=== PATIENT | female | born 1945 | race African-American/Black ===

== ENCOUNTER 2020-10-18 07:39 | Day surgery (SDC) | payer OTHER ==
--- NOTE | 2020-10-12 13:23 | RAD REPORT ---
EXAM DESCRIPTION: RAD - Chest Pa And Lat (2 Views) - 10/12/2020 1:10 pm CLINICAL HISTORY: pre op Chest pain. COMPARISON: CHEST PA AND LAT 2 VIEW dated 12/19/2008; Breast Bilat W Wo Cont dated 04/04/2020 FINDINGS: The lungs are clear. The heart is normal in size. No displaced fractures. Mildly tortuous thoracic aorta.
[2020-10-12 13:57] LABS: Absolute Lymphocytes (CBC) 1.7 K/uL (0.7-4.9); Basophils % 0.4 % (0-1.3); Hematocrit 37.1 % (36.0-45.0); Lymphocytes % 33.8 % (15.3-44.8); MPV 8.4 fL (7.6-11.3); RBC Red Blood Cell Count 4.22 M/uL (3.86-4.86)
[2020-10-12 14:04] LABS: Protime INR 0.97
--- NOTE | 2020-10-14 10:05 | EKG ---
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
[~2020-10-18 07:39] MED LIST: CLINDAMYCIN INJ 600 MG in NA CHLORIDE 0.9% 50 ML IV SCH
[2020-10-18] MEDS ORDERED: BUPIVACAINE 0.25% PF 10 ML VIAL ONE (07:43)
--- OUTSIDE RECORDS SUMMARY | 2020-10-18 08:08 | XMS REPORT | Continuity of Care Document ---
:1945 Author Organization [employer] Care Team Providers Name Role Phone [employer] Unavailable Un available Problems Problem Status Onset Classification Date Comments Sourc e Date Reported Encounter for 01/24/2019 gynecological 018 Medica l examination (general) Group (routine) without abnormal findings Other specified 01/24/2019 noninflammatory 018 Medi seamus disorders of vulva and Group perineum Nuclear cataract Resolved Problem 09/08/2020 MH (disorder) 016 Medical Group,[place] [facility] Neuro Pseudophakia Active Problem 09/08/2020 Data MH (disorder) 016 migrated Medical from [facility] nicanor on 04/22/15. Neuro, OPID [place] R10.9 - UNSPECIFIED Active OPID ABDOMINAL PAIN 016 [place] Long-term drug therapy Resolved Problem 09/08/2020 Data (procedure) 016 migrated Medical from [facility] nicanor on 04/22/15. Neuro EXAMINATION, Active Condition 06/12/2015 MH PREOPERATIVE NEC 015 Med ical Group URINARY TRACT Inactive Condition 06/12/2015 INFECTION, SITE NOT 015 Medical SPECIFIED Group Adhesive capsulitis of Active Problem 09/08/2020 Data shoulder (disorder) 015 migrated Medical from [facility] nicanor on 05/31/15. Neuro, OP[place] FROZEN LEFT SHOULDER Active Condition 06/12/2015 015 Medical Group Nausea (finding) Resolved Problem 09/08/2020 Data owen rated from [employer] on 05/31/15. 015 Data migrated from [facility] on 05/31/15. Medical Group,[place] [facility] Neuro, OP[place] Screening mammography Active Problem 09/08/2020 Enoc a migrated from [employer] on 05/31/15. (procedure) 015 Data migrated from [facility] [employer] on 05/31/15. Medical Group,[place] [facility] Neuro,MH OP[facility] [place] NAUSEA Inactive Condition 06/12/2015 015 Medical Group OTHER SCREENING Active Condition 06/12/2015 MAMMOGRAM 015 Medical Group SCREENING, DIABETIC Active Condition 06/12/2015 RETINOPATHY 015 Medical Group Rotator cuff syndrome Active Problem 02/09/2016 Data OPID (disorder) 014 migrated Sugar from [facility] [employer] on 04/22/15. ROTATOR CUFF TEAR Active Condition 06/12/2015 M H 014 Medical Group ABDOMINAL PAIN, Inactive Condition 06/12/2015 GENERALIZED 014 Medical Group NAUSEA AND VOMITING Inactive Condition 06/12/2015 014 Medical Group NEED PROPHYLACTIC Inactive Condition 06/12/2015 M H VACCINATION&INOCULATIO 014 Medical N FLU Group BLOOD VESSEL REPLACED Active Condition 06/12/2015 BY OTHER MEANS 014 Medic al Group BODY MASS INDEX Active Condition 06/12/2015 34.0-34.9 ADULT 014 Medi seamus Group DRY SOCKET Inactive Condition 06/12/2015 014 Medical Group BUNION Inactive Condition 06/12/2015 014 Medical Group ABDOMINAL PAIN RIGHT Inactive Condition 06/12/2015 UPPER QUADRANT 014 Medic al Group ABDOMINAL PAIN RIGHT Inactive Condition 06/12/2015 LOWER QUADRANT 014 Medic al Group LONG-TERM (CURRENT) Active Condition 06/12/2015 USE OF OTHER 014 Medical MEDICATIONS Group Disorder of refraction Active Problem 09/08/2020 Data AND/OR accommodation 013 migrated Medical (disorder) from [facility] nicanor on 04/22/15. Neuro, [place] CATARACT, NUCLEAR Active Condition 06/12/2015 M H SCLEROSIS OS 013 Medical Group PSEUDOPHAKIA OD Active Condition 06/12/2015 013 Medical Group UNSPECIFIED DISORDER Active Condition 06/12/2015 OF 013 Medical REFRACTION&ACCOMMODATI Group ON CHRONIC KIDNEY DISEASE Inactive Condition 06/12/2015 STAGE III (MODERATE) 013 Medical Group Decreased estrogen Active Problem 09/08/2020 Data level (finding) 013 migrated Medi seamus from [facility] nic[facility] on 04/22/15. Neuro, [place] ESTROGEN DEFICIENCY Active Condition 06/12/2015 013 Medical Group Diabetes mellitus type Active Problem 09/08/2020 Data 2 (disorder) 013 migrated Medical from [facility] nicanor on 04/22/15. Neuro, OP[place] DIABETES MELLITUS, Active Condition 06/12/2015 TYPE II 013 Medical Group HYPERGLYCEMIA Inactive Condition 06/12/2015 013 Medical Group POSTNASAL DRIP Inactive Condition 06/12/2015 013 Medical Group SCREENING, VAGINAL Active Condition 06/12/2015 CANCER 013 Medical Group Gastritis (disorder) Resolved Problem 09/08/2020 Data migrated from GE [facility] on 06/10/15. 013 Data migrated from G E [facility] on 06/09/15. Medical Group,[place] [facility] Neuro, OPID [place] GASTRITIS Inactive Condition 06/12/2015 013 Medical Group Hypertriglyceridemia Resolved Problem 09/08/2020 Data MH (disorder) 013 migrated Medical from [facility] nicanor on 04/22/15. Neuro, [place] Insect bite - wound Resolved Problem 09/08/2020 Data migrated from [facility] on 06/10/15. MH (disorder) 013 Data migrated from GE [facility] on 06/09/15. Medical Group,[place] [facility] Neuro, [place] INSECT BITE Inactive Condition 06/12/2015 013 Medical Group HYPERTRIGLYCERIDEMIA Active Condition 06/12/2015 013 Medical Group Bronchospasm (finding) Resolved Problem 09/08/2020 Da ta migrated from GE [facility] on 06/10/15. 013 Data migrated from G E [facility] on 06/09/15. Medical Group,M[facility] Neuro, OP[place] COUGH Inactive Condition 06/12/2015 013 Medical Group ACUTE BRONCHOSPASM Inactive Condition 06/12/2015 013 Medical Group MALAISE AND FATIGUE Inactive Condition 06/12/2015 013 Medical Group Hyperlipidemia Active Problem 02/09/2016 Data O PID (disorder) 012 migrated Sugar from [employer] [facility] on 04/22/15. Lumbar radiculopathy Active Problem 02/09/2016 Data OPID (disorder) 012 migrated Sugar from [employer] on 04/22/15. Hypertensive episode Active Problem 09/08/2020 Data MH (disorder) 012 migrated Medical from [facility] nicanor on 04/22/15. Neuro, OPID [place] Low back pain Active Problem 09/08/2020 Data MH (disorder) 012 migrated Medical from [facility] [facility] nic[facility] on 04/22/15. Neuro, OP[place] Osteoarthritis Active Problem 09/08/2020 Data MH (disorder) 012 migrated Medical from [employer] nic[facility] on 04/22/15. Neuro, OP[place] Sciatica (disorder) Active Problem 09/08/2020 Data 012 migrated Medical from [facility] nicanor on 04/22/15. Neuro, OP[place] OSTEOARTHRITIS Active Condition 06/12/2015 012 Medical Group LUMBAR RADICULOPATHY Active Condition 06/12/2015 012 Medical Group LOW BACK PAIN Active Condition 06/12/2015 012 Medical Group LUMBAR SPRAIN AND Inactive Condition 06/12/2015 M H STRAIN 012 Medical Group SCIATICA, LEFT Active Condition 06/12/2015 012 Medical Group HYPERTENSION Active Condition 06/12/2015 012 Medical Group HYPERLIPIDEMIA Active Condition 06/12/2015 012 Medical Group Peripheral circulatory Active Problem 12/23/2015 Data OPID disorder associated migrated Sugar with type II diabetes from [facility] mellitus (disorder) Centricity on 04/22/15. Abdominal pain Active Problem 09/08/2020 MH (finding) Medical Group,Md [facility] Neuro Adenomatous polyp of Active Problem 09/08/2020 colon (disorder) Med ical Group,Mi [facility] Neuro Allergic rhinitis Active Problem 09/08/2020 Data M H (disorder) migrated Medical from Group,Md [facility]ric[facility] nicanor on 04/22/15. Neuro,MH OPID [place] Asthma (disorder) Active Problem 09/08/2020 Data M H migrated Medical from GE Group,Md [facility] nicanor on 04/22/15. Neuro,MH [place] Body mass index 30+ - Active Problem 09/08/2020 MH obesity (finding) Me dical Group,Md [facility] Neuro, [place] Breast neoplasm Active Problem 09/08/2020 MH screening status Med ical (finding) Group,Md nicanor Neuro Carpal tunnel syndrome Active Problem 09/08/2020 Mischer (disorder) Neuro Chronic kidney disease Active Problem 09/08/2020 MH stage 3 (disorder) edical Group,Md nicanor Neuro Congestive heart Active Problem 09/08/2020 Data failure (disorder) migrated M edical from Group,Md Centric[facility] nicanor on 04/22/15. Neuro, [place] Constipation Active Problem 09/08/2020 (disorder) Medical Group,Md nic[facility] Neuro, OP[facility] [place] Diverticular disease Resolved Problem 09/08/2020 (disorder) Medical Group,Md nic[facility] Neuro, OPID [place] Diabetes mellitus Resolved Problem 09/08/2020 M H (disorder) Medical Group,Md nic[facility] Neuro, OP[place] Drug therapy finding Active Problem 09/08/2020 (finding) Medical Group,Mi [facility] Neuro Foot pain (finding) Active Problem 09/08/2020 Medical Group,Md nic[facility] Neuro Hypertensive disorder, Resolved Problem 09/08/2020 systemic arterial Me dical (disorder) Group,Md nicanor Neuro, OPID [place] Hypercholesterolemia Resolved Problem 09/08/2020 (disorder) Medical Group,[place] [facility] Neuro, OP[place] Hyperparathyroidism Active Problem 09/08/2020 (disorder) Medical Group,[facility] Neuro Mixed hyperlipidemia Active Problem 09/08/2020 (disorder) Medical Group,[facility] Neuro Peripheral vascular Active Problem 09/08/2020 Data disease (disorder) migrated M edical from GE Group,Md [facility]ric[facility] nicanor on 04/22/15. Neuro, OP[place] Screening status Active Problem 09/08/2020 (finding) Medical Group,[facility] Neuro Insomnia (disorder) Active Problem 09/08/2020 Medical Group,[facility] Neuro Streptococcal sore Active Problem 09/08/2020 throat (disorder) Ca dical Group,[place] [facility] Neuro Surgical follow-up Resolved Problem 09/08/2020 (finding) Medical Group,Abril nicanor Neuro ALLERGIC RHINITIS Active Condition 06/12/2015 M H Medical Group ASTHMA Active Condition 06/12/2015 Medical Group HYPERCHOLESTEROLEMIA Inactive Condition 06/12/2015 Medical Group HYPERTENSION - BENIGN Inactive Condition 06/12/2015 ESSENTIAL Medical Group FH DIABETES - DM Active Condition 06/12/2015 Medical Group FH LUNG CANCER Active Condition 06/12/2015 Medical Group CONGESTIVE HEART Active Condition 06/12/2015 FAILURE UNSPECIFIED Medical Group PERIPHERAL VASCULAR Active Condition 06/12/2015 DISEASE Medical Group RUQ PAIN Inactive Condition 06/12/2015 Medical Group RLQ PAIN Inactive Condition 06/12/2015 Medical Group LONG-TERM USE Active Condition 06/12/2015 NON-STEROIDAL Medica l ANTI-INFLAMMATORIES Group DIABETES MELLITUS, Active Condition 06/12/2015 TYPE II, CONTROLLED Medical W/VASCULAR Group COMPLICATIONS Medications Medication Details Route Status Patient Ordering Order Source Instructions Provider Date isosorbide = 1 tab, PO, Active mononitrate 30 mg Daily, # 90 2019 Ca dical oral tablet, extended tab, Pharmacy: [facility] release [facility] [id number] losartan 50 mg oral = 1 tab, PO, Active tablet Daily, # 90 2019 Medical tab, [facility] [id number] CLOPIDOGREL 75MG = 1 tab, PO, Active TABLETS Daily, # 90 2019 Medical tab, Pharmacy: [facility] [id number] Levofloxacin 500 MG 500 mg = 1 tab, No 11/24 Oral Tablet PO, Q24H, X 10 Longer 2019 Medic al [Levaquin] day, # 10 tab, Active Group 0 Refill(s), Pharmacy: [facility] [id number] ACCU-CHEK FASTCLIX See Active LANCETS 102'S Instructions, # 2018 Me dical 102 unknown Group unit, Refill(s) 12, TEST DIRECTED EVERY DAY, Pharmacy: [facility] [id number] 3 ML insulin detemir See Active 100 UNT/ML Prefilled Instructions, # 201 8 Medical Syringe [Levemir] 15 mL, Group Refill(s) 11, INJECT 15 UNITS SUBCUTANEOUSLY EVERY MORNING., Pharmacy: [facility] [id number] atorvastatin 20 mg See Active oral tablet Instructions, # 2018 Medi seamus 90 tab, Group Refill(s) 3, TAKE 1 TABLET BY MOUTH EVERY DAY, Pharmacy: [facility] [id number] B-D PEN NDL MINI See Active [id number](02/06)PRPL Instructions, # 2018 Medical 100 unknown Group unit, Refill(s) 11, CHECK BLOOD SUGARS EVERY DAY, Pharmacy: [facility] [id number] Betamethasone 0.5 1 appl, TOP, No 07/07/ M H MG/ML / Clotrimazole BID, PRN Apply Longer 2018 Medical 10 MG/ML Topical to affected Active Shu up Cream [Lotrisone] areas., X 14 day, # 45 gm, 1 Refill(s), Pharmacy: [facility] [id number] 120 ACTUAT 1 puff, Active Fluticasone INHALATION, 2018 Medical propionate 0.22 BID, # 12 gm, 6 Group MG/ACTUAT Metered Refill(s), Dose Inhaler [facility] ACTUAT Budesonide 2 puff, Active 0.08 MG/ACTUAT Dry INHALATION, 2018 M edical Powder Inhaler BID, use with Shu up [Pulmicort] spacer Rinse mouth after use, # 3 ea, 11 Refill(s), Pharmacy: [facility] [id number] lansoprazole 30 mg 30 mg = 1 cap, Active oral delayed release PO, Daily, # 30 201 8 Medical capsule cap, 0 Group Refill(s) Accu-Chek SmartView 1 ea, MISC, Active Blood Glucose Test TID, Use for 2018 Medical Strips blood glucose Group monitoring. E11.9, # 270 ea, Insulin dependent, Does not use insulin pump, Last DM eval date 10/17/17, 11 Refill(s) DICLOFENAC SODIUM 75 take one twice Active 04/24 MH MG TBEC a day 2014 Medical Group MACROBID 100 MG CAPS 1 capsule twice No a day for UTI Longer 2014 Medical Active Group DICLOFENAC SODIUM 75 take one twice Active 04/24/ MH MG TBEC a day 2014 Medical Group TRAMADOL HCL 50 MG 1 tablet twice Active TABS daily 2014 Medical Group TRAMADOL HCL 50 MG 1 tablet twice Active TABS daily 2014 Medical Group TRAMADOL HCL 50 MG 1 tablet twice Active TABS daily 2014 Medical Group ACCU-CHEK MULTICLIX qd Active LANCETS MISC 2014 Medical Group ACCU-CHEK ACTIVE STRP qd Active 2014 Medical Group MACROBID 100 MG CAPS 1 capsule twice No a day for UTI Longer 2014 Medical Active Group ACCU-CHEK MOIRA check qd Active SMARTVIEW W/DEVICE 2014 Medic al KIT Group ERYTHROMYCIN BASE 250 1/4 tablet p.o. No MG CPEP q.a.m. and h.s. Longer 2014 Medical Active Group TRAMADOL HCL 50 MG one tablet p.o. Active 11/03 TABS q.i.d. p.r.n. 2013 Medical pain Group TRAMADOL HCL 50 MG one tablet p.o. No 11/03 TABS q.i.d. p.r.n. Longer 2013 Medical pain Active Group TRAMADOL HCL 50 MG one tablet p.o. Active 11/03 TABS q.i.d. p.r.n. 2013 Medical pain Group TRAMADOL HCL 50 MG one tablet p.o. No 11/03 TABS q.i.d. p.r.n. Longer 2013 Medical pain Active Group TRAMADOL HCL 50 MG one tablet p.o. No 11/03 TABS q.i.d. p.r.n. Longer 2013 Medical pain Active Group ADULT ASPIRIN LOW 1 TAB QD Active STRENGTH 81 MG TBDP 2013 Medi seamus Group KLOR-CON M10 10 MEQ 1 tablet daily Active 07/01 CR-TABS 2013 Medical Group KLOR-CON M10 10 MEQ 1 tablet daily Active 07/01 CR-TABS 2013 Medical Group KLOR-CON M10 10 MEQ 1 tablet daily Active 07/01 CR-TABS 2013 Medical Group DICYCLOMINE HCL 10 MG one tab p.o. Active 05/12 CAPS q.i.d. p.r.n. 2013 Medical abdominal pain Group DICYCLOMINE HCL 10 MG one tab p.o. Active 05/12 CAPS q.i.d. p.r.n. 2013 Medical abdominal pain Group DICYCLOMINE HCL 10 MG one tab p.o. Active 05/12 CAPS q.i.d. p.r.n. 2013 Medical abdominal pain Group RELION INSULIN 15 units qd Active SYRINGE 30G X 16" 2013 Medi seamus 0.3 ML MISC Group LEVEMIR 100 UNIT/ML 15 units once a Active 03/24 SOLN day in the 2013 Medical morning Group LEVEMIR 100 UNIT/ML 15 units once a Active 03/24 SOLN day in the 2013 Medical morning Group RELION CONFIRM check qd No GLUCOSE MONITOR Longer 2013 Medical W/DEVICE KIT Active Group RELION CONFIRM/MICRO qd No TEST STRP Longer 2013 Medical Active Group RELION ULTRA THIN qd No PLUS LANCETS MISC Longer 2013 Medica l Active Group AZITHROMYCIN 250 MG 2 tablets daily No TABS for 1 day, then Longer 2013 Medical 1 tablet daily Active Group for 4 days RELION INSULIN 10 units qd Active SYRINGE 30G X 16" 2013 Medi seamus 0.3 ML MISC Group LEVEMIR SOLN No Longer 2013 Medical Active Group HYOSCYAMINE SULFATE one tablet No H 0.125 MG SUBL sublingual Longer 2013 Medical q.i.d. p.r.n. Active Group abdominal pain HYOSCYAMINE SULFATE one tablet Active H 0.125 MG SUBL sublingual 2013 Medical q.i.d. p.r.n. Group abdominal pain HYOSCYAMINE SULFATE one tablet No H 0.125 MG SUBL sublingual Longer 2013 Medical q.i.d. p.r.n. Active Group abdominal pain PROAIR HFA 108 (90 2 puffs Q4-6H Active BASE) MCG/ACT AERS prn 2013 Medic al Group AZITHROMYCIN 250 MG 2 tablets daily No 12/25 TABS for 1 day, then Longer 2013 Medical 1 tablet daily Active Group for 4 days PROAIR HFA 108 (90 2 puffs Q4-6H Active BASE) MCG/ACT AERS prn 2013 Medic al Group LOSARTAN POTASSIUM 50 1 TAB QD Active H MG TABS 2013 Medical Group AMLODIPINE BESYLATE 5 1 TAB QD Active H MG TABS 2013 Medical Group HYDROCHLOROTHIAZIDE 1 TAB QD Active 25 MG TABS 2013 Medical Group LOSARTAN POTASSIUM 50 1 TAB QD Active H MG TABS 2013 Medical Group AMLODIPINE BESYLATE 5 1 TAB QD Active H MG TABS 2013 Medical Group LOSARTAN POTASSIUM 50 1 TAB QD Active H MG TABS 2013 Medical Group AMLODIPINE BESYLATE 5 1 TAB QD Active H MG TABS 2013 Medical Group AMLODIPINE BESYLATE 1 tablet daily Active 11/30 10 MG TABS 2013 Medical Group AMLODIPINE BESYLATE 5 1 TAB QD Active H MG TABS 2014 Medical Group HYDROCHLOROTHIAZIDE 1 TAB QD Active 25 MG TABS 2014 Medical Group AMLODIPINE BESYLATE 1 tablet daily Active 11/30 10 MG TABS 2013 Medical Group EXFORGE HCT 10-160-25 1 tablet po No MG TABS every other day Longer 2012 Medical Active Group EXFORGE HCT 10-160-25 1 tablet po No MG TABS every other day Longer 2012 Medical Active Group LEVEMIR 100 UNIT/ML 15 units once a Active 08/25 SOLN day in the 2012 Medical morning Group AMARYL 2 MG TABS i tab po BID No Longer 2012 Medical Active Group JANUVIA 100 MG TABS 1 tab by mouth No 10 0/ MH once daily Longer 2012 Medical Active Group JANUVIA 100 MG TABS 1 tab by mouth No 10 0/ MH once daily Longer 2012 Medical Active Group JANUVIA 100 MG TABS 1 tab by mouth No 10 0/ MH once daily Longer 2012 Medical Active Group JANUVIA 100 MG TABS 1 tab by mouth No 10/1 0/ MH once daily Longer 2012 Medical Active Group LANSOPRAZOLE 30 MG one tablet p.o. Active 04/29 CPDR q. day 2012 Medical Group LANSOPRAZOLE 30 MG one tablet p.o. Active 04/29 CPDR q. day 2012 Medical Group [id number] GM follow handout No SOLR instructions Longer 2012 Medical Active Group ISOSORBIDE 1 tablet po Active MONONITRATE CR 30 MG daily 2011 Med ical [id number] Group METOPROLOL TARTRATE 1 tablet po BID Active 09/25 50 MG TABS 2011 Medical Group CRESTOR 10 MG TABS 1 tablet po Active H nightly 2012 Medical Group PLAVIX 75 MG TABS 1 tablet po Active daily 2012 Medical Group SINGULAIR 10 MG TABS 1 tablet po Active nightly 2012 Medical Group ACTONEL 35 MG TABS 1 tablet po No H weekly Longer 2011 Medical Active Group FUROSEMIDE 40 MG TABS 1 tablet po No daily Longer 2011 Medical Active Group KLOR-CON 10 TAB 10MEQ 1 tablet po No ER daily Longer 2011 Medical Active Group ISOSORBIDE 1 tablet po Active MONONITRATE CR 30 MG daily 2012 Med ical [id number] Group METOPROLOL TARTRATE 1 tablet po BID Active 09/25 50 MG TABS 2012 Medical Group FUROSEMIDE 40 MG TABS 1 tablet po No daily Longer 2011 Medical Active Group ISOSORBIDE 1 tablet po Active MONONITRATE CR 30 MG daily 2011 Med ical [id number] Group METOPROLOL TARTRATE 1 tablet po BID Active 09/25 50 MG TABS 2012 Medical Group ISOSORBIDE 1 tablet po Active MONONITRATE CR 30 MG daily 2011 Med ical [id number] Group FUROSEMIDE 40 MG TABS 1 tablet po No daily Longer 2011 Medical Active Group KLOR-CON 10 TAB 10MEQ 1 tablet po No ER daily Longer 2011 Medical Active Group ISOSORBIDE 1 tablet po Active MONONITRATE CR 30 MG daily 2011 Med ical [id number] Group METOPROLOL TARTRATE 1 tablet po BID Active 09/25 50 MG TABS 2011 Medical Group PLAVIX 75 MG TABS 1 tablet po Active daily 2011 Medical Group SINGULAIR 10 MG TABS 1 tablet po Active nightly 2011 Medical Group FUROSEMIDE 40 MG TABS 1 tablet po No daily Longer 2011 Medical Active Group KLOR-CON 10 TAB 10MEQ 1 tablet po No ER daily Longer 2011 Medical Active Group ATORVASTATIN CALCIUM 1 tablet daily Active 09/25 20 MG TABS 2011 Medical Group METOPROLOL TARTRATE 1 tablet po BID Active 09/25 50 MG TABS 2011 Medical Group ACTONEL 35 MG TABS 1 tablet po No 10/19/ M H weekly Longer 2011 Medical Active Group ATORVASTATIN CALCIUM 1 tablet daily Active 09/25 20 MG TABS 2011 Medical Group NAPROSYN TAB 500MG 1 tablet po BID No 09/10 prn pain and Longer 2011 Medical inflammation Active Group FLEXERIL TAB 10MG 1 tablet po TID No prn muscle Longer 2011 Medical spasms Active Group ULTRAM TABS 50 MG 1 tablet po No Q4-6H prn pain Longer 2011 Medical Active Group ULTRAM TABS 50 MG 1 tablet po No Q4-6H prn pain Longer 2011 Medical Active Group NAPROSYN TAB 500MG 1 tablet po BID No 09/10 prn pain and Longer 2011 Medical inflammation Active Group Allergies, Adverse Reactions, Alerts Substance Category Reaction Severity Reaction Status Date Comments S ource type Reported PCN Drug PCN allergy 2 Medical Group VICODIN Drug VICODIN allergy 2 Medical Group IODINE SHELL Drug IODINE M H FISH allergy SHELL 2 Medical FISH Group penicillins<s Assertion Drug Active Data Mischer up>1</sup> allergy 2 migrated Neur o from [facility] on 06/22/15. Originally documented as PCN. iodinated Assertion Drug Active Data Mi nicanor radiocontrast allergy 2 migrated N euro dyes<sup>2</s from GE up> Centricity on 06/22/15. Originally documented as IODINE SHELL FISH. acetaminophen Assertion Drug Active Data Mischer -HYDROcodone< allergy 2 migrated N euro sup>3</sup> from [facility] on 03/23/15. Originally documented as VICODIN. acetaminophen Assertion Drug Active Data OPID -HYDROcodone< allergy 2 migrated S ugar sup>1</sup> from [facility] on 03/23/15. Originally documented as VICODIN. penicillins<s Assertion Drug Active Data OPID up>3</sup> allergy 2 migrated Suga r from [facility] on 06/22/15. Originally documented as PCN. iodine Assertion Drug Active Mische r topical allergy Neuro penicillin Assertion Drug Active Mis marita allergy Neuro Vicodin ES Assertion Drug Active Mis marita allergy Neuro Immunizations Immunization Date Site Status Last Comments Source Given Updated influenza virus Left completed [facility] M edical vaccine, 6 Deltoid Group,Misc h inactivated er Neuro influenza virus Left completed [place] M edical vaccine, 5 Deltoid Group,Misc h inactivated er Neuro , OPID [place] pneumococcal Right completed [facility] Medi seamus 13-valent 5 Deltoid Group,Misc h vaccine er Neuro,M H OPID [place] influenza completed Medical immunization 4 Group (Flu Vax) has been administered influenza virus Right completed [facility] edical vaccine, 4 Deltoid Comment: Group,Misc h inactivated<sup> fluzone high er Neuro, 1</sup> dose [[id number]]. OPID [place] Migrated from Land OBS ; Data migrated from [email or web address] on 12/26/2015. influenza completed Medical immunization 3 Group (Flu Vax) has been administered influenza completed Medical immunization 2 Group (Flu Vax) has been administered pneumococcal completed Result Medi seamus 23-valent 1 Comment: Group,Misc h vaccine<sup>2</s given. er Neuro, up> Migrated from OPID S ugar OBS ; Data Land migrated from [employer] on 12/26/2015. pneumococcal completed Medi seamus immunization 1 Group administered Results Order Name Results Value Reference Date Interpretation Comments Krystyna rce Range Chemistry BUN 18 7 - 22 2014 Medical Group Chemistry CREATININE 1.0 0.5 - 1.4 2014 Medical Group Chemistry SODIUM 142 135 - 145 MEQ/L 2014 Medical Group Chemistry POTASSIUM 4.2 3.5 - 5.1 MEQ/L 2014 Medical Group Chemistry CALCIUM 9.0 8.5 - 10.5 2014 Medical Group Chemistry BUN 18 7 - 22 2014 Medical Group Chemistry CREATININE 1.0 0.5 - 1.4 2014 Medical Group Chemistry SODIUM 142 135 - 145 MEQ/L 2014 Medical Group Chemistry POTASSIUM 4.2 3.5 - 5.1 MEQ/L 2014 Medical Group Chemistry CALCIUM 9.0 8.5 - 10.5 2014 Medical Group Hematology HGB 12.4 12.0 - 16.0 2014 Medical Group Hematology HCT 36.8 36.0 - 48.0 2014 Medical Group Hematology PLATELETS 212 133 - 450 K/[facility] 2014 Medical Group Hematology HGB 12.4 12.0 - 16.0 2014 Medical Group Hematology HCT 36.8 36.0 - 48.0 2014 Medical Group Hematology PLATELETS 212 133 - 450 K/[facility] 2014 Medical Group Chemistry HGBA1C 6.3 2014 Medical Group Chemistry CREATININE 1.12 2014 Medical Group Chemistry HGBA1C 6.3 2014 Medical Group Chemistry CREATININE 1.12 2014 Medical Group Chemistry HGBA1C 6.3 2014 Medical Group Chemistry CREATININE 0.89 2014 Medical Group Chemistry TSH 0.59 2014 Medical Group Chemistry CHOLESTEROL 156 2014 Medical Group Chemistry LDL 70 2014 Medical Group Chemistry HDL 61 2014 Medical Group Chemistry TRIGLYCERIDE 126 2014 Medical Group Chemistry HGBA1C 6.3 2014 Medical Group Chemistry CREATININE 0.89 2014 Medical Group Chemistry TSH 0.59 2014 Medical Group Chemistry CHOLESTEROL 156 2014 Medical Group Chemistry LDL 70 2014 Medical Group Chemistry HDL 61 2014 Medical Group Chemistry TRIGLYCERIDE 126 2014 [facility] Group Chemistry HGBA1C 6.0 3.0 - 6.0 2013 [facility] Chemistry HGBA1C 6.0 3.0 - 6.0 2013 [facility] Chemistry SODIUM 138 136 - 142 2013 [facility] Chemistry POTASSIUM 4.5 3.3 - 5.0 2013 [facility] Chemistry BUN 24 8 - 20 2013 [facility] Chemistry CREATININE 1.00 0.46 - 1.20 2013 [facility] Chemistry CALCIUM 9.4 8.8 - 10.0 2013 [facility] Chemistry HGBA1C 5.8 3.0 - 6.0 2013 [facility] Chemistry SODIUM 138 136 - 142 2013 [facility] Chemistry POTASSIUM 4.5 3.3 - 5.0 2013 [facility] Chemistry BUN 24 8 - 20 2013 [facility] Chemistry CREATININE 1.00 0.46 - 1.20 2013 [facility] Chemistry CALCIUM 9.4 8.8 - 10.0 2013 [facility] Chemistry HGBA1C 5.8 3.0 - 6.0 2013 [facility] Chemistry HGBA1C 5.7 2013 [facility] Chemistry CREATININE 0.91 2013 [facility] Chemistry HGBA1C 5.7 2013 [facility] Chemistry CREATININE 0.91 2013 [facility] Chemistry CHOLESTEROL 157 2012 [facility] Chemistry TRIGLYCERIDE 94 2012 [facility] Chemistry HDL 58 2012 [facility] Chemistry LDL 80 2012 [facility] Chemistry CREATININE 1.56 2012 [facility] Chemistry CHOLESTEROL 157 2012 [facility] Chemistry TRIGLYCERIDE 94 2012 [facility] Chemistry HDL 58 2012 [facility] Chemistry LDL 80 2012 [facility] Chemistry CREATININE 1.56 2012 [facility] Chemistry HGBA1C 12.5 2012 [facility] Chemistry CREATININE 1.56 2012 [facility] Chemistry TSH 0.69 2012 [facility] Chemistry CHOLESTEROL 157 2012 [facility] Chemistry LDL 80 2012 [facility] Chemistry HDL 58 2012 [facility] Chemistry TRIGLYCERIDE 94 2012 [facility] Chemistry HGBA1C 12.5 2012 [facility] Chemistry CREATININE 1.56 2012 [facility] Chemistry TSH 0.69 2012 [facility] Chemistry CHOLESTEROL 157 2012 [facility] Chemistry LDL 80 2012 [facility] Chemistry HDL 58 2012 Medical [facility] Chemistry TRIGLYCERIDE 94 2012 [facility] Urinalysis MICROALB URN 10 2012 [facility] Urinalysis MICROALB URN 10 2012 [facility] Urinalysis MICROALB URN 10 2012 [facility] Urinalysis MICROALB URN 10 2012 [facility] Urinalysis MICROALB URN 10 2012 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 2012 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 Current study was evaluated with a Tech Ed/Woodshop Teacher d Detection (CAD) system. COMPARISON:Comparison is mad e to exams dated: 05/30/2017 mammogram, 07/23/2016 mammogram, 04/13/2015 mammogram, and 08/05/2013 mammogram - [facility]. TECHNIQUE: Mammographic view s were obtained using digital acquisition. Current study was also evaluated with a Computer Aided Detection (CAD) system. FINDINGS: The tissue of both breasts is almost entirely fa t. There are benign calcifications in both breasts. No significant masses, calci fications, or other findings are seen in either breast. There has been no significant interval change. IMPRESSION: BENIGN RECOMMENDATION:There is no m ammographic evidence of malignancy. A 1 year screening mammogram is recommended.(06/16/2019) This exam was interpreted at [id number] for [facility]. Zan rondon/penrad:06/15/2018 12:41:34 Gas Pumper(s): Soha Calvillo, [facility] letter sent: BI-RADS 1/2 Mammogram BI-RADS: 2 Benign Foot series DX EXAM: Foot series DX 07/03/2017 [facility] HISTORY: - TRAUMA COMPARISON: None Left foot 3 views FINDINGS: Postoperative morales ge at the great toe metatarsal noted with a single screw. There is no acute fracture or dislocation. There are small enthesophytes at the superior and inferior aspect of the calcaneus. Mild tibiotalar o steophyte formation. There is soft tissue swelling at the anterior aspect of the ankle. IMPRESSION: No acute fractur e is identified. There is soft tissue swelling at the anterior aspect of the ankle. Breast Mammo Scrn NEO - BREAST MAMMO SCRN NEO INCL CAD MA 2016 [facility] incl CAD MA BILATERAL DIGITAL SCREENING MAMMOGRAM WITH CAD: 05/30/2017 CLINICAL: Screening/Screening. Current study was evaluated with a Tech Ed/Woodshop Teacher d Detection (CAD) system. Comparison is made to exams dated: 04/13/2015 mammogram and 07/23/2016 mammogram - [facility]. There are scattered fibroglandular densities in both breasts. There are benign calcifications in both breasts. No significant masses, calci fications, or other findings are seen in either breast. There has been no significant interval change. IMPRESSION: BENIGN There is no mammographic leilani dence of malignancy. A 1 year screening mammogram is recommended. Zaki rodriguez/penrad:06/02/2017 10:06:45 Gas Pumper: Laina Calvillo, [facility] This exam was dictated and i nterpreted by [id number] for [facility]. letter sent: Normal exam Mammogram BI-RADS: 2 Benign Digital Mammo - DIGITAL MAMMO SCREENING NEO MA 07/23/2016 [facility] Screening Neo MA BILATERAL DIGITAL SCREENING MAMMOGRAM WITH CAD: 07/23/2016 Current study was evaluated with a Tech Ed/Woodshop Teacher d Detection (CAD) system. Comparison is made to exams dated: 04/13/2015 mammogram and 08/05/2013 mammogram - [facility]. The tissue of both breasts is almost entirely fa t. There are benign scattered, round and coarse, calcifications in both breasts that are increased in number. No suspicious masses, calcif ications, or other findings are seen in either breast. IMPRESSION: BENIGN There is no mammographic leilani dence of malignancy. A 1 year screening mammogram is recommended. Not all cancers are detectab le on mammography or ultrasound. A negative imaging study should not delay biopsy of a clinically apparent mass/ abnormality. Viktor Ovalle MD jh/:07/25/2016 09:07:13 Gas Pumper: Rosalinda Maxwell, [facility] This exam was dictated and i nterpreted by [id number] for [facility]. letter sent: Bilateral Benign Mammogram BI-RADS: 2 Benign Abdomen/Pelvis wo IV CT ABDOMEN WITHOUT IV CONTRAST 02/06/[address] [facility] [place] [address] PELVIS WITHOUT IV CONTRAST CLINICAL HISTORY: Abdominal pain. COMPARISON STUDY: Ultrasound abdomen 12/20/2015. TECHNIQUE: Sequential axial images were obtained with a multi-detector helical CT without administration of intravenous iodinated contrast material. Oral contrast was given.The reported DLP in mGy*cm is 1001 . The lack of contrast limits detailed evaluation of the abdominal organs. FINDINGS: The visualized lung bases are clear. The non-contrast enhanced im ages of the liver, spleen, pancreas and adrenals are unremarkable. The kidneys are normal in appearance. There are no renal calculi. There are no perinephric abnormaliti es seen. No evidence of ureteral calculi are see n. The stomach is unremarkable. The loops of small bowel and loops of colon are unremarkable. The appendix is normal . The bladder is unremarkable. Uterus is surgically absent. Adnexal structures are not identified and are presumed to be surgically absent as well There is no pelvic or abdominal lymphadenopathy. No ascit es. No free air. The inguinal regions are unrem arkable. The visualized bones are unr emarkable. Degenerative changes are seen at multiple levels in the lumbar spine. IMPRESSION: Unremarkable non-contrast abdominal and pelvis CT. Abdomen complete w Exam: Abdominal Ultrasound and pelvic ultraso und 12/20/2015 [facility] Pelvis US Reason for Exam: Abdominal pain. Pelvic pain. Comparison Exam: CT scan 02/22/2014 Discussion: Multiple axial and sagittal images were obtained of the abdomen. The liver is of normal size and echogenicity. No focal hepatic masses identified. No intrahepatic or extrahepatic biliary duct dilation, with the common bile duct me asuring 0.4 cm. The patient is status post cholecystectomy. The visualized portions of the pancreatic head and proximal body are within normal limits. The spleen is of jeff l echogenicity measuring 7.9 cm in length. The visualized portions of the upper abdominal aorta and IVC are unremarkable. No evidence seen for ascites. The right and left kidneys m easure 9.7 cm and 9.5 cm respectively. They are of normal echogenicity without hydronephrosis or shadowing renal calculi. Note that the hypodensity within the right kidney on comparison CT scan cannot be distinctly seen on current ultrasound. Multiple axial and sagittal images of the pelvis were obtained transabdominally. The patient is status post hysterectomy. No abnormal midline masses identified. Right and left ovaries canno t be definitively seen. However, there are no abnormal adnexal masses identified. No free fluid seen within th e pelvic cul-de-sac. The bladder is unremarkable in appearance. Impression: 1. Unremarkable ultrasound of the abdomen and pelvis. Note that the hypodensity within the right kidney on comparison CT scan cannot be distinctly seen on current ultrasound. Consultation Notes No Data Provided for This Section Discharge Summaries No Data Provided for This Section History and Physicals No Data Provided for This Section Vital Signs Vital Sign Value Date Comments Source Systolic (mm Hg) 94 06/13/2020 [facility] Diastolic (mm Hg) 61 06/13/2020 [facility] Heart Rate 75 06/13/2020 [facility] Weight 91.545 06/13/2020 [facility] Systolic (mm Hg) 101 12/14/2019 [facility] Diastolic (mm Hg) 68 12/14/2019 [facility] Heart Rate 66 12/14/2019 [facility] Temperature Oral (F) 98.7 F 12/14/2019 [facility] Weight 94 12/14/2019 [facility] BMI Calculated 35.93 06/08/2019 [facility] Weight 92 06/08/2019 [facility] Height 160.02 cm 06/08/2019 [facility] Systolic (mm Hg) 130 06/08/2019 [facility] Diastolic (mm Hg) 64 06/08/2019 [facility] Temperature Oral (F) 98.5 F 06/08/2019 [facility] Heart Rate 62 06/08/2019 [facility] Weight 93.182 12/08/2018 [facility] Height 160.02 cm 12/08/2018 [facility] BMI Calculated 36.39 12/08/2018 [facility] Gr oup Heart Rate 62 12/08/2018 [facility] Temperature Oral (F) 98.0 F 12/08/2018 [facility] Systolic (mm Hg) 127 12/08/2018 [facility] Diastolic (mm Hg) 72 12/08/2018 [facility] Respitory Rate 14 12/08/2018 [facility] Gr oup Temperature Oral (F) 97.8 F 12/08/2018 [facility] Heart Rate 60 12/08/2018 [facility] Systolic (mm Hg) 106 12/08/2018 [facility] Diastolic (mm Hg) 70 12/08/2018 [facility] Weight 92.727 12/08/2018 [facility] Systolic (mm Hg) 116 09/08/2018 [facility] Diastolic (mm Hg) 71 09/08/2018 [facility] BMI Calculated 35.89 09/08/2018 [facility] Gr oup Heart Rate 59 09/08/2018 [facility] Height 160.02 cm 09/08/2018 [facility] Weight 91.909 09/08/2018 [facility] Height 160.02 cm 07/07/2018 [facility] Weight 91.364 07/07/2018 [facility] BMI Calculated 35.68 07/07/2018 [facility] Gr oup Heart Rate 59 07/07/2018 [facility] Systolic (mm Hg) 112 07/07/2018 [facility] Diastolic (mm Hg) 69 07/07/2018 [facility] Weight 90.909 06/15/2018 [facility] Heart Rate 60 06/15/2018 [facility] Respitory Rate 14 06/15/2018 [facility] Gr oup Temperature Oral (F) 98.3 F 06/15/2018 [facility] Systolic (mm Hg) 104 06/15/2018 [facility] Diastolic (mm Hg) 60 06/15/2018 [facility] Weight 92.273 02/10/2018 [facility] Height 160.02 cm 02/10/2018 [facility] Systolic (mm Hg) 110 02/10/2018 [facility] Diastolic (mm Hg) 70 02/10/2018 [facility] BMI Calculated 36.04 02/10/2018 [facility] Heart Rate 60 02/10/2018 [facility] Temperature Oral (F) 97.9 F 02/10/2018 [facility] Respitory Rate 15 02/10/2018 [facility] Gr oup BMI Calculated 34.49 02/10/2018 [facility] Gr oup Height 165.1 cm 02/10/2018 [facility] Systolic (mm Hg) 119 02/10/2018 [facility] Diastolic (mm Hg) 72 02/10/2018 [facility] Heart Rate 56 02/10/2018 [facility] Temperature Oral (F) 98.1 F 02/10/2018 [facility] Weight 94 02/10/2018 [facility] p Height 64 06/12/2015 [facility] Weight 209 06/12/2015 [facility] p Temperature Oral (F) 98 F 06/12/2015 [facility] Respitory Rate 15 06/12/2015 Medical Gr oup Heart Rate 80 06/12/2015 [facility] Systolic (mm Hg) 106 06/12/2015 [facility] Group Diastolic (mm Hg) 70 06/12/2015 [facility] Weight 209 05/09/2015 [facility] p Systolic (mm Hg) 120 05/09/2015 [facility] Diastolic (mm Hg) 70 05/09/2015 [facility] Temperature Oral (F) 98.1 F 05/09/2015 [facility] Heart Rate 64 05/09/2015 [facility] p Height 64 04/13/2015 [facility] Weight 209 04/13/2015 [facility] Temperature Oral (F) 98.5 F 04/13/2015 [facility] Respitory Rate 15 04/13/2015 Medical Gr oup Heart Rate 68 04/13/2015 [facility] p Systolic (mm Hg) 108 04/13/2015 [facility] Diastolic (mm Hg) 70 04/13/2015 [facility] Group Weight 204.01 12/22/2014 Medical Grou p Temperature Oral (F) 98.1 F 12/22/2014 [facility] Heart Rate 58 12/22/2014 [facility] p Systolic (mm Hg) 130 12/22/2014 [facility] Diastolic (mm Hg) 82 12/22/2014 [facility] Weight 205 12/14/2014 [facility] p Temperature Oral (F) 98.2 F 12/14/2014 [facility] Respitory Rate 17 12/14/2014 Medical Gr oup Heart Rate 72 12/14/2014 [facility] Systolic (mm Hg) 118 12/14/2014 [facility] Diastolic (mm Hg) 70 12/14/2014 [facility] Weight 205 11/23/2014 [facility] Systolic (mm Hg) 132 11/23/2014 [facility] Diastolic (mm Hg) 78 11/23/2014 [facility] Weight 205.03 11/03/2014 [facility] p Temperature Oral (F) 98.8 F 11/03/2014 [facility] Heart Rate 67 11/03/2014 [facility] Systolic (mm Hg) 155 11/03/2014 [facility] Group Diastolic (mm Hg) 73 11/03/2014 [facility] Group Height 64 08/09/2014 [facility] Weight 200 08/09/2014 [facility] Respitory Rate 17 08/09/2014 [facility] Gr oup Heart Rate 52 08/09/2014 [facility] Systolic (mm Hg) 107 08/09/2014 [facility] Diastolic (mm Hg) 69 08/09/2014 [facility] Temperature Oral (F) 98.4 F 08/09/2014 [facility] Weight 205.6 05/18/2014 [facility] Temperature Oral (F) 98.0 F 05/18/2014 [facility] Heart Rate 80 05/18/2014 [facility] Systolic (mm Hg) 102 05/18/2014 [facility] Diastolic (mm Hg) 62 05/18/2014 [facility] Weight 199 04/11/2014 [facility] p Temperature Oral (F) 98.7 F 04/11/2014 [facility] Respitory Rate 17 04/11/2014 [facility] Gr oup Systolic (mm Hg) 104 04/11/2014 [facility] Group Diastolic (mm Hg) 68 04/11/2014 [facility] Heart Rate 72 04/11/2014 [facility] Weight 201 04/01/2014 [facility] Temperature Oral (F) 98.5 F 04/01/2014 [facility] Respitory Rate 17 04/01/2014 [facility] Gr oup Heart Rate 60 04/01/2014 [facility] Systolic (mm Hg) 108 04/01/2014 [facility] Diastolic (mm Hg) 70 04/01/2014 [facility] Weight 198.8 01/13/2014 [facility] Heart Rate 68 01/13/2014 [facility] Systolic (mm Hg) 138 01/13/2014 [facility] Diastolic (mm Hg) 88 01/13/2014 [facility] Weight 199 01/04/2014 [facility] Temperature Oral (F) 98.4 F 01/04/2014 [facility] Respitory Rate 16 01/04/2014 [facility]up Heart Rate 60 01/04/2014 [facility] Systolic (mm Hg) 112 01/04/2014 [facility] Diastolic (mm Hg) 60 01/04/2014 [facility] Weight 196 11/30/2013 [facility] Systolic (mm Hg) 142 11/30/2013 [facility] Diastolic (mm Hg) 92 11/30/2013 [facility] Weight 194.4 09/27/2013 Medical Gr[facility] p Temperature Oral (F) 98.2 F 09/27/2013 [facility] Respitory Rate 17 09/27/2013 [facility]up Heart Rate 68 09/27/2013 [facility] Systolic (mm Hg) 92 09/27/2013 [facility] Group Diastolic (mm Hg) 60 09/27/2013 [facility] Weight 192 09/15/2013 [facility] Temperature Oral (F) 99.4 F 09/15/2013 [facility] Respitory Rate 18 09/15/2013 [facility] Gr oup Heart Rate 68 09/15/2013 [facility] Systolic (mm Hg) 80 09/15/2013 [facility] Diastolic (mm Hg) 50 09/15/2013 [facility] Weight 196.8 09/02/2013 [facility] Heart Rate 64 09/02/2013 [facility] Respitory Rate 12 09/02/2013 Medical Gr oup Temperature Oral (F) 98.4 F 09/02/2013 [facility] Systolic (mm Hg) 110 09/02/2013 [facility] Diastolic (mm Hg) 82 09/02/2013 [facility] Weight 209.8 08/05/2013 [facility] Heart Rate 64 08/05/2013 [facility] Respitory Rate 12 08/05/2013 Medical Gr oup Temperature Oral (F) 98.6 F 08/05/2013 [facility] Systolic (mm Hg) 114 08/05/2013 [facility] Diastolic (mm Hg) 78 08/05/2013 [facility] Weight 216.8 05/20/2013 [facility] Heart Rate 68 05/20/2013 [facility] Systolic (mm Hg) 122 05/20/2013 [facility] Diastolic (mm Hg) 80 05/20/2013 [facility] Weight 215.2 04/29/2013 [facility] Heart Rate 68 04/29/2013 [facility] Systolic (mm Hg) 120 04/29/2013 [facility] Diastolic (mm Hg) 76 04/29/2013 [facility] Weight 215.6 04/16/2013 [facility] p Temperature Oral (F) 98.6 F 04/16/2013 [facility] Respitory Rate 14 04/16/2013 [facility] Gr oup Heart Rate 64 04/16/2013 [facility] Systolic (mm Hg) 128 04/16/2013 [facility] Diastolic (mm Hg) 74 04/16/2013 [facility] Weight 215.4 04/08/2013 [facility] p Heart Rate 60 04/08/2013 [facility] Systolic (mm Hg) 116 04/08/2013 [facility] Diastolic (mm Hg) 80 04/08/2013 [facility] Weight 208.1 12/18/2012 [facility] Height 64 12/18/2012 [facility] p Temperature Oral (F) 98.1 F 12/18/2012 [facility] Systolic (mm Hg) 118 12/18/2012 [facility] Diastolic (mm Hg) 84 12/18/2012 [facility] Heart Rate 64 12/18/2012 [facility] p Respitory Rate 12 12/18/2012 [facility] Gr oup Weight 203 10/19/2012 [facility] Temperature Oral (F) 98.3 F 10/19/2012 [facility] Heart Rate 64 10/19/2012 [facility] Gr[facility] p Systolic (mm Hg) 120 10/19/2012 [facility] Diastolic (mm Hg) 68 10/19/2012 [facility] Height 65 09/10/2012 [facility] p Weight 214.5 09/10/2012 [facility] Gr[facility] p Temperature Oral (F) 98.4 F 09/10/2012 [facility] Systolic (mm Hg) 110 09/10/2012 [facility] Heart Rate 88 09/10/2012 [facility] Diastolic (mm Hg) 70 09/10/2012 [facility] Encounters Location Location Encounter Encounter Reason Attending ADM PA Stat us Source Details Type Number For Provider Date Date Visit [facility] Lab Report [id number] [place] 04/01 04/01 [place] [id number] Brendan TIJERINA /2013 Ca dical [place] [facility] Office [id number] Wild 04/11 04/11 [place] [id number] Brendan TIJERINA /2013 Ca dical [place] [facility] Office [id number] Wild 05/18 05/18 [place] [id number] Brendan TIJERINA /2013 Ca dical [place] [facility] Lab Report [id number] [place] 08/01 08/01 [place] [id number] Brendan TIJERINA /2013 Ca dical [place] [facility] Office [id number] H Kika, 08/09 08/09 [place] Medical Visit [id number] /2013 Medica l Emrey [facility] Office [id number] Devan 11/03 11/03 [place] [id number] Deny, /2013 [facility] Office [id number] [place] 11/23 11/23 [place] [id number] MD Stephane /2013 [facility] Office [id number] [place] 12/14 12/14 [place] [id number] MD Stephane /2014 [facility] Office [id number] Devan 12/22 12/22 [place] [id number] Deny, /2014 Sunny [facility] Office [id number] Beau 04/13 04/13 [place] [id number] MD Kofi /2014 M bonny [place] [facility] Office [id number] Beau 05/03 05/03 [place] [id number] MD Kofi /2014 M bonny [facility] Office [id number] Beau 05/09 05/09 [place] [id number] MD Kofi /2014 M bonny [facility] Lab Report [id number] Beau 06/12 06/12 [place] [id number] MD Kofi /2014 M bonny [place] [facility] Office [id number] Beau 06/12 06/12 [place] [id number] MD Kofi /2014 M bonny [facility] Outpatient [id number] CASTRO 08/02 [facility] [facility] [id number] CASTRO 11/29 [facility] [place] Out[facility] [id number] ONUR ANAND 12/12 Act [facility] Outpt Diag [id number] H Kika 12/20 12/21 [facility] Outpatient [id number] CASTRO 12/21 [facility] [place] Outpatient [id number] BELLE [facility] [place] Outpatient [id number] ONUR ANAND 01/22 [facility] [place] [facility] [id number] NADIM RENE 01/23 Act [facility] Outpt Diag [id number] Nadim Rene 02/05 02/06 [facility] [place] Outpatient [id number] CASTRO 03/27 [facility] [place] Outpatient [id number] BELLE 03/28 [facility] [place] Outpatient [id number] BELLE 04/04 [facility] [place] Outpatient [id number] BELLE 04/18 [facility] [place] Outpatient [id number] CASTRO 04/18 Active [facility] [place] Outpatient [id number] BELLE 05/03 [facility] [place] Outpatient [id number] BELLE 05/13 [facility] 6 [place] Outpatient [id number] BELLE 05/17 [facility] [place] Outpatient [id number] BELLE 06/21 [facility] 9 [place] Outpatient [id number] CASTRO 07/11 Active [facility] 4 [place] Outpatient [id number] MAMMO VISIT 07/23 [facility] [place] [facility] [id number] ONUR KIKA 07/23 [facility] [place] Outpatient [id number] BELLE 08/27 [facility] 3 [place] Outpatient [id number] BELLE 10/04 [facility] 8 [place] Outpatient [id number] ONUR KIKA 10/22 [facility] [place] Outpatient [id number] CASTRO 11/07 Active [facility] 0 [place] Outpatient [id number] STACEY-DENZEL 12/04 [facility] ve [facility] 5 [facility] Outpatient [id number] BELLE 02/10 [facility] 7 [place] Out[facility] [id number] CASTRO 02/18 Active [facility] 6 [place] Outpatient [id number] ONUR KIKA 02/18 [facility] [place] Outpatient [id number] BELLE 02/27 [facility] 8 [place] Outpatient [id number] CASTRO 05/30 Active [facility] 9 [place] Outpatient [id number] MAMMO VISIT 05/30 Act [facility] [place] Outpatient [id number] MAMMO VISIT 05/30 Act [facility] [place] [facility] [id number] ONUR KIKA 06/03 [facility] [place] Out[facility] [id number] CASTRO 07/03 Active [facility] 5 [place] Outpatient [id number] XRAY VISIT 07/03 [facility] [place] Outpatient [id number] XRAY VISIT 07/03 [facility] [place] Outpatient [id number] GABE ROCHA 07/04 [facility] [place] Outpatient [id number] ONUR KIKA 08/19 [facility] [place] [facility] [id number] CASTRO 08/29 [id number] 10/26 [facility] Internal Message [facility] [place] [facility] Phone [id number] 11/25 11/27 [facility] Nephrology Message Medic [facility] [place] [facility] Phone [id number] 11/25 11/27 [facility] Medicine Message Medical [place] Phone [id number] 12/17 12/19 [facility] Nephrology Message Medic al [facility] Phone [id number] 12/17 12/19 [facility] Medicine Message Medical [facility] Phone [id number] 01/05 01/07 [facility] Medicine Message Medical [facility] Outpatient [id number] ONUR KIKA 02/10 Act [facility] [id number] CASTRO 02/10 [facility] [id number] Terrence 02/10 02/11 M H Nephrology 9 [facility] Med [facility] Family Outpatient [id number] Castro 02/10 02/11 MH Medicine 0 [facility] Family Phone [id number] 02/16 02/18 MH Medicine Message [facility] Outpatient [id number] CASTRO 06/15 Active [facility] [place] [facility] [id number] MAMMO VISIT 06/15 Act [facility] [id number] MAMMO VISIT 06/15 Act [facility] Family Outpatient [id number] Castro 06/15 06/16 Medicine 2 [facility] Ambulatory [id number] NURSE VISIT 06/15 06/15 Radiology Pre-Reg Medica l [facility] MG Outpatient [id number] NURSE VISIT 06/15 06/16 Radiology [facility] MG Family Phone [id number] 06/16 06/18 Medicine Message [facility] Outpatient [id number] STACEY-DENZEL 07/07 Acti ve [facility] 3 Candy nn [facility] Outpatient [id number] Stacey-Denzel 07/07 07/08 [facility] 3 [facility] Outpatient [id number] LAB VISIT 08/04 Activ e [facility] Ambulatory [id number] 08/04 08/04 M H Internal Pre-Reg [facility] Family Phone [id number] 08/10 08/12 Medicine Message [facility] Outpatient [id number] LAB VISIT 08/19 Activ e [facility] Ambulatory [id number] 08/19 08/19 M H Internal Pre-Reg [facility] Family Outside [id number] 08/19 08/21 Medicine Medical [facility] Outpatient [id number] ONUR [place] 09/08 Act [facility] Outpatient [id number] Dillon Kika 09/08 09/09 Nephrology [facility] MG Family Phone [id number] 09/29 10/01 Medicine Message [facility] MG Family Phone [id number] 10/06 10/08 Medicine Message [facility] MG Family Outside [id number] 11/05 11/07 MH Medicine Medical [facility] Family Phone [id number] 11/10 11/12 MH Medicine Message Medical [facility] Outpatient [id number] LAB VISIT 12/03 [facility] Ambulatory [id number] H Kika 12/03 12/04 MH Nephrology Pre-Reg Medic al [facility] Outpatient [id number] [facility] 12/08 Act [facility] [id number] [place] 12/08 [facility] Outpatient [id number] Kika 12/08 12/09 MH Nephrology Medica l [facility] Family Outpatient [id number] [place] 12/08 12/09 MH Medicine 6 [facility] Family Phone [id number] 02/09 02/11 MH Medicine Message [facility] Family Phone [id number] 02/09 02/11 MH Medicine Message [facility] Family Phone [id number] 02/09 02/11 MH Medicine Message [facility] Family Between [id number] 02/09 02/10 MH Medicine Visit [facility] Family Phone [id number] 02/10 02/12 MH Medicine Message [facility] Outpatient [id number] LAB VISIT 06/01 [facility] [id number] Kika 06/08 Active [facility] Outpatient [id number] Kika 06/08 06/09 MH Nephrology Medica l [facility] Family Phone [id number] 11/25 11/27 MH Medicine Message [facility] Family Phone [id number] 12/01 12/03 MH Medicine Message [facility] Outpatient [id number] H Kika 12/14 Active [facility] Outpatient [id number] H Kika 12/14 12/15 Nephrology Medica [facility] Outpatient [id number] H Kika 06/13 Active [facility] Outpatient [id number] H Kika 06/13 06/14 Nephrology Medica [facility] Outpatient [id number] Kuldeepbaljeet Flowers 09/05 Act [facility] Outpatient [id number] Kuldeep Flowers 09/05 09/06 [facility] [place] Procedures Procedure Code Date Perfomer Comments Source Colonoscopy<sup>1</s [id number] adenomatous trevor yp Medical up> 8 splenic flexure Group,Mis er Neuro diabetic foot check [id number] yes [facility] dical 3 Group vaginal Pap smear 33241 normal [facility] seamus results 3 Group mammogram 75382 Done Medical 2 Group diabetic eye exam 37169.1 Seen by [facility] 2 Ophthalmology Group colonoscopy 72810 done (per patient) [facility] dical 1 Group Cataract extraction [id number] OD Me dical and insertion of Group, intraocular lens OPID [place]<sup>1</sup> Land Removal of benign [id number] 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,MH bone<sup>2</sup> [facility] [place] Total knee [id number] Right Medical arthroplasty<sup>3</ Grou p,MH sup> [facility] [place] Removal of benign [id number] Right thigh MH OPI D tumor from [place] bone<sup>1</sup> Total knee [id number] Right OPID arthroplasty<sup>2</ [place] sup> Angioplasty [id number] Medical Group,Misch er Neuro, [facility] [place] Cataract extraction [id number] OD Me dical and insertion of Group,[facility] intraocular lens er Neuro R<sup>2</sup> Cholecystectomy [id number] Medica l Group,Misch er Neuro, [facility] [place] Hernia repair [id number] Medical Group,Misch er Neuro, [facility] [place] Hysterectomy [id number] Medical Group,Misch er Neuro, [facility] [place] Removal of benign [id number] 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 Smoking Status Never smoker; Exposure to Tobacco Smoke None; Cigarette Smoking Last 365 Days No; Reg Smoking Cessation Counseling No entered on: 06/13/20 Social History TypeResponse 07/07/2018 [facility] Never Substance Abuse Use: None. Smoking Status Never smoker; Exposure to Tobacco Smoke None; Cigarette Smoking Last 365 Days No; Reg Smoking Cessation Counseling No entered on: 06/13/20 Social History TypeResponse 08/02/2015 [place] [place] Substance Abuse Use: None. Alcohol Never Smoking Status Never smoker; Exposure to Tobacco Smoke None; Cigarette Smoking Last 365 Days No; Reg Smoking Cessation Counseling No Family History No Data Provided for This Section Advance Directives No Data Provided for This Section Functional Status No Data Provided for This Section
--- OUTSIDE RECORDS SUMMARY | 2020-10-18 08:09 | XMS REPORT | Summary of Care ---
:1945 Author Organization [facility] [place] Address [address] [place] [address]- Encounter HQ Jeancarlos_afsaneh(FIN) [id number] Date(s): 09/05/20 - 09/05/20 [facility] [address] [place] [address]- [phone] Discharge Disposition: Home or Self Care Attending Physician: Kuldeep Flowers MD Vital Signs No data available for this section Problem List Condition Effective Dates Status Health Status Informant Abdominal pain(Confirmed) Active Adenomatous colon polyp(Confirmed) Active Adhesive capsulitis of shoulder1 05/03/15 Active Allergic rhinitis2 Active Asthma(Confirmed)3 Active BMI 33.0-33.9,adult(Confirmed) Active Screening for breast Active cancer(Confirmed) Bronchospasm4, 5 12/18/12 Resolved CTS (carpal tunnel Active syndrome)(Confirmed) Chronic kidney disease, stage Active 3(Confirmed) Congestive heart failure(Confirmed)6 Active Constipation(Confirmed) Active Decreased estrogen level7 09/20/13 Active Disorder of refraction AND/OR 10/18/13 Active accommodation8 Diverticulosis(Confirmed) Resolved DM - Diabetes mellitus(Confirmed) Resolved Drug therapy(Confirmed) Active Left foot pain(Confirmed) Active Gastritis9, 10 04/22/13 Resolved HTN - Hypertension(Confirmed) Resolved Hypercholesterolemia(Confirmed) Resolved Hyperparathyroidism(Confirmed) Active Hypertensive episode(Confirmed)11 09/10/12 Active Sepjbsdliipzbancmqsf61 04/16/13 Resolved Insect bite - wound13, 14 04/16/13 Resolved Long-term drug therapy(Confirmed)15 < 11/29/15 Resolved Low back pain16 09/10/12 Active Mixed hyperlipidemia(Confirmed) Active Fylgpl93, 18 04/13/15 Resolved Cataract, nuclear(Confirmed) < 04/03/16 Resolved Gbqbsfpxkdaibz90 09/10/12 Active Peripheral vascular Active disease(Confirmed)20 QlfkmabvhrcqDK14 04/03/16 Active Wnchpyzm36 09/10/12 Active Screening mbcwdeiqpfb10, 24 04/13/15 Active Screen for colon cancer(Confirmed) Active Insomnia(Confirmed) Active Strep pharyngitis(Confirmed) Active Postoperative care for Resolved ozkfexxq4H(Confirmed) Type 2 diabetes 09/02/13 Active mellitus(Confirmed)25 1Data migrated from [employer] on 05/31/15.2Data migrated from [employer] on 04/22/15.3Data migrated from [employer] on 04/22/15.4Data migrated from [employer] on 06/10/15.5Data migrated from [employer] on 06/09/15.6Data migrated from [employer] on 04/22/15.7Data migrated from [employer] on 04/22/15.8Data migrated from [employer] on 04/22/15.9Data migrated from [employer] on 06/10/15.10Data migrated from [employer] on 06/09/15.11Data migrated from [employer] on 04/22/15.12Data migrated from [employer] on 04/22/15.13Data migrated from [employer] on 06/10/15.14Data migrated from [employer] on 06/09/15.15Data migrated from [employer] on 04/22/15.16Data migrated from [employer] on 04/22/15.17Data migrated from [employer] on 05/31/15.18Data migrated from [employer] on 05/31/15.19Data migrated from [employer] on 04/22/15.20Data migrated from [employer] on 04/22/15.21Data migrated from [employer] on 04/22/15.22Data migrated from [employer] on 04/22/15.23Data migrated from [employer] on 05/31/15.24Data migrated from [employer] on 05/31/15.25Data migrated from [employer] on 04/22/15. Allergies, Adverse Reactions, Alerts Substance Reaction Severity Status penicillins1 Active iodinated radiocontrast dyes2 Ac tive iodine topical Active penicillin Active Vicodin ES Active acetaminophen-HYDROcodone3 Activ e 1Data migrated from [employer] on 06/22/15. Originally documented as PCN.2Data migrated from [employer] on 06/22/15. Originally documented as IODINE SHELL FISH.3Data migrated from [employer] on 03/23/15. Originally documented as VICODIN. Medications No data available for this section Results No data available for this section Immunizations Given and Recorded Vaccine Date Status Refusal Reason influenza virus vaccine, inactivated 11/07/16 Given influenza virus vaccine, inactivated 08/02/15 Given influenza virus vaccine, inactivated1 08/09/14 Given pneumococcal 13-valent vaccine 08/02/15 Given pneumococcal 23-valent vaccine2 10/01/11 Given 1Result Comment: fluzone high dose [[id number]]. Migrated from OBS ; Data migrated from [employer] on 12/26/2015.2Result Comment: given. Migrated from OBS ; Data migrated from [employer] on 12/26/2015. Procedures Procedure Date Related Diagnosis Body Site Status Colonoscopy1 06/12/18 Completed Angioplasty Completed Cataract extraction and insertion of Completed intraocular lens R2 Cholecystectomy Completed Hernia repair Completed Hysterectomy Completed Removal of benign tumor from bone3 Completed Stent placement Completed Total knee arthroplasty4 Com pleted 1adenomatous polyp splenic [id number] [id number] Social History Social History Type Response Alcohol Never Substance Abuse Use: None. Smoking Status Never smoker; Exposure to To bacco Smoke None; Cigarette Smoking Last 365 Days No; Reg Smoking Cessation Counseling No entered on: 06/13/20 Assessment and Plan No data available for this section
[2020-10-18] MEDS ORDERED: NA CHLORIDE 0.9% 1,000 ML ONE (08:12)
--- OUTSIDE RECORDS SUMMARY | 2020-10-18 08:12 | XMS REPORT ---
:1945 Author Organization [employer] Care Team Providers Name Role Phone Prasanna Ceron Provider Role Unavailable Allergies, Adverse Reactions, Alerts Substance Reaction Event Type tramadol Info Not Available Drug Allergy penicillin Info Not Available Drug Allergy Vicodin Info Not Available Drug Allergy Iodine Info Not Available Drug Allergy Problems Problem Type Condition Code Onset Dates Condition Statu s Problem Diverticular disease K57.90 Active Problem Type 2 diabetes mellitus with E11.22 Active diabetic chronic kidney disease Problem GERD without esophagitis K21.9 Act [facility] Problem Carpal tunnel syndrome of right G56.01 Active wrist Assessment Pain in joint of left wrist M25.532 Active Problem Abnormal mammogram R92.8 Active Assessment Carpal tunnel syndrome of right G56.01 Active wrist Assessment Carpal tunnel syndrome of left G56.02 Active wrist Problem Carpal tunnel syndrome of left G56.02 Active wrist Problem Dysphagia, unspecified type R13.10 Active Problem Bilateral carpal tunnel syndrome G56.03 Active Problem Pain of left breast N64.4 Active Problem Degenerative disc disease, cervical M50.30 Active Problem Seasonal allergies J30.2 Active Problem Benign essential HTN I10 Active Assessment Pain in joint of right wrist M25.531 Active Problem Chronic kidney disease, stage III N18.3 Active (moderate) Problem Mixed hyperlipidemia E78.2 Active Problem Tinnitus of both ears H93.13 Active Problem emt intermediate current use of insulin Z79.4 Active Problem Heart disease I51.9 Active Problem Asthma J45.909 Active Medications Medication Code Code Instructions Start End Status Dosage System Date Date Gabapentin [facility] 44452398118 300 MG Orally Jul 19, Active 1 c apsule BID 2018 PredniSONE [facility] [address]-95 Active not defined Vitamin D3 [facility] 11147047244 1000 UNIT Active 1 capsu le Orally Once a day Atorvastatin [facility] 54400726309 20 MG Orally Active 1 tablet Calcium Once a day Azithromycin [facility] [address]-43 Active not defined Proctozone-HC [facility] [address]-51 Active not defined Metoprolol [facility] 62555799197 50 MG Orally Active 1 ta blet Succinate ER Once a day Amlodipine [facility] 89564854637 10 MG Orally Active 1 ta blet Besylate Once a day Centrum Silver [facility] 13280508365 - Orally Active as directed Zolpidem Tartrate [facility] [address]-43 Active not defined Ondansetron HCl [facility] [address]-83 Active no t defined Virtussin A/C [facility] [address]-40 Active not defined Aspir-81 [facility] 71744218285 81 MG Orally Active 1 tabl et Once a day Vigamox [facility] 66718826325 0.5 % Sep 19, Active 1 drop Ophthalmic 2018 into Three times a affected day eye Levemir FlexTouch [facility] 40505098294 100 UNIT/ML Active 15 UNits Subcutaneous Daily BD Pen Needle [facility] 90932460903 31G X 5 MM Active ALLY CK Mini U/F BLOOD SUGARS EVERY DAY Losartan [facility] 33915784362 50 MG Orally Active 1 tabl et Potassium Once a day Plavix [facility] 28804996773 75 MG Orally Active 1 table t Once a day Lansoprazole [facility] 14116887047 30 MG Orally Active 1 capsule Once a day Isosorbide [facility] 75548278058 30 MG Orally Active 1 ta blet Mononitrate ER Once a day in the morning Potassium [facility] [address]-61 Active not Chloride ER defined Nitroglycerin [facility] [address]-87 Active not defined Potassium [facility] [address]-61 10 MEQ Orally Active 1 tablet Bicarb-Citric Twice a day Acid Oseltamivir [facility] [address]-20 Active not Phosphate defined Diethylpropion [facility] [address]-18 Active not HCl ER defined Clopidogrel [facility] [address]-02 Active not Bisulfate defined Acetaminophen-Cod [facility] [address]-16 Active not eine #3 defined Results No Known Results Summary Purpose [employer]Clinical[employer] Submission
--- OUTSIDE RECORDS SUMMARY | 2020-10-18 08:12 | XMS REPORT | Continuity of Care Document ---
:1945 Author Organization [facility] t Address [address] [place] [address] Care Team Providers Name Role Phone Kuldeep Flowers Attending Clinician Armond White Attending Clinician Doctor Unassigned, Name Attending Clinician Unavailable Pramod Barahona Attending Clinician Jeffery VILLAFANA Attending Clinician Millicent VILLAFANA S Attending Clinician Haley Kirby Attending Clinician Phill Chatterjee Attending Clinician VISIT, [facility] MAMMO Attending Clinician Unavailable Nando Grant Attending Clinician Problems Condition Condition Condition Status Onset Resolution Last Treating Co mments Source Name Details Category Date Date Treatment Clinician Date Pseudophak Problem Active 2020-09-08 M emoria ia 04-03 01:26:13 l (disorder) 00:00: Loki mason Pseudophak 00 ia (disorder) Active 04/03/2016 Problem 09/08/2020 Data migrated from [employer] on 04/22/15. [facility] [place] R10.9 - Diagnosis Active 2015-12-20 Me moria UNSPECIFIE 1- 10:27:00 l D R10.9 - 00:01: Ruben ABDOMINAL UNSPECIFIE 00 PAIN D ABDOMINAL PAIN Active 12/14/2015 [facility] [place] EXAMINATIO Condition Active 2015-06-12 Memoria N, 06-12 12:00:00 l PREOPERATI 00:00: Loki n VE NEC EXAMINATIO 00 N, PREOPERATI VE NEC Active 06/12/2015 Condition 5 [facility] Adhesive Problem Active 2020-09-08 Mem oria capsulitis 6-10 01:26:13 l of Adhesive 00:00: Loki n shoulder capsulitis 00 (disorder) of shoulder (disorder) Active 05/03/2015 Problem 09/08/2020 Data migrated from [employer] on 05/31/15. [facility] [place] FROZEN Condition Active 2015-06-12 Mem oria LEFT 6- 12:00:00 l SHOULDER FROZEN 00:00: Loki n LEFT 00 SHOULDER Active 05/03/2015 [facility] Screening Problem Active 2020-09-08 Me moria mammograph 04-13 01:26:13 l y 00:00: Ruben (procedure Screening 00 ) mammograph y (procedure ) Active 04/13/2015 Problem 09/08/2020 Data migrated from [employer] on 05/31/15.Enoc a migrated from [employer] on 05/31/15. [facility] [place] OTHER Condition Active 2015-06-12 Mem oria SCREENING 04-13 12:00:00 l MAMMOGRAM OTHER 00:00: Loki n SCREENING 00 MAMMOGRAM Active 04/13/2015 [facility] SCREENING, Condition Active 2015-06-12 Memoria DIABETIC 2- 12:00:00 l RETINOPATH 00:00: Loki n Y SCREENING, 00 DIABETIC RETINOPATH Y Active 01/05/2015 Condition [facility] Rotator Problem Active 2013-112016-02-09 Rehan judson cuff 01:04:33 l syndrome Rotator 00:00: Candy nn (disorder) cuff 00 syndrome (disorder) Active 11/23/2014 Problem 02/09/2016 Data migrated from [employer] on 04/22/15. [facility] [place] ROTATOR Condition Active 2013-112015-06-12 Me moria CUFF TEAR 12:00:00 l ROTATOR 00:00: Ruben CUFF TEAR 00 Active 11/23/2014 Condition [facility] BLOOD Condition Active 2015-06-12 Mem oria VESSEL 05-18 12:00:00 l REPLACED BLOOD 00:00: Ruben BY OTHER VESSEL 00 MEANS REPLACED BY OTHER MEANS Active 05/18/2014 Condition [facility] BODY MASS Condition Active 2015-06-12 Memoria INDEX - 12:00:00 l 34.0-34.9 BODY 00:00: [place] ADULT MASS INDEX 00 34.0-34.9 ADULT Active 04/01/2014 Condition [facility] LONG-TERM Condition Active 2015-06-12 Memoria (CURRENT) 01-04 12:00:00 l USE OF 00:00: [place] OTHER LONG-TERM 00 MEDICATION (CURRENT) S USE OF OTHER MEDICATION S Active 01/04/2014 [facility] Disorder Problem Active 2012-112020-09-08 Mem oria of 12-18 01:26:13 l refraction Disorder 00:00: He rmann AND/OR of 00 accommodat refraction ion AND/OR (disorder) accommodat ion (disorder) Active 10/18/2013 Problem 09/08/2020 Data migrated from [employer] on 04/22/15. [facility] [place] CATARACT, Condition Active 2012-112015-06-12 Memoria NUCLEAR 12-18 12:00:00 l SCLEROSIS 00:00: [place] OS CATARACT, 00 NUCLEAR SCLEROSIS OS Active 3 Condition 06/12/2015 Medical Group PSEUDOPHAK Condition Active 2012-112015-06-12 Memoria IA OD 12-18 12:00:00 l 00:00: Ruben PSEUDOPHAK 00 IA OD Active 10/18/2013 Condition [facility] UNSPECIFIE Condition Active 2012-112015-06-12 Memoria D DISORDER 12-18 12:00:00 l OF 00:00: Ruben REFRACTION UNSPECIFIE 00 &ACCOMMODA D DISORDER TION OF REFRACTION &ACCOMMODA TION Active 10/18/2013 [facility] Decreased Problem Active 2012-112020-09-08 Me moria estrogen 0-28 01:26:13 l level 00:00: Ruben (finding) Decreased 00 estrogen level (finding) Active 09/20/2013 Problem 09/08/2020 Data migrated from [employer] on 04/22/15. [facility], [facility] [place] ESTROGEN Condition Active 2012-112015-06-12 M emoria DEFICIENCY 0-28 12:00:00 l ESTROGEN 00:00: Loki n DEFICIENCY 00 Active 09/20/2013 Condition [facility] Diabetes Problem Active 2012-112020-09-08 Mem oria mellitus 0-10 01:26:13 l type 2 Diabetes 00:00: Loki n (disorder) mellitus 00 type 2 (disorder) Active 09/02/2013 Problem 09/08/2020 Data migrated from [employer] on 04/22/15. [facility] Group,[facility] [place] DIABETES Condition Active 2012-112015-06-12 M emoria MELLITUS, 0-10 12:00:00 l TYPE II DIABETES 00:00: Candy nn MELLITUS, 00 TYPE II Active 09/02/2013 [facility] SCREENING, Condition Active 2015-06-12 Memoria VAGINAL 9-12 12:00:00 l CANCER 00:00: Ruben SCREENING, 00 VAGINAL CANCER Active 08/05/2013 [facility] HYPERTRIGL Condition Active 2015-06-12 Memoria YCERIDEMIA 04-16 12:00:00 l 00:00: [place] HYPERTRIGL 00 YCERIDEMIA Active 04/16/2013 [facility] Hyperlipid Problem Active 2011-112016-02-09 M emoria emia 0-18 01:04:33 l (disorder) 00:00: Loki n Hyperlipid 00 emia (disorder) Active 09/10/2012 Problem 02/09/2016 Data migrated from [employer] on 04/22/15. [facility] [place] Lumbar Problem Active 2011-112016-02-09 Memor ia radiculopa 0-18 01:04:33 l thy Lumbar 00:00: [place] (disorder) radiculopa 00 thy (disorder) Active 09/10/2012 Problem 02/09/2016 Data migrated from [employer] on 04/22/15. [facility] [place] Hypertensi Problem Active 2011-112020-09-08 M emoria ve episode 0-18 01:26:13 l (disorder) 00:00: Loki n Hypertensi 00 ve episode (disorder) Active 09/10/2012 Problem 09/08/2020 Data migrated from [employer] on 04/22/15. [facility], [facility] [place] Low back Problem Active 2011-112020-09-08 Mem oria pain 0-18 01:26:13 l (disorder) Low back 00:00: He rmann pain 00 (disorder) Active 09/10/2012 Problem 09/08/2020 Data migrated from [employer] on 04/22/15. [facility], [facility] [place] Osteoarthr Problem Active 2011-112020-09-08 M emoria itis 0-18 01:26:13 l (disorder) 00:00: Loki n Osteoarthr 00 itis (disorder) Active 09/10/2012 Problem 09/08/2020 Data migrated from [employer] on 04/22/15. [facility], [facility] [place] Sciatica Problem Active 2011-112020-09-08 Mem oria (disorder) 0-18 01:26:13 l Sciatica 00:00: Loki n (disorder) 00 Active 09/10/2012 Problem 09/08/2020 Data migrated from [employer] on 04/22/15. [facility], [facility] [place] OSTEOARTHR Condition Active 2011-112015-06-12 Memoria ITIS 0-18 12:00:00 l 00:00: [place] OSTEOARTHR 00 ITIS Active 09/10/2012 [facility] LUMBAR Condition Active 2011-112015-06-12 Mem oria RADICULOPA 0-18 12:00:00 l THY LUMBAR 00:00: Ruben RADICULOPA 00 THY Active 09/10/2012 [facility] LOW BACK Condition Active 2011-112015-06-12 M emoria PAIN 0-18 12:00:00 l LOW BACK 00:00: Loki n PAIN 00 Active 09/10/2012 Condition 5 [facility] SCIATICA, Condition Active 2011-112015-06-12 Memoria LEFT 0-18 12:00:00 l 00:00: [place] SCIATICA, 00 LEFT Active 09/10/2012 Condition [facility] HYPERTENSI Condition Active 2011-112015-06-12 Memoria ON 0-18 12:00:00 l 00:00: Ruben HYPERTENSI 00 ON Active 2 Condition 06/12/2015 Medical Group HYPERLIPID Condition Active 2011-112015-06-12 Memoria EMIA 0-18 12:00:00 l 00:00: [place] HYPERLIPID 00 EMIA Active 09/10/2012 Condition [facility] HYPERCHOLE Condition Inactiv 2015-06-12 Memoria STEROLEMIA e 12:00:00 l Ruben HYPERCHOLE STEROLEMIA Inactive Condition 06/12/2015 Medical Group RUQ PAIN Condition Inactiv 2015-06-12 Memoria e 12:00:00 l RUQ PAIN Loki n Inactive Condition 06/12/2015 Medical Group RLQ PAIN Condition Inactiv 2015-06-12 Memoria e 12:00:00 l RLQ PAIN Loki n Inactive Condition 06/12/2015 Medical Group Diverticul Problem Resolve 2020-09-08 Memoria ar disease d 01:26:13 l (disorder) Loki n Diverticul ar disease (disorder) Resolved Problem 09/08/2020 [facility], [facility] [place] Diabetes Problem Resolve 2020-09-08 Me moria mellitus d 01:26:13 l (disorder) Diabetes He rmann mellitus (disorder) Resolved Problem 09/08/2020 [facility] Group,[facility], [facility] [place] Hypertensi Problem Resolve 2020-09-08 Memoria ve d 01:26:13 l disorder, Ruben systemic Hypertensi arterial ve (disorder) disorder, systemic arterial (disorder) Resolved Problem 09/08/2020 [facility] Group,[facility] [place] Hyperchole Problem Resolve 2020-09-08 Memoria sterolemia d 01:26:13 l (disorder) Loki n Hyperchole sterolemia (disorder) Resolved Problem 09/08/2020 [facility] Group,[facility] [place] Surgical Problem Resolve 2020-09-08 Me moria follow-up d 01:26:13 l (finding) Surgical Her bolaños follow-up (finding) Resolved Problem 09/08/2020 [facility] Group,[facility] 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 [facility] [place] Abdominal Problem Active 2020-09-08 Me moria pain 01:26:13 l (finding) Ruben Abdominal pain (finding) Active Problem 09/08/2020 [facility] Adenomatou Problem Active 2020-09-08 M emoria s polyp of 01:26:13 l colon Ruben (disorder) Adenomatou s polyp of colon (disorder) Active Problem 09/08/2020 [facility] Group,[facility] Allergic Problem Active 2020-09-08 Mem oria rhinitis 01:26:13 l (disorder) Allergic He rmann rhinitis (disorder) Active Problem 09/08/2020 Data migrated from [employer] on 04/22/15. [facility] [place] Asthma Problem Active 2020-09-08 Memor ia (disorder) 01:26:13 l Asthma [place] (disorder) Active Problem 09/08/2020 Data migrated from [employer] on 04/22/15. [facility] Group,[facility] [place] Body mass Problem Active 2020-09-08 Me moria index 30+ 01:26:13 l - obesity Body [place] (finding) mass index 30+ - obesity (finding) Active Problem 09/08/2020 [facility] Group,[facility] [place] Breast Problem Active 2020-09-08 Memor ia neoplasm 01:26:13 l screening Breast Candy nn status neoplasm (finding) screening status (finding) Active Problem 09/08/2020 [facility] Group,[facility] Carpal Problem Active 2020-09-08 Memor ia tunnel 01:26:13 l syndrome Carpal Loki n (disorder) tunnel syndrome (disorder) Active Problem 09/08/2020 [facility] Neuro Chronic Problem Active 2020-09-08 Rehan judson kidney 01:26:13 l disease Chronic Loki n stage 3 kidney (disorder) disease stage 3 (disorder) Active Problem 09/08/2020 Medical [facility] Congestive Problem Active 2020-09-08 M emoria heart 01:26:13 l failure [place] (disorder) Congestive heart failure (disorder) Active Problem 09/08/2020 Data migrated from [employer] on 04/22/15. [facility] Group,[facility] [place] Constipati Problem Active 2020-09-08 M emoria on 01:26:13 l (disorder) Loki n Constipati on (disorder) Active Problem 09/08/2020 Medical [facility] [place] Drug Problem Active 2020-09-08 Memor ia therapy 01:26:13 l finding Drug Ruben (finding) therapy finding (finding) Active Problem 09/08/2020 [facility] Foot pain Problem Active 2020-09-08 Me moria (finding) 01:26:13 l Foot [place] pain (finding) Active Problem 09/08/2020 [facility] Hyperparat Problem Active 2020-09-08 M emoria hyroidism 01:26:13 l (disorder) Loki n Hyperparat hyroidism (disorder) Active Problem 09/08/2020 Medical [facility] Mixed Problem Active 2020-09-08 Memor ia hyperlipid 01:26:13 l emia Mixed [place] (disorder) hyperlipid emia (disorder) Active Problem 09/08/2020 [facility] Peripheral Problem Active 2020-09-08 M emoria vascular 01:26:13 l disease Ruben (disorder) Peripheral vascular disease (disorder) Active Problem 09/08/2020 Data migrated from [employer] on 04/22/15. [facility] Group,[facility] [place] Screening Problem Active 2020-09-08 Me moria status 01:26:13 l (finding) [place] Screening status (finding) Active Problem 09/08/2020 [facility] her Neuro Insomnia Problem Active 2020-09-08 Mem oria (disorder) 01:26:13 l Insomnia Loki n (disorder) Active Problem 09/08/2020 [facility] her Neuro Streptococ Problem Active 2020-09-08 M emoria seamus sore 01:26:13 l throat [place] (disorder) Streptococ seamus sore throat (disorder) Active Problem 09/08/2020 [facility] her Neuro ALLERGIC Condition Active 2015-06-12 M emoria RHINITIS 12:00:00 l ALLERGIC Loki n RHINITIS Active Condition 06/12/2015 [facility] ASTHMA Condition Active 2015-06-12 Mem oria 12:00:00 l ASTHMA [place] Active Condition 06/12/2015 [facility] FH Condition Active 2015-06-12 Mem oria DIABETES - 12:00:00 l DM [place] DIABETES - DM Active Condition 06/12/2015 [facility] LUNG Condition Active 2015-06-12 Me moria CANCER 12:00:00 l FH LUNG Ruben CANCER Active Condition 06/12/2015 [facility] CONGESTIVE Condition Active 2015-06-12 Memoria HEART 12:00:00 l FAILURE Ruben UNSPECIFIE CONGESTIVE D HEART FAILURE UNSPECIFIE D Active Condition 06/12/2015 [facility] PERIPHERAL Condition Active 2015-06-12 Memoria VASCULAR 12:00:00 l DISEASE [place] PERIPHERAL VASCULAR DISEASE Active Condition 06/12/2015 [facility] LONG-TERM Condition Active 2015-06-12 Memoria USE 12:00:00 l NON-STEROI Loki n JOSE LONG-TERM ANTI-INFLA USE MMATORIES NON-STEROI JOSE ANTI-INFLA MMATORIES Active Condition 06/12/2015 [facility] DIABETES Condition Active 2015-06-12 M emoria MELLITUS, 12:00:00 l TYPE II, DIABETES Herm escobar CONTROLLED MELLITUS, W/VASCULAR TYPE II, COMPLICATI CONTROLLED ONS W/VASCULAR COMPLICATI ONS Active Condition 06/12/2015 [facility] Group Encounter Problem 2018-0 2019-01-24 2019-01-24 Memoria for 8-14 12:21:52 12:21:52 l gynecologi 14:33: Loki n seamus Encounter 00 examinatio for n gynecologi (general) seamus (routine) examinatio without n abnormal (general) findings (routine) without abnormal findings 8 01/24/2019 Medical Group Other Problem 2019-01-24 2019-01-24 Bennie wilkinsria specified 07-07 12:21:52 12:21:52 l noninflamm Other 14:33: Candy nn atory specified 00 disorders noninflamm of vulva atory and disorders perineum of vulva and perineum 8 01/24/2019 Medical Group History of Past Illness Condition Condition Condition Status Onset Resolution Last Treating Co mments Source Name Details Category Date Date Treatment Clinician Date Nuclear Problem Resolve 2020-09-08 2020-09-08 Memoria cataract d 04-03 01:26:13 01:26:13 l (disorder) Nuclear 00:00: Her bolaños cataract 00 (disorder) Resolved 04/03/2016 [facility] 09/08/2020 [facility] Long-term Problem Resolve 2020-09-08 2020-09-08 Memoria drug d 11-29 01:26:13 01:26:13 l therapy 00:00: Ruben (procedure Long-term 00 ) drug therapy (procedure ) Resolved 11/29/2015 Problem 09/08/2020 Data migrated from [employer] on 04/22/15. [facility] Nausea Problem Resolve 2020-09-08 2020-09-08 Memoria (finding) d 04-13 01:26:13 01:26:13 l Nausea 00:00: Ruben (finding) 00 Resolved 04/13/2015 Problem 09/08/2020 Data migrated from [employer] on 05/31/15.[employer] a migrated from [employer] on 05/31/15. [facility] [place] Gastritis Problem Resolve 2020-09-08 2020-09-08 Memoria (disorder) d 04-22 01:26:13 01:26:13 l 00:00: Ruben Gastritis 00 (disorder) Resolved 04/22/2013 Problem 09/08/2020 Data migrated from [employer] on 06/10/15.Da ta migrated from [employer] on 06/09/15. [facility] [place] Hypertrigl Problem Resolve 2020-09-08 2020-09-08 Memoria yceridemia d - 01:26:13 01:26:13 l (disorder) 00:00: Loki n Hypertrigl 00 yceridemia (disorder) Resolved 04/16/2013 Problem 09/08/2020 Data migrated from [employer] on 04/22/15. [facility] Group,[facility] [place] Insect Problem Resolve 2020-09-08 2020-09-08 Memoria bite - d 04-16 01:26:13 01:26:13 l wound Insect 00:00: Ruben (disorder) bite - 00 wound (disorder) Resolved 04/16/2013 Problem 09/08/2020 Data migrated from [employer] on 06/10/15.Da ta migrated from [employer] on 06/09/15. [facility] Group,[facility], [facility] [place] Bronchospa Problem Resolve 2020-09-08 2020-09-08 Memoria sm d 12-18 01:26:13 01:26:13 l (finding) 00:00: [place] Bronchospa 00 sm (finding) Resolved 12/18/2012 Problem 09/08/2020 Data migrated from [employer] on 06/10/15.Da ta migrated from [employer] on 06/09/15. [facility] Group,[facility], [facility] [place] URINARY Condition Inactiv 2015-06-12 2015-06-12 Memoria TRACT e -16 12:00:00 12:00:00 l INFECTION, URINARY 00:00: Her bolaños SITE NOT TRACT 00 SPECIFIED INFECTION, SITE NOT SPECIFIED Inactive 05/09/2015 [facility] NAUSEA Condition Inactiv 2015-06-12 2015-06-12 Memoria e - 12:00:00 12:00:00 l NAUSEA 00:00: Ruben 00 Inactive 04/13/2015 [facility] ABDOMINAL Condition Inactiv 2013-2015-06-12 2015-06-12 Memoria PAIN, e 2-11 12:00:00 12:00:00 l GENERALIZE 00:00: Loki n D ABDOMINAL 00 PAIN, GENERALIZE D Inactive 11/03/2014 [facility] NAUSEA AND Condition Inactiv 2013-112015-06-12 2015-06-12 Memoria VOMITING e 2-11 12:00:00 12:00:00 l NAUSEA 00:00: Ruben AND 00 VOMITING Inactive 11/03/2014 [facility] NEED Condition Inactiv 2015-06-12 2015-06-12 Memoria PROPHYLACT e -16 12:00:00 12:00:00 l IC NEED 00:00: Ruben VACCINATIO PROPHYLACT 00 N&INOCULAT IC ION FLU VACCINATIO N&INOCULAT ION FLU Inactive 08/09/2014 [facility] DRY SOCKET Condition Inactiv 2015-06-12 2015-06-12 Memoria e 04-01 12:00:00 12:00:00 l DRY 00:00: Ruben SOCKET 00 Inactive 04/01/2014 [facility] BUNION Condition Inactiv 2015-06-12 2015-06-12 Memoria e 04-01 12:00:00 12:00:00 l BUNION 00:00: Ruben 00 Inactive 04/01/2014 [facility] CHRONIC Condition Inactiv 2012-112015-06-12 2015-06-12 Memoria KIDNEY e 11-27 12:00:00 12:00:00 l DISEASE CHRONIC 00:00: Loki n STAGE III KIDNEY 00 (MODERATE) DISEASE STAGE III (MODERATE) Inactive 09/27/2013 [facility] HYPERGLYCE Condition Inactiv 2012-112015-06-12 2015-06-12 Memoria LETICIA e 0-10 12:00:00 12:00:00 l 00:00: Ruben HYPERGLYCE 00 LETICIA Inactive 09/02/2013 [facility] POSTNASAL Condition Inactiv 2015-06-12 2015-06-12 Memoria DRIP e - 12:00:00 12:00:00 l 00:00: Ruben POSTNASAL 00 DRIP Inactive 08/05/2013 [facility] GASTRITIS Condition Inactiv 2015-06-12 2015-06-12 Memoria e 04-22 12:00:00 12:00:00 l 00:00: Ruben GASTRITIS 00 Inactive 04/22/2013 [facility] INSECT Condition Inactiv 2015-06-12 2015-06-12 Memoria BITE e 04-16 12:00:00 12:00:00 l INSECT 00:00: Ruben BITE 00 Inactive 04/16/2013 [facility] COUGH Condition Inactiv 2015-06-12 2015-06-12 Memoria e 12-18 12:00:00 12:00:00 l COUGH 00:00: [place] 00 Inactive 12/18/2012 [facility] ACUTE Condition Inactiv 2015-06-12 2015-06-12 Memoria BRONCHOSPA e 12-18 12:00:00 12:00:00 l SM ACUTE 00:00: [place] BRONCHOSPA 00 SM Inactive 12/18/2012 [facility] MALAISE Condition Inactiv 2015-06-12 2015-06-12 Memoria AND e 12-18 12:00:00 12:00:00 l FATIGUE MALAISE 00:00: Loki n AND 00 FATIGUE Inactive 12/18/2012 [facility] LUMBAR Condition Inactiv 2011-112015-06-12 2015-06-12 Memoria SPRAIN AND e 0-18 12:00:00 12:00:00 l STRAIN LUMBAR 00:00: [place] SPRAIN AND 00 STRAIN Inactive 09/10/2012 [facility] Allergies, Adverse Reactions, Alerts Allergy Allergy Status Severity Reaction(s) Onset Inactive Treating Comm ents Source Name Type Date Date Clinician penicill penicill Active 2011-11 Memori a ins<sup> ins<sup> 0-18 l 1</sup> 1</sup> 05:00: Ruben 00 iodinate iodinate Active 2011-11 Memori a d d 0-18 l radioTunessence radiocon 05:00: Loki n trast trast 00 dyes<sup dyes<sup >2</sup> >2</sup> penicill penicill Active 2011-11 Memori a ins<sup> ins<sup> 0-18 l 3</sup> 3</sup> 05:00: Ruben 00 PCN PCN Active 2011-11 Memoria 0-18 l 00:00: Ruben 00 VICODIN VICODIN Active 2011-11 Memoria 0-18 l 00:00: Ruben 00 IODINE IODINE Active 2011-11 Memoria SHELL SHELL 0-18 l FISH FISH 00:00: Ruben 00 tramadol Adverse Active Info Not [facility] Reaction Available [facility] penicill Adverse Active Info Not [facility] Reaction Available [facility] Vicodin Adverse Active Info Not [facility] Reaction Available [facility] Iodine Adverse Active Info Not [facility] Reaction Available [facility] iodine iodine Active Memoria topical topical l [place] penicill penicill Active Memori a in in l Ruben Vicodin Vicodin Active Memoria ES ES l Ruben Social History Social Habit Start Date Stop Date Quantity Comments Source Social History 2015-08-02 2015-08-02 [facility] liborio 21:39:44 21:39:44 Medications Ordered Filled Start Stop Current Ordering Indication Dosage Frequency Signature Comments Components Source Medication Medication Date Date Medication? Clinician (SIG) Name Name Gabapentin Gabapentin Yes Prasanna [address] [facility] 00:[facility]: Memoria 00 l [facility] isosorbide Yes = 1 tab, Mem oria mononitrate 3-20 PO, Daily, l 30 mg oral 12:34: # 90 tab, He rmann tablet, 58 Pharmacy: extended [facility] losartan 50 Yes = 1 tab, Me moria mg oral 3-20 PO, Daily, l tablet 12:34: # 90 tab, Loki n 58 Pharmacy: [facility] CLOPIDOGREL 2018- Yes = 1 tab, Me moria 75MG 3-19 PO, Daily, l TABLETS 12:45: # 90 tab, Candy nn 18 Pharmacy: [facility] Levofloxaci No 500 mg = 1 Memoria n 500 MG 1-15 tab, PO, l Oral Tablet 16:51: Q24H, X 10 Ruben [Levaquin] 00 day, # 10 tab, 0 Refill(s), Pharmacy: [facility] ACCU-CHEK 2017-11 Yes See Memoria FASTCLIX 2-18 Instructio l LANCETS 14:46: ns, # 102 Candy nn 102'S 31 unknown unit, Refill(s) 12, TEST DIRECTED EVERY DAY, Pharmacy: [facility] [employer] [facility] Vigamox Vigamox 2017-11 Yes Prasanna [address] [facility] 3 ML Yes See Memoria insulin 17 Instructio l detemir 100 14:02: ns, # 15 He rmann UNT/ML 55 mL, Prefilled Refill(s) Syringe 11, INJECT [Levemir] 15 UNITS SUBCUTANEO USLY EVERY MORNING., Pharmacy: [facility] [employer] [facility] atorvastati Yes See Memori a n 20 mg -17 Instructio l oral tablet 14:02: ns, # 90 He rmann 55 tab, Refill(s) 3, TAKE 1 TABLET BY MOUTH EVERY DAY, Pharmacy: [facility] B-D PEN NDL Yes See Memori a MINI 17 Instructio l [id number](01/22 14:02: ns, # 100 H ermann 6)PRPL 55 unknown unit, Refill(s) 11, CHECK BLOOD SUGARS EVERY DAY, [facility] Betamethaso No 1 appl, Mem oria ne 0.5 8-14 TOP, BID, l MG/ML / 14:41: PRN Apply Candy palomino Clotrimazol 00 to e 10 MG/ML affected Topical areas., X Cream 14 day, # [Lotrisone] 45 gm, 1 Refill(s), Pharmacy: [facility] 120 ACTUAT Yes 1 puff, Rehan judson Fluticasone 7-24 INHALATION l propionate 18:22: , BID, # Her bolaños 0.22 00 12 gm, 6 MG/ACTUAT Refill(s), [facility]Flovent[facility] [id number] 60 ACTUAT Yes 2 puff, Memor ia Budesonide 7-23 INHALATION l 0.08 15:30: , BID, use Ruben MG/ACTUAT 00 with Dry Powder spacer Inhaler Rinse [Pulmicort] mouth after use, # 3 ea, 11 Refill(s), Pharmacy: [facility] [id number] lansoprazol Yes 30 mg = 1 M emoria e 30 mg 7-23 cap, PO, l oral 14:45: Daily, # [place] delayed 00 30 cap, 0 release Refill(s) capsule Accu-Chek Yes 1 ea, Memoria SmartView 2-12 MISC, TID, l Blood 23:15: Use for [place] Glucose 31 blood Test Strips glucose monitoring . E11.9, # 270 ea, Insulin dependent, Does not use insulin pump, Last DM eval date 09/09/17, 11 Refill(s) DICLOFENAC Yes take one Mem oria SODIUM 75 6-16 twice a l MG TBEC 00:00: day MACROBID No 1 capsule Rehan judson 100 MG CAPS 6-16 twice a l 00:00: day for UTI DICLOFENAC Yes take one Mem oria SODIUM 75 6-16 twice a l MG TBEC 00:00: day TRAMADOL Yes 1 tablet Memor ia HCL 50 MG 6-10 twice l TABS 00:00: daily TRAMADOL Yes 1 tablet Memor ia HCL 50 MG 6-10 twice l TABS 00:00: daily TRAMADOL Yes 1 tablet Memor ia HCL 50 MG 6-10 twice l TABS 00:00: daily ACCU-CHEK Yes qd Memoria MULTICLIX 5-18 l LANCETS 00:00: Ruben [facility] [place] ACCU-CHEK Yes qd Memoria ACTIVE STRP 5-18 l 00:00: MACROBID No 1 capsule Rehan judson 100 MG CAPS 5-18 twice a l 00:00: day for UTI ACCU-CHEK Yes check qd Rehan judson MOIRA 5-18 l SMARTVIEW 00:00: Ruben W/DEVICE KIT ERYTHROMYCI No 1/4 tablet Memoria N BASE 250 1-29 p.o. l MG CPEP 00:00: q.a.m. and Herm escobar 00 h.s. TRAMADOL 2013-11 Yes one tablet Mem oria HCL 50 MG 2-11 p.o. l TABS 00:00: q.i.d. p.r.n. pain TRAMADOL 2013-11 No one tablet Mem oria HCL 50 MG 2-11 p.o. l TABS 00:00: q.i.d. p.r.n. pain TRAMADOL 2013-11 Yes one tablet Mem [facility]ria HCL 50 MG 2-11 p.o. l TABS 00:00: q.i.d. p.r.n. pain TRAMADOL 2013-11 No one tablet Mem oria HCL 50 MG 2-11 p.o. l TABS 00:00: q.i.d. p.r.n. pain TRAMADOL 2013-11 No one tablet Mem oria HCL 50 MG 2-11 p.o. l TABS 00:00: q.i.d. p.r.n. pain ADULT Yes 1 TAB QD Memoria ASPIRIN LOW 9-16 l STRENGTH 81 00:00: Loki n MG TBDP KLOR-CON Yes 1 tablet Memor ia M10 10 MEQ 8-08 daily l CR-TABS 00:00: KLOR-CON Yes 1 tablet Memor ia M10 10 MEQ 8-08 daily l CR-TABS 00:00: KLOR-CON Yes 1 tablet Memor ia M10 10 MEQ 8-08 daily l CR-TABS 00:00: DICYCLOMINE Yes one tab Mem oria HCL 10 MG 6-19 p.o. l CAPS 00:00: q.i.d. p.r.n. abdominal pain DICYCLOMINE Yes one tab Mem oria HCL 10 MG 6-19 p.o. l CAPS 00:00: q.i.d. p.r.n. abdominal pain DICYCLOMINE Yes one tab Mem oria HCL 10 MG 6-19 p.o. l CAPS 00:00: q.i.d. p.r.n. abdominal pain RELION Yes 15 units Memoria INSULIN 5-19 qd l SYRINGE 30G 00:00: Loki n X 5/16" 0.3 00 ML MISC LEVEMIR 100 Yes 15 units Me moria UNIT/ML 5-19 once a day l SOLN 00:00: in the morning LEVEMIR 100 Yes 15 units Me moria UNIT/ML 5-19 once a day l SOLN 00:00: in the RELION No check qd Memoria CONFIRM 5-09 l GLUCOSE 00:00: Ruben MONITOR 00 W/DEVICE KIT RELION No qd Memoria CONFIRM/JIMMY 5-09 l RO TEST 00:00: Ruben STRP 00 RELION No qd Memoria ULTRA THIN 5-09 l PLUS 00:00: Ruben LANCETS 00 MISC AZITHROMYCI No 2 tablets M emoria N 250 MG 5-09 daily for l TABS 00:00: 1 day, [place] 00 then 1 tablet daily for 4 days RELION Yes 10 units Memoria INSULIN 5-09 qd l SYRINGE 30G 00:00: Loki n X 5/16" 0.3 00 ML MISC LEVEMIR No Memoria SOLN 2-20 l 00:00: [place] 00 HYOSCYAMINE No one tablet Memoria SULFATE 2-20 sublingual l 0.125 MG 00:00: q.i.d. [place] SUBL 00 p.r.n. abdominal pain HYOSCYAMINE Yes one tablet Memoria SULFATE 2-20 sublingual l 0.125 MG 00:00: q.i.d. Ruben SUBL 00 p.r.n. abdominal pain HYOSCYAMINE No one tablet Memoria SULFATE 2-20 sublingual l 0.125 MG 00:00: q.i.d. Ruben SUBL 00 p.r.n. abdominal pain PROAIR HFA Yes 2 puffs Rehan judson 108 (90 2-11 Q4-6H prn l BASE) 00:00: [place] MCG/ACT 00 AERS AZITHROMYCI No 2 tablets M emoria N 250 MG 2-11 daily for l TABS 00:00: 1 day, Ruben 00 then 1 tablet daily for 4 days PROAIR HFA Yes 2 puffs Rehan judson 108 (90 2-11 Q4-6H prn l BASE) 00:00: Ruben MCG/ACT 00 AERS LOSARTAN 2014-0 Yes 1 TAB QD Memor ia POTASSIUM 1-07 l 50 MG TABS 00:00: AMLODIPINE 2014-0 Yes 1 TAB QD Mem oria BESYLATE 5 1-07 l MG TABS 00:00: HYDROCHLORO 2014-0 Yes 1 TAB QD Me moria THIAZIDE 25 1-07 l MG TABS 00:00: LOSARTAN 2014-0 Yes 1 TAB QD Memor ia POTASSIUM 1-07 l 50 MG TABS 00:00: AMLODIPINE 2014-0 Yes 1 TAB QD Mem oria BESYLATE 5 1-07 l MG TABS 00:00: LOSARTAN 2013-0 Yes 1 TAB QD Memor ia POTASSIUM 1-07 l 50 MG TABS 00:00: AMLODIPINE 2014-0 Yes 1 TAB QD Mem oria BESYLATE 5 1-07 l MG TABS 00:00: AMLODIPINE 2014-0 Yes 1 tablet Mem oria BESYLATE 10 1-07 daily l MG TABS 00:00: AMLODIPINE 2014-0 Yes 1 TAB QD Mem oria BESYLATE 5 1-07 l MG TABS 00:00: HYDROCHLORO 2014-0 Yes 1 TAB QD Me moria THIAZIDE 25 1-07 l MG TABS 00:00: AMLODIPINE 2014-0 Yes 1 tablet Mem oria BESYLATE 10 1-07 daily l MG TABS 00:00: EXFORGE HCT 2012-11 No 1 tablet Me moria 10-160-25 1-04 po every l MG TABS 00:00: other day Candy nn EXFORGE HCT 2012-11 No 1 tablet Me moria 10-160-25 1-04 po every l MG TABS 00:00: other day Candy nn LEVEMIR 100 2012-11 Yes 15 units Me moria UNIT/ML 0-23 once a day l SOLN 00:00: in the morning AMARYL 2 MG 2012-11 No i tab po Me moria TABS 0-10 BID l 00:00: JANUVIA 100 2012-11 No 1 tab by M emoria MG TABS 0-10 mouth once l 00:00: daily NovUVIA 2012-11 No 1 tab by M emoria MG TABS 0-10 mouth once l 00:00: daily IA 2012-11 No 1 tab by M emoria MG TABS 0-10 mouth once l 00:00: daily NovUVIA 2012-11 No 1 tab by M emoria MG TABS 0-10 mouth once l 00:00: daily LANSOPRAZOL Yes one tablet Memoria E 30 MG 6-06 p.o. q. l CPDR 00:00: day LANSOPRAZOL Yes one tablet Memoria E 30 MG 6-06 p.o. q. l CPDR 00:00: day GAVILYTE-G No follow Memor ia 236 GM SOLR 5-16 handout l 00:00: av ns ISOSORBIDE 2011-11 Yes 1 tablet Mem oria MONONITRATE 1-26 po daily l CR 30 MG 00:00: 24H-TAB METOPROLOL 2011-11 Yes 1 tablet Mem oria TARTRATE 50 1-26 po BID l MG TABS 00:00: CRESTOR 10 2011-11 Yes 1 tablet Mem oria MG TABS 1-26 po nightly l 00:00: PLAVIX 75 2011-11 Yes 1 tablet Rehan judson MG TABS 1-26 po daily l 00:00: SINGULAIR 2011-11 Yes 1 tablet Rehan judson 10 MG TABS 1-26 po nightly l 00:00: ACTONEL 35 2011-11 No 1 tablet Mem oria MG TABS 1-26 po weekly l 00:00: FUROSEMIDE 2011-11 No 1 tablet Mem oria 40 MG TABS 1-26 po daily l 00:00: KLOR-CON 10 2011-11 No 1 tablet Me moria TAB 10MEQ 1-26 po daily l ER 00:00: ISOSORBIDE 2011-11 Yes 1 tablet Mem oria MONONITRATE 1-26 po daily l CR 30 MG 00:00: [id number] METOPROLOL 2011-11 Yes 1 tablet Mem oria TARTRATE 50 1-26 po BID l MG TABS 00:00: FUROSEMIDE 2011-11 No 1 tablet Mem oria 40 MG TABS 1-26 po daily l 00:00: ISOSORBIDE 2011-11 Yes 1 tablet Mem oria MONONITRATE 1-26 po daily l CR 30 MG 00:00: [id number] METOPROLOL 2011-11 Yes 1 tablet Mem oria TARTRATE 50 1-26 po BID l MG TABS 00:00: ISOSORBIDE 2011-11 Yes 1 tablet Mem oria MONONITRATE 1-26 po daily l CR 30 MG 00:00: [id number] FUROSEMIDE 2011-11 No 1 tablet Mem oria 40 MG TABS 1-26 po daily l 00:00: KLOR-CON 2011-11 No 1 tablet Me moria TAB 10MEQ 1-26 po daily l ER 00:00: ISOSORBIDE 2011-11 Yes 1 tablet Mem oria MONONITRATE 1-26 po daily l CR 30 MG 00:00: [id number] METOPROLOL 2011-11 Yes 1 tablet Mem oria TARTRATE 50 1-26 po BID l MG TABS 00:00: PLAVIX 75 2011-11 Yes 1 tablet Rehan judson MG TABS 1-26 po daily l 00:00: SINGULAIR 2011-11 Yes 1 tablet Rehan judson 10 MG TABS 1-26 po nightly l 00:00: FUROSEMIDE 2011-11 No 1 tablet Mem oria 40 MG TABS 1-26 po daily l 00:00: KLOR-CON 10 2011-11 No 1 tablet Me moria TAB 10MEQ 1-26 po daily l ER 00:00: ATORVASTATI 2011-11 Yes 1 tablet Me moria N CALCIUM 1-26 daily l 20 MG TABS 00:00: METOPROLOL 2011-11 Yes 1 tablet Mem oria TARTRATE 50 1-26 po BID l MG TABS 00:00: ACTONEL 35 2011-11 No 1 tablet Mem oria MG TABS 1-26 po weekly l 00:00: ATORVASTATI 2011-11 Yes 1 tablet Me moria N CALCIUM 1-26 daily l 20 MG TABS 00:00: [place] 00 NAPROSYN 2011-11 No 1 tablet Memor ia TAB 500MG 0-18 po BID prn l 00:00: pain and Ruben 00 inflammati on FLEXERIL 2011-11 No 1 tablet Memor ia TAB 10MG 0-18 po TID prn l 00:00: muscle [place] 00 spasms ULTRAM TABS 2011-11 No 1 tablet Me moria 50 MG 0-18 po Q4-6H l 00:00: prn pain [place] 00 ULTRAM TABS 2011-11 No 1 tablet Me moria 50 MG 0-18 po Q4-6H l 00:00: prn pain [place] 00 NAPROSYN 2011-11 No 1 tablet Memor ia TAB 500MG 0-18 po BID prn l 00:00: pain and Ruben 00 inflammati on PredniSONE PredniSONE Yes Prasanna not [facility] Vitamin D3 Vitamin D3 Yes Prasanna [address] [facility] Atorvastati Atorvastati Yes Prasanna [address] [facility] n Calcium n Calcium Ceron [facility] Azithromyci Azithromyci Yes Prasanna not [facility] n n Ceron defined [facility] Proctozone- Proctozone- Yes Prasanna not [facility] HC HC Ceron defined [facility] Metoprolol Metoprolol Yes Prasanna [address] [facility] Succinate Succinate [facility] Amlodipine Amlodipine Yes Prasanna [address] [facility] Besylate Besylate [facility]eron [facility] Centrum Centrum Yes Prasanna as [facility] Silver Silver [facility] directed [facility] Zolpidem Zolpidem Yes Prasanna not [facility] Tartrate Tartrate [facility] defined [facility] Ondansetron Ondansetron Yes Prasanna not [facility] HCl HCl [facility] Virtussin Virtussin Yes Pr[facility] not [facility] A/C A/C [facility] defined [facility] Aspir-81 Aspir-81 Yes Prasanna [address] [facility] Levemir Levemir Yes Prasanna [address] [facility] [address] [facility] FlexTouch FlexTouch [facility] BD Pen BD Pen Yes Prasanna CHECK [facility] Needle Mini Needle Mini Ceron BLOOD [facility] U/F U/F SUGARS [facility]oria EVERY DAY l [facility] Losartan Losartan Yes Prasanna [address] [facility] Potassium Potassium [facility] Plavix Plavix Yes Prasanna [address] [facility] Lansoprazol Lansoprazol Yes Prasanna [address] [facility] e e [facility]eron [facility] Isosorbide Isosorbide Yes Prasanna [address] [facility] Mononitrate Mononitrate Ceron in the [facility] ER ER morning [facility] Potassium Potassium Yes Prasanna not [facility] Chloride ER Chloride ER Ceron defined [facility] Nitroglycer Nitroglycer Yes Prasanna not [facility] in in Ceron defined [facility] Potassium Potassium Yes Prasanna [address] [facility] Bicarb-Citr Bicarb-Citr Ceron L ukes - ic Acid ic Acid [facility] Oseltamivir Oseltamivir Yes Prasanna not [facility] Phosphate Phosphate Ceron defined Is[facility] kes - [facility] Diethylprop Diethylprop Yes Prasanna not [facility] ion HCl ER ion HCl ER [facility] defined [facility] Clopidogrel Clopidogrel Yes Prasanna not [facility] Bisulfate Bisulfate Ceron defined [facility] k[facility] - [facility] Acetaminoph Acetaminoph Yes Prasanna not [facility] en-Codeine en-Codeine Ceron defined [facility]3 #3 [facility] Vital Signs Vital Name Observation Time Observation Value Comments Source Systolic (mm Hg) 2020-06-13 15:35:00 Rehan rial Ruben Diastolic (mm Hg) 2020-06-13 15:35:00 [facility] orial [place] Heart Rate 2020-06-13 15:35:00 [facility] [place] Weight 2020-06-13 15:35:00 [facility] 2019-12-14 16:11:00 Rehan rial [place] Diastolic (mm Hg) 2019-12-14 16:11:00 Mem orial [place] Heart Rate 2019-12-14 16:11:00 [facility] [place] Temperature Oral (F) 2019-12-14 16:11:00 98.7 F [facility] [place] Weight 2019-12-14 16:11:00 [facility] [place] BMI Calculated 2019-06-08 15:07:00 Memori al Ruben Weight 2019-06-08 15:07:00 [facility] [place] Height 2019-06-08 15:07:00 160.02 cm [facility] [place] Systolic (mm Hg) 2019-06-08 15:07:00 Rehan rial Ruben Diastolic (mm Hg) 2019-06-08 15:07:00 Mem orial Ruben Temperature Oral (F) 2019-06-08 15:07:00 98.5 F [facility] Ruben Heart Rate 2019-06-08 15:07:00 [facility] [place] Weight 2018-12-08 15:58:00 [facility] [place] Height 2018-12-08 15:58:00 160.02 cm [facility] [place] BMI Calculated 2018-12-08 15:58:00 Memori al Ruben Heart Rate 2018-12-08 15:58:00 [facility] Ruben Temperature Oral (F) 2018-12-08 15:58:00 98.0 F [facility]en Systolic (mm Hg) 2018-12-08 15:58:00 Rehan rial Ruben Diastolic (mm Hg) 2018-12-08 15:58:00 Mem orial Ruben Respitory Rate 2018-12-08 15:49:00 Memori al [place] Temperature Oral (F) 2018-12-08 15:49:00 97.8 F [facility] Ruben Heart Rate 2018-12-08 15:49:00 [facility]en Systolic (mm Hg) 2018-12-08 15:49:00 Rehan rial Ruben Diastolic (mm Hg) 2018-12-08 15:49:00 Mem orial Ruben Weight 2018-12-08 15:49:00 [facility] [place] Systolic (mm Hg) 2018-09-08 14:34:00 Rehan rial Ruben Diastolic (mm Hg) 2018-09-08 14:34:00 Mem orial [place] BMI Calculated 2018-09-08 14:34:00 Memori al Ruben Heart Rate 2018-09-08 14:34:00 [facility] [place] Height 2018-09-08 14:34:00 160.02 cm [facility] [place] Weight 2018-09-08 14:34:00 [facility] Ruben Height 2018-07-07 13:40:00 160.02 cm [facility] [place] Weight 2018-07-07 13:40:00 [facility] Ruben BMI Calculated 2018-07-07 13:40:00 Memori al Ruben Heart Rate 2018-07-07 13:40:00 [facility] [place]en Systolic (mm Hg) 2018-07-07 13:40:00 Rehan rial Ruben Diastolic (mm Hg) 2018-07-07 13:40:00 Mem orial Ruben Weight 2018-06-15 14:39:00 [facility] [place] Heart Rate 2018-06-15 14:39:00 [facility] [place] Respitory Rate 2018-06-15 14:39:00 Memori al [place] Temperature Oral (F) 2018-06-15 14:39:00 98.3 F [facility] [place] Systolic (mm Hg) 2018-06-15 14:39:00 Rehan rial [place] Diastolic (mm Hg) 2018-06-15 14:39:00 Mem orial Ruben Weight 2018-02-10 15:37:00 [facility] [place] Height 2018-02-10 15:37:00 160.02 cm [facility] [place] Systolic (mm Hg) 2018-02-10 15:37:00 Rehan rial Ruben Diastolic (mm Hg) 2018-02-10 15:37:00 Mem orial [place] BMI Calculated 2018-02-10 15:37:00 Memori al [place] Heart Rate 2018-02-10 15:37:00 [facility] [place] Temperature Oral (F) 2018-02-10 15:37:00 97.9 F [facility] Ruben Respitory Rate 2018-02-10 15:37:00 [facility] al [place] BMI Calculated 2018-02-10 14:36:00 Mem[facility] al [place] Height 2018-02-10 14:36:00 165.1 cm [facility] Ruben Systolic (mm Hg) 2018-02-10 14:36:00 Rehan rial Ruben Diastolic (mm Hg) 2018-02-10 14:36:00 Mem orial Rub[place] Heart Rate 2018-02-10 14:36:00 [facility] [place] Temperature Oral (F) 2018-02-10 14:36:00 98.1 F [facility] [place] Weight 2018-02-10 14:36:00 [facility] Ruben Height 2015-06-12 12:31:51 [facility] [place] Weight 2015-06-12 12:31:51 [facility] [place] Temperature Oral (F) 2015-06-12 12:31:51 98 F [facility] [place] Respitory Rate 2015-06-12 12:31:51 Memori al [place] Heart Rate 2015-06-12 12:31:51 [facility] [place] Systolic (mm Hg) 2015-06-12 12:31:51 Rehan rial Ruben Diastolic (mm Hg) 2015-06-12 12:31:51 Mem orial [place] Weight 2015-05-09 13:48:51 [facility] [place] Systolic (mm Hg) 2015-05-09 13:48:51 Rehan rial Ruben Diastolic (mm Hg) 2015-05-09 13:48:51 Mem orial [place] Temperature Oral (F) 2015-05-09 13:48:51 98.1 F [facility] [place] Heart Rate 2015-05-09 13:48:51 [facility] [place] Height 2015-04-13 14:17:02 [facility] Ruben Weight 2015-04-13 14:17:02 [facility] [place] Temperature Oral (F) 2015-04-13 14:17:02 98.5 F [facility] Ruben Respitory Rate 2015-04-13 14:17:02 Memori al [place] Heart Rate 2015-04-13 14:17:02 [facility] [place] Systolic (mm Hg) 2015-04-13 14:17:02 Rhean rial [place] Diastolic (mm Hg) 2015-04-13 14:17:02 Mem orial Ruben Weight 2014-12-22 14:30:20 [facility] Ruben Temperature Oral (F) 2014-12-22 14:30:20 98.1 F [facility] [place] Heart Rate 2014-12-22 14:30:20 [facility] Ruben Systolic (mm Hg) 2014-12-22 14:30:20 Rehan rial [place] Diastolic (mm Hg) 2014-12-22 14:30:20 Mem orial Ruben Weight 2014-12-14 14:44:00 [facility] [place] Temperature Oral (F) 2014-12-14 14:44:00 98.2 F [facility] [place] Respitory Rate 2014-12-14 14:44:00 Memori al [place] Heart Rate 2014-12-14 14:44:00 [facility] [place] Systolic (mm Hg) 2014-12-14 14:44:00 Rehan rial [place] Diastolic (mm Hg) 2014-12-14 14:44:00 Mem orial [place] Weight 2014-11-23 17:01:22 [facility] [place] Systolic (mm Hg) 2014-11-23 17:01:22 Rehan rial Ruben Diastolic (mm Hg) 2014-11-23 17:01:22 Mem orial [place] Weight 2014-11-03 16:41:42 [facility] Ruben Temperature Oral (F) 2014-11-03 16:41:42 98.8 F [facility] [place] Heart Rate 2014-11-03 16:41:42 [facility] [place] Systolic (mm Hg) 2014-11-03 16:41:42 Rehan rial [place] Diastolic (mm Hg) 2014-11-03 16:41:42 Mem orial Ruben Height 2014-08-09 17:35:51 [facility] [place] Weight 2014-08-09 17:35:51 [facility] [place] Respitory Rate 2014-08-09 17:35:51 Memori al [place] Heart Rate 2014-08-09 17:35:51 [facility]en Systolic (mm Hg) 2014-08-09 17:35:51 Rehan rial Ruben Diastolic (mm Hg) 2014-08-09 17:35:51 Mem orial [place] Temperature Oral (F) 2014-08-09 17:35:51 98.4 F [facility] Weight 2014-05-18 14:27:00 [facility] Temperature Oral (F) 2014-05-18 14:27:00 98.0 F [facility] [place] Heart Rate 2014-05-18 14:27:00 [facility] [place] Systolic (mm Hg) 2014-05-18 14:27:00 Rehan rial Ruben Diastolic (mm Hg) 2014-05-18 14:27:00 Mem orial [place] Weight 2014-04-11 19:31:11 [facility] Temperature Oral (F) 2014-04-11 19:31:11 98.7 F [facility] Respitory Rate 2014-04-11 19:31:11 Memori al [place] Systolic (mm Hg) 2014-04-11 19:31:11 Rehan rial Ruben Diastolic (mm Hg) 2014-04-11 19:31:11 Mem orial [place] Heart Rate 2014-04-11 19:31:11 [facility] Weight 2014-04-01 13:23:51 [facility] [place] Temperature Oral (F) 2014-04-01 13:23:51 98.5 F [facility] [place] Respitory Rate 2014-04-01 13:23:51 [facility] al [place] Heart Rate 2014-04-01 13:23:51 [facility]en Systolic (mm Hg) 2014-04-01 13:23:51 Rehan rial Ruben Diastolic (mm Hg) 2014-04-01 13:23:51 Mem orial Rbuen Weight 2014-01-13 15:22:40 [facility] [place] Heart Rate 2014-01-13 15:22:40 [facility] Systolic (mm Hg) 2014-01-13 15:22:40 Rehan rial Ruben Diastolic (mm Hg) 2014-01-13 15:22:40 Mem orial [place] Weight 2014-01-04 14:12:51 [facility] [place] Temperature Oral (F) 2014-01-04 14:12:51 98.4 F [facility] [place] Respitory Rate 2014-01-04 14:12:51 Memori al [place] Heart Rate 2014-01-04 14:12:51 [facility] [place] Systolic (mm Hg) 2014-01-04 14:12:51 Rehan rial Ruben Diastolic (mm Hg) 2014-01-04 14:12:51 Mem orial [place] Weight 2013-11-30 15:31:24 [facility] [place] Systolic (mm Hg) 2013-11-30 15:31:24 Rehan rial [place] Diastolic (mm Hg) 2013-11-30 15:31:24 Mem orial Ruben Weight 2013-09-27 15:36:00 [facility] [place] Temperature Oral (F) 2013-09-27 15:36:00 98.2 F [facility] Respitory Rate 2013-09-27 15:36:00 Memori al [place] Heart Rate 2013-09-27 15:36:00 [facility] [place] Systolic (mm Hg) 2013-09-27 15:36:00 Rehan rial Ruben Diastolic (mm Hg) 2013-09-27 15:36:00 Mem orial [place] Weight 2013-09-15 14:59:30 [facility] [place] Temperature Oral (F) 2013-09-15 14:59:30 99.4 F [facility] [place] Respitory Rate 2013-09-15 14:59:30 Memori al [place] Heart Rate 2013-09-15 14:59:30 [facility] [place] Systolic (mm Hg) 2013-09-15 14:59:30 Rehan rial [place] Diastolic (mm Hg) 2013-09-15 14:59:30 Mem orial [place] Weight 2013-09-02 14:38:22 [facility] [place] Heart Rate 2013-09-02 14:38:22 [facility] [place] Respitory Rate 2013-09-02 14:38:22 [facility] al [place] Temperature Oral (F) 2013-09-02 14:38:22 98.4 F [facility] Systolic (mm Hg) 2013-09-02 14:38:22 Rehan rial Ruben Diastolic (mm Hg) 2013-09-02 14:38:22 Mem orial [place] Weight 2013-08-05 14:10:11 [facility] [place] Heart Rate 2013-08-05 14:10:11 [facility] [place] Respitory Rate 2013-08-05 14:10:11 Memori al [place] Temperature Oral (F) 2013-08-05 14:10:11 98.6 F [facility] Systolic (mm Hg) 2013-08-05 14:10:11 Rehan rial [place] Diastolic (mm Hg) 2013-08-05 14:10:11 Mem orial [place] Weight 2013-05-20 19:05:35 [facility] [place] Heart Rate 2013-05-20 19:05:35 [facility] [place] Systolic (mm Hg) 2013-05-20 19:05:35 Rehan rial [place] Diastolic (mm Hg) 2013-05-20 19:05:35 Mem orial Ruben Weight 2013-04-29 20:20:07 [facility] [place] Heart Rate 2013-04-29 20:20:07 [facility] [place] Systolic (mm Hg) 2013-04-29 20:20:07 Rehan rial Ruben Diastolic (mm Hg) 2013-04-29 20:20:07 Mem orial [place] Weight 2013-04-16 15:14:10 [facility] Temperature Oral (F) 2013-04-16 15:14:10 98.6 F [facility] [place] Respitory Rate 2013-04-16 15:14:10 Memori al [place] Heart Rate 2013-04-16 15:14:10 [facility] [place] Systolic (mm Hg) 2013-04-16 15:14:10 Rehan rial Ruben Diastolic (mm Hg) 2013-04-16 15:14:10 Mem orial [place] Weight 2013-04-08 19:04:46 [facility] Heart Rate 2013-04-08 19:04:46 [facility] [place] Systolic (mm Hg) 2013-04-08 19:04:46 Rehan rial [place]en Diastolic (mm Hg) 2013-04-08 19:04:46 [facility] [place] Weight 2012-12-18 20:44:30 [facility] Height 2012-12-18 20:44:30 [facility] Temperature Oral (F) 2012-12-18 20:44:30 98.1 F [facility] Systolic (mm Hg) 2012-12-18 20:44:30 [facility] [place] Diastolic (mm Hg) 2012-12-18 20:44:30 [facility] [place] Heart Rate 2012-12-18 20:44:30 [facility] Respitory Rate 2012-12-18 20:44:30 [facility] Weight 2012-10-19 16:40:20 [facility] Temperature Oral (F) 2012-10-19 16:40:20 98.3 F [facility] Heart Rate 2012-10-19 16:40:20 [facility] Systolic (mm Hg) 2012-10-19 16:40:20 [facility] [place] Diastolic (mm Hg) 2012-10-19 16:40:20 [facility] [place] Height 2012-09-10 18:40:50 [facility] Weight 2012-09-10 18:40:50 [facility] Temperature Oral (F) 2012-09-10 18:40:50 98.4 F [facility] Systolic (mm Hg) 2012-09-10 18:40:50 [facility] [place] Heart Rate 2012-09-10 18:40:50 [facility] [place] Diastolic (mm Hg) 2012-09-10 18:40:50 [facility] [place] Procedures Procedure Date / Time Performing Clinician Source Performed Colonoscopy<sup>1</sup> 2018-06-12 05:00:00 Rehan rial [place] diabetic foot check 2013-09-15 14:59:30 [facility] Ruben vaginal Pap smear results 2013-08-05 14:10:11 [place] serene Miranda mammogram 2012 18:12:59 Steve bolaños diabetic eye exam 2011-12-13 20:10:35 Steve capone colonoscopy 2010-11-26 20:04:46 Steve bolaños [facility] and [facility] Ruben insertion of intraocular lens R<sup>2</sup> Cholecystectomy [facility] Hernia repair [facility] Hysterectomy [facility] 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<sup>3</sup> Stent placement [facility] Total knee [facility] arthroplasty<sup>4</sup> Encounters Start End Encounter Admission Attending Care Care Encounter Source Date/Time Date/Time Type Type Clinicians Facility Department ID 2020-09-12 2020-09-12 Outpatient [facility] [id number] 2020-09-06 2020-09-06 Outpatient [facility] [id number] [facility] 2020-09-05 2020-09-05 [id number] 08:15:00 23:59:59 Kuldeep 55 [place] 2020-08-23 2020-08-23 Outpatient [facility] [id number] [facility] 2020-08-07 2020-08-07 [facility] [id number] 09:00:00 09:00:00 [facility] 2020-06-13 2020-06-13 Outpatient Dillon White [facility] [id number] 10:15:00 23:59:59 Armond Deal 2020-05-29 2020-05-29 Orders Doctor LANDON 1.2.840.114 [id number] 00:00:00 00:00:00 Only Unassigned, PREETI 350.1.13.10 [place] [facility] 4.2.7.2.686 [id number] [id number] 2020-03-29 2020-03-29 Orders Doctor LANDON 1.2.840.114 [id number] 00:00:00 00:00:00 Only Unassigned, PREETI 350.1.13.10 [place] [facility] 4.2.7.2.686 [id number] [id number] 2020-03-21 2020-03-21 [facility] [id number] 00:00:00 00:00:00 Donna Godinez 350.1.13.10 [place] 4.2.7.2.686 Professio [phone] [facility] 204 [facility] 2020-03-17 2020-03-17 Orders Doctor LANDON 1.2.840.114 [id number] 00:00:00 00:00:00 Only Unassigned, PREETI 350.1.13.10 [place] [facility] 4.2.7.2.686 [id number] [id number] 2020-03-06 2020-03-06 Telemedici Harvey Gil [facility] 1.2.840.114 [id number] 08:01:45 08:16:45 ne Visit Health 350.1.13.10 Clear 4.2.7.2.686 Laurent [id number] Medical 196 Office [facility] 2020-03-01 2020-03-01 Case [facility] 1.2.840.114 [id number] 00:00:00 00:00:00 Management Donna Godinez 350.1.13.10 [place] 4.2.7.2.686 Professio [phone] [address] 2020-02-08 2020-02-29 Office [facility] [id number] 13:23:00 15:01:35 Visit Jemma Godinez 350.1.13.10 [place] 4.2.7.2.686 Professio [id number] [address] 2020-02-29 2020-02-29 [facility] 1.2.840.114 [id number] 00:00:00 00:00:00 Jemma Godinez 350.1.13.10 [place] 4.2.7.2.686 Professio [phone] [address] 2020-02-29 2020-02-29 Case Karlie, UTFRANCO 1.2.840.114 [id number] 00:00:00 00:00:00 Management Donna Godinez 350.1.13.10 [place] 4.2.7.2.686 Roger [phone] [address] 2019-12-14 2019-12-14 Outpatient Cindy, Dillon [facility] [id number] 10:15:00 23:59:59 Armond 53 2019-12-13 2019-12-13 Orders Doctor NAVARRETE 1.2.840.114 [id number] 00:00:00 00:00:00 Only Unassigned, PREETI 350.1.13.10 [place] [facility] 4.2.7.2.686 [id number] 2019-12-01 2019-12-02 Outpatient [facility] [id number] 10:15:33 23:59:59 30 2019-11-25 2019-11-26 Outpatient [facility] [id number] 16:02:58 23:59:59 29 2019-06-08 2019-06-08 Outpatient Dillon White [facility] [id number] 09:45:00 23:59:59 Armond 51 2019-02-10 2019-02-11 Outpatient [facility] [id number] 07:12:00 23:59:59 28 2019-02-09 2019-02-10 Outpatient [facility] [id number] 16:23:00 23:59:59 27 2019-02-09 2019-02-10 Outpatient [facility] [id number] 13:42:00 23:59:59 14 2019-02-09 2019-02-10 Outpatient [facility] [id number] 07:05:00 23:59:59 26 2019-02-09 2019-02-10 Outpatient [facility] [id number] 16:24:35 16:24:35 44 2018-12-08 2018-12-08 Outpatient Kofi, [facility] [id number] 10:45:00 23:59:59 Curtis De Leon Saul 2018-12-08 2018-12-08 Outpatient Cindy, Dillon [facility] [id number] 09:15:00 23:59:59 Armond Santana 2018-12-03 2018-12-03 Outpatient Dillon White [facility] [id number] 08:30:00 23:59:59 Armond 50 2018-11-10 2018-11-11 Outpatient [facility] [id number] 08:18:00 23:59:59 25 2018-11-05 2018-11-06 Outpatient [facility] [id number] 09:38:00 23:59:59 24 2018-10-06 2018-10-07 Outpatient [facility] [id number] 11:45:00 23:59:59 23 2018-09-29 2018-09-30 Outpatient [facility] [id number] 08:49:00 23:59:59 22 2018-09-08 2018-09-08 Outpatient Cindy, H [facility] [id number] 10:45:00 23:59:59 Armond 41 2018-08-19 2018-08-20 Outpatient [facility] [id number] 14:50:00 23:59:59 21 2018-08-19 2018-08-19 Outpatient [facility] [id number] 07:40:00 07:40:00 48 2018-08-10 2018-08-11 Outpatient [facility] [id number] 07:53:00 23:59:59 20 2018-08-04 2018-08-04 Outpatient [facility] [id number] 07:20:00 07:20:00 47 2018-08-04 2018-08-04 Outpatient [facility] [id number] 07:20:00 07:20:00 47 2018-07-07 2018-07-07 Outpatient Shena [facility] [id number] 08:30:00 23:59:59 , 43 Sindhu Pollock 2018-06-16 2018-06-17 Outpatient [facility] [id number] 12:55:00 23:59:59 19 2018-06-15 2018-06-15 Outpatient VISIT, MH[facility] [id number] 11:00:00 23:59:59 NURSE HELLEN ARTHUR 2018-06-15 2018-06-15 Outpatient Kofi, [facility] [id number] 10:00:00 23:59:59 Curtis De Leon 42 2018-06-15 2018-06-15 Outpatient Kofi, [facility] [id number] 10:00:00 23:59:59 Curtis P 42 2018-06-15 2018-06-15 Outpatient VISIT, MH[facility] [id number] 11:00:00 11:00:00 NURSE STWC 44 MAMMO 2018-06-15 2018-06-15 Outpatient VISIT, MH[facility] [id number] 11:00:00 11:00:00 NURSE STWC 44 MAMMO 2018-02-16 2018-02-17 Outpatient [facility] [id number] 11:44:00 23:59:59 18 2018-02-10 2018-02-10 Outpatient Kofi, [facility] [id number] 10:15:00 23:59:59 Curtis P 40 2018-02-10 2018-02-10 Outpatient Kofi, [facility] [id number] 10:15:00 23:59:59 Curtis P 40 2018-02-10 2018-02-10 Outpatient Cindy, H [facility] [id number] 09:30:00 23:59:59 Armond 39 2018-02-10 2018-02-10 Outpatient Cindy, H [facility] [id number] 09:30:00 23:59:59 Armond 39 2018-01-05 2018-01-06 Outpatient [facility] [id number] 16:18:00 23:59:59 17 2017-12-17 2017-12-18 Outpatient [facility] [id number] 09:31:00 23:59:59 16 2017-12-17 2017-12-18 Outpatient [facility] [id number] 09:26:00 23:59:59 15 2017-11-25 2017-11-26 Outpatient [facility] [id number] 10:05:00 23:59:59 14 2017-11-25 2017-11-26 Outpatient [facility] [id number] 09:58:00 23:59:59 13 2017-10-24 2017-10-25 Outpatient [facility] [id number] 10:53:00 23:59:59 12 2016-02-06 2016-02-06 Outpatient Rudy, MH29 MH29 [id number] 10:27:00 23:59:00 Nadchelita Nando 2015-12-20 2015-12-20 Outpatient Diloln White MH29 MH29 [id number] 10:17:00 23:59:00 Armond 00 Results Test Description Test Time Test Comments Results Result Comments Source Chemistry 2015-06-12 18 [facility] 17:00:00 Chemistry 2015-06-12 1.0 [facility] 17:00:00 Chemistry 2015-06-12 142 MEQ/L [facility] 17:00:00 Chemistry 2015-06-12 4.2 MEQ/L [facility] 17:00:00 Chemistry 2015-06-12 9.0 [facility] 17:00:00 Chemistry 2015-06-12 18 [facility] 17:00:00 Chemistry 2015-06-12 1.0 [facility] 17:00:00 Chemistry 2015-06-12 142 MEQ/L [facility] 17:00:00 Chemistry 2015-06-12 4.2 MEQ/L [facility] 17:00:00 Chemistry 2015-06-12 9.0 [facility] 17:00:00 Hematology 2015-06-12 12.4 [facility] 17:00:00 Hematology 2015-06-12 36.8 [facility] 17:00:00 Hematology 2015-06-12 212 K/CMM [facility] 17:00:00 Hematology 2015-06-12 12.4 [facility] 17:00:00 Hematology 2015-06-12 36.8 [facility] 17:00:00 Hematology 2015-06-12 212 K/CMM [facility] 17:00:00 Chemistry 2015-04-07 6.3 [facility] 14:17:02 Chemistry 2015-04-07 1.12 [facility] 14:17:02 Chemistry 2015-04-07 6.3 [facility] 14:17:02 Chemistry 2015-04-07 1.12 [facility] 14:17:02 Chemistry 2014-12-06 6.3 [facility] 22:09:29 Chemistry 2014-12-06 0.89 [facility] 22:09:29 Chemistry 2014-12-06 0.59 [facility] 22:09:29 Chemistry 2014-12-06 156 [facility] 22:09:29 Chemistry 2014-12-06 70 [facility] 22:09:29 Chemistry 2014-12-06 61 [facility] 22:09:29 Chemistry 2014-12-06 126 [facility] 22:09:29 Chemistry 2014-12-06 6.3 [facility] 22:09:29 Chemistry 2014-12-06 0.89 [facility] 22:09:29 Chemistry 2014-12-06 0.59 [facility] 22:09:29 Chemistry 2014-12-06 156 [facility] 22:09:29 Chemistry 2014-12-06 70 [facility] 22:09:29 Chemistry 2014-12-06 61 [facility] 22:09:29 Chemistry 2014-12-06 126 [facility] 22:09:29 Chemistry 2014-08-01 6.0 [facility] 15:50:00 Chemistry 2014-08-01 6.0 [facility] 15:50:00 Chemistry 2014-04-01 138 [facility] 14:45:00 Chemistry 2014-04-01 4.5 [facility] 14:45:00 Chemistry 2014-04-01 24 [facility] 14:45:00 Chemistry 2014-04-01 1.00 [facility] 14:45:00 Chemistry 2014-04-01 9.4 [facility] 14:45:00 Chemistry 2014-04-01 5.8 [facility] 14:45:00 Chemistry 2014-04-01 138 [facility] 14:45:00 Chemistry 2014-04-01 4.5 [facility] 14:45:00 Chemistry 2014-04-01 24 [facility] 14:45:00 Chemistry 2014-04-01 1.00 [facility] 14:45:00 Chemistry 2014-04-01 9.4 [facility] 14:45:00 Chemistry 2014-04-01 5.8 [facility] 14:45:00 Chemistry 2013-12-28 5.7 [facility] 23:10:03 Chemistry 2013-12-28 0.91 [facility] 23:10:03 Chemistry 2013-12-28 5.7 [facility] 23:10:03 Chemistry 2013-12-28 0.91 [facility] 23:10:03 Chemistry 2013-09-27 157 [facility] 15:36:00 Chemistry 2013-09-27 94 [facility] 15:36:00 Chemistry 2013-09-27 58 [facility] 15:36:00 Chemistry 2013-09-27 80 [facility] 15:36:00 Chemistry 2013-09-27 1.56 [facility] 15:36:00 Chemistry 2013-09-27 157 [facility] 15:36:00 Chemistry 2013-09-27 94 [facility] 15:36:00 Chemistry 2013-09-27 58 [facility] 15:36:00 Chemistry 2013-09-27 80 [facility] 15:36:00 Chemistry 2013-09-27 1.56 [facility] 15:36:00 Chemistry 2013-09-24 12.5 [facility] 22:41:50 Chemistry 2013-09-24 1.56 [facility] 22:41:50 Chemistry 2013-09-24 0.69 [facility] 22:41:50 Chemistry 2013-09-24 157 [facility] 22:41:50 Chemistry 2013-09-24 80 [facility] 22:41:50 Chemistry 2013-09-24 58 [facility] 22:41:50 Chemistry 2013-09-24 94 [facility] 22:41:50 Chemistry 2013-09-24 12.5 [facility] 22:41:50 Chemistry 2013-09-24 1.56 [facility] 22:41:50 Chemistry 2013-09-24 0.69 [facility] 22:41:50 Chemistry 2013-09-24 157 [facility] 22:41:50 Chemistry 2013-09-24 80 [facility] 22:41:50 Chemistry 2013-09-24 58 [facility] 22:41:50 Chemistry 2013-09-24 94 [facility] 22:41:50 Urinalysis 2013-09-24 10 [facility] 21:59:15 Urinalysis 2013-09-24 10 [facility] nn 21:59:15 Urinalysis 2013-09-24 10 [facility] 21:59:15 Urinalysis 2013-09-24 10 [facility] 21:59:15 Urinalysis 2013-09-24 10 [facility] 21:59:15 Supervisor Building Maintenance 2013-08-05 normal [facility] 14:10:11 Supervisor Building Maintenance 2013-08-05 normal [facility] 14:10:11 Supervisor Building Maintenance 2013-08-05 normal [facility] 14:10:11 Supervisor Building Maintenance 2013-08-05 normal [facility] 14:10:11 Supervisor Building Maintenance 2013-08-05 normal [facility] 14:10:11 Pathology 2013-08-05 normal [facility] 14:10:11 Pathology 2013-08-05 normal [facility] 14:10:11
--- OUTSIDE RECORDS SUMMARY | 2020-10-18 08:12 | XMS REPORT ---
:1945 Author Organization [facility] Address [address] [facility] [place] 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 Active 502135912 current use of insulin Problem Mixed E78.2 Active 685684942 hyperlipidemia Problem GERD without K21.9 Active 136791892 esophagitis Problem 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 Problem Bilateral carpal G56.03 Active 63388660 tunnel syndrome Problem Carpal tunnel G56.01 Active 01186963 syndrome of right wrist Problem 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 Active 903722776 disease Problem Carpal tunnel G56.02 Active 68287294 syndrome of left wrist Problem Asthma J45.909 Active 740727422 Problem Dysphagia, R13.10 Active 09025229 unspecified type Problem Degenerative M50.30 Active 24093767 disc disease, cervical Problem Pain of left N64.4 Active 71667861594580693 breast Problem Abnormal R92.8 Active 069764443 mammogram ALLERGIES Allergen (clinical drug Drug/Non Drug Allergy Reaction Allergy Type Onset Date Status ingredient) documented on EMR penicillin Unknown Drug Allergy Active tramadol tramadol Unknown Drug Allergy Active Iodine(NDC Unknown Drug Allergy Active Code:53620-43913) Vicodin Unknown Drug Allergy Active ENCOUNTERS from 1945 to 2020-08-23 Encounter Location Date Provider Diagnosis [facility] [address] Jul, [place] [address] IMMUNIZATIONS No Information SOCIAL HISTORY Tobacco Use: Social History Observation Description Date Details (start date - stop date) Never Smoker Sex Assigned At : Social History Observation Description Sex Assigned At Unknown Alcohol Screen Question Answer Notes Did you have a drink containing alcohol in the past year? No Points 0 Interpretation Negative Tobacco Use/Smoking Question Answer Notes Are you a never smoker Additional Findings: Tobacco Non-User Current non-smoker REASON FOR REFERRAL No Information VITAL SIGNS No information MEDICATIONS Medication SIG (Take, Route, Start Date End Date Status Frequency, Duration) Metoprolol Succinate ER 50 1 tablet Orally Once a Active MG day for 30 day(s) Ondansetron HCl Not-Taking Centrum Silver - as directed Orally Activ e Diethylpropion HCl ER Active Lansoprazole 30 MG 1 capsule Orally Once a Active day for 30 day(s) PredniSONE Not-Taking Nitroglycerin Active Potassium Chloride ER Active Clopidogrel Bisulfate Active Virtussin A/C Not-Taking Gabapentin 300 MG 1 capsule Orally BID for Jun, Active 90 days Aspir-81 81 MG 1 tablet Orally Once a Act mayra day for 30 day(s) Azithromycin Not-Taking Potassium Bicarb-Citric 1 tablet Orally Twice a Active Acid 10 MEQ day for 30 day(s) Atorvastatin Calcium 20 MG 1 tablet Orally Once a Active day for 30 day(s) Vigamox 0.5 % 1 drop into affected eye Aug, Ac tive Ophthalmic Three times a day for 7 day(s) Vitamin D3 1000 UNIT 1 capsule Orally Once a Active day for 30 day(s) Losartan Potassium 50 MG 1 tablet Orally Once a Active day for 30 day(s) Isosorbide Mononitrate ER 1 tablet in the morning Active 30 MG Orally Once a day for 30 day(s) Amlodipine Besylate 10 MG 1 tablet Orally Once a Active day for 90 days Proctozone-HC Not-Taking Zolpidem Tartrate Active Levemir FlexTouch 100 15 UNits Subcutaneous Active UNIT/ML Daily for 90 days BD Pen Needle Mini U/F 31G CHECK BLOOD SUGARS EVERY Active X 5 MM DAY for 90 Oseltamivir Phosphate Not-Ta durham Plavix 75 MG 1 tablet Orally Once a Activ e day for 30 day(s) Acetaminophen-Codeine #3 Act mayra PROCEDURES No Information RESULTS No Results REASON FOR VISIT EMG/NCS MEDICAL (GENERAL) HISTORY Type Description Date Medical History Benign essential HTN Medical History Diabetes Medical History Asthma Medical History Heart disease Medical History Osteopenia Medical History Chronic kidney disease satge 4 Surgical History TA Hernia Surgical History cholecystectomy Surgical History Hysterectomy Surgical History Heart Stent Surgical History cataract removal Surgical History right knee replacement Goals Section No Information Health Concerns No Information MEDICAL EQUIPMENT No Information MENTAL STATUS No Information FUNCTIONAL STATUS No Information ASSESSMENTS No Information PLAN OF TREATMENT No Information Insurance Providers Payer Name Payer Payer Insured Patient Coverage Coverage Address Phone Name Relationship to Start Date End Date Insured MEDICAID [phone] Parisa Blair [id number] [place] [phone] [place] [phone] Parisa Blair [address] [address]
--- OUTSIDE RECORDS SUMMARY | 2020-10-18 08:13 | XMS REPORT ---
:1945 Author Organization [facility] Address [address] [facility] [address] [place] [address] Care Team Providers Name Role Phone Prasanna Ceron Unavailable [phone] PROBLEMS Type Condition ICD9-CM [id number] Onset Condition SNOMED Code Notes Code Code Dates Status Problem Seasonal J30.2 Active 083867386 allergies Problem Tinnitus of both H93.13 Active 7016771606024 ears Problem Benign essential I10 Active 12299021 HTN Problem Chronic kidney N18.3 Active 595116747 disease, stage III (moderate) Problem Heart disease I51.9 Active 44512546 Problem prison Z79.4 Active 703172131 current use of insulin Problem Mixed E78.2 Active 826458416 hyperlipidemia Problem GERD without K21.9 Active 574967951 esophagitis Problem 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 Active 92333125 mellitus with diabetic chronic kidney disease Problem Bilateral carpal G56.03 Active 16513281 tunnel syndrome Problem Carpal tunnel G56.01 Active 38460558 syndrome of right wrist Problem 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 Active 589748813 disease Problem Carpal tunnel G56.02 Active 21646858 syndrome of left wrist Problem Asthma J45.909 Active 074349541 Problem Dysphagia, R13.10 Active 58478966 unspecified type Problem Degenerative M50.30 Active 23583427 disc disease, cervical Problem Pain of left N64.4 Active 19661774152877406 breast Problem Abnormal R92.8 Active 728113703 mammogram ALLERGIES Allergen (clinical drug Drug/Non Drug Allergy Reaction Allergy Type Onset Date Status ingredient) documented on EMR Iodine(NDC Unknown Drug Allergy Active Code:66736-82619) tramadol tramadol Unknown Drug Allergy Active Vicodin Unknown Drug Allergy Active penicillin Unknown Drug Allergy Active ENCOUNTERS from 1945 to 2020-09-17 Encounter Location Date Provider Diagnosis [facility] [address] Aug, Prasanna Ceron [facility] [address], right wrist M25.5[address] [place] [address] ; Pain in join t of left wrist M25. 532 ; Carpal tunnel syndrome of rig ht wrist G56.01 an d Carpal tunnel syndrome of lef t wrist G56.02 IMMUNIZATIONS No Information SOCIAL HISTORY Tobacco Use: [...] REASON FOR REFERRAL No Information VITAL SIGNS Height 64.5 in Aug, Weight 196 lbs Aug, Temperature 97.7 degrees Fahrenheit Aug, BMI 33.12 kg/m2 Aug, Blood pressure systolic 100 mm Hg Aug, Blood pressure diastolic 68 mm Hg Aug, MEDICATIONS Medication SIG (Take, Route, Start Date End Date Status Frequency, Duration) Zolpidem Tartrate Active Azithromycin Not-Taking Virtussin A/C Not-Taking Plavix 75 MG 1 tablet Orally Once a Activ e day for 30 day(s) Clopidogrel Bisulfate Active Diethylpropion HCl ER Active Acetaminophen-Codeine #3 Not -Taking Potassium Chloride ER Active Levemir FlexTouch 100 15 UNits Subcutaneous Active UNIT/ML Daily for 90 days Nitroglycerin Active BD Pen Needle Mini U/F 31G CHECK BLOOD SUGARS EVERY Active X 5 MM DAY for 90 Losartan Potassium 50 MG 1 tablet Orally Once a Active day for 30 day(s) Proctozone-HC Not-Taking Centrum Silver - as directed Orally Activ e Ondansetron HCl Not-Taking Vigamox 0.5 % 1 drop into affected eye Aug, No t-Taking Ophthalmic Three times a day for 7 day(s) Oseltamivir Phosphate Not-Ta minerva Acyclovir Not-Taking Aspir-81 81 MG 1 tablet Orally Once a Act mayra day for 30 day(s) PredniSONE Not-Taking Amlodipine Besylate 10 MG 1 tablet Orally Once a Active day for 90 days Metoprolol Succinate ER 50 1 tablet Orally Once a Active MG day for 30 day(s) Potassium Bicarb-Citric 1 tablet Orally Twice a Active Acid 10 MEQ day for 30 day(s) Gabapentin 300 MG 1 capsule Orally BID for Jun, Active 90 days Lansoprazole 30 MG 1 capsule Orally Once a Active day for 30 day(s) Isosorbide Mononitrate ER 1 tablet in the morning Active 30 MG Orally Once a day for 30 day(s) Vitamin D3 1000 UNIT 1 capsule Orally Once a Active day for 30 day(s) Atorvastatin Calcium 20 MG 1 tablet Orally Once a Active day for 30 day(s) PROCEDURES No Information RESULTS No Results REASON FOR VISIT F/U EMG RESULTS MEDICAL (GENERAL) HISTORY Type Description Date Medical History Benign essential HTN Medical History Diabetes Medical History Asthma Medical History Heart disease Medical History Osteopenia Medical History Chronic kidney disease stage 4 Surgical History TA Hernia Surgical History cholecystectomy Surgical History Hysterectomy Surgical History Heart Stent Surgical History cataract removal Surgical History right knee replacement Goals Section No Information Health Concerns No Information MEDICAL EQUIPMENT No Information MENTAL STATUS No Information FUNCTIONAL STATUS No Information ASSESSMENTS Encounter Date Diagnosis Notes Aug, Carpal tunnel syndrome of right wrist (I CD-10 - G56.01) Aug, Carpal tunnel syndrome of left wrist (IC D-10 - G56.02) Aug, Pain in joint of left wrist (ICD-10 - M2 5.532) Aug, Pain in joint of right wrist (ICD-10 - M 25.531) PLAN OF TREATMENT Treatment Notes Assessment Notes Clinical Notes Carpal tunnel syndrome of right -EMG/NCS demonstrates modera te to wrist severe carpal tunnel syndrome at the level of the wrist;-patient has failed conservative treatment measures including night splints-given her continued pain, numbness, weakness and difficulty with ADLs, I recommend revision right carpal tunnel release followed by left carpal tunnel release-risks and benefits associated with the surgery were discussed with the patient at length and she expressed understanding-will schedule surgery after we obtain medical clearance Carpal tunnel syndrome of left -EMG/NCS demonstrates moderat e to wrist severe carpal tunnel syndrome at the level of the wrist;-patient has failed conservative treatment measures including night splints-given her continued pain, numbness, weakness and difficulty with ADLs, I recommend revision right carpal tunnel release followed by left carpal tunnel release-risks and benefits associated with the surgery were discussed with the patient at length and she expressed understanding-will schedule surgery after we obtain medical clearance Next Appt Details postop Reason: Insurance Providers Payer Name Payer Payer Insured Patient Coverage Coverage Address Phone Name Relationship to Start Date End Date Insured MEDICAID [phone] Parisa Blair [id number] [place] [phone] [place] [phone] Parisa Blair [address] [address]
--- OUTSIDE RECORDS SUMMARY | 2020-10-18 08:13 | XMS REPORT ---
:1945 Author Organization [facility] Address [address] [facility] [address] [place] [address] Care Team Providers Name Role Phone Prasanna Ceron Unavailable [phone] PROBLEMS Type Condition ICD9-CM [id number] Onset Condition SNOMED Code Notes Code Code Dates Status Problem Seasonal J30.2 Active 283296429 allergies Problem Tinnitus of both H93.13 Active 4403508554018 ears Problem Benign essential I10 Active 53602317 HTN Problem Chronic kidney N18.3 Active 878903145 disease, stage III (moderate) Problem Heart disease I51.9 Active 23588719 Problem detention Z79.4 Active 907456146 current use of insulin Problem Mixed E78.2 Active 678812570 hyperlipidemia Problem GERD without K21.9 Active 845813739 esophagitis Problem 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 Active 81858838 mellitus with diabetic chronic kidney disease Problem Bilateral carpal G56.03 Active 71111799 tunnel syndrome Problem Carpal tunnel G56.01 Active 02649926 syndrome of right wrist Problem 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 Active 752573294 disease Problem Carpal tunnel G56.02 Active 57342992 syndrome of left wrist Problem Asthma J45.909 Active 033506153 Problem Dysphagia, R13.10 Active 68743157 unspecified type Problem Degenerative M50.30 Active 93661656 disc disease, cervical Problem Pain of left N64.4 Active [id number] breast Problem Abnormal R92.8 Active 019174912 mammogram ALLERGIES Allergen (clinical drug Drug/Non Drug Allergy Reaction Allergy Type Onset Date Status ingredient) documented on EMR Iodine(NDC Unknown Drug Allergy Active Code:[id number]) tramadol tramadol Unknown Drug Allergy Active Vicodin Unknown Drug Allergy Active penicillin Unknown Drug Allergy Active ENCOUNTERS from 1945 to 2020-09-08 Encounter Location Date Provider Diagnosis [facility] [address], [place] [address] IMMUNIZATIONS No Information SOCIAL HISTORY Tobacco Use: [...] Start Date End Date Status Frequency, Duration) Vigamox 0.5 % 1 drop into affected eye Aug, Ac tive Ophthalmic Three times a day for 7 day(s) Isosorbide Mononitrate ER 1 tablet in the morning Active 30 MG Orally Once a day for 30 day(s) Aspir-81 81 MG 1 tablet Orally Once a Act mayra day for 30 day(s) Acetaminophen-Codeine #3 Act mayra Azithromycin Not-Taking Clopidogrel Bisulfate Active Plavix 75 MG 1 tablet Orally Once a Activ e day for 30 day(s) Atorvastatin Calcium 20 MG 1 tablet Orally Once a Active day for 30 day(s) Proctozone-HC Not-Taking Ondansetron HCl Not-Taking Losartan Potassium 50 MG 1 tablet Orally Once a Active day for 30 day(s) PredniSONE Not-Taking Centrum Silver - as directed Orally Activ e Metoprolol Succinate ER 50 1 tablet Orally Once a Active MG day for 30 day(s) Zolpidem Tartrate Active Diethylpropion HCl ER Active Lansoprazole 30 MG 1 capsule Orally Once a Active day for 30 day(s) Oseltamivir Phosphate Not-Ta minerva Nitroglycerin Active Potassium Chloride ER Active Potassium Bicarb-Citric 1 tablet Orally Twice a Active Acid 10 MEQ day for 30 day(s) Virtussin A/C Not-Taking Vitamin D3 1000 UNIT 1 capsule Orally Once a Active day for 30 day(s) Amlodipine Besylate 10 MG 1 tablet Orally Once a Active day for 90 days Gabapentin 300 MG 1 capsule Orally BID for 26 Aug, 2019 Active 90 days Levemir FlexTouch 100 15 UNits Subcutaneous Active UNIT/ML Daily for 90 days BD Pen Needle Mini U/F 31G CHECK BLOOD SUGARS EVERY Active X 5 MM DAY for 90 PROCEDURES No Information RESULTS No Results REASON FOR VISIT EMG/NCS results MEDICAL (GENERAL) HISTORY Type Description Date Medical [...] Information ASSESSMENTS No Information PLAN OF TREATMENT Next Appt Details Provider Name:Prasanna Ceron, 2020-09-12 0 1:15:00 PM, [address], [place], [address], Insurance Providers Payer Name Payer Payer Insured Patient Coverage Coverage Address Phone Name Relationship to Start Date End Date Insured [place] [phone] Parisa Blair [address] [address] MEDICAID [address] [phone] Parisa Blair [id number] [place] [id number]
[2020-10-18] MEDS ORDERED: FENTANYL CITR 100 MCG/2 ML ONE (08:19)
[2020-10-18] MEDS ORDERED: propofoL 200 MG/20 ML VIAL IV ONE ×2 (08:19)
[2020-10-18] MEDS ORDERED: KETOROLAC 30 MG/ML INJ ONE (08:20)
[2020-10-18] MEDS ORDERED: NS 0.9% VIAL 30 ML ONE (08:20)
[2020-10-18] MEDS ORDERED: MIDAZOLAM HCL 2 MG/2 ML INJ ONE (08:20)
[2020-10-18] MEDS ORDERED: LIDOCAINE 2% MPF 5 ML VIAL ONE (08:20)
[2020-10-18] MEDS ORDERED: LIDOCAINE 1% MPF 30 ML VIAL ONE (08:20)
[2020-10-18] MEDS ORDERED: dexAMETHasone 4 MG/ML VIAL ONE (08:21)
[2020-10-18] MEDS ORDERED: ONDANSETRON 4 MG/2 ML VIAL ONE (08:21)
--- NOTE | 2020-10-18 09:52 | P.BOP ---
Preoperative diagnosis: right carpal tunnel syndrome Postoperative diagnosis: same Primary procedure: right open carpal tunnel release Tool Maker Apprentice: NONE,NONE Estimated blood loss: 5 cc Specimen: none Findings: see dictation Anesthesia: General Complications: None Implants: none Fluids & blood products: per anesthesia record Transferred to: Recovery Room Condition: Good
[2020-10-18] MEDS: MORPHINE 4 MG/ML SYR ONE ×2 (09:58→10:03)
[2020-10-18] MEDS ORDERED: MEPERIDINE HCL 25 MG/ML SYR ONE (10:33)
[2020-10-18] MEDS ORDERED: CODEINE 30MG/APAP 300MG TAB ONE (11:02)
[2020-10-18 11:19] VITALS: TEMP 97.3
[2020-10-18 11:42] VITALS: BP 97/59; O2SAT 100
--- NOTE | 2020-10-19 00:25 | OP ---
Date of Procedure: 10/18/2020 Surgeon: Prasanna Ceron MD Preoperative Diagnosis: Right carpal tunnel syndrome. Postoperative Diagnosis: Right carpal tunnel syndrome. Procedure Performed: Right revision open carpal tunnel release. Anesthesia: [place] block. Fluids: Per Anesthesia record. Estimated Blood Loss: Less than 3 cc. Implants: None. Complications: None. Indication For Procedure: Parisa is a 75-year-old female, presented to my clinic with signs, symptom s, and EEG findings consistent with severe right carpal tunnel syndrome. Patient failed conservative treatment measures including night splints. Patient had significant pain and difficulty with activi ties of daily living secondary to her carpal tunnel syndrome. I discussed with the patient at length risks and benefits associated with operative and nonoperative treatment. She expressed understandin g and elected to proceed with operative treatment. Description Of Procedure: After informed consent was obtained, the patient was identified in the pre operative holding area. The right upper extremity was marked. Patient was then taken back to the op erating room, transferred to the operating table in supine fashion and underwent dieudonne block anesthesi a to her right upper extremity. The right upper extremity was then prepped and draped in usual steri le fashion. A time-out was initiated. The correct patient and procedure were confirmed and identifi ed. The patient did receive her preoperative prophylactic antibiotics. Approximately a 3 cm incisio n was made just ulnar to the thenar crease. Dissection was taken down to the palmar fascia. A [place] elevator was placed deep to the palmar fascia to protect the median nerve at all times. A 15 blade was then used to release the palmar fascia as well as the transverse carpal ligament with a [place] charlene vator protecting the median nerve at all times. Any remaining fascial bands were released using a bl unt-tipped Metzenbaum scissors with the tips superficially to again avoid any injury to the median ne rve. After this was completed, the wound was then irrigated thoroughly with normal saline and skin w as approximated using a 5-0 Prolene. Sterile dressings were applied. Tourniquet was let down. Lashawn ent was awakened and transferred to PACU in stable condition. Postoperative Plan: The patient will be nonweightbearing to the right upper extremity. She may begi n working on range of motion exercises. She will follow up in my clinic in 1 week for suture removal . CV/MODL Voice ID: [id number] Report ID: [id number]
== END 2020-10-18 11:50 | disposition home or self-care (01) ==
LOC: OR 07:39
PROVIDERS: ATTEND Orthopaedic Surgery Sports Medicine
PROC: 01N50ZZ Release Median Nerve, Open Approach (ICD-10-PCS; principal; 2020-10-18 09:30)
DX: G56.01 Carpal tunnel syndrome, right upper limb (principal); J45.909 Unspecified asthma, uncomplicated; E11.22 Type 2 diabetes mellitus with diabetic chronic kidney disease; I12.9 Hypertensive chronic kidney disease with stage 1 through stage 4 chronic kidney disease, or unspecified chronic kidney disease; N18.4 Chronic kidney disease, stage 4 (severe); Z20.828 Contact with and (suspected) exposure to other viral communicable diseases
CPT/HCPCS: 93005; 85025; 80048; 36415; 85610; 82947 ×2; 85730; 71046; 64721; U0002; J2704; J1100; J2250; J3010; J2175; J7030; J2405

== ENCOUNTER 2021-08-01 08:39 | Day surgery (SDC) | payer OTHER ==
[2021-07-27 09:53] LABS: Absolute Lymphocytes (CBC) 1.3 K/uL (0.7-4.9); Basophils % 0.8 % (0-1.3); Hematocrit 37.9 % (36.0-45.0); Lymphocytes % 30.8 % (15.3-44.8); RBC Red Blood Cell Count 4.31 M/uL (3.86-4.86)
--- NOTE | 2021-07-27 09:58 | RAD REPORT ---
EXAM DESCRIPTION: RAD - Chest Pa And Lat (2 Views) - 07/27/2021 9:43 am CLINICAL HISTORY: PreOp Chest pain. COMPARISON: Chest Pa And Lat (2 Views) dated 10/12/2020; CHEST PA AND LAT 2 VIEW dated 12/19/2008 FINDINGS: The lungs are clear. The heart is normal in size. No displaced fractures. Small hiatal her greg. IMPRESSION: No acute or concerning finding suspected.
[2021-07-27 10:00] LABS: Protime INR 0.96
[2021-07-27 10:04] LABS: Potassium 4.3 mmol/L (3.5-5.1)
--- NOTE | 2021-07-27 11:06 | EKG ---
Test Date: 2021-07-27 Test Time: 08:21:09 Assurance Manager: VASILE MEASUREMENT RESULTS: Intervals: Rate: 66 [place]: 242 QRSD: 108 QT: 434 QTc: 454 [place]: P: 10 [place]: 242 QRS: 25 T: 0 INTERPRETIVE STATEMENTS: Sinus rhythm with 1st degree AV block Low voltage QRS Right bundle branch block Abnormal ECG Compared to ECG 10/12/2020 13:13:57 Low QRS voltage now present Electronically Signed On 07-27-21 11:05:30 CDT by Steven Ulloa
[~2021-08-01 08:39] MED LIST changes: -CLINDAMYCIN INJ 600 MG in NA CHLORIDE 0.9% 50 ML IV SCH; +CLINDAMYCIN PHOSPHATE 600 MG in NA CHLORIDE 0.9% 50 ML IV ONE
[2021-08-01] MEDS ORDERED: NA CHLORIDE 0.9% 1,000 ML ONE (09:10)
[2021-08-01] MEDS ORDERED: CELECOXIB 100 MG CAPSULE ONE (09:39)
[2021-08-01] MEDS ORDERED: ACETAMINOPHEN 500 MG TAB ONE (09:39)
[2021-08-01] MEDS ORDERED: propofoL 200 MG/20 ML VIAL IV ONE (10:06)
[2021-08-01] MEDS ORDERED: LIDOCAINE 2% MPF 5 ML VIAL ONE (10:07)
[2021-08-01] MEDS ORDERED: NS 0.9% VIAL 30 ML ONE (10:07)
[2021-08-01] MEDS ORDERED: LIDOCAINE 1% MPF 30 ML VIAL ONE (10:07)
[2021-08-01] MEDS ORDERED: FENTANYL CITR 100 MCG/2 ML ONE (10:07)
[2021-08-01] MEDS ORDERED: MIDAZOLAM HCL 2 MG/2 ML INJ ONE (10:07)
[2021-08-01] MEDS ORDERED: BUPIVACAINE 0.25% PF 10 ML VIAL ONE (11:19)
--- NOTE | 2021-08-01 12:16 | P.BOP ---
Preoperative diagnosis: left carpal tunnel syndrome Postoperative diagnosis: same Primary procedure: left open carpal tunnel release Director Of Residence Life: NONE,NONE Estimated blood loss: 2 cc Specimen: none Findings: see dictation Anesthesia: General Complications: None Implants: none Fluids & blood products: per anesthesia record Transferred to: Recovery Room Condition: Good
[2021-08-01] MEDS: MORPHINE 4 MG/ML SYR ONE ×2 (12:28→12:35)
[2021-08-01 12:59] VITALS: BP 125/65; TEMP 98.1; O2SAT 99
[2021-08-01] MEDS ORDERED: CODEINE 30MG/APAP 300MG TAB ONE (13:16)
--- NOTE | 2021-08-01 23:46 | OP ---
Date of Procedure: 08/01/2021 Surgeon: Prasanna Ceron MD Preoperative Diagnosis: Left carpal tunnel syndrome. Postoperative Diagnosis: Left carpal tunnel syndrome. Procedure Performed: Left open carpal tunnel release. Anesthesia: [place] block. Implants: None. Complications: None. Estimated Blood Loss: 2 cc. Fluids: Per Anesthesia record. Indication For Procedure: Parisa is a 76-year-old female presented to my clinic with signs and sympt oms consistent with recurrent left carpal tunnel syndrome. The patient failed conservative measures, has significant pain and numbness affecting her activities of daily living. I discussed with the glenn calhoun at length risks and benefits associated with operative and nonoperative treatment. She express ed understanding and elected to proceed with operative treatment. Description Of Procedure: After informed consent was obtained, the patient was identified in the pre operative holding area. The left upper extremity was marked. The patient then brought back to the o perating room, transferred to operating table in supine fashion, placed under [place] block anesthesia. Left upper extremity was then prepped and draped in usual sterile fashion. A time-out was initiated . Correct patient and procedure were confirmed and identified. The patient did receive preoperative prophylactic antibiotics. Approximately 2 cm longitudinal incision was made just ulnar to the thena r crease. Dissection was then taken down to the palmar fascia which was identified. It was then spl it. A [place] elevator was placed deep to the palmar fascia to protect the median nerve at all times a nd the palmar fascia and transverse carpal ligament were released using a 15 blade. A blunt-tip Rajesh enbaum were then used to release any fascial bands at the tips pointed superficially to protect the m edian nerve at all times. The wound was then irrigated thoroughly with normal saline. Skin was appr oximated using 5-0 Prolene. Sterile dressings were applied. Tourniquet was let down. The patient w as awakened and transferred to PACU in stable condition. Postoperative Plan: The patient will begin working on range of motion exercises. She will follow up in 1 week for suture removal. CV/MODL Voice ID: [id number] Report ID: [id number]
== END 2021-08-01 13:17 | disposition home or self-care (01) ==
LOC: OR 08:39
PROVIDERS: ATTEND Orthopaedic Surgery Sports Medicine
PROC: 01N50ZZ Release Median Nerve, Open Approach (ICD-10-PCS; principal; 2021-08-01 10:45)
DX: G56.02 Carpal tunnel syndrome, left upper limb (principal); Z20.822 Contact with and (suspected) exposure to COVID-19
CPT/HCPCS: 93005; 85025; 80048; 36415; 85610; 82947; 85730; 71046; 64721; U0003; J2704; J2250; J3010; S0077; J7030

== ENCOUNTER 2022-07-11 08:05 | Day surgery (SDC) | payer OTHER ==
[2022-07-08 11:28] LABS: Absolute Lymphocytes (CBC) 1.3 K/uL (0.7-4.9); Hematocrit 39.3 % (36.0-45.0); Lymphocytes % 26.4 % (15.3-44.8); MCV 89.8 fL (80-100); MPV 7.8 fL (7.6-11.3); RBC Red Blood Cell Count 4.38 M/uL (3.86-4.86)
[2022-07-08 12:08] LABS: SARS-CoV-2 Antigen Rapid Res Negative (Negative)
[2022-07-08 12:11] LABS: Potassium 4.4 mmol/L (3.5-5.1)
--- NOTE | 2022-07-09 08:15 | EKG ---
Test Date: 2022-07-08 Test Time: 11:10:42 Traffic Workforce Representative: JOHN MEASUREMENT RESULTS: Intervals: Rate: 75 [place]: 232 QRSD: 102 QT: 408 QTc: 455 [place]: P: 57 [place]: 232 QRS: 65 T: 38 INTERPRETIVE STATEMENTS: Sinus rhythm with sinus arrhythmia with 1st degree AV block Incomplete right bundle branch block Borderline ECG Compared to ECG 07/27/2021 08:21:09 Incomplete right bundle-branch block now present Right bundle-branch block no longer present Electronically Signed On 07-09-22 08:11:22 CDT by Steven Ulloa
[2022-07-11] MEDS ORDERED: CEFAZOLIN 2 GM IN 0.9% NACL 2 GM/100 ML BAG ONE (08:23)
[2022-07-11] MEDS: NA CHLORIDE 0.9% 1,000 ML ONE ×2 (08:40→08:44)
[2022-07-11] MEDS ORDERED: BUPIVACAINE 0.25% PF 30 ML VIAL ONE (08:50)
[2022-07-11] MEDS ORDERED: ACETAMINOPHEN 500 MG TAB ONE (08:52)
[2022-07-11] MEDS ORDERED: CELECOXIB 100 MG CAPSULE ONE (08:52)
[2022-07-11] MEDS ORDERED: propofoL 200 MG/20 ML VIAL IV ONE (09:16)
[2022-07-11] MEDS ORDERED: LIDOCAINE 1% MPF 5 ML VIAL ONE (09:17)
[2022-07-11] MEDS ORDERED: MIDAZOLAM HCL 2 MG/2 ML INJ ONE (09:17)
[2022-07-11] MEDS ORDERED: FENTANYL CITR 100 MCG/2 ML ONE (09:17)
[2022-07-11] MEDS ORDERED: dexAMETHasone 10 MG/ML VIAL ONE (09:17)
[2022-07-11] MEDS ORDERED: VANCOMYCIN 1 GM/VIAL ONE (09:33)
[2022-07-11] MEDS ORDERED: NA CHLORIDE 0.9% 250 ML ONE (09:35)
--- NOTE | 2022-07-11 10:04 | P.OP ---
Preoperative diagnosis: Abdominal Wall Mass Postoperative diagnosis: Abdominal Wall Mass Primary procedure: Wide Local Excision of Abdominal Wall Mass Anesthesia: GETA + Local Estimated blood loss: <5cc Specimen: Abdominal Wall Mass ~ Scar Findings: Abdominal Wall mass consistent with scar Complications: None Transferred to: Recovery Room Condition: Good
[2022-07-11] MEDS ORDERED: ONDANSETRON 4 MG/2 ML VIAL ONE (10:23)
[2022-07-11] MEDS ORDERED: HYDROMORPHONE HCL 1 MG/ML INJ ONE ×2 (10:24→10:36)
[2022-07-11 11:14] VITALS: BP 107/65; TEMP 97.4; O2SAT 96
[2022-07-11] MEDS ORDERED: CODEINE 30MG/APAP 300MG TAB ONE (11:14)
--- NOTE | 2022-07-11 12:50 | OP ---
Date of Procedure: 07/11/2022 Surgeon: Martin Foy MD, Preoperative Diagnosis: Abdominal wall mass. Postoperative Diagnosis: Abdominal wall mass. Procedure Performed: Wide local excision of abdominal wall mass. Anesthesia: General endotracheal with local with 0.25% Marcaine. Estimated Blood Loss: Less than 5 cc. Specimen: Abdominal wall mass consistent with scar tissue. Findings: Abdominal mass consistent with scar tissue. Complications: None. Disposition: The patient was transferred to the recovery room in good condition. Procedure In Detail: After informed consent was obtained, the patient was brought to the operating r oom, prepped and draped in the usual sterile fashion. After adequate anesthesia was achieved, a geovanny umbilical incision was made down to subcutaneous tissue with a 15 blade. Electrocautery was used to dissect down through the subcutaneous fat to expose significant scar tissue abutting the abdominal wa ll adjacent and posterior deep to the umbilicus. This circumferential area of scar tissue was remove d without entering the abdominal wall and this was then sent off for pathologic examination. The ant erior rectus sheath was then reinforced using a 0 Vicryl suture in a running fashion. The area was c opiously irrigated and suctioned out until completely dry. Deep tissues were closed with an interrup martin 3-0 Vicryl suture in an interrupted fashion. The skin was closed with a 4-0 Monocryl in running fashion. Dermabond placed over top. The patient tolerated the procedure well without evidence of complication and transferred to PACU in good condition. All counts were correct at the end of the ca se. MJ/MODL Voice ID: [id number] Report ID: [id number]
== END 2022-07-11 12:15 | disposition home or self-care (01) ==
LOC: OR 08:05
PROVIDERS: ATTEND Surgery
PROC: 0JB80ZZ Excision of Abdomen Subcutaneous Tissue and Fascia, Open Approach (ICD-10-PCS; principal; 2022-07-11 09:45)
DX: D21.6 Benign neoplasm of connective and other soft tissue of trunk, unspecified (principal); Z20.822 Contact with and (suspected) exposure to COVID-19
CPT/HCPCS: 93005; 85025; 80048; 36415; 82947 ×2; 88304; 87811; 22903; J2704; J3010; J3370; J1100; J1170 ×2; J7050; J7030; J2405; J0690; J2250

== ENCOUNTER 2023-04-10 10:20 | Emergency (ER) | payer OTHER ==
--- OUTSIDE RECORDS SUMMARY | 2023-04-10 10:30 | XMS REPORT | Continuity of Care Document ---
:1945 Author Organization [facility] t Address [address] [place] [address] [address] [place] [address] Care Team Providers Name Role Phone CASTRO ADAMS Primary Care Physician Unavailable La Arreola Attending Clinician Unavailable TRICE Attending Clinician Unavailable Karen Church Attending Clinician [phone] KRISTA Attending Clinician Unavailable ALCON ANTON Attending Clinician Unavailable Kuldeep Flowers Attending Clinician Dillon White Attending Clinician Doctor Unassigned, [place] Attending Clinician Unavailable Donna Barahona Attending Clinician KORINA DOSHI Attending Clinician Unavailable Korina Doshi MD Attending Clinician Jemma Ricci MD Attending Clinician JEMMA RICCI Attending Clinician Unavailable Castro Adams Attending Clinician Sindhu Chatterjee Attending Clinician VISIT, NURSE [facility] MAMMO Attending Clinician Unavailable Harris Attending Clinician Unavailable Sal Grant Attending Clinician KAREN CHURCH Admitting Clinician Unavailable TRICE Admitting Clinician Unavailable KRISTA Admitting Clinician Unavailable JEMMA RICCI Admitting Clinician Unavailable Harris Admitting Clinician Unavailable Payers Payer Name Policy Type Policy Number Effective Date Expiration Date [employer] - [id number] 2021-04-24 [facility] 00:00:00 (MEDICARE REPLACEMENT/ADVAN TAGE - HMO) [facility] [id number] [place] [id number] [place]ID) MEDICARE NOVITAS MB [id number] [facility] Dual Complete C1 [id number] Common [facility] Spirit - [facility] MEDICAID MC [id number] 2021-04-24 Common 00:00:00 [facility] MEDICARE NOVITAS MB [id number] [facility] MEDICAID MC [id number] 2021-04-24 Common 00:00:00 [facility] MEDICAID MC [id number] 2021-04-24 Common 00:00:00 [facility] MEDICARE NOVITAS MB [id number] [facility] MEDICARE NOVITAS [id number] [facility] - [facility] MEDICAID [id number] 2021-04-24 Common 00:00:00 [facility] - [facility] MEDICAID [id number] 2021-04-24 Common 00:00:00 [facility] MEDICARE NOVITAS MB [id number] [facility] MEDICAID [id number] 2021-04-24 Common 00:00:00 [facility] - [facility] MEDICARE NOVITAS MB [id number] [facility] MEDICAID [id number] [facility] - [facility] MEDICAID [id number] 2021-04-24 Common 00:00:00 [facility] MEDICARE NOVITAS [id number] [facility] MEDICAID [id number] [facility] - [facility] MEDICAID [id number] [facility] UNITED HEALTHCARE [id number] (PPO) MEDICAID [id number] [facility] MEDICAID MC [id number] [facility] [id number] 2018-01-22 DUAL COMPLETE HMO 00:00:00 MEDICAID MC [id number] [facility] MEDICAID MC [id number] [facility] MEDICAID MC [id number] [facility] - [id number] MEDICARE SOLUTIONS - MEDICARE COMPLETE (MEDICARE REPLACEMENT PPO) Problems Condition Condition Condition Status Onset Resolution Last Treating Co mments Source Name Details Category Date Date Treatment Clinician Date Body mass Body Mass Problem Active Swe leroy index 30+ Index 30+ 9-22 Comm uni - obesity - Obesity 00:00: ty 00 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 Syndrome 00:00: ty 00 [facility] Difficulty Difficulty Problem Active 2020-0 S weeny sleeping Sleeping - Commun i 00:00: ty 00 [facility] Normal Normal Problem Active 2020-0 [place] grief Grief - Communi reaction Reaction 00:00: ty 00 [facility] Polyp of Polyp of Problem Active [place] colon Colon 01-20 [facility]i 00[facility]: [facility] Fibrocysti Fibrocysti Problem Active 2018-11 S erna c disease c Disease 12-15 Comm uni of breast of Breast 00:00: ty [facility] Diabetes Diabetes Problem Active 2018-11 Sween y mellitus Mellitus 12-14 Commun i 00:00: ty [facility] Hyperchole Hyperchole Problem Active 2018-11 S eran sterolemia sterolemia 12-14 Co mmuni 00:00: ty [facility] Hypertensi Hypertensi Problem Active 2018-11 S eran ve ve 12-14 Communi disorder Disorder 00:00: ty 00 [facility] Pain of Pain of Problem Active 2018-11 [place] breast Breast 12-14 [facility] Pseudophak Pseudopha Problem Active 2020-09-08 Memoria ia tammy 04-03 01:26:13 l (disorder) (disorder) 00:00: Tom rmann Active 00 04/03/2016 Problem 09/08/2020 Data migrated from [employer] on 04/22/15. Medical Group,[facility] OPID [place] R10.9 - R10.9 - Diagnosis Active 2015-12-20 Memoria UNSPECIFIE UNSPECIFIE 12-14 10:27:00 l D D 00:01: Ruben ABDOMINAL ABDOMINAL 00 PAIN PAIN Active 12/14/2015 OPID [place] Adhesive Adhesive Problem Active 2020-09-08 Memoria capsulitis capsulitis 05-03 01:26:13 l of of 00:00: Ruben shoulder shoulder 00 (disorder) (disorder) Active 05/03/2015 Problem 09/08/2020 Data migrated from [employer] on 05/31/15. Medical Group,[facility], OPID [place] Screening Screening Problem Active 2020-09-08 Memoria mammograph mammograph 04-13 01:26:13 l y y 00:00: Ruben (procedure (procedure 00 ) ) Active 04/13/2015 Problem 09/08/2020 Data migrated from [employer] on 05/31/15.
Data migrated from [employer] on 05/31/15. Medical Group,[facility] [place] [facility], OPID [place] Rotator Rotator Problem Active 2013-112016-02-09 Me moria cuff cuff 01:04:33 l syndrome syndrome 00:00: Loki mason (disorder) (disorder) 00 Active 11/23/2014 Problem 02/09/2016 Data migrated from [employer] on 04/22/15. OPID [place] Disorder Disorder Problem Active 2012-112020-09-08 Memoria of of 1- 01:26:13 l refraction refraction 00:00: He rmann AND/OR AND/OR 00 accommodat accommodat ion ion (disorder) (disorder) Active 10/18/2013 Problem 09/08/2020 Data migrated from [employer] on 04/22/15. Medical Group,[facility] [place] [facility], OPID [place] Decreased Decreased Problem Active 2012-112020-09-08 Memoria estrogen estrogen 0-28 01:26:13 l level level 00:00: Ruben (finding) (finding) 00 Active 09/20/2013 Problem 09/08/2020 Data migrated from [employer] on 04/22/15. Medical Group,[facility] [place] [facility], OPID [place] Hypertensi Problem Active 2011-112020-09-08 M emoria ve episode Hypertensi 0-18 01:26:13 l (disorder) ve episode 00:00: He rmann (disorder) 00 Active 09/10/2012 Problem 09/08/2020 Data migrated from [employer] on 04/22/15. Medical Group,[facility], OPID [place] Low back Low back Problem Active 2011-112020-09-08 Memoria pain pain 0-18 01:26:13 l (disorder) (disorder) 00:00: He rmann Active 00 09/10/2012 Problem 09/08/2020 Data migrated from [employer] on 04/22/15. Medical Group,[facility], OPID [place] Osteoarthr Osteoarth Problem Active 2011-112020-09-08 Memoria itis ritis 0-18 01:26:13 l (disorder) (disorder) 00:00: He rmann Active 00 09/10/2012 Problem 09/08/2020 Data migrated from [employer] on 04/22/15. Medical Group,[facility] [place] [facility] OPID [place] Sciatica Sciatica Problem Active 2011-112020-09-08 Memoria (disorder) (disorder) 0-18 01:26:13 l Active 00:00: Ruben 09/10/2012 00 Problem 09/08/2020 Data migrated from [employer] on 04/22/15. Medical Group,[facility] [place] [facility] OPID [place] Hyperlipid Hyperlipi Problem Active 2011-112016-02-09 Memoria emia demia 0- 01:04:33 l (disorder) (disorder) 00:00: He rmann Active 00 09/10/2012 Problem 02/09/2016 Data migrated from [employer] on 04/22/15. OPID [place] Lumbar Lumbar Problem Active 2011-112016-02-09 Rehan judson radiculopa radiculopa 0- 01:04:33 l thy thy 00:00: [place] (disorder) (disorder) 00 Active 09/10/2012 Problem 02/09/2016 Data migrated from [employer] on 04/22/15. OPID [place] [id number] Problem Active [facility] [id number] Problem Active Commo n 102 [facility] Essential Problem Active Common hypertensi Spirit on - [facility] Heart Problem Active Common disease [facility] [id number] Problem Active [facility] [id number] Problem Active [facility] [id number] Problem Active [facility] [id number] Problem Active [facility] [id number] Problem Active [facility] Asthma Problem Active [facility] [id number] Problem Active [facility] [id number] Problem Active [facility] [id number] Problem Active Commo n [id number] [facility] [id number] Problem Active [facility] Surgical Surgical Problem Resolve 2020-09-08 Memoria follow-up follow-up d 01:26:13 l (finding) (finding) Herm escobar Resolved Problem 09/08/2020 Medical Group,[facility] Abdominal Abdominal Problem Active 2020-09-08 Memoria pain pain 01:26:13 l (finding) (finding) Herm escobar Active Problem 09/08/2020 Medical [facility] [place] [facility] Neuro Adenomatou Adenomato Problem Active 2020-09-08 Memoria s polyp of us polyp 01:26:13 l colon of colon Ruben (disorder) (disorder) Active Problem 09/08/2020 [facility] Allergic Allergic Problem Active 2020-09-08 Memoria rhinitis rhinitis 01:26:13 l (disorder) (disorder) He rmann Active Problem 09/08/2020 Data migrated from [employer] on 04/22/15. Medical Group,[facility] [place] [facility] OPID [place] Breast Breast Problem Active 2020-09-08 Rehan judson neoplasm neoplasm 01:26:13 l screening screening Herm escobar status status (finding) (finding) Active Problem 09/08/2020 Medical [facility] Congestive Congestiv Problem Active 2020-09-08 Memoria heart e heart 01:26:13 l failure failure [place] (disorder) (disorder) Active Problem 09/08/2020 Data migrated from [employer] on 04/22/15. Medical [facility] OPID [place] Constipati Constipat Problem Active 2020-09-08 Memoria on ion 01:26:13 l (disorder) (disorder) He rmann Active Problem 09/08/2020 [facility] OPID [place] Drug Drug Problem Active 2020-09-08 Memor ia therapy therapy 01:26:13 l finding finding Ruben (finding) (finding) Active Problem 09/08/2020 [facility] Foot pain Foot pain Problem Active 2020-09-08 Memoria (finding) (finding) 01:26:13 l Active [place] Problem 09/08/2020 [facility] Hyperparat Problem Active 2020-09-08 M emoria hyroidism Hyperparat 01:26:13 l (disorder) hyroidism Her bolaños (disorder) Active Problem 09/08/2020 [facility] Peripheral Periphera Problem Active 2020-09-08 Memoria vascular l vascular 01:26:13 l disease disease [place] (disorder) (disorder) Active Problem 09/08/2020 Data migrated from [employer] on 04/22/15. Medical Group,[facility] [place] [facility] OPID [place] Screening Problem Active 2020-09-08 Me moria status Screening 01:26:13 l (finding) status [place] (finding) Active Problem 09/08/2020 Medical Group,[facility] Insomnia Insomnia Problem Active 2020-09-08 Memoria (disorder) (disorder) 01:26:13 l Active [place] Problem 09/08/2020 Medical Group,[facility] Streptococ Streptoco Problem Active 2020-09-08 Memoria seamus sore ccal sore 01:26:13 l throat throat [place] (disorder) (disorder) Active Problem 09/08/2020 Medical Group,[facility] Peripheral Periphera Problem Active 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 OPID [place] Nuclear Nuclear Problem Resolve 2020-09-08 2020-09-08 Memoria cataract cataract d 04-03 01:26:13 01:26:13 l (disorder) (disorder) 00:00: He rmann Resolved 00 04/03/2016 Problem 09/08/2020 Medical Group,[facility] Long-term Long-term Problem Resolve 2020-09-08 2020-09-08 Memoria drug drug d 11-29 01:26:13 01:26:13 l therapy therapy 00:00: Ruben (procedure (procedure 00 ) ) Resolved 11/29/2015 Problem 09/08/2020 Data migrated from [employer] on 04/22/15. Medical Group,[facility] Nausea Nausea Problem Resolve 2020-09-08 2020-09-08 Memoria (finding) (finding) d 04-13 01:26:13 01:26:13 l Resolved 00:00: Ruben 04/13/2015 00 Problem 09/08/2020 Data migrated from [employer] on 05/31/15.&lt ;br/>Data migrated from [employer] on 05/31/15. Medical Group,[facility] OPID [place]in[place] Gastritis Problem Resolve 2020-09-08 2020-09-08 Memoria (disorder) Gastritis d 04-22 01:26:13 01:26:13 l (disorder) 00:00: Loki mason Resolved 00 04/22/2013 Problem 09/08/2020 Data migrated from [employer] on 06/10/15.<b r/>Data migrated from [employer] on 06/09/15. Medical Group,[facility] OPID [place] Hypertrigl Hypertrig Problem Resolve 2020-09-08 2020-09-08 Memoria yceridemia lyceridemi d 04-16 01:26:13 01:26:13 l (disorder) a 00:00: Loki mason (disorder) 00 Resolved 04/16/2013 Problem 09/08/2020 Data migrated from [employer] on 04/22/15. Medical Group,[facility] [place] [facility], OPID Mcintyre Insect Insect Problem Resolve 2020-09-08 2020-09-08 Memoria bite - bite - d 04-16 01:26:13 01:26:13 l wound wound 00:00: Ruben (disorder) (disorder) 00 Resolved 04/16/2013 Problem 09/08/2020 Data migrated from [employer] on 06/10/15.<b r/>Data migrated from [employer] on 06/09/15. Medical Group,[facility], OPID Mcintyre Bronchospa Bronchosp Problem Resolve 2020-09-08 2020-09-08 Memoria sm asm d 12-18 01:26:13 01:26:13 l (finding) (finding) 00:00: Hernando escobar Resolved 00 12/18/2012 Problem 09/08/2020 Data migrated from [employer] on 06/10/15.<b r/>Data migrated from [employer] on 06/09/15. Medical Group,[facility], OPID Mcintyre History of Past Illness Condition Condition Condition Status Onset Resolution Last Treating Co mments Source Name Details Category Date Date Treatment Clinician Date Encounter Problem 2019-01-24 2019-01-24 Memoria for Encounter 8-14 12:21:52 12:21:52 l gynecologi for 14:33: Loki n seamus gynecologi 00 examinatio seamus n examinatio (general) n (routine) (general) without (routine) abnormal without findings abnormal findings 07/07/2018 9 Medical Group Other Other Problem 2019-01-24 2019-01-24 Bennie khan specified specified 07-07 12:21:52 12:21:52 l noninflamm noninflamm 14:33: He rmann atory atory 00 disorders disorders of vulva of vulva and and perineum perineum 07/07/2018 01/24/2019 Medical Group Allergies, Adverse Reactions, Alerts Allergy Allergy Status Severity Reaction(s) Onset Inactive Treating Comm ents Source Name Type Date Date Clinician HYDROCOD DRUG Active Other-Cmnt 2016-11 [facility] ers ONE INGREDI 0-13 ity of 00:00: [place] [facility] IODINE DRUG Active Other-Cmnt 2016-11 Univer s INGREDI 0-13 ity of 00:00: [place] [facility] PENICILL Drug Active Other-Cmnt 2016-11 [facility] ers INS Class 0-13 ity of 00:00: [place] 00 [facility] HYDROCOD DRUG Active Other-Cmnt 2016-11 [facility] ers ONE-ACET 0-13 ity of AMINOPHE 00:00: [place] N 00 [facility] penicill penicill Active 2011-11 Memori a ins<sup> ins<sup> 0-18 l 3</sup> 3</sup> 05:00: Ruben penicill penicill Active 2011-11 Memori a ins<sup> ins<sup> 0-18 l 1</sup> 1</sup> 05:00: [place] iodinate iodinate Active 2011-11 Memori a d d 0-18 l radiocon radiocon 05:00: Loki mason trast trast 00 dyes<sup dyes<sup >2</sup> >2</sup> acetamin acetamin Active 2011-11 Memori a ophen-HY ophen-HY 0-18 l DROcodon DROcodon 05:00: Loki mason e<sup>3< e<sup>3< 00 /sup> /sup> iodine iodine Active Memoria topical topical l Ruben penicill penicill Active Memori a in in l Ruben 463 Drug Active Common allergy [facility] 4614 Drug Active Common allergy [facility] tramadol Drug Active Common allergy [facility] - [facility] Penicill Propensi Active Common in ty to Spirit adverse - [facility] reaction [facility] VICODIN Allergy Active [place] [facility] Hydrocod Allergy Active [place] one to [facility] Iodine Allergy Active [place] [facility] PENICILL Allergy Active [place] INS to [facility] Tramadol Allergy Active [place] to [facility] Social History Social Habit Start Date Stop Date Quantity Comments Source History of Tobacco [facility] - Use [facility] Sex Assigned At [facility] - [facility] Social History 2018-07-07 2018-07-07 Steve Dillon liborio 13:42:49 13:42:49 Smoking Status Start Date Stop Date Source Never Smoker [facility] Medications Ordered Filled Start Stop Current Ordering Indication Dosage Frequency Signature Comments Components Source Medication Medication Date Date Medication? Clinician (SIG) Name Name dexamethaso dexamethaso No dexamethas [place] ne sodium ne sodium 5-03 one sodium Communi phosphate phosphate 14:50: phosphate ty 10 mg/mL 10 mg/mL 00 10 mg/mL Hos shaun injection injection injection l solutionTak solutionTak solutionTa Clinics e 10 mg by e 10 mg by ke 10 mg injection injection by route. route. injection route. Kenalog 40 Kenalog 40 No Kenalog 40 [place] mg/mL mg/mL 5-03 mg/mL Communi suspension suspension 14:49: suspension ty for for 00 for Hospita injectionTa injectionTa injectionT l ke 40 mg by ke 40 mg by loc 40 mg Clinics injection injection by route. route. injection route. Acetaminoph Acetaminoph 2020-11- No 1{table Acetaminop en-Codeine en-Codeine 12-02 t_as_ne hen-Codein #3 300-30 #3 300-30 00:00: 00:00 eded} e #3 MG MG 00 :00 300-30 MG Acetaminoph Acetaminoph 2020-11- No 1{table en-Codeine en-Codeine 12-02 t_as_ne #3 300-30 #3 300-30 00:00: 00:00 eded} MG MG 00 :00 Acetaminoph Acetaminoph 2020-0 2021- No 1{table Acetaminop en-Codeine en-Codeine 07-31 t_as_ne hen-Codein #3 300-30 #3 300-30 00:00: 00:00 eded} e #3 MG MG 00 :00 300-30 MG Acetaminoph Acetaminoph 2020-0 2021- No 1{table Acetaminop en-Codeine en-Codeine 07-31 t_as_ne hen-Codein #3 300-30 #3 300-30 00:00: 00:00 eded} e #3 MG MG 00 :00 300-30 MG Acetaminoph Acetaminoph 2020-0 1- No 1{table Acetaminop en-Codeine en-Codeine 07-31 t_as_ne hen-Codein #3 300-30 #3 300-30 00:00: 00:00 eded} e #3 MG MG 00 :00 300-30 MG Acetaminoph Acetaminoph 2020-0 1- No 1{table Acetaminop en-Codeine en-Codeine 07-31 t_as_ne hen-Codein #3 300-30 #3 300-30 00:00: 00:00 eded} e #3 MG MG 00 :00 300-30 MG Acetaminoph Acetaminoph 2020-0 1- No 1{table Acetaminop en-Codeine en-Codeine 07-31 t_as_ne hen-Codein #3 300-30 #3 300-30 00:00: 00:00 eded} e #3 MG MG 00 :00 300-30 MG Tylenol # 3 Tylenol # 3 2020-1 No Tylenol # 300/30mg 300/30mg 1-23 3 300/30mg 00:00: 00 Tylenol # 3 Tylenol # 3 2020- No Tylenol # 300/30mg 300/30mg 1-23 3 300/30mg 00:00: 00 Tylenol # 3 Tylenol # 3 2020- No Tylenol # 300/30mg 300/30mg 1-23 3 300/30mg 00:00: 00 Tylenol # 3 Tylenol # 3 2020-1 No Tylenol # 300/30mg 300/30mg 1-23 3 300/30mg 00:00: 00 Tylenol # 3 Tylenol # 3 2020-1 No Tylenol # 300/30mg 300/30mg 1-23 3 300/30mg 00:00: 00 Tylenol # 3 Tylenol # 3 2020-1 No Tylenol # 300/30mg 300/30mg 1-23 3 300/30mg 00:00: 00 Tylenol # 3 Tylenol # 3 2020-1 No Tylenol # 300/30mg 300/30mg 1-23 3 300/30mg 00:00: 00 Tylenol # 3 Tylenol # 3 2020-1 No Tylenol # 300/30mg 300/30mg 1-23 3 300/30mg 00:00: 00 Tylenol # 3 Tylenol # 3 2020-1 No Tylenol # 300/30mg 300/30mg 1-23 3 300/30mg 00:00: 00 Tylenol # 3 Tylenol # 3 2020-1 No Tylenol # 300/30mg 300/30mg 1-23 3 300/30mg 00:00: 00 Tylenol # 3 Tylenol # 3 2020-1 No Tylenol # 300/30mg 300/30mg 1-23 3 300/30mg 00:00: 00 Tylenol # 3 Tylenol # 3 2020-1 No Tylenol # 300/30mg 300/30mg 1-23 3 300/30mg 00:00: 00 Tylenol # 3 Tylenol # 3 2020-1 No 300/30mg 300/30mg 1-23 00:00: 00 Tylenol # 3 Tylenol # 3 2020-1 No Tylenol # 300/30mg 300/30mg 1-23 3 300/30mg 00:00: 00 Tylenol # 3 Tylenol # 3 2020-1 No Tylenol # 300/30mg 300/30mg 1-23 3 300/30mg 00:00: 00 Gabapentin Gabapentin 2019-0 Yes Prasanna 1 capsule Common 07-19 [facility] 00:00: - [facility] Gabapentin Gabapentin 2019-0 No 1{capsu BID Gabapentin 300 MG 300 MG 07-19 le} 300 MG 00:00: 00 Gabapentin Gabapentin 2019-0 No 1{capsu BID Gabapentin 300 MG 300 MG 8-26 le} 300 MG 00:00: 00 Gabapentin Gabapentin 2019-0 No 1{capsu BID Gabapentin 300 MG 300 MG 8-26 le} 300 MG 00:00: 00 Gabapentin Gabapentin 2019-0 No 1{capsu BID Gabapentin 300 MG 300 MG 8-26 le} 300 MG 00:00: 00 Gabapentin Gabapentin 2019-0 No 1{capsu BID Gabapentin 300 MG 300 MG 8-26 le} 300 MG 00:00: 00 Gabapentin Gabapentin 2019-0 No 1{capsu BID Gabapentin 300 MG 300 MG 8-26 le} 300 MG 00:00: 00 Gabapentin Gabapentin 2019-0 No 1{capsu BID Gabapentin 300 MG 300 MG 8-26 le} 300 MG 00:00: 00 Gabapentin Gabapentin 2019-0 No 1{capsu BID Gabapentin 300 MG 300 MG 8-26 le} 300 MG 00:00: 00 Gabapentin Gabapentin 2019-0 No 1{capsu BID Gabapentin 300 MG 300 MG 8-26 le} 300 MG 00:00: 00 Gabapentin Gabapentin 2019-0 No 1{capsu BID Gabapentin 300 MG 300 MG 8-26 le} 300 MG 00:00: 00 Gabapentin Gabapentin 2019-0 No 1{capsu BID Gabapentin 300 MG 300 MG 8-26 le} 300 MG 00:00: 00 Gabapentin Gabapentin 2019-0 No 1{capsu BID Gabapentin 300 MG 300 MG 8-26 le} 300 MG 00:00: 00 Gabapentin Gabapentin 2019-0 No 1{capsu BID Gabapentin 300 MG 300 MG 8-26 le} 300 MG 00:00: 00 Gabapentin Gabapentin 2019-0 No 1{capsu BID 300 MG 300 MG 8-26 le} 00:00: 00 Gabapentin Gabapentin 2019-0 No 1{capsu BID Gabapentin 300 MG 300 MG 8-26 le} 300 MG 00:00: 00 isosorbide 2019-0 Yes = 1 tab, Mem oria mononitrate 3-20 PO, Daily, l 30 mg oral 12:34: # 90 tab, Tom puentes tablet, 58 Pharmacy: extended [facility] [id number] losartan 50 Yes = 1 tab, Me moria mg oral 3-20 PO, Daily, l tablet 12:34: # 90 tab, Loki n 58 Pharmacy: [facility] [id number] CLOPIDOGREL 2018- Yes = 1 tab, Me moria 75MG 3-19 PO, Daily, l TABLETS 12:45: # 90 tab, Candy nn 18 Pharmacy: [facility] [id number] Levofloxaci No 500 mg = 1 Memoria n 500 MG 1-15 tab, PO, l Oral Tablet 16:51: Q24H, X 10 Ruben [Levaquin] 00 day, # 10 tab, 0 Refill(s), Pharmacy: [facility] [id number] ACCU-CHEK 2017-11 Yes See Memoria FASTCLIX 2-18 Instructio l LANCETS 14:46: ns, # 102 Candy nn 102'S 31 unknown unit, Refill(s) 12, TEST DIRECTED EVERY DAY, Pharmacy: [facility] [id number] Vigamox Vigamox 2017-11 Yes Prasanna 1 drop Co mmon 0-27 Ceron into [facility] 00:00: affected - [facility] 00 eye [facility] Vigamox 0.5 Vigamox 0.5 2017-11 No 1{drop_ TID Vigamox % % 0-27 into_af 0.5 % 00:00: fected_ 00 eye} Vigamox 0.5 Vigamox 0.5 2017-11 No 1{drop_ TID Vigamox % % 0-27 into_af 0.5 % 00:00: fected_ 00 eye} Vigamox 0.5 Vigamox 0.5 2017-11 No 1{drop_ TID Vigamox % % 0-27 into_af 0.5 % 00:00: fected_ 00 eye} Vigamox 0.5 Vigamox 0.5 2017-11 No 1{drop_ TID Vigamox % % 0-27 into_af 0.5 % 00:00: fected_ 00 eye} Vigamox 0.5 Vigamox 0.5 2017-11 No 1{drop_ TID Vigamox % % 0-27 into_af 0.5 % 00:00: fected_ 00 eye} Vigamox 0.5 Vigamox 0.5 2017-11 No 1{drop_ TID Vigamox % % 0-27 into_af 0.5 % 00:00: fected_ 00 eye} Vigamox 0.5 Vigamox 0.5 2017-11 No 1{drop_ TID Vigamox % % 0-27 into_af 0.5 % 00:00: fected_ 00 eye} Vigamox 0.5 Vigamox 0.5 2017-11 No 1{drop_ TID Vigamox % % 0-27 into_af 0.5 % 00:00: fected_ 00 eye} Vigamox 0.5 Vigamox 0.5 2017-11 No 1{drop_ TID Vigamox % % 0-27 into_af 0.5 % 00:00: fected_ 00 eye} Vigamox 0.5 Vigamox 0.5 2017-11 No 1{drop_ TID Vigamox % % 0-27 into_af 0.5 % 00:00: fected_ 00 eye} Vigamox 0.5 Vigamox 0.5 2017-11 No 1{drop_ TID Vigamox % % 0-27 into_af 0.5 % 00:00: fected_ 00 eye} Vigamox 0.5 Vigamox 0.5 2017-11 No 1{drop_ TID Vigamox % % 0-27 into_af 0.5 % 00:00: fected_ 00 eye} Vigamox 0.5 Vigamox 0.5 2017-11 No 1{drop_ TID Vigamox % % 0-27 into_af 0.5 % 00:00: fected_ 00 eye} Vigamox 0.5 Vigamox 0.5 2017-11 No 1{drop_ TID % % 0-27 into_af 00:00: fected_ 00 eye} Vigamox 0.5 Vigamox 0.5 2017-11 No 1{drop_ TID Vigamox % % 0-27 into_af 0.5 % 00:00: fected_ 00 eye} 3 ML Yes See Memoria insulin 9-17 Instructio l detemir 100 14:02: ns, # 15 He rmann UNT/ML 55 mL, Prefilled Refill(s) Syringe 11, INJECT [Levemir] 15 UNITS SUBCUTANEO USLY EVERY MORNING., Pharmacy: [facility] [id number] atorvastati Yes See Memori a n 20 mg 9-17 Instructio l oral tablet 14:02: ns, # 90 He rmann 55 tab, Refill(s) 3, TAKE 1 TABLET BY MOUTH EVERY DAY, Pharmacy: [facility] B-D PEN NDL Yes See [place] Nena bell MINI 9-17 Instructio l [id number](01/22 14:02: ns, # 100 H ermann 6)PRPL 55 unknown unit, Refill(s) 11, CHECK BLOOD SUGARS EVERY DAY, Pharmacy: [facility] Betamethaso No 1 appl, Mem oria ne 0.5 8-14 TOP, BID, l MG/ML / 14:41: PRN Apply Candy nn Clotrimazol 00 to e 10 MG/ML affected Topical areas., X Cream 14 day, # [Lotrisone] 45 gm, 1 Refill(s), Pharmacy: [facility] 120 ACTUAT Yes 1 puff, Rehan judson Fluticasone 7-24 INHALATION l propionate 18:22: , BID, # bolaños 0.22 00 12 gm, 6 MG/ACTUAT Refill(s), [facility] 60 ACTUAT 0 Yes 2 puff, Memor ia Budesonide 7-23 INHALATION l 0.08 15:30: , BID, use [place] MG/ACTUAT 00 with Dry Powder spacer Inhaler Rinse [Pulmicort] mouth after use, # 3 ea, 11 Refill(s), Pharmacy: [facility] [employer] [facility] lansoprazol Yes 30 mg = 1 M emoria e 30 mg 7-23 cap, PO, l oral 14:45: Daily, # Ruben delayed 00 30 cap, 0 release Refill(s) capsule Accu-Chek Yes 1 Constantin mcgowan SmartView 2-12 MISC, TID, l Blood 23:15: Use for Ruben Glucose 31 blood Test Strips glucose monitoring . E11.9, # 270 ea, Insulin dependent, Does not use insulin pump, Last DM eval date 09/09/17, 11 Refill(s) Losartan Losartan No 1{table QD Losartan Potassium Potassium t} Potassium 50 MG 50 MG 50 MG Plavix 75 Plavix 75 No 1{table QD Plavix 75 MG MG t} MG Proctozone- Proctozone- No Proctozone HC HC -HC Zolpidem Zolpidem No Zolpidem Tartrate Tartrate Tartrate Aspir-81 81 Aspir-81 81 No 1{table QD Aspir-81 MG MG t} 81 MG Metoprolol Metoprolol No 1{table QD Metoprolol Succinate Succinate t} Succinate ER 50 MG ER 50 MG ER 50 MG predniSONE predniSONE No predniSONE Azithromyci Azithromyci No Azithromyc n n in Potassium Potassium No 1{table BID Potassium Bicarb-Citr Bicarb-Citr t} Bicarb-Cit ic Acid 10 ic Acid 10 jagruti Acid MEQ MEQ 10 MEQ Atorvastati Atorvastati No 1{table QD Atorvastat n Calcium n Calcium t} in Calcium 20 MG 20 MG 20 MG Adipex-P Adipex-P No Adipex-P Vitamin D3 Vitamin D3 No 1{capsu QD Vitamin D3 1000 UNIT 1000 UNIT le} 1000 UNIT Potassium Potassium No Potassium Chloride ER Chloride ER Chloride ER Virtussin Virtussin No Virtussin A/C A/C A/C Nitroglycer Nitroglycer No Nitroglyce in in rin Isosorbide Isosorbide No 1{table QD Isosorbide Mononitrate Mononitrate t_in_th Mononitrat ER 30 MG ER 30 MG e_morni e ER 30 MG ng} Ondansetron Ondansetron No Ondansetro HCl HCl n HCl Levemir Levemir No QD Levemir FlexTouch FlexTouch FlexTouch 100 UNIT/ML 100 UNIT/ML 100 UNIT/ML Lansoprazol Lansoprazol No 1{capsu QD Lansoprazo e 30 MG e 30 MG le} le 30 MG Losartan Losartan No 1{table QD Losartan Potassium Potassium t} Potassium 50 MG 50 MG 50 MG Diethylprop Diethylprop No Diethylpro ion HCl ER ion HCl ER pion HCl ER Clopidogrel Clopidogrel No Clopidogre Bisulfate Bisulfate l Bisulfate Acetaminoph Acetaminoph No Acetaminop en-Codeine en-Codeine hen-Codein #3 #3 e #3 amLODIPine amLODIPine No 1{table QD amLODIPine Besylate 10 Besylate 10 t} Besylate MG MG 10 MG Acyclovir Acyclovir No Acyclovir BD Pen BD Pen No BD Pen Needle Mini Needle Mini Needle U/F 31G X 5 U/F 31G X 5 Mini U/F MM MM 31G X 5 MM Centrum Centrum No Centrum Silver - Silver - Silver - Oseltamivir Oseltamivir No Oseltamivi Phosphate Phosphate r Phosphate Plavix 75 Plavix 75 No 1{table QD Plavix 75 MG MG t} MG Proctozone- Proctozone- No Proctozone HC HC -HC Zolpidem Zolpidem No Zolpidem Tartrate Tartrate Tartrate Aspir-81 81 Aspir-81 81 No 1{table QD Aspir-81 MG MG t} 81 MG Metoprolol Metoprolol No 1{table QD Metoprolol Succinate Succinate t} Succinate ER 50 MG ER 50 MG ER 50 MG predniSONE predniSONE No predniSONE Azithromyci Azithromyci No Azithromyc n n in Potassium Potassium No 1{table BID Potassium Bicarb-Citr Bicarb-Citr t} Bicarb-Cit ic Acid 10 ic Acid 10 jagruti Acid MEQ MEQ 10 MEQ Adipex-P Adipex-P No Adipex-P Aspir-81 81 Aspir-81 81 No 1{table QD Aspir-81 MG MG t} 81 MG Ondansetron Ondansetron No Ondansetro HCl HCl n HCl Acetaminoph Acetaminoph No Acetaminop en-Codeine en-Codeine hen-Codein #3 #3 e #3 Lansoprazol Lansoprazol No 1{capsu QD Lansoprazo e 30 MG e 30 MG le} le 30 MG Diethylprop Diethylprop No Diethylpro ion HCl ER ion HCl ER pion HCl ER Metoprolol Metoprolol No 1{table QD Metoprolol Succinate Succinate t} Succinate ER 50 MG ER 50 MG ER 50 MG predniSONE predniSONE No predniSONE Potassium Potassium No 1{table BID Potassium Bicarb-Citr Bicarb-Citr t} Bicarb-Cit ic Acid 10 ic Acid 10 jagruti Acid MEQ MEQ 10 MEQ Clopidogrel Clopidogrel No Clopidogre Bisulfate Bisulfate l Bisulfate Azithromyci Azithromyci No Azithromyc n n in Oseltamivir Oseltamivir No Oseltamivi Phosphate Phosphate r Phosphate Levemir Levemir No QD Levemir FlexTouch FlexTouch FlexTouch 100 UNIT/ML 100 UNIT/ML 100 UNIT/ML BD Pen BD Pen No BD Pen Needle Mini Needle Mini Needle U/F 31G X 5 U/F 31G X 5 Mini U/F MM MM 31G X 5 MM Vitamin D3 Vitamin D3 No 1{capsu QD Vitamin D3 1000 UNIT 1000 UNIT le} 1000 UNIT Nitroglycer Nitroglycer No Nitroglyce in in rin amLODIPine amLODIPine No 1{table QD amLODIPine Besylate 10 Besylate 10 t} Besylate MG MG 10 MG Potassium Potassium No Potassium Chloride ER Chloride ER Chloride ER Zolpidem Zolpidem No Zolpidem Tartrate Tartrate Tartrate Zolpidem Zolpidem No Zolpidem Tartrate Tartrate Tartrate Plavix 75 Plavix 75 No 1{table QD Plavix 75 MG MG t} MG Losartan Losartan No 1{table QD Losartan Potassium Potassium t} Potassium 50 MG 50 MG 50 MG Centrum Centrum No Centrum Silver - Silver - Silver - Acyclovir Acyclovir No Acyclovir Proctozone- Proctozone- No Proctozone HC HC -HC Atorvastati Atorvastati No 1{table QD Atorvastat n Calcium n Calcium t} in Calcium 20 MG 20 MG 20 MG Isosorbide Isosorbide No 1{table QD Isosorbide Mononitrate Mononitrate t_in_th Mononitrat ER 30 MG ER 30 MG e_morni e ER 30 MG ng} Potassium Potassium No 1{table BID Potassium Bicarb-Citr Bicarb-Citr t} Bicarb-Cit ic Acid 10 ic Acid 10 jagruti Acid MEQ MEQ 10 MEQ Virtussin Virtussin No Virtussin A/C A/C A/C Adipex-P Adipex-P No Aspir-81 81 Aspir-81 81 No 1{table QD MG MG t} Ondansetron Ondansetron No HCl HCl Acetaminoph Acetaminoph No en-Codeine en-Codeine #3 #3 Lansoprazol Lansoprazol No 1{capsu QD e 30 MG e 30 MG le} Diethylprop Diethylprop No ion HCl ER ion HCl ER Metoprolol Metoprolol No 1{table QD Succinate Succinate t} ER 50 MG ER 50 MG PredniSONE PredniSONE No PredniSONE predniSONE predniSONE No Potassium Potassium No 1{table BID Bicarb-Citr Bicarb-Citr t} ic Acid 10 ic Acid 10 MEQ MEQ Clopidogrel Clopidogrel No Bisulfate Bisulfate Azithromyci Azithromyci No n n Oseltamivir Oseltamivir No Phosphate Phosphate Levemir Levemir No QD FlexTouch FlexTouch 100 UNIT/ML 100 UNIT/ML BD Pen BD Pen No Needle Mini Needle Mini U/F 31G X 5 U/F 31G X 5 MM MM Vitamin D3 Vitamin D3 No 1{capsu QD 1000 UNIT 1000 UNIT le} Nitroglycer Nitroglycer No in in Metoprolol Metoprolol No 1{table QD Metoprolol Succinate Succinate t} Succinate ER 50 MG ER 50 MG ER 50 MG amLODIPine amLODIPine No 1{table QD Besylate 10 Besylate 10 t} MG MG Potassium Potassium No Chloride ER Chloride ER Zolpidem Zolpidem No Tartrate Tartrate Plavix 75 Plavix 75 No 1{table QD MG MG t} Losartan Losartan No 1{table QD Potassium Potassium t} 50 MG 50 MG Centrum Centrum No Silver - Silver - Acyclovir Acyclovir No Diethylprop Diethylprop No Diethylpro ion HCl ER ion HCl ER pion HCl ER Proctozone- Proctozone- No HC HC Atorvastati Atorvastati No 1{table QD n Calcium n Calcium t} 20 MG 20 MG Isosorbide Isosorbide No 1{table QD Mononitrate Mononitrate t_in_th ER 30 MG ER 30 MG e_morni ng} Virtussin Virtussin No A/C A/C Aspir-81 81 Aspir-81 81 No 1{table QD Aspir-81 MG MG t} 81 MG Plavix 75 Plavix 75 No 1{table QD Plavix 75 MG MG t} MG Vitamin D3 Vitamin D3 No 1{capsu QD Vitamin D3 1000 UNIT 1000 UNIT le} 1000 UNIT Clopidogrel Clopidogrel No Clopidogre Bisulfate Bisulfate l Bisulfate Atorvastati Atorvastati No 1{table QD Atorvastat n Calcium n Calcium t} in Calcium 20 MG 20 MG 20 MG Isosorbide Isosorbide No 1{table QD Isosorbide Mononitrate Mononitrate t_in_th Mononitrat ER 30 MG ER 30 MG e_morni e ER 30 MG ng} Amlodipine Amlodipine No 1{table QD Amlodipine Besylate 10 Besylate 10 t} Besylate MG MG 10 MG Centrum Centrum No Centrum Silver - Silver - Silver - Potassium Potassium No Potassium Chloride ER Chloride ER Chloride ER Oseltamivir Oseltamivir No Oseltamivi Phosphate Phosphate r Phosphate Lansoprazol Lansoprazol No 1{capsu QD Lansoprazo e 30 MG e 30 MG le} le 30 MG BD Pen BD Pen No BD Pen Needle Mini Needle Mini Needle U/F 31G X 5 U/F 31G X 5 Mini U/F MM MM 31G X 5 MM Azithromyci Azithromyci No Azithromyc n n in Losartan Losartan No 1{table QD Losartan Potassium Potassium t} Potassium 50 MG 50 MG 50 MG Ondansetron Ondansetron No Ondansetro HCl HCl n HCl Nitroglycer Nitroglycer No Nitroglyce in in rin Acetaminoph Acetaminoph No Acetaminop en-Codeine en-Codeine hen-Codein #3 #3 e #3 Levemir Levemir No QD Levemir FlexTouch FlexTouch FlexTouch 100 UNIT/ML 100 UNIT/ML 100 UNIT/ML Proctozone- Proctozone- No Proctozone HC HC -HC Adipex-P Adipex-P No Adipex-P Virtussin Virtussin No Virtussin A/C A/C A/C Acyclovir Acyclovir No Acyclovir Levemir Levemir No QD Levemir FlexTouch FlexTouch FlexTouch 100 UNIT/ML 100 UNIT/ML 100 UNIT/ML Ondansetron Ondansetron No Ondansetro HCl HCl n HCl Acetaminoph Acetaminoph No Acetaminop en-Codeine en-Codeine hen-Codein #3 #3 e #3 Potassium Potassium No Potassium Chloride ER Chloride ER Chloride ER Centrum Centrum No Centrum Silver - Silver - Silver - Virtussin Virtussin No Virtussin A/C A/C A/C PredniSONE PredniSONE No PredniSONE Amlodipine Amlodipine No 1{table QD Amlodipine Besylate 10 Besylate 10 t} Besylate MG MG 10 MG nitroglycer nitroglycer No nitroglyce Nebo in 0.4 mg in 0.4 mg rin 0.4 mg Communi sublingual sublingual sublingual ty tablet PRN tablet PRN tablet PRN Hospita l Clinics ondansetron ondansetron No ondansetro [facility] HCl 4 mg HCl 4 mg n HCl 4 mg C ommuni tablet TAKE tablet TAKE tablet ty 1 TABLET BY 1 TABLET BY TAKE 1 Hospita MOUTH EVERY MOUTH EVERY TABLET BY l 8 HOURS FOR 8 HOURS FOR MOUTH Clinics 10 DAYS 10 DAYS EVERY 8 NEEDED NEEDED HOURS FOR 10 DAYS NEEDED pantoprazol pantoprazol No pantoprazo [facility] e 40 mg e 40 mg le 40 mg Commu ni tablet,ilya tablet,ilya tablet,del ty yed release yed release ayed H ospita Take 1 Take 1 release l tablet tablet Take 1 Clinics daily by daily by tablet mouth mouth daily by mouth potassium potassium No potassium [facility] chloride ER chloride ER chloride Communi 10 mEq 10 mEq ER 10 mEq ty tablet,exte tablet,exte tablet,ext Hospita nded nded ended l release release release Clinic s TAKE 1 TAKE 1 TAKE 1 TABLET BY TABLET BY TABLET BY MOUTH EVERY MOUTH EVERY MOUTH DAY DAY EVERY DAY Accu-Chek Accu-Chek No Accu-Chek [facility] Fastclix Fastclix Fastclix Com clarence Lancet Drum Lancet Drum Lancet ty CHECK BLOOD CHECK BLOOD Drum CHECK [facility] SUGARS ONCE SUGARS ONCE BLOOD l DAILY DAILY SUGARS Clinics ONCE DAILY Accu-Chek Accu-Chek No Accu-Chek [facility] FastClix FastClix FastClix Com clarence Lancing Lancing Lancing ty Device kit Device kit Device kit [facility] Accu-Chek Accu-Chek No Accu-Chek [facility] Guide Guide Guide Communi Glucose Glucose Glucose ty Meter Meter Meter [facility] Accu-Chek Accu-Chek No Accu-Chek Nebo Guide test Guide test Guide test [facility] strips USE strips USE strips USE [facility] DIRECTED, DIRECTED, DIRECTED, l ONCE DAILY. ONCE DAILY. ONCE C linics DAILY. acetaminoph acetaminoph No acetaminop [facility] en 300 en 300 hen 300 Communi mg-codeine mg-codeine mg-codeine ty 30 mg 30 mg 30 mg Hospita tablet TK 1 tablet TK 1 tablet TK l T PO Q 6 H T PO Q 6 H 1 T PO Q 6 Clinics PRN P PRN P H PRN P amlodipine amlodipine No amlodipine Neb[facility] 10 mg 10 mg 10 mg Communi tablet TAKE tablet TAKE tablet ty 1 TABLET BY 1 TABLET BY TAKE 1 Hospita MOUTH EVERY MOUTH EVERY TABLET BY l DAY DAY MOUTH Clinics EVERY DAY aspirin 81 aspirin 81 No 1 Q1D aspirin 81 Nebo mg chewable mg chewable mg C ommuni tablet Chew tablet Chew chewable ty 1 tablet 1 tablet tablet Hospi ta every day every day Chew 1 l by oral by oral tablet Clinics route. route. every day by oral route. atorvastati atorvastati No atorvastat Nebo n 20 mg n 20 mg in 20 mg Commu ni tablet TAKE tablet TAKE tablet ty 1 TABLET BY 1 TABLET BY TAKE 1 Hospita MOUTH DAILY MOUTH DAILY TABLET BY l MOUTH Clinics DAILY BD BD No BD [facility] Ultra-Fine Ultra-Fine Ultra-Fine Communi Mini Pen Mini Pen Mini Pen ty Needle 31 Needle 31 Needle 31 Hospita gauge x gauge x gauge x l 02/06" CHECK 02/06" CHECK 02/06" Clinics BLOOD BLOOD CHECK SUGARS SUGARS BLOOD EVERY DAY EVERY DAY SUGARS DIRECTED DIRECTED EVERY DAY DIRECTED clopidogrel clopidogrel No clopidogre Neb[facility] 75 mg 75 mg l 75 mg Communi tablet TAKE tablet TAKE tablet ty 1 TABLET BY 1 TABLET BY TAKE 1 Hospita MOUTH ONCE MOUTH ONCE TABLET BY l DAILY DAILY MOUTH ONCE Clinics DAILY isosorbide isosorbide No isosorbide [facility] mononitrate mononitrate mononitrat Communi ER 30 mg ER 30 mg e ER 30 mg t y tablet,exte tablet,exte tablet,ext Hospita nded nded ended l release 24 release 24 release 24 Clinics hr TAKE 1 hr TAKE 1 hr TAKE 1 TABLET BY TABLET BY TABLET BY MOUTH DAILY MOUTH DAILY MOUTH DAILY lansoprazol lansoprazol No lansoprazo [facility] e 30 mg e 30 mg le 30 mg Commu ni capsule,del capsule,del capsule,de ty ayed ayed layed Hospita release release release l TAKE 1 TAKE 1 TAKE 1 Clinics CAPSULE BY CAPSULE BY CAPSULE BY MOUTH DAILY MOUTH DAILY MOUTH DAILY Levemir Levemir No Levemir [facility] FlexTouch FlexTouch FlexTouch Communi U-100 U-100 U-100 ty Insulin 100 Insulin 100 Insulin Hospita unit/mL (3 unit/mL (3 100 l mL) mL) unit/mL (3 Clinics subcutaneou subcutaneou mL) s pen s pen subcutaneo ADMINISTER ADMINISTER us pen 15 UNITS 15 UNITS ADMINISTER UNDER THE UNDER THE 15 UNITS SKIN EVERY SKIN EVERY UNDER THE DAY DAY SKIN EVERY DAY losartan 50 losartan 50 No losartan [facility] mg tablet mg tablet 50 mg Comm uni TAKE 1 TAKE 1 tablet ty TABLET BY TABLET BY TAKE 1 Hos shaun MOUTH EVERY MOUTH EVERY TABLET BY l DAY DAY MOUTH Clinics EVERY DAY metoprolol metoprolol No metoprolol [facility] succinate succinate succinate Communi ER 50 mg ER 50 mg ER 50 mg ty tablet,exte tablet,exte tablet,ext [facility] nded nded ended l release 24 release 24 release 24 Clinics hr TAKE 1 hr TAKE 1 hr TAKE 1 TABLET BY TABLET BY TABLET BY MOUTH EVERY MOUTH EVERY MOUTH DAY DAY EVERY DAY nitroglycer nitroglycer No nitroglyce [facility] in 0.4 mg in 0.4 mg rin 0.4 mg Communi sublingual sublingual sublingual ty tablet tablet tablet [facility] potassium potassium No potassium [facility] chloride ER chloride ER chloride Communi 10 mEq 10 mEq ER 10 mEq ty tablet,exte tablet,exte tablet,ext [facility] nded nded ended l release release release Clinic s TAKE 1 TAKE 1 TAKE 1 TABLET BY TABLET BY TABLET BY MOUTH EVERY MOUTH EVERY MOUTH DAY DAY EVERY DAY Accu-Chek Accu-Chek No Accu-Chek [facility] Fastclix Fastclix Fastclix Com clarence Lancet Drum Lancet Drum Lancet ty CHECK BLOOD CHECK BLOOD Drum CHECK [facility] SUGARS ONCE SUGARS ONCE BLOOD l DAILY DAILY SUGARS Clinics ONCE DAILY Accu-Chek Accu-Chek No Accu-Chek [facility] FastClix FastClix FastClix Com clarence Lancing Lancing Lancing ty Device kit Device kit Device kit [facility] Accu-Chek Accu-Chek No Accu-Chek [facility] Guide Guide Guide Communi Glucose Glucose Glucose ty Meter Meter Meter [facility] Accu-Chek Accu-Chek No Accu-Chek [facility] Guide test Guide test Guide test [facility] strips USE strips USE strips USE [facility] DIRECTED, DIRECTED, DIRECTED, l ONCE DAILY. ONCE DAILY. ONCE C linics DAILY. acetaminoph acetaminoph No 1 BID acetaminop [facility] en 300 en 300 hen 300 Communi mg-codeine mg-codeine mg-codeine ty 30 mg 30 mg 30 mg Hospita tablet Take tablet Take tablet l 1 tablet 1 tablet Take 1 Clini cs twice a day twice a day tablet by oral by oral twice a route. route. day by oral route. amlodipine amlodipine No amlodipine Neb[facility] 10 mg 10 mg 10 mg Communi tablet TAKE tablet TAKE tablet ty 1 TABLET BY 1 TABLET BY TAKE 1 Hospita MOUTH EVERY MOUTH EVERY TABLET BY l DAY DAY MOUTH Clinics EVERY DAY aspirin 81 aspirin 81 No 1 Q1D aspirin 81 [facility] mg chewable mg chewable mg C ommuni tablet Chew tablet Chew chewable ty 1 tablet 1 tablet tablet Hospi ta every day every day Chew 1 l by oral by oral tablet Clinics route. route. every day by oral route. atenolol 50 atenolol 50 No atenolol [facility] mg tablet mg tablet 50 mg Comm uni TAKE 1 TAKE 1 tablet ty TABLET BY TABLET BY TAKE 1 Hos shaun MOUTH EVERY MOUTH EVERY TABLET BY l DAY. DAY. MOUTH Clinics EVERY DAY. atorvastati atorvastati No atorvastat [facility] n 40 mg n 40 mg in 40 mg Commu ni tablet TAKE tablet TAKE tablet ty 1 TABLET BY 1 TABLET BY TAKE 1 Hospita MOUTH EVERY MOUTH EVERY TABLET BY l DAY DAY MOUTH Clinics EVERY DAY BD BD No BD [facility] Ultra-Fine Ultra-Fine Ultra-Fine Communi Mini Pen Mini Pen Mini Pen ty Needle 31 Needle 31 Needle 31 Hospita gauge x gauge x gauge x l 3/16" CHECK 316" CHECK 16" Clinics BLOOD BLOOD CHECK SUGARS SUGARS BLOOD EVERY DAY EVERY DAY SUGARS DIRECTED DIRECTED EVERY DAY DIRECTED cholecalcif cholecalcif No cholecalci [facility] jared [facility]ared [facility] ([facility]amin (vitamin (vitamin ty D3) 125 mcg D3) 125 mcg D3) 125 Hospita (5,000 (5,000 mcg (5,000 l unit) unit) unit) Clinics tablet TAKE tablet TAKE tablet 1 TABLET BY 1 TABLET BY TAKE 1 MOUTH EVERY MOUTH EVERY TABLET BY DAY DAY MOUTH EVERY DAY clopidogrel clopidogrel No clopidogre [facility] 75 mg 75 mg l 75 mg Communi tablet TAKE tablet TAKE tablet ty 1 TABLET BY 1 TABLET BY TAKE 1 Hospita MOUTH ONCE MOUTH ONCE TABLET BY l DAILY DAILY MOUTH ONCE Clinics DAILY dicyclomine dicyclomine No dicyclomin [facility] 20 mg 20 mg e 20 mg Communi tablet TAKE tablet TAKE tablet ty 1 TABLET BY 1 TABLET BY TAKE 1 Hospita MOUTH EVERY MOUTH EVERY TABLET BY l 8 HOURS 8 HOURS MOUTH Cl inics NEEDED NEEDED EVERY 8 HOURS NEEDED isosorbide isosorbide No isosorbide [facility] mononitrate mononitrate mononitrat Communi ER 30 mg ER 30 mg e ER 30 mg t y tablet,exte tablet,exte tablet,ext Hospita nded nded ended l release 24 release 24 release 24 Clinics hr TAKE 1 hr TAKE 1 hr TAKE 1 TABLET BY TABLET BY TABLET BY MOUTH DAILY MOUTH DAILY MOUTH DAILY lansoprazol lansoprazol No lansoprazo [facility] e 30 mg e 30 mg le 30 mg Commu ni capsule,del capsule,del capsule,de ty ayed ayed layed Hospita release release release l TAKE 1 TAKE 1 TAKE 1 Clinics CAPSULE BY CAPSULE BY CAPSULE BY MOUTH DAILY MOUTH DAILY MOUTH DAILY Levemir Levemir No Levemir [facility] FlexTouch FlexTouch FlexTouch Communi U-100 U-100 U-100 ty Insulin 100 Insulin 100 Insulin Hospita unit/mL (3 unit/mL (3 100 l mL) mL) unit/mL (3 Clinics subcutaneou subcutaneou mL) s pen s pen subcutaneo ADMINISTER ADMINISTER us pen 15 UNITS 15 UNITS ADMINISTER UNDER THE UNDER THE 15 UNITS SKIN EVERY SKIN EVERY UNDER THE DAY DAY SKIN EVERY DAY losartan 50 losartan 50 No losartan [facility] mg tablet mg tablet 50 mg Comm uni TAKE 1 TAKE 1 tablet ty TABLET BY TABLET BY TAKE 1 Hos shaun MOUTH EVERY MOUTH EVERY TABLET BY l DAY DAY MOUTH Clinics EVERY DAY metoprolol metoprolol No metoprolol [facility] succinate succinate succinate Communi ER 50 mg ER 50 mg ER 50 mg ty tablet,exte tablet,exte tablet,ext Hospita nded nded ended l release 24 release 24 release 24 Clinics hr TAKE 1 hr TAKE 1 hr TAKE 1 TABLET BY TABLET BY TABLET BY MOUTH EVERY MOUTH EVERY MOUTH DAY DAY EVERY DAY nitroglycer nitroglycer No nitroglyce [facility] in 0.4 mg in 0.4 mg rin 0.4 mg Communi sublingual sublingual sublingual ty tablet tablet tablet Hospita l Clinics potassium potassium No potassium [facility] chloride ER chloride ER chloride Communi 10 mEq 10 mEq ER 10 mEq ty tablet,exte tablet,exte tablet,ext Hospita nded nded ended l release release release Clinic s TAKE 1 TAKE 1 TAKE 1 TABLET BY TABLET BY TABLET BY MOUTH EVERY MOUTH EVERY MOUTH DAY DAY EVERY DAY Accu-Chek Accu-Chek No Accu-Chek [facility] Fastclix Fastclix Fastclix Com clarence Lancet Drum Lancet Drum Lancet ty CHECK BLOOD CHECK BLOOD Drum CHECK [facility] SUGARS ONCE SUGARS ONCE BLOOD l DAILY DAILY SUGARS Clinics ONCE DAILY Accu-Chek Accu-Chek No Accu-Chek [facility] FastClix FastClix FastClix Com clarence Lancing Lancing Lancing ty Device kit Device kit Device kit [facility] Accu-Chek Accu-Chek No Accu-Chek [place] Guide Guide Guide [facility]i Glucose Glucose Glucose ty Meter Meter Meter [facility] Accu-Chek Accu-Chek No Accu-Chek [place] Guide test Guide test Guide test Communi strips USE strips USE strips USE ty DIRECTED DIRECTED H [facility]spita ONCE A DAY ONCE A DAY DIRECTED l ONCE A DAY Clinics acetaminoph acetaminoph No acetaminop [facility] en 300 en 300 hen 300 [facility]i mg-codeine mg-codeine mg-codeine ty 30 mg 30 mg 30 mg Hospita tablet Take tablet Take tablet l 1 tablet 1 tablet Take 1 Clini cs twice a day twice a day tablet by oral by oral twice a route. route. day by oral route. amlodipine amlodipine No amlodipine [facility] 10 mg 10 mg 10 mg Communi tablet TAKE tablet TAKE tablet ty 1 TABLET BY 1 TABLET BY TAKE 1 Hospita MOUTH EVERY MOUTH EVERY TABLET BY l DAY DAY MOUTH Clinics EVERY DAY aspirin 81 aspirin 81 No 1 Q1D aspirin 81 [facility] mg chewable mg chewable mg C [facility] tablet Chew tablet Chew chewable ty 1 tablet 1 tablet tablet Hospi ta every day every day Chew 1 l by oral by oral tablet Clinics route. route. every day by oral route. atenolol 50 atenolol 50 No atenolol [facility] mg tablet mg tablet 50 mg Comm uni TAKE 1 TAKE 1 tablet ty TABLET BY TABLET BY TAKE 1 Hos shaun MOUTH EVERY MOUTH EVERY TABLET BY l DAY. DAY. MOUTH Clinics EVERY DAY. atorvastati atorvastati No atorvastat [facility] n 40 mg n 40 mg in 40 mg Commu ni tablet TAKE tablet TAKE tablet ty 1 TABLET BY 1 TABLET BY TAKE 1 Hospita MOUTH EVERY MOUTH EVERY TABLET BY l DAY DAY MOUTH Clinics EVERY DAY BD BD No BD [place] Ultra-Fine Ultra-Fine Ultra-Fine [facility]i Mini Pen Mini Pen Mini Pen ty Needle 31 Needle 31 Needle 31 Hospita gauge x gauge x gauge x l 02/06" CHECK 02/06" CHECK 02/06" Clinics BLOOD BLOOD CHECK SUGARS SUGARS BLOOD EVERY DAY EVERY DAY SUGARS DIRECTED DIRECTED EVERY DAY DIRECTED cholecalcif cholecalcif No cholecalci [facility] jared jared ferol [facility] (vitamin (vitamin (vitamin ty D3) 125 mcg D3) 125 mcg D3) 125 Hospita (5,000 (5,000 mcg (5,000 l unit) unit) unit) Clinics tablet TAKE tablet TAKE tablet 1 TABLET BY 1 TABLET BY TAKE 1 MOUTH EVERY MOUTH EVERY TABLET BY DAY DAY MOUTH EVERY DAY clopidogrel clopidogrel No clopidogre [facility] 75 mg 75 mg l 75 mg [facility] tablet TAKE tablet TAKE tablet ty 1 TABLET BY 1 TABLET BY TAKE 1 Hospita MOUTH ONCE MOUTH ONCE TABLET BY l DAILY DAILY MOUTH ONCE Clinics DAILY dicyclomine dicyclomine No dicyclomin [facility] 20 mg 20 mg e 20 mg [facility] tablet TAKE tablet TAKE tablet ty 1 TABLET BY 1 TABLET BY TAKE 1 Hospita MOUTH EVERY MOUTH EVERY TABLET BY l 8 HOURS 8 HOURS MOUTH Cl inics NEEDED NEEDED EVERY 8 HOURS NEEDED isosorbide isosorbide No isosorbide [facility] mononitrate mononitrate mononitrat [facility]i ER 30 mg ER 30 mg e ER 30 mg t y tablet,exte tablet,exte tablet,ext Hospita nded nded ended l release 24 release 24 release 24 Clinics hr TAKE 1 hr TAKE 1 hr TAKE 1 TABLET BY TABLET BY TABLET BY MOUTH DAILY MOUTH DAILY MOUTH DAILY lansoprazol lansoprazol No lansoprazo [facility] e 30 mg e 30 mg le 30 mg Commu ni capsule,del capsule,del capsule,de ty ayed ayed layed Hospita release release release l TAKE 1 TAKE 1 TAKE 1 Clinics CAPSULE BY CAPSULE BY CAPSULE BY MOUTH DAILY MOUTH DAILY MOUTH DAILY Levemir Levemir No Levemir [facility] FlexTouch FlexTouch FlexTouch [facility]i U-100 U-100 U-100 ty Insulin 100 Insulin 100 Insulin Hospita unit/mL (3 unit/mL (3 100 l mL) mL) unit/mL (3 Clinics subcutaneou subcutaneou mL) s pen s pen subcutaneo ADMINISTER ADMINISTER us pen 15 UNITS 15 UNITS ADMINISTER UNDER THE UNDER THE 15 UNITS SKIN EVERY SKIN EVERY UNDER THE DAY DAY SKIN EVERY DAY losartan 50 losartan 50 No losartan [facility] mg tablet mg tablet 50 mg Comm uni TAKE 1 TAKE 1 tablet ty TABLET BY TABLET BY TAKE 1 Hos shaun MOUTH EVERY MOUTH EVERY TABLET BY l DAY DAY MOUTH Clinics EVERY DAY metoprolol metoprolol No metoprolol [facility] succinate succinate succinate Communi ER 50 mg ER 50 mg ER 50 mg ty tablet,exte tablet,exte tablet,ext Hospita nded nded ended l release 24 release 24 release 24 Clinics hr TAKE 1 hr TAKE 1 hr TAKE 1 TABLET BY TABLET BY TABLET BY MOUTH EVERY MOUTH EVERY MOUTH DAY DAY EVERY DAY nitroglycer nitroglycer No nitroglyce [facility] in 0.4 mg in 0.4 mg rin 0.4 mg Communi sublingual sublingual sublingual ty tablet PRN tablet PRN tablet PRN Hospita l Clinics potassium potassium No potassium [place] chloride ER chloride ER chloride [facility]i 10 mEq 10 mEq ER 10 mEq ty tablet,exte tablet,exte tablet,ext Hospita nded nded ended l release release release Clinic s TAKE 1 TAKE 1 TAKE 1 TABLET BY TABLET BY TABLET BY MOUTH EVERY MOUTH EVERY MOUTH DAY DAY EVERY DAY ProAir HFA ProAir HFA No 2puff(s Q4H ProAir HFA [facility] 90 90 ) 90 Communi mcg/actuati mcg/actuati mcg/actuat ty on aerosol on aerosol ion [facility] shaun inhaler inhaler aerosol l Inhale 2 Inhale 2 inhaler Clin ics puffs every puffs every Inhale 2 4 hours by 4 hours by puffs inhalation inhalation every 4 route as route as hours by needed. needed. inhalation route as needed. Accu-Chek Accu-Chek No Accu-Chek [facility] Fastclix Fastclix Fastclix Com clarence Lancet Drum Lancet Drum Lancet ty CHECK BLOOD CHECK BLOOD Drum CHECK Hospita SUGARS ONCE SUGARS ONCE BLOOD l DAILY DAILY SUGARS Clinics ONCE DAILY Accu-Chek Accu-Chek No Accu-Chek [place] FastClix FastClix FastClix Com clarence Lancing Lancing Lancing ty Device kit Device kit Device kit [facility] Accu-Chek Accu-Chek No Accu-Chek Jennifer Guide Guide Guide [facility] Glucose Glucose Glucose ty Meter Meter Meter [facility] Accu-Chek Accu-Chek No Accu-Chek [place] Guide test Guide test Guide test [facility] strips USE strips USE strips USE ty DIRECTED DIRECTED [facility] ospita ONCE A DAY ONCE A DAY DIRECTED l ONCE A DAY Clinics acetaminoph acetaminoph No acetaminop [facility] en 300 en 300 hen 300 [facility] mg-codeine mg-codeine mg-codeine ty 30 mg 30 mg 30 mg Hospita tablet Take tablet Take tablet l 1 tablet 1 tablet Take 1 Clini cs twice a day twice a day tablet by oral by oral twice a route. route. day by oral route. albuterol albuterol No albuterol [facility] sulfate HFA sulfate HFA sulfate Communi 90 90 HFA 90 ty mcg/actuati mcg/actuati mcg/actuat [facility] on aerosol on aerosol ion l inhaler inhaler aerosol Clinic s Inhale 2 Inhale 2 inhaler puffs every puffs every Inhale 2 4 hours by 4 hours by puffs inhalation inhalation every 4 route as route as hours by needed. needed. inhalation route as needed. amlodipine amlodipine No amlodipine [facility] 10 mg 10 mg 10 mg [facility] tablet TAKE tablet TAKE tablet ty 1 TABLET BY 1 TABLET BY TAKE 1 Hospita MOUTH EVERY MOUTH EVERY TABLET BY l DAY DAY MOUTH Clinics EVERY DAY aspirin 81 aspirin 81 No 1 Q1D aspirin 81 [facility] mg chewable mg chewable mg C [facility] tablet Chew tablet Chew chewable ty 1 tablet 1 tablet tablet Hospi ta every day every day Chew 1 l by oral by oral tablet Clinics route. route. every day by oral route. atenolol 50 atenolol 50 No atenolol [facility] mg tablet mg tablet 50 mg Comm uni TAKE 1 TAKE 1 tablet ty TABLET BY TABLET BY TAKE 1 Hos shaun MOUTH EVERY MOUTH EVERY TABLET BY l DAY. DAY. MOUTH Clinics EVERY DAY. atorvastati atorvastati No atorvastat [facility] n 40 mg n 40 mg in 40 mg Commu ni tablet TAKE tablet TAKE tablet ty 1 TABLET BY 1 TABLET BY TAKE 1 Hospita MOUTH EVERY MOUTH EVERY TABLET BY l DAY DAY MOUTH Clinics EVERY DAY BD BD No BD [place] Ultra-Fine Ultra-Fine Ultra-Fine [facility] Mini Pen Mini Pen Mini Pen ty Needle 31 Needle 31 Needle 31 Hospita gauge x gauge x gauge x l 02/06" CHECK 02/06" CHECK 02/06" Clinics BLOOD BLOOD CHECK SUGARS SUGARS BLOOD EVERY DAY EVERY DAY SUGARS DIRECTED DIRECTED EVERY DAY DIRECTED cholecalcif cholecalcif No cholecalci [place] jared jared ferol [facility]i (vitamin (vitamin (vitamin ty D3) 125 mcg D3) 125 mcg D3) 125 [facility]ospita (5,000 (5,000 mcg (5,000 l unit) unit) unit) Clinics tablet TAKE tablet TAKE tablet 1 TABLET BY 1 TABLET BY TAKE 1 MOUTH EVERY MOUTH EVERY TABLET BY DAY DAY MOUTH EVERY DAY clopidogrel clopidogrel No clopidogre [facility] 75 mg 75 mg l 75 mg [facility] tablet TAKE tablet TAKE tablet ty 1 TABLET BY 1 TABLET BY TAKE 1 Hospita MOUTH ONCE MOUTH ONCE TABLET BY l DAILY DAILY MOUTH ONCE Clinics DAILY cyclobenzap cyclobenzap No cyclobenza [facility] rine 5 mg rine 5 mg yady 5 mg Communi tablet Take tablet Take tablet ty 1 tablet 1 tablet Take 1 Hospi ta TID PO TID PO tablet TID l PO Clinics dicyclomine dicyclomine No dicyclomin [facility] 20 mg 20 mg e 20 mg Communi tablet TAKE tablet TAKE tablet ty 1 TABLET BY 1 TABLET BY TAKE 1 Hospita MOUTH EVERY MOUTH EVERY TABLET BY l 8 HOURS 8 HOURS MOUTH Cl inics NEEDED NEEDED EVERY 8 HOURS NEEDED isosorbide isosorbide No isosorbide [facility] mononitrate mononitrate mononitrat Communi ER 30 mg ER 30 mg e ER 30 mg t y tablet,exte tablet,exte tablet,ext Hospita nded nded ended l release 24 release 24 release 24 Clinics hr TAKE 1 hr TAKE 1 hr TAKE 1 TABLET BY TABLET BY TABLET BY MOUTH DAILY MOUTH DAILY MOUTH DAILY lansoprazol lansoprazol No lansoprazo [facility] e 30 mg e 30 mg le 30 mg Commu ni capsule,del capsule,del capsule,de ty ayed ayed layed Hospita release release release l TAKE 1 TAKE 1 TAKE 1 Clinics CAPSULE BY CAPSULE BY CAPSULE BY MOUTH DAILY MOUTH DAILY MOUTH DAILY Levemir Levemir No Levemir [facility] FlexTouch FlexTouch FlexTouch [facility]i U-100 U-100 U-100 ty Insulin 100 Insulin 100 Insulin Hospita unit/mL (3 unit/mL (3 100 l mL) mL) unit/mL (3 Clinics subcutaneou subcutaneou mL) s pen s pen subcutaneo ADMINISTER ADMINISTER us pen 15 UNITS 15 UNITS ADMINISTER UNDER THE UNDER THE 15 UNITS SKIN EVERY SKIN EVERY UNDER THE DAY DAY SKIN EVERY DAY losartan 50 losartan 50 No losartan [facility] mg tablet mg tablet 50 mg Comm uni TAKE 1 TAKE 1 tablet ty TABLET BY TABLET BY TAKE 1 Hos shaun MOUTH EVERY MOUTH EVERY TABLET BY l DAY DAY MOUTH Clinics EVERY DAY metoprolol metoprolol No metoprolol [facility] succinate succinate succinate Communi ER 50 mg ER 50 mg ER 50 mg ty tablet,exte [facility] 24 release 24 Clinics hr TAKE 1 hr TAKE 1 hr TAKE 1 TABLET BY TABLET BY TABLET BY MOUTH EVERY MOUTH EVERY MOUTH DAY DAY EVERY DAY nitroglycer nitroglycer No nitroglyce [facility] in 0.4 mg in 0.4 mg rin 0.4 mg Communi sublingual sublingual sublingual ty tablet PRN tablet PRN tablet PRN [facility] potassium potassium No potassium [place] chloride ER chloride ER chloride Communi 10 mEq 10 mEq ER 10 mEq ty tablet,exte tablet,exte tablet,ext Hospita nded nded ended l release release release Clinic s TAKE 1 TAKE 1 TAKE 1 TABLET BY TABLET BY TABLET BY MOUTH EVERY MOUTH EVERY MOUTH DAY DAY EVERY DAY Accu-Chek Accu-Chek No Accu-Chek Jennifer Fastclix Fastclix Fastclix Com clarence Lancet Drum Lancet Drum Lancet ty CHECK BLOOD CHECK BLOOD Drum CHECK [facility] SUGARS ONCE SUGARS ONCE BLOOD l A DAY A DAY SUGARS Clinics ONCE A DAY Accu-Chek Accu-Chek No Accu-Chek Jennifer FastClix FastClix FastClix Com clarence Lancing Lancing Lancing ty Device kit Device kit Device kit [facility] Accu-Chek Accu-Chek No Accu-Chek Jennifer Guide Guide Guide [facility] Glucose Glucose Glucose ty Meter Meter Meter [facility] Clinics Accu-Chek Accu-Chek No Accu-Chek [place] Guide test Guide test Guide test Communi strips USE strips USE strips USE ty DIRECTED DIRECTED H ospita ONCE A DAY ONCE A DAY DIRECTED l ONCE A DAY Clinics acetaminoph acetaminoph No acetaminop [facility] en 300 en 300 hen 300 Communi mg-codeine mg-codeine mg-codeine ty 30 mg 30 mg 30 mg Hospita tablet TAKE tablet TAKE tablet l 1 TABLET BY 1 TABLET BY TAKE 1 Clinics MOUTH EVERY MOUTH EVERY TABLET BY 6 HOURS FOR 6 HOURS FOR MOUTH 7 DAYS 7 DAYS EVERY 6 NEEDED FOR NEEDED FOR HOURS FOR PAIN PAIN 7 DAYS NEEDED FOR PAIN amlodipine amlodipine No amlodipine [facility] 10 mg 10 mg 10 mg [facility]i tablet TAKE tablet TAKE tablet ty 1 TABLET BY 1 TABLET BY TAKE 1 Hospita MOUTH EVERY MOUTH EVERY TABLET BY l DAY DAY MOUTH Clinics EVERY DAY aspirin 81 aspirin 81 No 1 Q1D aspirin 81 [facility] mg chewable mg chewable mg C [facility] tablet Chew tablet Chew chewable ty 1 tablet 1 tablet tablet Hospi ta every day every day Chew 1 l by oral by oral tablet Clinics route. route. every day by oral route. atenolol 50 atenolol 50 No atenolol [facility] mg tablet mg tablet 50 mg Comm uni TAKE 1 TAKE 1 tablet ty TABLET BY TABLET BY TAKE 1 Hos shaun MOUTH EVERY MOUTH EVERY TABLET BY l DAY. DAY. MOUTH Clinics EVERY DAY. atorvastati atorvastati No atorvastat [facility] n 40 mg n 40 mg in 40 mg Commu ni tablet TAKE tablet TAKE tablet ty 1 TABLET BY 1 TABLET BY TAKE 1 Hospita MOUTH EVERY MOUTH EVERY TABLET BY l DAY DAY MOUTH Clinics EVERY DAY BD BD No BD [place] Ultra-Fine Ultra-Fine Ultra-Fine [facility]i Mini Pen Mini Pen Mini Pen ty Needle 31 Needle 31 Needle 31 Hospita gauge x gauge x gauge x l 02/06" CHECK 02/06" CHECK 02/06" Clinics BLOOD BLOOD CHECK SUGARS SUGARS BLOOD EVERY DAY EVERY DAY SUGARS DIRECTED DIRECTED EVERY DAY DIRECTED cholecalcif cholecalcif No cholecalci [facility] jared jared ferol [place] (vitamin (vitamin (vitamin ty D3) 125 mcg D3) 125 mcg D3) 125 [facility]ospita (5,000 (5,000 mcg (5,000 l unit) unit) unit) Clinics tablet TAKE tablet TAKE tablet 1 TABLET BY 1 TABLET BY TAKE 1 MOUTH EVERY MOUTH EVERY TABLET BY DAY DAY MOUTH EVERY DAY clopidogrel clopidogrel No clopidogre [facility] 75 mg 75 mg l 75 mg [facility]i tablet TAKE tablet TAKE tablet ty 1 TABLET BY 1 TABLET BY TAKE 1 Hospita MOUTH EVERY MOUTH EVERY TABLET BY l DAY DAY MOUTH Clinics EVERY DAY dicyclomine dicyclomine No dicyclomin [facility] 20 mg 20 mg e 20 mg Communi tablet TAKE tablet TAKE tablet ty 1 TABLET BY 1 TABLET BY TAKE 1 Hospita MOUTH EVERY MOUTH EVERY TABLET BY l 8 HOURS 8 HOURS MOUTH Cl inics NEEDED NEEDED EVERY 8 HOURS NEEDED isosorbide isosorbide No isosorbide [facility] mononitrate mononitrate mononitrat Communi ER 30 mg ER 30 mg e ER 30 mg t y tablet,exte tablet,exte tablet,ext Hospita nded nded ended l release 24 release 24 release 24 Clinics hr TAKE 1 hr TAKE 1 hr TAKE 1 TABLET BY TABLET BY TABLET BY MOUTH DAILY MOUTH DAILY MOUTH DAILY lansoprazol lansoprazol No lansoprazo [facility] e 30 mg e 30 mg le 30 mg Commu ni capsule,del capsule,del capsule,de ty ayed ayed layed Hospita release release release l TAKE 1 TAKE 1 TAKE 1 Clinics CAPSULE BY CAPSULE BY CAPSULE BY MOUTH DAILY MOUTH DAILY MOUTH DAILY Levemir Levemir No Levemir [facility] FlexTouch FlexTouch FlexTouch [facility] U-100 U-100 U-100 ty Insulin 100 Insulin 100 Insulin [facility]osp[facility] unit/mL (3 unit/mL (3 100 l mL) mL) unit/mL (3 Clinics subcutaneou subcutaneou mL) s pen s pen subcutaneo ADMINISTER ADMINISTER us pen 15 UNITS 15 UNITS ADMINISTER UNDER THE UNDER THE 15 UNITS SKIN EVERY SKIN EVERY UNDER THE DAY DAY SKIN EVERY DAY losartan 50 losartan 50 No losartan [facility] mg tablet mg tablet 50 mg Comm uni TAKE 1 TAKE 1 tablet ty TABLET BY TABLET BY TAKE 1 Hos shaun MOUTH EVERY MOUTH EVERY TABLET BY l DAY DAY MOUTH Clinics EVERY DAY metoprolol metoprolol No metoprolol [facility] succinate succinate succinate Communi ER 50 mg ER 50 mg ER 50 mg ty tablet,exte tablet,exte tablet,ext Hospita nded nded ended l release 24 release 24 release 24 Clinics hr TAKE 1 hr TAKE 1 hr TAKE 1 TABLET BY TABLET BY TABLET BY MOUTH EVERY MOUTH EVERY MOUTH DAY DAY EVERY DAY nitroglycer nitroglycer No nitroglyce [facility] in 0.4 mg in 0.4 mg rin 0.4 mg Communi sublingual sublingual sublingual ty tablet PRN tablet PRN tablet PRN [facility] potassium potassium No potassium [place] chloride ER chloride ER chloride Communi 10 mEq 10 mEq ER 10 mEq ty tablet,exte tablet,exte tablet,ext Hospita nded nded ended l release release release Clinic s TAKE 1 TAKE 1 TAKE 1 TABLET BY TABLET BY TABLET BY MOUTH EVERY MOUTH EVERY MOUTH DAY DAY EVERY DAY ProAir HFA ProAir HFA No 2puff(s Q4H ProAir HFA [facility] 90 90 ) 90 Communi mcg/actuati mcg/actuati mcg/actuat ty on aerosol on aerosol ion [facility] inhaler inhaler aerosol l Inhale 2 Inhale 2 inhaler Clin ics puffs every puffs every Inhale 2 4 hours by 4 hours by puffs inhalation inhalation every 4 route as route as hours by needed. needed. inhalation route as needed. Accu-Chek Accu-Chek No Accu-Chek [facility] Fastclix Fastclix Fastclix Com clarence Lancet Drum Lancet Drum Lancet ty CHECK BLOOD CHECK BLOOD Drum CHECK [facility] SUGARS ONCE SUGARS ONCE BLOOD l A DAY A DAY SUGARS Clinics ONCE A DAY Accu-Chek Accu-Chek No Accu-Chek [facility] FastClix FastClix FastClix Com clarence Lancing Lancing Lancing ty Device kit Device kit Device kit [facility] Accu-Chek Accu-Chek No Accu-Chek [place] Guide Guide Guide [facility]i Glucose Glucose Glucose ty Meter Meter Meter [facility] Accu-Chek Accu-Chek No Accu-Chek [place] Guide test Guide test Guide test Communi strips USE strips USE strips USE ty DIRECTED DIRECTED H [facility]spita ONCE A DAY ONCE A DAY DIRECTED l ONCE A DAY Clinics acetaminoph acetaminoph No acetaminop [facility] en 300 en 300 hen 300 Communi mg-codeine mg-codeine mg-codeine ty 30 mg 30 mg 30 mg [facility]ospita tablet TAKE tablet TAKE tablet l 1 TABLET BY 1 TABLET BY TAKE 1 Clinics MOUTH EVERY MOUTH EVERY TABLET BY 6 HOURS FOR 6 HOURS FOR MOUTH 7 DAYS 7 DAYS EVERY 6 NEEDED FOR NEEDED FOR HOURS FOR PAIN PAIN 7 DAYS NEEDED FOR PAIN albuterol albuterol No albuterol [facility] sulfate HFA sulfate HFA sulfate Communi 90 90 HFA 90 ty mcg/actuati mcg/actuati mcg/actuat Hospita on aerosol on aerosol ion l inhaler inhaler aerosol Clinic s INHALE 2 INHALE 2 inhaler PUFFS BY PUFFS BY INHALE 2 MOUTH EVERY MOUTH EVERY PUFFS BY 4 HOURS 4 HOURS MOUTH NEEDED NEEDED EVERY 4 HOURS NEEDED amlodipine amlodipine No amlodipine [facility] 10 mg 10 mg 10 mg [facility]i tablet TAKE tablet TAKE tablet ty 1 TABLET BY 1 TABLET BY TAKE 1 Hospita MOUTH EVERY MOUTH EVERY TABLET BY l DAY DAY MOUTH Clinics EVERY DAY aspirin 81 aspirin 81 No 1 Q1D aspirin 81 [facility] mg chewable mg chewable mg [facility] tablet Chew tablet Chew chewable ty 1 tablet 1 tablet tablet Hospi ta every day every day Chew 1 l by oral by oral tablet Clinics route. route. every day by oral route. atenolol 50 atenolol 50 No atenolol [facility] mg tablet mg tablet 50 mg Comm uni TAKE 1 TAKE 1 tablet ty TABLET BY TABLET BY TAKE 1 [facility] shaun MOUTH EVERY MOUTH EVERY TABLET BY l DAY. DAY. MOUTH Clinics EVERY DAY. atorvastati atorvastati No atorvastat [facility] n 40 mg n 40 mg in 40 mg Commu ni tablet TAKE tablet TAKE tablet ty 1 TABLET BY 1 TABLET BY TAKE 1 [facility]ospita MOUTH EVERY MOUTH EVERY TABLET BY l DAY DAY MOUTH Clinics EVERY DAY BD BD No BD [place] Ultra-Fine Ultra-Fine Ultra-Fine [facility] Mini Pen Mini Pen Mini Pen ty Needle 31 Needle 31 Needle 31 Hospita gauge x gauge x gauge x l 02/06" CHECK 02/06" CHECK 02/06" Clinics BLOOD SUGAR BLOOD SUGAR CHECK EVERY DAY EVERY DAY BLOOD DIRECTED DIRECTED SUGAR EVERY DAY DIRECTED cholecalcif cholecalcif No cholecalci [facility] jared jared ferol [facility] (vitamin (vitamin (vitamin ty D3) 125 mcg D3) 125 mcg D3) 125 [facility]ospita (5,000 (5,000 mcg (5,000 l unit) unit) unit) Clinics tablet TAKE tablet TAKE tablet 1 TABLET BY 1 TABLET BY TAKE 1 MOUTH EVERY MOUTH EVERY TABLET BY DAY DAY MOUTH EVERY DAY clopidogrel clopidogrel No clopidogre [facility] 75 mg 75 mg l 75 mg [facility]i tablet TAKE tablet TAKE tablet ty 1 TABLET BY 1 TABLET BY TAKE 1 Hospita MOUTH EVERY MOUTH EVERY TABLET BY l DAY DAY MOUTH Clinics EVERY DAY codeine 10 codeine 10 No 10mL Q6H codeine 10 [facility] mg-guaifene mg-guaifene mg-guaifen Communi sin 100 sin 100 esin 100 ty mg/5 mL mg/5 mL mg/5 mL Hospit a oral liquid oral liquid oral l Take 10 mL Take 10 mL liquid C linics every 6 every 6 Take 10 mL hours by hours by every 6 oral route. oral route. hours by oral route. dicyclomine dicyclomine No dicyclomin [facility] 20 mg 20 mg e 20 mg Communi tablet TAKE tablet TAKE tablet ty 1 TABLET BY 1 TABLET BY TAKE 1 Hospita MOUTH EVERY MOUTH EVERY TABLET BY l 8 HOURS 8 HOURS MOUTH Cl inics NEEDED NEEDED EVERY 8 HOURS NEEDED isosorbide isosorbide No isosorbide [facility] mononitrate mononitrate mononitrat Communi ER 30 mg ER 30 mg e ER 30 mg t y tablet,exte tablet,exte tablet,ext Hospita nded nded ended l release 24 release 24 release 24 Clinics hr TAKE 1 hr TAKE 1 hr TAKE 1 TABLET BY TABLET BY TABLET BY MOUTH DAILY MOUTH DAILY MOUTH DAILY lansoprazol lansoprazol No lansoprazo [facility] e 30 mg e 30 mg le 30 mg Commu ni capsule,del capsule,del capsule,de ty ayed ayed layed [facility]ospita release release release l TAKE 1 TAKE 1 TAKE 1 Clinics CAPSULE BY CAPSULE BY CAPSULE BY MOUTH DAILY MOUTH DAILY MOUTH DAILY Levemir Levemir No Levemir [facility] FlexTouch FlexTouch FlexTouch [facility]i U-100 U-100 U-100 ty Insulin 100 Insulin 100 Insulin [facility]osp[facility] unit/mL (3 unit/mL (3 100 l mL) mL) unit/mL (3 Clinics subcutaneou subcutaneou mL) s pen s pen subcutaneo ADMINISTER ADMINISTER us pen 15 UNITS 15 UNITS ADMINISTER UNDER THE UNDER THE 15 UNITS SKIN EVERY SKIN EVERY UNDER THE DAY DAY SKIN EVERY DAY losartan 50 losartan 50 No losartan [facility] mg tablet mg tablet 50 mg Comm uni TAKE 1 TAKE 1 tablet ty TABLET BY TABLET BY TAKE 1 Hos [facility]un MOUTH EVERY MOUTH EVERY TABLET BY l DAY DAY MOUTH Clinics EVERY DAY metoprolol metoprolol No metoprolol [facility] succinate succinate succinate Communi ER 50 mg ER 50 mg ER 50 mg ty tablet,exte tablet,exte tablet,ext Hospita nded nded ended l release 24 release 24 release 24 Clinics hr TAKE 1 hr TAKE 1 hr TAKE 1 TABLET BY TABLET BY TABLET BY MOUTH EVERY MOUTH EVERY MOUTH DAY DAY EVERY DAY nitroglycer nitroglycer No nitroglyce [facility] in 0.4 mg in 0.4 mg rin 0.4 mg Communi sublingual sublingual sublingual ty tablet PRN tablet PRN tablet PRN [facility] potassium potassium No potassium [facility] chloride ER chloride ER chloride Communi 10 mEq 10 mEq ER 10 mEq ty tablet,exte tablet,exte tablet,ext [facility]ospita nded nded ended l release release release Clinic s TAKE 1 TAKE 1 TAKE 1 TABLET BY TABLET BY TABLET BY MOUTH EVERY MOUTH EVERY MOUTH DAY DAY EVERY DAY Accu-Chek Accu-Chek No Accu-Chek [facility] Fastclix Fastclix Fastclix Com clarence Lancet Drum Lancet Drum Lancet ty CHECK BLOOD CHECK BLOOD Drum CHECK [facility] SUGARS ONCE SUGARS ONCE BLOOD l A DAY A DAY SUGARS Clinics ONCE A DAY Accu-Chek Accu-Chek No Accu-Chek [facility] FastClix FastClix FastClix Com clarence Lancing Lancing Lancing ty Device kit Device kit Device kit [facility] Accu-Chek Accu-Chek No Accu-Chek Jennifer Guide Guide Guide Communi Glucose Glucose Glucose ty Meter Meter Meter [facility] Clinics Accu-Chek Accu-Chek No Accu-Chek [place] Guide test Guide test Guide test Communi strips USE strips USE strips USE ty DIRECTED DIRECTED H [facility]spita ONCE A DAY ONCE A DAY DIRECTED l ONCE A DAY Clinics acetaminoph acetaminoph No acetaminop [facility] en 300 en 300 hen 300 Communi mg-codeine mg-codeine mg-codeine ty 30 mg 30 mg 30 mg [facility]ospita tablet TAKE tablet TAKE tablet l 1 TABLET BY 1 TABLET BY TAKE 1 Clinics MOUTH EVERY MOUTH EVERY TABLET BY 6 HOURS FOR 6 HOURS FOR MOUTH 7 DAYS 7 DAYS EVERY 6 NEEDED FOR NEEDED FOR HOURS FOR PAIN PAIN 7 DAYS NEEDED FOR PAIN albuterol albuterol No albuterol [facility] sulfate HFA sulfate HFA sulfate Communi 90 90 HFA 90 ty mcg/actuati mcg/actuati mcg/actuat [facility]ospita on aerosol on aerosol ion l inhaler inhaler aerosol Clinic s INHALE 2 INHALE 2 inhaler PUFFS BY PUFFS BY INHALE 2 MOUTH EVERY MOUTH EVERY PUFFS BY 4 HOURS 4 HOURS MOUTH NEEDED NEEDED EVERY 4 HOURS NEEDED amlodipine amlodipine No amlodipine [facility] 10 mg 10 mg 10 mg [facility]i tablet TAKE tablet TAKE tablet ty 1 TABLET BY 1 TABLET BY TAKE 1 Hospita MOUTH EVERY MOUTH EVERY TABLET BY l DAY DAY MOUTH Clinics EVERY DAY aspirin 81 aspirin 81 No 1 Q1D aspirin 81 [facility] mg chewable mg chewable mg [facility] tablet Chew tablet Chew chewable ty 1 tablet 1 tablet tablet Hospi ta every day every day Chew 1 l by oral by oral tablet Clinics route. route. every day by oral route. atenolol 50 atenolol 50 No atenolol [facility] mg tablet mg tablet 50 mg Comm uni TAKE 1 TAKE 1 tablet ty TABLET BY TABLET BY TAKE 1 Hos shaun MOUTH EVERY MOUTH EVERY TABLET BY l DAY. DAY. MOUTH Clinics EVERY DAY. atorvastati atorvastati No atorvastat [facility] n 40 mg n 40 mg in 40 mg Commu ni tablet TAKE tablet TAKE tablet ty 1 TABLET BY 1 TABLET BY TAKE 1 Hospita MOUTH EVERY MOUTH EVERY TABLET BY l DAY DAY MOUTH Clinics EVERY DAY BD BD No BD [place] Ultra-Fine Ultra-Fine Ultra-Fine [facility]i Mini Pen Mini Pen Mini Pen ty Needle 31 Needle 31 Needle 31 Hospita gauge x gauge x gauge x l 02/06" CHECK 02/06" CHECK 02/06" Clinics BLOOD SUGAR BLOOD SUGAR CHECK EVERY DAY EVERY DAY BLOOD DIRECTED DIRECTED SUGAR EVERY DAY DIRECTED cholecalcif cholecalcif No cholecalci [facility] jared jared ferol Tate (vitamin (vitamin (vitamin ty D3) 125 mcg D3) 125 mcg D3) 125 Hospita (5,000 (5,000 mcg (5,000 l unit) unit) unit) Clinics tablet TAKE tablet TAKE tablet 1 TABLET BY 1 TABLET BY TAKE 1 MOUTH EVERY MOUTH EVERY TABLET BY DAY DAY MOUTH EVERY DAY clopidogrel clopidogrel No clopidogre [facility] 75 mg 75 mg l 75 mg Communi tablet TAKE tablet TAKE tablet ty 1 TABLET BY 1 TABLET BY TAKE 1 Hospita MOUTH EVERY MOUTH EVERY TABLET BY l DAY DAY MOUTH Clinics EVERY DAY codeine 10 codeine 10 No 10mL Q6H codeine 10 [facility] mg-guaifene mg-guaifene mg-guaifen Communi sin 100 sin 100 esin 100 ty mg/5 mL mg/5 mL mg/5 mL Hospit a oral liquid oral liquid oral l Take 10 mL Take 10 mL liquid C linics every 6 every 6 Take 10 mL hours by hours by every 6 oral route. oral route. hours by oral route. dexamethaso dexamethaso No 10mg dexamethas [facility] ne sodium ne sodium one sodium Communi phosphate phosphate phosphate ty 10 mg/mL 10 mg/mL 10 mg/mL Hos shaun injection injection injection l solution solution solution Cli nics Take 10 mg Take 10 mg Take 10 mg by by by injection injection injection route. route. route. dicyclomine dicyclomine No dicyclomin [facility] 20 mg 20 mg e 20 mg Communi tablet TAKE tablet TAKE tablet ty 1 TABLET BY 1 TABLET BY TAKE 1 Hospita MOUTH EVERY MOUTH EVERY TABLET BY l 8 HOURS 8 HOURS MOUTH Cl inics NEEDED NEEDED EVERY 8 HOURS NEEDED isosorbide isosorbide No isosorbide [facility] mononitrate mononitrate mononitrat Communi ER 30 mg ER 30 mg e ER 30 mg t y tablet,exte tablet,exte tablet,ext Hospita nded nded ended l release 24 release 24 release 24 Clinics hr TAKE 1 hr TAKE 1 hr TAKE 1 TABLET BY TABLET BY TABLET BY MOUTH DAILY MOUTH DAILY MOUTH DAILY Kenalog 40 Kenalog 40 No 40mg Kenalog 40 [facility] mg/mL mg/mL mg/mL Communi suspension suspension suspension ty for for for Hospita injection injection injection l Take 40 mg Take 40 mg Take 40 mg Clinics by by by injection injection injection route. route. route. lansoprazol lansoprazol No lansoprazo [facility] e 30 mg e 30 mg le 30 mg Commu ni capsule,del capsule,del capsule,de ty ayed ayed layed Hospita release release release l TAKE 1 TAKE 1 TAKE 1 Clinics CAPSULE BY CAPSULE BY CAPSULE BY MOUTH DAILY MOUTH DAILY MOUTH DAILY Levemir Levemir No Levemir [facility] FlexTouch FlexTouch FlexTouch Communi U-100 U-100 U-100 ty Insulin 100 Insulin 100 Insulin Hospita unit/mL (3 unit/mL (3 100 l mL) mL) unit/mL (3 Clinics subcutaneou subcutaneou mL) s pen s pen subcutaneo ADMINISTER ADMINISTER us pen 15 UNITS 15 UNITS ADMINISTER UNDER THE UNDER THE 15 UNITS SKIN EVERY SKIN EVERY UNDER THE DAY DAY SKIN EVERY DAY losartan 50 losartan 50 No losartan [facility] mg tablet mg tablet 50 mg Comm uni TAKE 1 TAKE 1 tablet ty TABLET BY TABLET BY TAKE 1 Hos shaun MOUTH EVERY MOUTH EVERY TABLET BY l DAY DAY MOUTH Clinics EVERY DAY metoprolol metoprolol No metoprolol [facility] succinate succinate succinate Communi ER 50 mg ER 50 mg ER 50 mg ty tablet,exte tablet,exte tablet,ext Hospita nded nded ended l release 24 release 24 release 24 Clinics hr TAKE 1 hr TAKE 1 hr TAKE 1 TABLET BY TABLET BY TABLET BY MOUTH EVERY MOUTH EVERY MOUTH DAY DAY EVERY DAY nitroglycer nitroglycer No nitroglyce [facility] in 0.4 mg in 0.4 mg rin 0.4 mg Communi sublingual sublingual sublingual ty tablet PRN tablet [facility]N [facility] potassium potassium No potassium [facility] chloride ER chloride ER chloride Communi 10 mEq 10 mEq ER 10 mEq ty tablet,exte tablet,exte tablet,ext Hospita nded nded ended l release release release Clinic s TAKE 1 TAKE 1 TAKE 1 TABLET BY TABLET BY TABLET BY MOUTH EVERY MOUTH EVERY MOUTH DAY DAY EVERY DAY Accu-Chek Accu-Chek No Accu-Chek [facility] Fastclix Fastclix Fastclix Com clarence Lancet Drum Lancet Drum Lancet ty CHECK BLO[facility] SUGARS ONCE BLOOD l A DAY A DAY SUGARS Clinics ONCE A DAY PredniSONE PredniSONE Yes Prasanna not Common Ceron defined [facility] Accu-Chek Accu-Chek No Accu-Chek [facility] FastClix FastClix FastClix Com clarence Lancing Lancing Lancing ty Device kit Device kit Device kit [facility] Clinics Accu-Chek Accu-Chek No Accu-Chek [facility] Guide Guide Guide Communi Glucose Glucose Glucose ty Meter Meter Meter Hospita l Clinics Vitamin D3 Vitamin D3 Yes [facility]anna 1 [facility] Accu-Chek No Accu-Chek [facility] Guide test Guide test Guide test Communi strips USE strips USE strips USE ty DIRECTED DIRECTED H ospita ONCE A DAY ONCE A DAY DIRECTED l ONCE A DAY Clinics Atorvastati Atorvastati Yes Prasanna 1 tablet Common n Calcium n [facility] acet[facility] acetaminoph No acetaminop [facility] en 300 en 300 hen 300 Communi mg-codeine mg-codeine mg-codeine ty 15 mg 15 mg 15 mg Hospita tablet TAKE tablet TAKE tablet l 1 TABLET BY 1 TABLET BY TAKE 1 Clinics MOUTH EVERY MOUTH EVERY TABLET BY 6 HOURS FOR 6 HOURS FOR MOUTH 5 DAYS 5 DAYS EVERY 6 NEEDED NEEDED HOURS FOR 5 DAYS NEEDED Azithromyci Azithromyci Yes Prasanna not Common n n Ceron defined [facility] acetaminoph acetaminoph No acetaminop [facility] en 300 en 300 hen 300 Communi mg-codeine mg-codeine mg-codeine ty 30 mg 30 mg 30 mg Hospita tablet TAKE tablet TAKE tablet l 2 TABLETS 2 TABLETS TAKE 2 Cli nics BY MOUTH BY MOUTH TABLETS BY EVERY 6 EVERY 6 MOUTH HOURS HOURS EVERY 6 NEEDED FOR NEEDED FOR HOURS PAIN PAIN NEEDED FOR PAIN Proctozone- Proctozone- Yes Prasanna not Common [facility] Ceron defined [facility] acetaminoph acetaminoph No acetaminop [facility] en 300 en 300 hen 300 Communi mg-codeine mg-codeine mg-codeine ty 60 mg 60 mg 60 mg Hospita tablet TAKE tablet TAKE tablet l 1 TABLET BY 1 TABLET BY TAKE 1 Clinics MOUTH EVERY MOUTH EVERY TABLET BY 6 HOURS FOR 6 HOURS FOR MOUTH 7 DAYS 7 DAYS EVERY 6 NEEDED NEEDED HOURS FOR 7 DAYS NEEDED albuterol albuterol No albuterol [facility] sulfate HFA sulfate HFA sulfate Communi 90 90 HFA 90 ty mcg/actuati mcg/actuati mcg/actuat Hospita on aerosol on aerosol ion l inhaler inhaler aerosol Clinic s INHALE 2 INHALE 2 inhaler PUFFS BY PUFFS BY INHALE 2 MOUTH EVERY MOUTH EVERY PUFFS BY 4 HOURS 4 HOURS MOUTH NEEDED NEEDED EVERY 4 HOURS NEEDED amlodipine amlodipine No amlodipine [facility] 10 mg 10 mg 10 mg Communi tablet TAKE tablet TAKE tablet ty 1 TABLET BY 1 TABLET BY TAKE 1 Hospita MOUTH EVERY MOUTH EVERY TABLET BY l DAY DAY MOUTH Clinics EVERY DAY aspirin 81 aspirin 81 No 1 Q1D aspirin 81 [facility] mg chewable mg chewable mg C om[facility]i tablet Chew tablet Chew chewable ty 1 tablet 1 tablet tablet Hospi ta every day every day Chew 1 l by oral by oral tablet Clinics route. route. every day by oral route. atenolol 50 atenolol 50 No atenolol [facility] mg tablet mg tablet 50 mg Comm uni TAKE 1 TAKE 1 tablet ty TABLET BY TABLET BY TAKE 1 Hos shaun MOUTH EVERY MOUTH EVERY TABLET BY l DAY. DAY. MOUTH Clinics EVERY DAY. atorvastati atorvastati No atorvastat [facility] n 40 mg n 40 mg in 40 mg Commu ni tablet TAKE tablet TAKE tablet ty 1 TABLET BY 1 TABLET BY TAKE 1 Hospita MOUTH EVERY MOUTH EVERY TABLET BY l DAY DAY MOUTH Clinics EVERY DAY BD BD No BD [facility] Ultra-Fine Ultra-Fine Ultra-Fine Communi Mini Pen Mini Pen Mini Pen ty Needle 31 Needle 31 Needle 31 Hospita gauge x gauge x gauge x l 3" CHECK 02/06" CHECK 02/06" Clinics BLOOD SUGAR BLOOD SUGAR CHECK EVERY DAY EVERY DAY BLOOD DIRECTED DIRECTED SUGAR EVERY DAY DIRECTED cholecalcif cholecalcif No cholecalci [facility] jared jared Ybarra (vitamin (vitamin (vitamin ty D3) 125 mcg D3) 125 mcg D3) 125 Hospita (5,000 (5,000 mcg (5,000 l unit) unit) unit) Clinics tablet TAKE tablet TAKE tablet 1 TABLET BY 1 TABLET BY TAKE 1 MOUTH EVERY MOUTH EVERY TABLET BY DAY DAY MOUTH EVERY DAY clopidogrel clopidogrel No clopidogre [facility] 75 mg 75 mg l 75 mg Communi tablet TAKE tablet TAKE tablet ty 1 TABLET BY 1 TABLET BY TAKE 1 Hospita MOUTH EVERY MOUTH EVERY TABLET BY l DAY DAY MOUTH Clinics EVERY DAY dicyclomine dicyclomine No dicyclomin [facility] 20 mg 20 mg e 20 mg Communi tablet TAKE tablet TAKE tablet ty 1 TABLET BY 1 TABLET BY TAKE 1 Hospita MOUTH EVERY MOUTH EVERY TABLET BY l 8 HOURS 8 HOURS MOUTH Cl inics NEEDED NEEDED EVERY 8 HOURS NEEDED isosorbide isosorbide No isosorbide [facility] mononitrate mononitrate mononitrat Communi ER 30 mg ER 30 mg e ER 30 mg t y tablet,exte tablet,exte tablet,ext Hospita nded nded ended l release 24 release 24 release 24 Clinics hr TAKE 1 hr TAKE 1 hr TAKE 1 TABLET BY TABLET BY TABLET BY MOUTH DAILY MOUTH DAILY MOUTH DAILY lansoprazol lansoprazol No lansoprazo [facility] e 30 mg e 30 mg le 30 mg Commu ni capsule,del capsule,del capsule,de ty ayed ayed layed Hospita release release release l TAKE 1 TAKE 1 TAKE 1 Clinics CAPSULE BY CAPSULE BY CAPSULE BY MOUTH DAILY MOUTH DAILY MOUTH DAILY Levemir Levemir No Levemir [facility] FlexTouch FlexTouch FlexTouch Communi U-100 U-100 U-100 ty Insulin 100 Insulin 100 Insulin Hospita unit/mL (3 unit/mL (3 100 l mL) mL) unit/mL (3 Clinics subcutaneou subcutaneou mL) s pen s pen subcutaneo ADMINISTER ADMINISTER us pen 15 UNITS 15 UNITS ADMINISTER UNDER THE UNDER THE 15 UNITS SKIN EVERY SKIN EVERY UNDER THE DAY DAY SKIN EVERY DAY losartan 50 losartan 50 No losartan [facility] mg tablet mg tablet 50 mg Comm uni TAKE 1 TAKE 1 tablet ty TABLET BY TABLET BY TAKE 1 Hos shaun MOUTH EVERY MOUTH EVERY TABLET BY l DAY DAY MOUTH Clinics EVERY DAY metoprolol metoprolol No metoprolol [facility] succinate succinate succinate Communi ER 50 mg ER 50 mg ER 50 mg ty tablet,exte tablet,exte tablet,ext Hospita nded nded ended l release 24 release 24 release 24 Clinics hr TAKE 1 hr TAKE 1 hr TAKE 1 TABLET BY TABLET BY TABLET BY MOUTH EVERY MOUTH EVERY MOUTH DAY DAY EVERY DAY nitroglycer nitroglycer No nitroglyce [facility] in 0.4 mg in 0.4 mg rin 0.4 mg Communi sublingual sublingual sublingual ty tablet PRN tablet PRN tablet PRN Hospita l Clinics ondansetron ondansetron No ondansetro [facility] HCl 4 mg HCl 4 mg n HCl 4 mg C ommuni tablet TAKE tablet TAKE tablet ty 1 TABLET BY 1 TABLET BY TAKE 1 Hospita MOUTH EVERY MOUTH EVERY TABLET BY l 8 HOURS FOR 8 HOURS FOR MOUTH Clinics 10 DAYS 10 DAYS EVERY 8 NEEDED NEEDED HOURS FOR 10 DAYS NEEDED pantoprazol pantoprazol No pantoprazo [facility] e 40 mg e 40 mg le 40 mg Commu ni tablet,ilya tablet,ilya tablet,del ty yed release yed release ayed H ospita release l Clinics potassium potassium No potassium [facility] chloride ER chloride ER chloride Communi 10 mEq 10 mEq ER 10 mEq ty tablet,exte tablet,exte tablet,ext Hospita nded nded ended l release release release Clinic s TAKE 1 TAKE 1 TAKE 1 TABLET BY TABLET BY TABLET BY MOUTH EVERY MOUTH EVERY MOUTH DAY DAY EVERY DAY Accu-Chek Accu-Chek No Accu-Chek [facility] Fastclix Fastclix Fastclix Com clarence Lancet Drum Lancet Drum Lancet ty CHECK BLOOD CHECK BLOOD Drum CHECK [facility] SUGARS ONCE SUGARS ONCE BLOOD l A DAY A DAY SUGARS Clinics ONCE A DAY Accu-Chek Accu-Chek No Accu-Chek [facility] FastClix FastClix FastClix Com clarence Lancing Lancing Lancing ty Device kit Device kit Device kit [facility] Accu-Chek Accu-Chek No Accu-Chek [facility] Guide Guide Guide Communi Glucose Glucose Glucose ty Meter Meter Meter [facility] Accu-Chek Accu-Chek No Accu-Chek [facility] Guide test Guide test Guide test Communi strips USE strips USE strips USE ty DIRECTED DIRECTED H ospita ONCE A DAY ONCE A DAY DIRECTED l ONCE A DAY Clinics acetaminoph acetaminoph No acetaminop [facility] en 300 en 300 hen 300 Communi mg-codeine mg-codeine mg-codeine ty 30 mg 30 mg 30 mg Hospita tablet TAKE tablet TAKE tablet l 1 TO 2 1 TO 2 TAKE 1 TO Clinic s TABLETS BY TABLETS BY 2 TABLETS MOUTH EVERY MOUTH EVERY BY MOUTH 4 HOURS 4 HOURS EVERY 4 NEEDED NEEDED HOURS NEEDED acetaminoph acetaminoph No acetaminop [facility] en 300 en 300 hen 300 Communi mg-codeine mg-codeine mg-codeine ty 60 mg 60 mg 60 mg Hospita tablet TAKE tablet TAKE tablet l 1 TABLET BY 1 TABLET BY TAKE 1 Clinics MOUTH EVERY MOUTH EVERY TABLET BY 6 HOURS FOR 6 HOURS FOR MOUTH 7 DAYS 7 DAYS EVERY 6 NEEDED NEEDED HOURS FOR 7 DAYS NEEDED albuterol albuterol No albuterol [facility] sulfate HFA sulfate HFA sulfate Communi 90 90 HFA 90 ty mcg/actuati mcg/actuati mcg/actuat Hospita on aerosol on aerosol ion l inhaler inhaler aerosol Clinic s INHALE 2 INHALE 2 inhaler PUFFS BY PUFFS BY INHALE 2 MOUTH EVERY MOUTH EVERY PUFFS BY 4 HOURS 4 HOURS MOUTH NEEDED NEEDED EVERY 4 HOURS NEEDED amlodipine amlodipine No amlodipine [facility] 10 mg 10 mg 10 mg Communi tablet TAKE tablet TAKE tablet ty 1 TABLET BY 1 TABLET BY TAKE 1 Hospita MOUTH EVERY MOUTH EVERY TABLET BY l DAY DAY MOUTH Clinics EVERY DAY Metoprolol Metoprolol Yes Prasanna 1 tablet Common Succinate Succinate Ceron Spiri t ER [facility] aspirin 81 aspirin 81 No 1 Q1D aspirin 81 [facility] mg chewable mg chewable mg C om[facility]i tablet Chew tablet Chew chewable ty 1 tablet 1 tablet tablet Hospi ta every day every day Chew 1 l by oral by oral tablet Clinics route. route. every day by oral route. atenolol 50 atenolol 50 No atenolol [facility] mg tablet mg tablet 50 mg Comm uni TAKE 1 TAKE 1 tablet ty TABLET BY TABLET BY TAKE 1 Hos shaun MOUTH EVERY MOUTH EVERY TABLET BY l DAY. DAY. MOUTH Clinics EVERY DAY. Amlodipine Amlodipine Yes Prasanna 1 tablet Common Besylate Besylate [facility] atorvastati atorvastati No atorvastat [place] n 40 mg n 40 mg in 40 mg Commu ni tablet TAKE tablet TAKE tablet ty 1 TABLET BY 1 TABLET BY TAKE 1 Hospita MOUTH EVERY MOUTH EVERY TABLET BY l NIGHT AT NIGHT AT MOUTH Clinic s BEDTIME BEDTIME EVERY NIGHT AT BEDTIME [facility] Yes Prasanna as Common Silver Silver Ceron directed [facility] BD BD No BD [place] Ultra-Fine Ultra-Fine Ultra-Fine Communi Mini Pen Mini Pen Mini Pen ty Needle 31 Needle 31 Needle 31 Hospita gauge x gauge x gauge x l 02/06" CHECK 02/06" CHECK 02/06" Clinics BLOOD SUGAR BLOOD SUGAR CHECK EVERY DAY EVERY DAY BLOOD DIRECTED DIRECTED SUGAR EVERY DAY DIRECTED Zolpidem Zolpidem Yes Prasanna not Comm on Tartrate Tartrate Ceron defined [facility] benzonatate benzonatate No 1capsul TID benzonatat [facility] 200 mg 200 mg e(s) e 200 mg Communi capsule capsule capsule ty Take 1 Take 1 Take 1 Hospita capsule 3 capsule 3 capsule 3 l times a day times a day times a Clinics by oral by oral day by route. route. oral route. Ondansetron Ondansetron Yes Prasanna not Common HCl HCl Ceron defined [facility] cholecalcif cholecalcif No cholecalci [facility] jared jared ferol Communi (vitamin (vitamin (vitamin ty D3) 125 mcg D3) 125 mcg D3) 125 Hospita (5,000 (5,000 mcg (5,000 l unit) unit) unit) Clinics tablet TAKE tablet TAKE tablet 1 TABLET BY 1 TABLET BY TAKE 1 MOUTH EVERY MOUTH EVERY TABLET BY DAY DAY MOUTH EVERY DAY Virtussin Virtussin Yes Prasanna not Co mmon [facility]C [facility] clopidogrel No clopidogre [facility] 75 mg 75 mg l 75 mg Communi tablet TAKE tablet TAKE tablet ty 1 TABLET BY 1 TABLET BY TAKE 1 Hospita MOUTH EVERY MOUTH EVERY TABLET BY l DAY DAY MOUTH Clinics EVERY DAY Aspir-81 Aspir-81 Yes Prasanna 1 tablet Common [facility] dicyclomine dicyclomine No dicyclomin [facility] 20 mg 20 mg e 20 mg Communi tablet TAKE tablet TAKE tablet ty 1 TABLET BY 1 TABLET BY TAKE 1 Hospita MOUTH EVERY MOUTH EVERY TABLET BY l 8 HOURS 8 HOURS MOUTH Cl inics NEEDED NEEDED EVERY 8 HOURS NEEDED Levemir Levemir Yes Prasanna 15 UNits Co mmon [facility] flut[facility] fluticasone No 1spray( Q1D fluticason [facility] propionate propionate s) e Com clarence 50 50 propionate ty mcg/actuati mcg/actuati 50 H ospita on nasal on nasal mcg/actuat l spray,suspe spray,suspe ion nasal Clinics nsion [place] nsion [place] spray,susp 1 spray 1 spray ension every day every day [place] 1 by by spray intranasal intranasal every day route. route. by intranasal route. furosemide furosemide No furosemide [facility] 20 mg 20 mg 20 mg Communi tablet TAKE tablet TAKE tablet ty 1 TABLET BY 1 TABLET BY TAKE 1 Hospita MOUTH EVERY MOUTH EVERY TABLET BY l DAY DAY MOUTH Clinics EVERY DAY BD Pen BD Pen Yes Prasanna CHECK Common Needle Mini Needle Mini Ceron BLOOD Spirit U/F U/F SUGARS - [facility] EVERY DAY [facility] isosorbide isosorbide No isosorbide [facility] mononitrate mononitrate mononitrat Communi ER 30 mg ER 30 mg e ER 30 mg t y tablet,exte tablet,exte tablet,ext Hospita nded nded ended l release 24 release 24 release 24 Clinics hr TAKE 1 hr TAKE 1 hr TAKE 1 TABLET BY TABLET BY TABLET BY MOUTH DAILY MOUTH DAILY MOUTH DAILY Losartan Losartan Yes Prasanna 1 tablet Common Potassium Potassium Ceron [facility] Levemir Levemir No Levemir [facility] FlexTouch FlexTouch FlexTouch Communi U-100 U-100 U-100 ty Insulin 100 Insulin 100 Insulin Hospita unit/mL (3 unit/mL (3 100 l mL) mL) unit/mL (3 Clinics subcutaneou subcutaneou mL) s pen s pen subcutaneo ADMINISTER ADMINISTER us pen 15 UNITS 15 UNITS ADMINISTER UNDER THE UNDER THE 15 UNITS SKIN EVERY SKIN EVERY UNDER THE DAY DAY SKIN EVERY DAY Plavix Plavix Yes Prasanna 1 tablet Comm on Ceron [facility] losartan 50 losartan 50 No losartan [facility] mg tablet mg tablet 50 mg Comm uni TAKE 1 TAKE 1 tablet ty TABLET BY TABLET BY TAKE 1 Hos shaun MOUTH EVERY MOUTH EVERY TABLET BY l DAY DAY MOUTH Clinics EVERY DAY metoprolol metoprolol No metoprolol [facility] succinate succinate succinate Communi ER 50 mg ER 50 mg ER 50 mg ty tablet,exte tablet,exte tablet,ext Hospita nded nded ended l release 24 release 24 release 24 Clinics hr TAKE 1 hr TAKE 1 hr TAKE 1 TABLET BY TABLET BY TABLET BY MOUTH EVERY MOUTH EVERY MOUTH DAY DAY EVERY DAY nitroglycer nitroglycer No nitroglyce [facility] in 0.4 mg in 0.4 mg rin 0.4 mg Communi sublingual sublingual sublingual ty tablet PRN tablet PRN tablet PRN Hospita l Clinics ondansetron ondansetron No ondansetro [facility] HCl 4 mg HCl 4 mg n HCl 4 mg C om[facility]i tablet TAKE tablet TAKE tablet ty 1 TABLET BY 1 TABLET BY TAKE 1 Hospita MOUTH EVERY MOUTH EVERY TABLET BY l 8 HOURS FOR 8 HOURS FOR MOUTH Clinics 10 DAYS 10 DAYS EVERY 8 NEEDED NEEDED HOURS FOR 10 DAYS NEEDED pantoprazol pantoprazol No pantoprazo [facility] e 40 mg e 40 mg le 40 mg Commu ni tablet,ilya tablet,ilya tablet,del ty yed release yed release ayed H ospita TAKE 1 TAKE 1 release l TABLET BY TABLET BY TAKE 1 Cli nics MOUTH DAILY MOUTH DAILY TABLET BY MOUTH DAILY potassium potassium No potassium [facility] chloride ER chloride ER chloride Communi 10 mEq 10 mEq ER 10 mEq ty tablet,exte tablet,exte tablet,ext Hospita nded nded ended l release release release Clinic s TAKE 1 TAKE 1 TAKE 1 TABLET BY TABLET BY TABLET BY MOUTH EVERY MOUTH EVERY MOUTH DAY DAY EVERY DAY Accu-Chek Accu-Chek No Accu-Chek [facility] Fastclix Fastclix Fastclix Com clarence Lancet Drum Lancet Drum Lancet ty CHECK BLOOD CHECK BLOOD Drum CHECK [facility] SUGARS ONCE SUGARS ONCE BLOOD l A DAY A DAY SUGARS Clinics ONCE A DAY Lansoprazol Lansoprazol Yes Prasanna 1 capsule Common e e Ceron [facility] Accu-Chek Accu-Chek No Accu-Chek [facility] FastClix FastClix FastClix Com clarence Lancing Lancing Lancing ty Device kit Device kit Device kit [facility] Accu-Chek Accu-Chek No Accu-Chek [facility] Guide Guide Guide Communi Glucose Glucose Glucose ty Meter Meter Meter [facility] Accu-Chek Accu-Chek No Accu-Chek [place] Guide test Guide test Guide test Communi strips USE strips USE strips USE ty DIRECTED DIRECTED H ospita ONCE A DAY ONCE A DAY DIRECTED l ONCE A DAY Clinics acetaminoph acetaminoph No acetaminop [facility] en 300 en 300 hen 300 Communi mg-codeine mg-codeine mg-codeine ty 30 mg 30 mg 30 mg Hospita tablet TAKE tablet TAKE tablet l 1 TO 2 1 TO 2 TAKE 1 TO Clinic s TABLETS BY TABLETS BY 2 TABLETS MOUTH EVERY MOUTH EVERY BY MOUTH 4 HOURS 4 HOURS EVERY 4 NEEDED NEEDED HOURS NEEDED acetaminoph acetaminoph No acetaminop [facility] en 300 en 300 hen 300 Communi mg-codeine mg-codeine mg-codeine ty 60 mg 60 mg 60 mg Hospita tablet TAKE tablet TAKE tablet l 1 TABLET BY 1 TABLET BY TAKE 1 Clinics MOUTH EVERY MOUTH EVERY TABLET BY 6 HOURS FOR 6 HOURS FOR MOUTH 7 DAYS 7 DAYS EVERY 6 NEEDED NEEDED HOURS FOR 7 DAYS NEEDED albuterol albuterol No albuterol [place] sulfate HFA sulfate HFA sulfate Communi 90 90 HFA 90 ty mcg/actuati mcg/actuati mcg/actuat Hospita on aerosol on aerosol ion l inhaler inhaler aerosol Clinic s INHALE 2 INHALE 2 inhaler PUFFS BY PUFFS BY INHALE 2 MOUTH EVERY MOUTH EVERY PUFFS BY 4 HOURS 4 HOURS MOUTH NEEDED NEEDED EVERY 4 HOURS NEEDED amlodipine amlodipine No amlodipine [facility] 10 mg 10 mg 10 mg Communi tablet TAKE tablet TAKE tablet ty 1 TABLET BY 1 TABLET BY TAKE 1 Hospita MOUTH EVERY MOUTH EVERY TABLET BY l DAY DAY MOUTH Clinics EVERY DAY Isosorbide Isosorbide Yes Prasanna 1 tablet Common Mononitrate Mononitrate Ceron in the [facility] ER ER [facility] aspirin 81 aspirin 81 No 1 Q1D aspirin 81 Nebo mg chewable mg chewable mg C om[facility]i tablet Chew tablet Chew chewable ty 1 tablet 1 tablet tablet Hospi ta every day every day Chew 1 l by oral by oral tablet Clinics route. route. every day by oral route. atenolol 50 atenolol 50 No atenolol [facility] mg tablet mg tablet 50 mg Comm uni TAKE 1 TAKE 1 tablet ty TABLET BY TABLET BY TAKE 1 Hos shaun MOUTH EVERY MOUTH EVERY TABLET BY l DAY. DAY. MOUTH Clinics EVERY DAY. Potassium Potassium Yes Prasanna not Co mmon Chloride ER Chloride ER Ceron defined [facility] atorvastati atorvastati No atorvastat [place] n 40 mg n 40 mg in 40 mg Commu ni tablet TAKE tablet TAKE tablet ty 1 TABLET BY 1 TABLET BY TAKE 1 Hospita MOUTH EVERY MOUTH EVERY TABLET BY l NIGHT AT NIGHT AT MOUTH Clinic s BEDTIME BEDTIME EVERY NIGHT AT BEDTIME BD BD No BD [place] Ultra-Fine Ultra-Fine Ultra-Fine Communi Mini Pen Mini Pen Mini Pen ty Needle 31 Needle 31 Needle 31 Hospita gauge x gauge x gauge x l 02/06" CHECK 02/06" CHECK 02/06" Clinics BLOOD SUGAR BLOOD SUGAR CHECK EVERY DAY EVERY DAY BLOOD DIRECTED DIRECTED SUGAR EVERY DAY DIRECTED Nitroglycer Nitroglycer Yes Prasanna not Common in in Ceron defined [facility] benzonatate benzonatate No 1capsul TID benzonatat [facility] 200 mg 200 mg e(s) e 200 mg Communi capsule capsule capsule ty Take 1 Take 1 Take 1 Hospita capsule 3 capsule 3 capsule 3 l times a day times a day times a Clinics by oral by oral day by route. route. oral route. Potassium Potassium Yes Prasanna 1 tablet Common Bicarb-Citr Bicarb-Citr Ceron S pirit ic Acid ic Acid [facility] cholecalcif cholecalcif No cholecalci [place] jared jared ferol Communi (vitamin (vitamin (vitamin ty D3) 125 mcg D3) 125 mcg D3) 125 Hospita (5,000 (5,000 mcg (5,000 l unit) unit) unit) Clinics tablet TAKE tablet TAKE tablet 1 TABLET BY 1 TABLET BY TAKE 1 MOUTH EVERY MOUTH EVERY TABLET BY DAY DAY MOUTH EVERY DAY Oseltamivir Oseltamivir Yes Prasanna not Common Phosphate Phosphate Ceron defined Sp [facility] clopidogrel clopidogrel No clopidogre [place] 75 mg 75 mg l 75 mg Communi tablet TAKE tablet TAKE tablet ty 1 TABLET BY 1 TABLET BY TAKE 1 Hospita MOUTH EVERY MOUTH EVERY TABLET BY l DAY DAY MOUTH Clinics EVERY DAY Diethylprop Diethylprop Yes Prasanna not Common ion HCl ER ion HCl ER Ceron defined [facility] dicyclomine dicyclomine No dicyclomin [place] 20 mg 20 mg e 20 mg Communi tablet TAKE tablet TAKE tablet ty 1 TABLET BY 1 TABLET BY TAKE 1 Hospita MOUTH EVERY MOUTH EVERY TABLET BY l 8 HOURS 8 HOURS MOUTH Cl inics NEEDED NEEDED EVERY 8 HOURS NEEDED fluticasone fluticasone No 1spray( Q1D fluticason [place] propionate propionate s) e Com clarence 50 50 propionate ty mcg/actuati mcg/actuati 50 H ospita on nasal on nasal mcg/actuat l spray,suspe spray,suspe ion nasal Clinics nsion [place] nsion [place] spray,susp 1 spray 1 spray ension every day every day [place] 1 by by spray intranasal intranasal every day route. route. by intranasal route. Clopidogrel Clopidogrel Yes Prasanna not Common Bisulfate Bisulfate Ceron defined Sp [facility] furosemide furosemide No furosemide Nebo 20 mg 20 mg 20 mg Communi tablet TAKE tablet TAKE tablet ty 1 TABLET BY 1 TABLET BY TAKE 1 Hospita MOUTH EVERY MOUTH EVERY TABLET BY l DAY DAY MOUTH Clinics EVERY DAY isosorbide isosorbide No isosorbide Nebo mononitrate mononitrate mononitrat Communi ER 30 mg ER 30 mg e ER 30 mg t y tablet,exte tablet,exte tablet,ext Hospita nded nded ended l release 24 release 24 release 24 Clinics hr TAKE 1 hr TAKE 1 hr TAKE 1 TABLET BY TABLET BY TABLET BY MOUTH DAILY MOUTH DAILY MOUTH DAILY Levemir Levemir No Levemir Nebo FlexTouch FlexTouch FlexTouch Communi U-100 U-100 U-100 ty Insulin 100 Insulin 100 Insulin Hospita unit/mL (3 unit/mL (3 100 l mL) mL) unit/mL (3 Clinics subcutaneou subcutaneou mL) s pen s pen subcutaneo ADMINISTER ADMINISTER us pen 15 UNITS 15 UNITS ADMINISTER UNDER THE UNDER THE 15 UNITS SKIN EVERY SKIN EVERY UNDER THE DAY DAY SKIN EVERY DAY losartan 50 losartan 50 No losartan Nebo mg tablet mg tablet 50 mg Comm uni TAKE 1 TAKE 1 tablet ty TABLET BY TABLET BY TAKE 1 Hos shaun MOUTH EVERY MOUTH EVERY TABLET BY l DAY DAY MOUTH Clinics EVERY DAY Acetaminoph Acetaminoph Yes Prasanna not Common en-Codeine en-Codeine Ceron defined Spirit #3 #3 - [facility] metoprolol metoprolol No metoprolol Nebo succinate succinate succinate Communi ER 50 mg ER 50 mg ER 50 mg ty tablet,exte tablet,exte tablet,ext Hospita nded nded ended l release 24 release 24 release 24 Clinics hr TAKE 1 hr TAKE 1 hr TAKE 1 TABLET BY TABLET BY TABLET BY MOUTH EVERY MOUTH EVERY MOUTH DAY DAY EVERY DAY Azithromyci Azithromyci No Azithromyc n n in nitroglycer nitroglycer No nitroglyce Nebo in 0.4 mg in 0.4 mg rin 0.4 mg Communi sublingual sublingual sublingual ty tablet PRN tablet PRN tablet PRN [facility] Zolpidem Zolpidem No Zolpidem Tartrate Tartrate Tartrate ondansetron ondansetron No ondansetro Nebo HCl 4 mg HCl 4 mg n HCl 4 mg C ommuni tablet TAKE tablet TAKE tablet ty 1 TABLET BY 1 [facility] MOUTH EVERY TABLET BY l 8 HOURS FOR 8 HOURS FOR MOUTH Clinics 10 DAYS 10 DAYS EVERY 8 NEEDED NEEDED HOURS FOR 10 DAYS NEEDED Vitamin D3 Vitamin D3 No 1{capsu QD Vitamin D3 1000 UNIT 1000 UNIT le} 1000 UNIT pantoprazol pantoprazol No pantoprazo Nebo e 40 mg e 40 mg le 40 mg Commu ni tablet,ilya tablet,ilya tablet,del ty yed release yed release ayed H ospita TAKE 1 TAKE 1 release l TABLET BY TABLET BY TAKE 1 Cli nics MOUTH DAILY MOUTH DAILY TABLET BY MOUTH DAILY Potassium Potassium No 1{table BID Potassium Bicarb-Citr Bicarb-Citr t} Bicarb-Cit ic Acid 10 ic Acid 10 jagruti Acid MEQ MEQ 10 MEQ potassium potassium No potassium Nebo chloride ER chloride ER chloride Communi 10 mEq 10 mEq ER 10 mEq ty tablet,exte tablet,exte tablet,ext Hospita nded nded ended l release release release Clinic s TAKE 1 TAKE 1 TAKE 1 TABLET BY TABLET BY TABLET BY MOUTH EVERY MOUTH EVERY MOUTH DAY DAY EVERY DAY Diethylprop Diethylprop No Diethylpro ion HCl ER ion HCl ER pion HCl ER Oseltamivir Oseltamivir No Oseltamivi Phosphate Phosphate r Phosphate Accu-Chek Accu-Chek No Accu-Chek Nebo Fastclix Fastclix Fastclix Com clarence Lancet Drum Lancet Drum Lancet ty CHECK BLOOD CHECK BLOOD Drum CHECK [facility] SUGARS ONCE SUGARS ONCE BLOOD l A DAY A DAY SUGARS Clinics ONCE A DAY Aspir-81 81 Aspir-81 81 No 1{table QD Aspir-81 MG MG t} 81 MG Accu-Chek Accu-Chek No Accu-Chek Nebo FastClix FastClix FastClix Com clarence Lancing Lancing Lancing ty Device kit Device kit Device kit [facility] Proctozone- Proctozone- No Proctozone HC HC -HC Accu-Chek Accu-Chek No Accu-Chek Nebo Guide Guide Guide Communi Glucose Glucose Glucose ty Meter Meter Meter [facility] l Clinics Nitroglycer Nitroglycer No Nitroglyce in in rin Accu-Chek Accu-Chek No Accu-Chek Nebo Guide test Guide test Guide test Communi strips USE strips USE strips USE ty DIRECTED DIRECTED H ospita ONCE A DAY ONCE A DAY DIRECTED l ONCE A DAY Clinics BD Pen BD Pen No BD Pen Needle Mini Needle Mini Needle U/F 31G X 5 U/F 31G X 5 Mini U/F MM MM 31G X 5 MM acetaminoph acetaminoph No acetaminop Nebo en 300 en 300 hen 300 Communi mg-codeine mg-codeine mg-codeine ty 60 mg 60 mg 60 mg Hospita tablet TAKE tablet TAKE tablet l 1 TABLET BY 1 TABLET BY TAKE 1 Clinics MOUTH EVERY MOUTH EVERY TABLET BY 6 HOURS FOR 6 HOURS FOR MOUTH 7 DAYS 7 DAYS EVERY 6 NEEDED NEEDED HOURS FOR 7 DAYS NEEDED Clopidogrel Clopidogrel No Clopidogre Bisulfate Bisulfate l Bisulfate albuterol albuterol No albuterol Nebo sulfate HFA sulfate HFA sulfate Communi 90 90 HFA 90 ty mcg/actuati mcg/actuati mcg/[facility]at [facility] aerosol on aerosol ion l inhaler inhaler aerosol Clinic s INHALE 2 INHALE 2 inhaler PUFFS BY PUFFS BY INHALE 2 MOUTH EVERY MOUTH EVERY PUFFS BY 4 HOURS 4 HOURS MOUTH NEEDED NEEDED EVERY 4 HOURS NEEDED Plavix 75 Plavix 75 No 1{table QD Plavix 75 MG MG t} MG amlodipine amlodipine No amlodipine Nebo 10 mg 10 mg 10 mg Communi tablet TAKE tablet TAKE tablet ty 1 TABLET BY 1 TABLET BY TAKE 1 [facility] MOUTH EVERY MOUTH EVERY TABLET BY l DAY DAY MOUTH Clinics EVERY DAY Adipex-P Adipex-P No Adipex-P Acyclovir Acyclovir No Acyclovir aspirin 81 aspirin 81 No 1 Q1D aspirin 81 Nebo mg chewable mg chewable mg C ommuni tablet Chew tablet Chew chewable ty 1 tablet 1 tablet tablet Hospi ta every day every day Chew 1 l by oral by oral tablet Clinics route. route. every day by oral route. Metoprolol Metoprolol No 1{table QD Metoprolol Succinate Succinate t} Succinate ER 50 MG ER 50 MG ER 50 MG atenolol 50 atenolol 50 No atenolol Nebo mg tablet mg tablet 50 mg Comm uni TAKE 1 TAKE 1 tablet ty TABLET BY TABLET BY TAKE 1 Hos shaun MOUTH EVERY MOUTH EVERY TABLET BY l DAY. DAY. MOUTH Clinics EVERY DAY. atorvastati atorvastati No atorvastat Nebo n 40 mg n 40 mg in 40 mg Commu ni tablet TAKE tablet TAKE tablet ty 1 TABLET BY 1 TABLET BY TAKE 1 Hospita MOUTH EVERY MOUTH EVERY TABLET BY l DAY DAY MOUTH Clinics EVERY DAY Losartan Losartan No 1{table QD Losartan Potassium Potassium t} Potassium 50 MG 50 MG 50 MG BD BD No BD Nebo Ultra-Fine Ultra-Fine Ultra-Fine Communi Mini Pen Mini Pen Mini Pen ty Needle 31 Needle 31 Needle 31 Hospita gauge x gauge x gauge x l 02/06" CHECK 02/06" CHECK 02/06" Clinics BLOOD SUGAR BLOOD SUGAR CHECK EVERY DAY EVERY DAY BLOOD DIRECTED DIRECTED SUGAR EVERY DAY DIRECTED Lansoprazol Lansoprazol No 1{capsu QD Lansoprazo e 30 MG e 30 MG le} le 30 MG cholecalcif cholecalcif No cholecalci Nebo jared jared ferol Communi (vitamin (vitamin (vitamin ty D3) 125 mcg D3) 125 mcg D3) 125 Hospita (5,000 (5,000 mcg (5,000 l unit) unit) unit) Clinics tablet TAKE tablet TAKE tablet 1 TABLET BY 1 TABLET BY TAKE 1 MOUTH EVERY MOUTH EVERY TABLET BY DAY DAY MOUTH EVERY DAY Atorvastati Atorvastati No 1{table QD Atorvastat n Calcium n Calcium t} in Calcium 20 MG 20 MG 20 MG Isosorbide Isosorbide No 1{table QD Isosorbide Mononitrate Mononitrate t_in_th Mononitrat ER 30 MG ER 30 MG e_morni e ER 30 MG ng} PredniSONE PredniSONE No PredniSONE Adipex-P Adipex-P No Adipex-P Aspir-81 81 Aspir-81 81 No 1{table QD Aspir-81 MG MG t} 81 MG Nitroglycer Nitroglycer No Nitroglyce in in rin Azithromyci Azithromyci No Azithromyc n n in Metoprolol Metoprolol No 1{table QD Metoprolol Succinate Succinate t} Succinate ER 50 MG ER 50 MG ER 50 MG BD Pen BD Pen No BD Pen Needle Mini Needle Mini Needle U/F 31G X 5 U/F 31G X 5 Mini U/F MM MM 31G X 5 MM Proctozone- Proctozone- No Proctozone HC HC -HC clopidogrel clopidogrel No clopidogre Nebo 75 mg 75 mg l 75 mg Communi tablet TAKE tablet TAKE tablet ty 1 TABLET BY 1 TABLET BY TAKE 1 Hospita MOUTH EVERY MOUTH EVERY TABLET BY l DAY DAY MOUTH Clinics EVERY DAY Amlodipine Amlodipine No 1{table QD Amlodipine Besylate 10 Besylate 10 t} Besylate MG MG 10 MG Levemir Levemir No QD Levemir FlexTouch FlexTouch FlexTouch 100 UNIT/ML 100 UNIT/ML 100 UNIT/ML dicyclomine dicyclomine No dicyclomin Nebo 20 mg 20 mg e 20 mg Communi tablet TAKE tablet TAKE tablet ty 1 TABLET BY 1 TABLET BY TAKE 1 Hospita MOUTH EVERY MOUTH EVERY TABLET BY l 8 HOURS 8 HOURS MOUTH Cl inics NEEDED NEEDED EVERY 8 HOURS NEEDED Isosorbide Isosorbide No 1{table QD Isosorbide Mononitrate Mononitrate t_in_th Mononitrat ER 30 MG ER 30 MG e_morni e ER 30 MG ng} fluticasone fluticasone No 1spray( Q1D fluticason Nebo propionate propionate s) e Com clarence 50 50 propionate ty mcg/actuati mcg/actuati 50 H ospita on nasal on nasal mcg/actuat l spray,suspe spray,suspe ion nasal Clinics nsion [place] nsion [place] spray,susp 1 spray 1 spray ension every day every day [place] 1 by by spray intranasal intranasal every day route. route. by intranasal route. Virtussin Virtussin No Virtussin A/C A/C A/C isosorbide isosorbide No isosorbide Nebo mononitrate mononitrate mononitrat Communi ER 30 mg ER 30 mg e ER 30 mg t y tablet,exte tablet,exte tablet,ext Hospita nded nded ended l release 24 release 24 release 24 Clinics hr TAKE 1 hr TAKE 1 hr TAKE 1 TABLET BY TABLET BY TABLET BY MOUTH DAILY MOUTH DAILY MOUTH DAILY Oseltamivir Oseltamivir No Oseltamivi Phosphate Phosphate r Phosphate Levemir Levemir No Levemir Nebo FlexTouch FlexTouch FlexTouch Communi U-100 U-100 U-100 ty Insulin 100 Insulin 100 Insulin Hospita unit/mL (3 unit/mL (3 100 l mL) mL) unit/mL (3 Clinics subcutaneou subcutaneou mL) s pen s pen subcutaneo ADMINISTER ADMINISTER us pen 15 UNITS 15 UNITS ADMINISTER UNDER THE UNDER THE 15 UNITS SKIN EVERY SKIN EVERY UNDER THE DAY DAY SKIN EVERY DAY Plavix 75 Plavix 75 No 1{table QD Plavix 75 MG MG t} MG Vitamin D3 Vitamin D3 No 1{capsu QD Vitamin D3 1000 UNIT 1000 UNIT le} 1000 UNIT losartan 50 losartan 50 No losartan Nebo mg tablet mg tablet 50 mg Comm uni TAKE 1 TAKE 1 tablet ty TABLET BY TABLET BY TAKE 1 Hos shaun MOUTH EVERY MOUTH EVERY TABLET BY l DAY DAY MOUTH Clinics EVERY DAY Ondansetron Ondansetron No Ondansetro HCl HCl n HCl metoprolol metoprolol No metoprolol Nebo succinate succinate succinate Communi ER 50 mg ER 50 mg ER 50 mg ty tablet,exte tablet,exte tablet,ext Hospita nded nded ended l release 24 release 24 release 24 Clinics hr TAKE 1 hr TAKE 1 hr TAKE 1 TABLET BY TABLET BY TABLET BY MOUTH EVERY MOUTH EVERY MOUTH DAY DAY EVERY DAY Acyclovir Acyclovir No Acyclovir Centrum Centrum No Centrum Silver - Silver - Silver - Potassium Potassium No Potassium Chloride ER Chloride ER Chloride ER Losartan Losartan No 1{table QD Losartan Potassium Potassium t} Potassium 50 MG 50 MG 50 MG Acetaminoph Acetaminoph No Acetaminop en-Codeine en-Codeine hen-Codein #3 #3 e #3 Lansoprazol Lansoprazol No 1{capsu QD Lansoprazo e 30 MG e 30 MG le} le 30 MG Potassium Potassium No 1{table BID Potassium Bicarb-Citr Bicarb-Citr t} Bicarb-Cit ic Acid 10 ic Acid 10 jagruti Acid MEQ MEQ 10 MEQ Zolpidem Zolpidem No Zolpidem Tartrate Tartrate Tartrate Atorvastati Atorvastati No 1{table QD Atorvastat n Calcium n Calcium t} in Calcium 20 MG 20 MG 20 MG Clopidogrel Clopidogrel No Clopidogre Bisulfate Bisulfate l Bisulfate Diethylprop Diethylprop No Diethylpro ion HCl ER ion HCl ER pion HCl ER Atorvastati Atorvastati No 1{table QD Atorvastat n Calcium n Calcium t} in Calcium 20 MG 20 MG 20 MG Levemir Levemir No QD Levemir FlexTouch FlexTouch FlexTouch 100 UNIT/ML 100 UNIT/ML 100 UNIT/ML Vitamin D3 Vitamin D3 No 1{capsu QD Vitamin D3 1000 UNIT 1000 UNIT le} 1000 UNIT Potassium Potassium No Potassium Chloride ER Chloride ER Chloride ER Isosorbide Isosorbide No 1{table QD Isosorbide Mononitrate Mononitrate t_in_th Mononitrat ER 30 MG ER 30 MG e_morni e ER 30 MG ng} Plavix 75 Plavix 75 No 1{table QD Plavix 75 MG MG t} MG Acyclovir Acyclovir No Acyclovir BD Pen BD Pen No BD Pen Needle Mini Needle Mini Needle U/F 31G X 5 U/F 31G X 5 Mini U/F MM MM 31G X 5 MM Clopidogrel Clopidogrel No Clopidogre Bisulfate Bisulfate l Bisulfate Proctozone- Proctozone- No Proctozone HC HC -HC Zolpidem Zolpidem No Zolpidem Tartrate Tartrate Tartrate Diethylprop Diethylprop No Diethylpro ion HCl ER ion HCl ER pion HCl ER Acetaminoph Acetaminoph No Acetaminop en-Codeine en-Codeine hen-Codein #3 #3 e #3 PredniSONE PredniSONE No PredniSONE Oseltamivir Oseltamivir No Oseltamivi Phosphate Phosphate r Phosphate Amlodipine Amlodipine No 1{table QD Amlodipine Besylate 10 Besylate 10 t} Besylate MG MG 10 MG Adipex-P Adipex-P No Adipex-P Azithromyci Azithromyci No Azithromyc n n in Nitroglycer Nitroglycer No Nitroglyce in in rin Metoprolol Metoprolol No 1{table QD Metoprolol Succinate Succinate t} Succinate ER 50 MG ER 50 MG ER 50 MG Centrum Centrum No Centrum Silver - Silver - Silver - Aspir-81 81 Aspir-81 81 No 1{table QD Aspir-81 MG MG t} 81 MG Potassium Potassium No 1{table BID Potassium Bicarb-Citr Bicarb-Citr t} Bicarb-Cit ic Acid 10 ic Acid 10 jagruti Acid MEQ MEQ 10 MEQ Losartan Losartan No 1{table QD Losartan Potassium Potassium t} Potassium 50 MG 50 MG 50 MG Ondansetron Ondansetron No Ondansetro HCl HCl n HCl Virtussin Virtussin No Virtussin A/C A/C A/C Lansoprazol Lansoprazol No 1{capsu QD Lansoprazo e 30 MG e 30 MG le} le 30 MG Diethylprop Diethylprop No Diethylpro ion HCl ER ion HCl ER pion HCl ER Zolpidem Zolpidem No Zolpidem Tartrate Tartrate Tartrate Potassium Potassium No Potassium Chloride ER Chloride ER Chloride ER PredniSONE PredniSONE No PredniSONE Clopidogrel Clopidogrel No Clopidogre Bisulfate Bisulfate l Bisulfate Plavix 75 Plavix 75 No 1{table QD Plavix 75 MG MG t} MG Adipex-P Adipex-P No Adipex-P Nitroglycer Nitroglycer No Nitroglyce in in rin Potassium Potassium No 1{table BID Potassium Bicarb-Citr Bicarb-Citr t} Bicarb-Cit ic Acid 10 ic Acid 10 jagruti Acid MEQ MEQ 10 MEQ Oseltamivir Oseltamivir No Oseltamivi Phosphate Phosphate r Phosphate Amlodipine Amlodipine No 1{table QD Amlodipine Besylate 10 Besylate 10 t} Besylate MG MG 10 MG Proctozone- Proctozone- No Proctozone HC HC -HC Ondansetron Ondansetron No Ondansetro HCl HCl n HCl Acetaminoph Acetaminoph No Acetaminop en-Codeine en-Codeine hen-Codein #3 #3 e #3 Levemir Levemir No QD Levemir FlexTouch FlexTouch FlexTouch 100 UNIT/ML 100 UNIT/ML 100 UNIT/ML Lansoprazol Lansoprazol No 1{capsu QD Lansoprazo e 30 MG e 30 MG le} le 30 MG Aspir-81 81 Aspir-81 81 No 1{table QD Aspir-81 MG MG t} 81 MG Metoprolol Metoprolol No 1{table QD Metoprolol Succinate Succinate t} Succinate ER 50 MG ER 50 MG ER 50 MG Losartan Losartan No 1{table QD Losartan Potassium Potassium t} Potassium 50 MG 50 MG 50 MG BD Pen BD Pen No BD Pen Needle Mini Needle Mini Needle U/F 31G X 5 U/F 31G X 5 Mini U/F MM MM 31G X 5 MM Azithromyci Azithromyci No Azithromyc n n in Centrum Centrum No Centrum Silver - Silver - Silver - Atorvastati Atorvastati No 1{table QD Atorvastat n Calcium n Calcium t} in Calcium 20 MG 20 MG 20 MG Isosorbide Isosorbide No 1{table QD Isosorbide Mononitrate Mononitrate t_in_th Mononitrat ER 30 MG ER 30 MG e_morni e ER 30 MG ng} Virtussin Virtussin No Virtussin A/C A/C A/C Vitamin D3 Vitamin D3 No 1{capsu QD Vitamin D3 1000 UNIT 1000 UNIT le} 1000 UNIT Acyclovir Acyclovir No Acyclovir BD Pen BD Pen No BD Pen Needle Mini Needle Mini Needle U/F 31G X 5 U/F 31G X 5 Mini U/F MM MM 31G X 5 MM Isosorbide Isosorbide No 1{table QD Isosorbide Mononitrate Mononitrate t_in_th Mononitrat ER 30 MG ER 30 MG e_morni e ER 30 MG ng} Virtussin Virtussin No Virtussin A/C A/C A/C Potassium Potassium No Potassium Chloride ER Chloride ER Chloride ER Atorvastati Atorvastati No 1{table QD Atorvastat n Calcium n Calcium t} in Calcium 20 MG 20 MG 20 MG Levemir Levemir No QD Levemir FlexTouch FlexTouch FlexTouch 100 UNIT/ML 100 UNIT/ML 100 UNIT/ML Proctozone- Proctozone- No Proctozone HC HC -HC Vitamin D3 Vitamin D3 No 1{capsu QD Vitamin D3 1000 UNIT 1000 UNIT le} 1000 UNIT Nitroglycer Nitroglycer No Nitroglyce in in rin Acyclovir Acyclovir No Acyclovir Centrum Centrum No Centrum Silver - Silver - Silver - Azithromyci Azithromyci No Azithromyc n n in Clopidogrel Clopidogrel No Clopidogre Bisulfate Bisulfate l Bisulfate Ondansetron Ondansetron No Ondansetro HCl HCl n HCl Losartan Losartan No 1{table QD Losartan Potassium Potassium t} Potassium 50 MG 50 MG 50 MG Diethylprop Diethylprop No Diethylpro ion HCl ER ion HCl ER pion HCl ER Oseltamivir Oseltamivir No Oseltamivi Phosphate Phosphate r Phosphate Lansoprazol Lansoprazol No 1{capsu QD Lansoprazo e 30 MG e 30 MG le} le 30 MG amLODIPine amLODIPine No 1{table QD amLODIPine Besylate 10 Besylate 10 t} Besylate MG MG 10 MG Potassium Potassium No 1{table BID Potassium Bicarb-Citr Bicarb-Citr t} Bicarb-Cit ic Acid 10 ic Acid 10 jagruti Acid MEQ MEQ 10 MEQ Zolpidem Zolpidem No Zolpidem Tartrate Tartrate Tartrate Adipex-P Adipex-P No Adipex-P Metoprolol Metoprolol No 1{table QD Metoprolol Succinate Succinate t} Succinate ER 50 MG ER 50 MG ER 50 MG Aspir-81 81 Aspir-81 81 No 1{table QD Aspir-81 MG MG t} 81 MG predniSONE predniSONE No predniSONE Acetaminoph Acetaminoph No Acetaminop en-Codeine en-Codeine hen-Codein #3 #3 e #3 Plavix 75 Plavix 75 No 1{table QD Plavix 75 MG MG t} MG BD Pen BD Pen No BD Pen Needle Mini Needle Mini Needle U/F 31G X 5 U/F 31G X 5 Mini U/F MM MM 31G X 5 MM Isosorbide Isosorbide No 1{table QD Isosorbide Mononitrate Mononitrate t_in_th Mononitrat ER 30 MG ER 30 MG e_morni e ER 30 MG ng} Virtussin Virtussin No Virtussin A/C A/C A/C Potassium Potassium No Potassium Chloride ER Chloride ER Chloride ER Atorvastati Atorvastati No 1{table QD Atorvastat n Calcium n Calcium t} in Calcium 20 MG 20 MG 20 MG Levemir Levemir No QD Levemir FlexTouch FlexTouch FlexTouch 100 UNIT/ML 100 UNIT/ML 100 UNIT/ML Proctozone- Proctozone- No Proctozone HC HC -HC Vitamin D3 Vitamin D3 No 1{capsu QD Vitamin D3 1000 UNIT 1000 UNIT le} 1000 UNIT Nitroglycer Nitroglycer No Nitroglyce in in rin Acyclovir Acyclovir No Acyclovir Centrum Centrum No Centrum Silver - Silver - Silver - Azithromyci Azithromyci No Azithromyc n n in Clopidogrel Clopidogrel No Clopidogre Bisulfate Bisulfate l Bisulfate Ondansetron Ondansetron No Ondansetro HCl HCl n HCl Losartan Losartan No 1{table QD Losartan Potassium Potassium t} Potassium 50 MG 50 MG 50 MG Diethylprop Diethylprop No Diethylpro ion HCl ER ion HCl ER pion HCl ER Oseltamivir Oseltamivir No Oseltamivi Phosphate Phosphate r Phosphate Lansoprazol Lansoprazol No 1{capsu QD Lansoprazo e 30 MG e 30 MG le} le 30 MG amLODIPine amLODIPine No 1{table QD amLODIPine Besylate 10 Besylate 10 t} Besylate MG MG 10 MG Potassium Potassium No 1{table BID Potassium Bicarb-Citr Bicarb-Citr t} Bicarb-Cit ic Acid 10 ic Acid 10 jagruti Acid MEQ MEQ 10 MEQ Zolpidem Zolpidem No Zolpidem Tartrate Tartrate Tartrate Adipex-P Adipex-P No Adipex-P Metoprolol Metoprolol No 1{table QD Metoprolol Succinate Succinate t} Succinate ER 50 MG ER 50 MG ER 50 MG Aspir-81 81 Aspir-81 81 No 1{table QD Aspir-81 MG MG t} 81 MG predniSONE predniSONE No predniSONE Acetaminoph Acetaminoph No Acetaminop en-Codeine en-Codeine hen-Codein #3 #3 e #3 Plavix 75 Plavix 75 No 1{table QD Plavix 75 MG MG t} MG Oseltamivir Oseltamivir No Oseltamivi Phosphate Phosphate r Phosphate Zolpidem Zolpidem No Zolpidem Tartrate Tartrate Tartrate Potassium Potassium No 1{table BID Potassium Bicarb-Citr Bicarb-Citr t} Bicarb-Cit ic Acid 10 ic Acid 10 jagruti Acid MEQ MEQ 10 MEQ Clopidogrel Clopidogrel No Clopidogre Bisulfate Bisulfate l Bisulfate Levemir Levemir No QD Levemir FlexTouch FlexTouch FlexTouch 100 UNIT/ML 100 UNIT/ML 100 UNIT/ML predniSONE predniSONE No predniSONE Diethylprop Diethylprop No Diethylpro ion HCl ER ion HCl ER pion HCl ER Acetaminoph Acetaminoph No Acetaminop en-Codeine en-Codeine hen-Codein #3 #3 e #3 Adipex-P Adipex-P No Adipex-P Aspir-81 81 Aspir-81 81 No 1{table QD Aspir-81 MG MG t} 81 MG Potassium Potassium No Potassium Chloride ER Chloride ER Chloride ER Lansoprazol Lansoprazol No 1{capsu QD Lansoprazo e 30 MG e 30 MG le} le 30 MG Ondansetron Ondansetron No Ondansetro HCl HCl n HCl Proctozone- Proctozone- No Proctozone HC HC -HC Metoprolol Metoprolol No 1{table QD Metoprolol Succinate Succinate t} Succinate ER 50 MG ER 50 MG ER 50 MG Acyclovir Acyclovir No Acyclovir Virtussin Virtussin No Virtussin A/C A/C A/C Plavix 75 Plavix 75 No 1{table QD Plavix 75 MG MG t} MG Nitroglycer Nitroglycer No Nitroglyce in in rin Atorvastati Atorvastati No 1{table QD Atorvastat n Calcium n Calcium t} in Calcium 20 MG 20 MG 20 MG Azithromyci Azithromyci No Azithromyc n n in Losartan Losartan No 1{table QD Losartan Potassium Potassium t} Potassium 50 MG 50 MG 50 MG Isosorbide Isosorbide No 1{table QD Isosorbide Mononitrate Mononitrate t_in_th Mononitrat ER 30 MG ER 30 MG e_morni e ER 30 MG ng} Vitamin D3 Vitamin D3 No 1{capsu QD Vitamin D3 1000 UNIT 1000 UNIT le} 1000 UNIT Centrum Centrum No Centrum Silver - Silver - Silver - BD Pen BD Pen No BD Pen Needle Mini Needle Mini Needle U/F 31G X 5 U/F 31G X 5 Mini U/F MM MM 31G X 5 MM amLODIPine amLODIPine No 1{table QD amLODIPine Besylate 10 Besylate 10 t} Besylate MG MG 10 MG Oseltamivir Oseltamivir No Oseltamivi Phosphate Phosphate r Phosphate Zolpidem Zolpidem No Zolpidem Tartrate Tartrate Tartrate Potassium Potassium No 1{table BID Potassium Bicarb-Citr Bicarb-Citr t} Bicarb-Cit ic Acid 10 ic Acid 10 jagruti Acid MEQ MEQ 10 MEQ Clopidogrel Clopidogrel No Clopidogre Bisulfate Bisulfate l Bisulfate Levemir Levemir No QD Levemir FlexTouch FlexTouch FlexTouch 100 UNIT/ML 100 UNIT/ML 100 UNIT/ML predniSONE predniSONE No predniSONE Diethylprop Diethylprop No Diethylpro ion HCl ER ion HCl ER pion HCl ER Acetaminoph Acetaminoph No Acetaminop en-Codeine en-Codeine hen-Codein #3 #3 e #3 Adipex-P Adipex-P No Adipex-P Aspir-81 81 Aspir-81 81 No 1{table QD Aspir-81 MG MG t} 81 MG Potassium Potassium No Potassium Chloride ER Chloride ER Chloride ER Lansoprazol Lansoprazol No 1{capsu QD Lansoprazo e 30 MG e 30 MG le} le 30 MG Ondansetron Ondansetron No Ondansetro HCl HCl n HCl Proctozone- Proctozone- No Proctozone HC HC -HC Metoprolol Metoprolol No 1{table QD Metoprolol Succinate Succinate t} Succinate ER 50 MG ER 50 MG ER 50 MG Acyclovir Acyclovir No Acyclovir Virtussin Virtussin No Virtussin A/C A/C A/C Plavix 75 Plavix 75 No 1{table QD Plavix 75 MG MG t} MG Nitroglycer Nitroglycer No Nitroglyce in in rin Atorvastati Atorvastati No 1{table QD Atorvastat n Calcium n Calcium t} in Calcium 20 MG 20 MG 20 MG Azithromyci Azithromyci No Azithromyc n n in Losartan Losartan No 1{table QD Losartan Potassium Potassium t} Potassium 50 MG 50 MG 50 MG Isosorbide Isosorbide No 1{table QD Isosorbide Mononitrate Mononitrate t_in_th Mononitrat ER 30 MG ER 30 MG e_morni e ER 30 MG ng} Vitamin D3 Vitamin D3 No 1{capsu QD Vitamin D3 1000 UNIT 1000 UNIT le} 1000 UNIT Centrum Centrum No Centrum Silver - Silver - Silver - BD Pen BD Pen No BD Pen Needle Mini Needle Mini Needle U/F 31G X 5 U/F 31G X 5 Mini U/F MM MM 31G X 5 MM amLODIPine amLODIPine No 1{table QD amLODIPine Besylate 10 Besylate 10 t} Besylate MG MG 10 MG Oseltamivir Oseltamivir No Oseltamivi Phosphate Phosphate r Phosphate Zolpidem Zolpidem No Zolpidem Tartrate Tartrate Tartrate Potassium Potassium No 1{table BID Potassium Bicarb-Citr Bicarb-Citr t} Bicarb-Cit ic Acid 10 ic Acid 10 jagruti Acid MEQ MEQ 10 MEQ Clopidogrel Clopidogrel No Clopidogre Bisulfate Bisulfate l Bisulfate Levemir Levemir No QD Levemir FlexTouch FlexTouch FlexTouch 100 UNIT/ML 100 UNIT/ML 100 UNIT/ML predniSONE predniSONE No predniSONE Diethylprop Diethylprop No Diethylpro ion HCl ER ion HCl ER pion HCl ER Acetaminoph Acetaminoph No Acetaminop en-Codeine en-Codeine hen-Codein #3 #3 e #3 Adipex-P Adipex-P No Adipex-P Aspir-81 81 Aspir-81 81 No 1{table QD Aspir-81 MG MG t} 81 MG Potassium Potassium No Potassium Chloride ER Chloride ER Chloride ER Lansoprazol Lansoprazol No 1{capsu QD Lansoprazo e 30 MG e 30 MG le} le 30 MG Ondansetron Ondansetron No Ondansetro HCl HCl n HCl Proctozone- Proctozone- No Proctozone HC HC -HC Metoprolol Metoprolol No 1{table QD Metoprolol Succinate Succinate t} Succinate ER 50 MG ER 50 MG ER 50 MG Acyclovir Acyclovir No Acyclovir Virtussin Virtussin No Virtussin A/C A/C A/C Plavix 75 Plavix 75 No 1{table QD Plavix 75 MG MG t} MG Nitroglycer Nitroglycer No Nitroglyce in in rin Atorvastati Atorvastati No 1{table QD Atorvastat n Calcium n Calcium t} in Calcium 20 MG 20 MG 20 MG Azithromyci Azithromyci No Azithromyc n n in Losartan Losartan No 1{table QD Losartan Potassium Potassium t} Potassium 50 MG 50 MG 50 MG Isosorbide Isosorbide No 1{table QD Isosorbide Mononitrate Mononitrate t_in_th Mononitrat ER 30 MG ER 30 MG e_morni e ER 30 MG ng} Vitamin D3 Vitamin D3 No 1{capsu QD Vitamin D3 1000 UNIT 1000 UNIT le} 1000 UNIT Centrum Centrum No Centrum Silver - Silver - Silver - BD Pen BD Pen No BD Pen Needle Mini Needle Mini Needle U/F 31G X 5 U/F 31G X 5 Mini U/F MM MM 31G X 5 MM amLODIPine amLODIPine No 1{table QD amLODIPine Besylate 10 Besylate 10 t} Besylate MG MG 10 MG Vitamin D3 Vitamin D3 No 1{capsu QD Vitamin D3 1000 UNIT 1000 UNIT le} 1000 UNIT Adipex-P Adipex-P No Adipex-P Centrum Centrum No Centrum Silver - Silver - Silver - Oseltamivir Oseltamivir No Oseltamivi Phosphate Phosphate r Phosphate Nitroglycer Nitroglycer No Nitroglyce in in rin Isosorbide Isosorbide No 1{table QD Isosorbide Mononitrate Mononitrate t_in_th Mononitrat ER 30 MG ER 30 MG e_morni e ER 30 MG ng} Atorvastati Atorvastati No 1{table QD Atorvastat n Calcium n Calcium t} in Calcium 20 MG 20 MG 20 MG Lansoprazol Lansoprazol No 1{capsu QD Lansoprazo e 30 MG e 30 MG le} le 30 MG Potassium Potassium No Potassium Chloride ER Chloride ER Chloride ER Virtussin Virtussin No Virtussin A/C A/C A/C Ondansetron Ondansetron No Ondansetro HCl HCl n HCl Diethylprop Diethylprop No Diethylpro ion HCl ER ion HCl ER pion HCl ER Clopidogrel Clopidogrel No Clopidogre Bisulfate Bisulfate l Bisulfate Acetaminoph Acetaminoph No Acetaminop en-Codeine en-Codeine hen-Codein #3 #3 e #3 BD Pen BD Pen No BD Pen Needle Mini Needle Mini Needle U/F 31G X 5 U/F 31G X 5 Mini U/F MM MM 31G X 5 MM Acyclovir Acyclovir No Acyclovir Levemir Levemir No QD Levemir FlexTouch FlexTouch FlexTouch 100 UNIT/ML 100 UNIT/ML 100 UNIT/ML amLODIPine amLODIPine No 1{table QD amLODIPine Besylate 10 Besylate 10 t} Besylate MG MG 10 MG Losartan Losartan No 1{table QD Losartan Potassium Potassium t} Potassium 50 MG 50 MG 50 MG Plavix 75 Plavix 75 No 1{table QD Plavix 75 MG MG t} MG Proctozone- Proctozone- No Proctozone HC HC -HC Zolpidem Zolpidem No Zolpidem Tartrate Tartrate Tartrate Aspir-81 81 Aspir-81 81 No 1{table QD Aspir-81 MG MG t} 81 MG Metoprolol Metoprolol No 1{table QD Metoprolol Succinate Succinate t} Succinate ER 50 MG ER 50 MG ER 50 MG predniSONE predniSONE No predniSONE Azithromyci Azithromyci No Azithromyc n n in Potassium Potassium No 1{table BID Potassium Bicarb-Citr Bicarb-Citr t} Bicarb-Cit ic Acid 10 ic Acid 10 jagruti Acid MEQ MEQ 10 MEQ Vitamin D3 Vitamin D3 No 1{capsu QD Vitamin D3 1000 UNIT 1000 UNIT le} 1000 UNIT Adipex-P Adipex-P No Adipex-P Centrum Centrum No Centrum Silver - Silver - Silver - Oseltamivir Oseltamivir No Oseltamivi Phosphate Phosphate r Phosphate Nitroglycer Nitroglycer No Nitroglyce in in rin Isosorbide Isosorbide No 1{table QD Isosorbide Mononitrate Mononitrate t_in_th Mononitrat ER 30 MG ER 30 MG e_morni e ER 30 MG ng} Atorvastati Atorvastati No 1{table QD Atorvastat n Calcium n Calcium t} in Calcium 20 MG 20 MG 20 MG Lansoprazol Lansoprazol No 1{capsu QD Lansoprazo e 30 MG e 30 MG le} le 30 MG Potassium Potassium No Potassium Chloride ER Chloride ER Chloride ER Virtussin Virtussin No Virtussin A/C A/C A/C Ondansetron Ondansetron No Ondansetro HCl HCl n HCl Diethylprop Diethylprop No Diethylpro ion HCl ER ion HCl ER pion HCl ER Clopidogrel Clopidogrel No Clopidogre Bisulfate Bisulfate l Bisulfate Acetaminoph Acetaminoph No Acetaminop en-Codeine en-Codeine hen-Codein #3 #3 e #3 BD Pen BD Pen No BD Pen Needle Mini Needle Mini Needle U/F 31G X 5 U/F 31G X 5 Mini U/F MM MM 31G X 5 MM Acyclovir Acyclovir No Acyclovir Levemir Levemir No QD Levemir FlexTouch FlexTouch FlexTouch 100 UNIT/ML 100 UNIT/ML 100 UNIT/ML amLODIPine amLODIPine No 1{table QD amLODIPine Besylate 10 Besylate 10 t} Besylate MG MG 10 MG Immunizations Ordered Immunization Filled Immunization Date Status Commen Source Name Name COVID-19 COVID-19 2022-11-14 Completed [facility] (SARS-COV-2) (SARS-COV-2) 00:00:00 [facility] linics vaccine, unspecified vaccine, unspecified COVID-19 COVID-19 2022-11-14 Completed [facility] (SARS-COV-2) (SARS-COV-2) 00:00:00 [facility] linics vaccine, unspecified vaccine, unspecified COVID-19 COVID-19 2021-10-12 Completed [facility] (SARS-COV-2) (SARS-COV-2) 00:00:00 [facility] linics vaccine, unspecified vaccine, unspecified COVID-19 COVID-19 2021-10-12 Completed [facility] (SARS-COV-2) (SARS-COV-2) 00:00:00 [facility] linics vaccine, unspecified vaccine, unspecified COVID-19 COVID-19 2021-01-26 Completed [facility] (SARS-COV-2) (SARS-COV-2) 00:00:00 [facility] vaccine, unspecified vaccine, unspecified SARS-COV-2 SARS-COV-2 2021-01-26 Completed [facility] (COVID-19) vaccine, (COVID-19) vaccine, 00:00:00 [facility] UNSPECIFIED UNSPECIFIED SARS-COV-2 SARS-COV-2 2021-01-26 Completed [facility] (COVID-19) vaccine, (COVID-19) vaccine, 00:00:00 [facility] UNSPECIFIED UNSPECIFIED SARS-COV-2 SARS-COV-2 2021-01-26 Completed [facility] (COVID-19) vaccine, (COVID-19) vaccine, 00:00:00 [facility] UNSPECIFIED UNSPECIFIED SARS-COV-2 SARS-COV-2 2021-01-26 Completed [facility] (COVID-19) vaccine, (COVID-19) vaccine, 00:00:00 [facility] UNSPECIFIED UNSPECIFIED COVID-19 COVID-19 2021-01-26 Completed [facility] (SARS-COV-2) (SARS-COV-2) 00:00:00 [facility] linics vaccine, unspecified vaccine, unspecified COVID-19 COVID-19 2021-01-26 Completed [facility] (SARS-COV-2) (SARS-COV-2) 00:00:00 [facility] vaccine, unspecified vaccine, unspecified COVID-19 COVID-19 2021-01-26 Completed [facility] (SARS-COV-2) (SARS-COV-2) 00:00:00 [facility] vaccine, unspecified vaccine, unspecified COVID-19 COVID-19 2021-01-26 Completed [facility] (SARS-COV-2) (SARS-COV-2) 00:00:00 [facility] vaccine, unspecified vaccine, unspecified COVID-19 COVID-19 2021-01-26 Completed [facility] (SARS-COV-2) (SARS-COV-2) 00:00:00 [facility] vaccine, unspecified vaccine, unspecified COVID-19 COVID-19 2021-01-26 Completed [facility] (SARS-COV-2) (SARS-COV-2) 00:00:00 [facility] vaccine, unspecified vaccine, unspecified COVID-19 COVID-19 2020-12-29 Completed [facility] (SARS-COV-2) (SARS-COV-2) 00:00:00 [facility] vaccine, unspecified vaccine, unspecified SARS-COV-2 SARS-COV-2 2020-12-29 Completed [facility] (COVID-19) vaccine, (COVID-19) vaccine, 00:00:00 [facility] UNSPECIFIED UNSPECIFIED SARS-COV-2 SARS-COV-2 2020-12-29 Completed [facility] (COVID-19) vaccine, (COVID-19) vaccine, 00:00:00 [facility] UNSPECIFIED UNSPECIFIED SARS-COV-2 SARS-COV-2 2020-12-29 Completed [facility] (COVID-19) vaccine, (COVID-19) vaccine, 00:00:00 [facility] UNSPECIFIED UNSPECIFIED SARS-COV-2 SARS-COV-2 2020-12-29 Completed [facility] (COVID-19) vaccine, (COVID-19) vaccine, 00:00:00 [facility] UNSPECIFIED UNSPECIFIED COVID-19 COVID-19 2020-12-29 Completed [facility] (SARS-COV-2) (SARS-COV-2) 00:00:00 [facility] lin[facility] vaccine, unspecified vaccine, unspecified COVID-19 COVID-19 2020-12-29 Completed [facility] (SARS-COV-2) (SARS-COV-2) 00:00:00 [facility] linics vaccine, unspecified vaccine, unspecified COVID-19 COVID-19 2020-12-29 Completed [facility] (SARS-COV-2) (SARS-COV-2) 00:00:00 [facility] lin[facility] vaccine, unspecified vaccine, unspecified COVID-19 COVID-19 2020-12-29 Completed [facility] (SARS-COV-2) (SARS-COV-2) 00:00:00 [facility] linics vaccine, unspecified vaccine, unspecified COVID-19 COVID-19 2020-12-29 Completed [facility] (SARS-COV-2) (SARS-COV-2) 00:00:00 [facility] lin[facility] vaccine, unspecified vaccine, unspecified COVID-19 COVID-19 2020-12-29 Completed [facility] (SARS-COV-2) (SARS-COV-2) 00:00:00 [facility] vaccine, unspecified vaccine, unspecified influenza virus 2016-11-07 Completed [facility] vaccine, inactivated 17:45:00 influenza virus 2015-08-02 Completed [facility] vaccine, inactivated 22:21:00 pneumococcal 2015-08-02 Completed [facility] 13-valent vaccine 22:20:00 influenza virus 2014-08-09 Completed [facility] vaccine, 05:00:00 inactivated<sup>1</s up> pneumococcal 2011-10-01 Completed [facility] 23-valent 20:10:35 vaccine<sup>2</sup> Vital Signs Vital Name Observation Time Observation Value Comments Source BP Diastolic 2023-02-03 00:00:00 72 mm[Hg] [facility] s Height 2023-02-03 00:00:00 64 [in_i] Pending sale to [facility] s BMI (Body Mass 2023-02-03 00:00:00 34.3 kg/m2 [facility] Index) [facility] s BP Systolic 2023-02-03 00:00:00 124 mm[Hg] Pending sale to [facility] s Body Weight 2023-02-03 00:00:00 3200 [oz_av] Pending sale to [facility] s BP Diastolic 2022-08-15 00:00:00 68 mm[Hg] Pending sale to [facility] s Height 2022-08-15 00:00:00 64 [in_i] [facility] s BMI (Body Mass 2022-08-15 00:00:00 34.7 kg/m2 [facility]) [facility] s BP Systolic 2022-08-15 00:00:00 128 mm[Hg] Pending sale to [facility] s Body Weight 2022-08-15 00:00:00 3232 [oz_av] Pending sale to [facility] s BP Diastolic 2022-08-08 00:00:00 77 mm[Hg] Pending sale to [facility] s Height 2022-08-08 00:00:00 64 [in_i] Pending sale to [facility] s BMI (Body Mass 2022-08-08 00:00:00 34.7 kg/m2 [facility] Index) [facility] s BP Systolic 2022-08-08 00:00:00 130 mm[Hg] Pending sale to [facility] s Body Weight 2022-08-08 00:00:00 3232 [oz_av] Pending sale to [facility] s BP Diastolic 2022-03-26 00:00:00 72 mm[Hg] Pending sale to [facility] s Height 2022-03-26 00:00:00 64 [in_i] [facility] s BMI (Body Mass 2022-03-26 00:00:00 34.8 kg/m2 [facility] Index) [facility] s BP Systolic 2022-03-26 00:00:00 114 mm[Hg] [facility] s Body Weight 2022-03-26 00:00:00 3248 [oz_av] [facility] s BP Diastolic 2022-01-28 00:00:00 84 mm[Hg] [facility] s Height 2022-01-28 00:00:00 64 [in_i] [facility] s BMI (Body Mass 2022-01-28 00:00:00 34.2 kg/m2 [facility] s BP Systolic 2022-01-28 00:00:00 128 mm[Hg] [facility] s Body Weight 2022-01-28 00:00:00 3184 [oz_av] [facility] s height 2021-10-02 13:45:00 64.5 [in_i] [facility] weight 2021-10-02 13:45:00 195 [lb_av] [facility] bmi 2021-10-02 13:45:00 32.95 kg/m2 [facility] blood pressure 2021-10-02 13:45:00 119 mm[Hg] [facility] systolic [facility] blood pressure 2021-10-02 13:45:00 76 mm[Hg] [facility] diastolic [facility] height 2021-08-14 08:45:00 64.5 [in_i] [facility] weight 2021-08-14 08:45:00 195 [lb_av] [facility] bmi 2021-08-14 08:45:00 32.95 kg/m2 [facility] blood pressure 2021-08-14 08:45:00 122 mm[Hg] [facility] systolic [facility] blood pressure 2021-08-14 08:45:00 69 mm[Hg] [facility] diastolic [facility] height 2021-07-26 11:00:00 64.5 [in_i] [facility] weight 2021-07-26 11:00:00 195 [lb_av] [facility] bmi 2021-07-26 11:00:00 32.95 kg/m2 [facility] blood pressure 2021-07-26 11:00:00 121 mm[Hg] [facility] blood pressure 2021-07-26 11:00:00 76 mm[Hg] [facility] BP Diastolic 2021-07-26 00:00:00 68 mm[Hg] [facility] s Height 2021-07-26 00:00:00 64 [in_i] [facility] s BMI (Body Mass 2021-07-26 00:00:00 33 kg/m2 [facility]) [facility] s BP Systolic 2021-07-26 00:00:00 102 mm[Hg] [facility] s Body Weight 2021-07-26 00:00:00 3072 [oz_av] [facility] s BP Diastolic 2021-06-26 00:00:00 72 mm[Hg] [facility] s Height 2021-06-26 00:00:00 64 [in_i] [facility] s BMI (Body Mass 2021-06-26 00:00:00 33.3 kg/m2 [facility]) [facility] s BP Systolic 2021-06-26 00:00:00 118 mm[Hg] [facility] s Body Weight 2021-06-26 00:00:00 3104 [oz_av] Pending sale to [facility] s height 2021-06-21 09:30:00 64.5 [in_i] [facility] weight 2021-06-21 09:30:00 195.2 [lb_av] [facility] bmi 2021-06-21 09:30:00 32.98 kg/m2 [facility] blood pressure 2021-06-21 09:30:00 122 mm[Hg] [facility] systolic [facility] blood pressure 2021-06-21 09:30:00 74 mm[Hg] [facility] diastolic [facility] BP Diastolic 2021-05-25 00:00:00 68 mm[Hg] Pending sale to [facility] s Height 2021-05-25 00:00:00 64 [in_i] [facility] s BMI (Body Mass 2021-05-25 00:00:00 33 kg/m2 [facility]) [facility] s BP Systolic 2021-05-25 00:00:00 116 mm[Hg] [facility] s Body Weight 2021-05-25 00:00:00 3072 [oz_av] [facility] s BP Diastolic 2021-01-26 00:00:00 62 mm[Hg] Pending sale to [facility] s Height 2021-01-26 00:00:00 64 [in_i] [facility] s BMI (Body Mass 2021-01-26 00:00:00 32.8 kg/m2 [facility]) [facility] s BP Systolic 2021-01-26 00:00:00 110 mm[Hg] [facility] s Body Weight 2021-01-26 00:00:00 3056 [oz_av] Pending sale to [facility] s height 2021-01-25 10:00:00 64.5 [in_i] [facility] weight 2021-01-25 10:00:00 190.5 [lb_av] [facility] temperature 2021-01-25 10:00:00 97.5 [degF] [facility] bmi 2021-01-25 10:00:00 32.19 kg/m2 [facility] blood pressure 2021-01-25 10:00:00 113 mm[Hg] [facility] systolic [facility] blood pressure 2021-01-25 10:00:00 73 mm[Hg] [facility] diastolic [facility] height 2020-12-13 11:00:00 64.5 [in_i] [facility] weight 2020-12-13 11:00:00 195 [lb_av] [facility] temperature 2020-12-13 11:00:00 97.1 [degF] [facility] bmi 2020-12-13 11:00:00 32.95 kg/m2 [facility] blood pressure 2020-12-13 11:00:00 112 mm[Hg] [facility] systolic [facility] blood pressure 2020-12-13 11:00:00 78 mm[Hg] [facility] diastolic [facility] height 2020-11-07 10:15:00 64.5 [in_i] [facility] weight 2020-11-07 10:15:00 191.4 [lb_av] [facility] bmi 2020-11-07 10:15:00 32.34 kg/m2 [facility] blood pressure 2020-11-07 10:15:00 123 mm[Hg] [facility] systolic [facility] blood pressure 2020-11-07 10:15:00 70 mm[Hg] [facility] diastolic [facility] height 2020-10-24 15:30:00 64.5 [in_i] [facility] weight 2020-10-24 15:30:00 188 [lb_av] [facility] temperature 2020-10-24 15:30:00 97.1 [degF] [facility] bmi 2020-10-24 15:30:00 31.87 kg/m2 [facility] blood pressure 2020-10-24 15:30:00 122 mm[Hg] [facility] systolic [facility] blood pressure 2020-10-24 15:30:00 74 mm[Hg] [facility] diastolic [facility] height 2020-10-12 11:00:00 64.5 [in_i] [facility] weight 2020-10-12 11:00:00 188.6 [lb_av] [facility] temperature 2020-10-12 11:00:00 97.5 [degF] [facility] bmi 2020-10-12 11:00:00 31.87 kg/m2 [facility] blood pressure 2020-10-12 11:00:00 119 mm[Hg] [facility] systolic [facility] blood pressure 2020-10-12 11:00:00 74 mm[Hg] [facility] diastolic [facility] Systolic (mm Hg) 2020-06-13 15:35:00 [facility] Diastolic (mm Hg) 2020-06-13 15:35:00 [facility] [place] Heart Rate 2020-06-13 15:35:00 [facility] Weight 2020-06-13 15:35:00 [facility] Systolic (mm Hg) 2019-12-14 16:11:00 [facility] Diastolic (mm Hg) 2019-12-14 16:11:00 [facility] Heart Rate 2019-12-14 16:11:00 [facility] Temperature Oral (F) 2019-12-14 16:11:00 98.7 F [facility] Weight 2019-12-14 16:11:00 [facility] BMI Calculated 2019-06-08 15:07:00 [facility] Weight 2019-06-08 15:07:00 [facility] Height 2019-06-08 15:07:00 160.02 cm [facility] Systolic (mm Hg) 2019-06-08 15:07:00 [facility] Diastolic (mm Hg) 2019-06-08 15:07:00 [facility] [place] Temperature Oral (F) 2019-06-08 15:07:00 98.5 F [facility] Heart Rate 2019-06-08 15:07:00 [facility] Weight 2018-12-08 15:58:00 [facility] Height 2018-12-08 15:58:00 160.02 cm [facility] BMI Calculated 2018-12-08 15:58:00 [facility] Heart Rate 2018-12-08 15:58:00 [facility] Temperature Oral (F) 2018-12-08 15:58:00 98.0 F [facility] Systolic (mm Hg) 2018-12-08 15:58:00 [facility] [place] Diastolic (mm Hg) 2018-12-08 15:58:00 [facility] [place] Respitory Rate 2018-12-08 15:49:00 [facility] Temperature Oral (F) 2018-12-08 15:49:00 97.8 F [facility] Heart Rate 2018-12-08 15:49:00 [facility] Systolic (mm Hg) 2018-12-08 15:49:00 [facility] Diastolic (mm Hg) 2018-12-08 15:49:00 [facility] Weight 2018-12-08 15:49:00 [facility] Systolic (mm Hg) 2018-09-08 14:34:00 [facility] Diastolic (mm Hg) 2018-09-08 14:34:00 [facility] BMI Calculated 2018-09-08 14:34:00 [facility] [place] Heart Rate 2018-09-08 14:34:00 [facility] Height 2018-09-08 14:34:00 160.02 cm [facility] Weight 2018-09-08 14:34:00 [facility] Height 2018-07-07 13:40:00 160.02 cm [facility] Weight 2018-07-07 13:40:00 [facility] BMI Calculated 2018-07-07 13:40:00 [facility] Heart Rate 2018-07-07 13:40:00 [facility] Systolic (mm Hg) 2018-07-07 13:40:00 [facility] [place] Diastolic (mm Hg) 2018-07-07 13:40:00 [facility] [place] Weight 2018-06-15 14:39:00 [facility] Heart Rate 2018-06-15 14:39:00 [facility] Respitory Rate 2018-06-15 14:39:00 [facility] [place] Temperature Oral (F) 2018-06-15 14:39:00 98.3 F [facility] Systolic (mm Hg) 2018-06-15 14:39:00 [facility] Diastolic (mm Hg) 2018-06-15 14:39:00 [facility] [place] Weight 2018-02-10 15:37:00 [facility] Height 2018-02-10 15:37:00 160.02 cm [facility] Systolic (mm Hg) 2018-02-10 15:37:00 [facility] Diastolic (mm Hg) 2018-02-10 15:37:00 [facility] BMI Calculated 2018-02-10 15:37:00 [facility] Heart Rate 2018-02-10 15:37:00 [facility] Temperature Oral (F) 2018-02-10 15:37:00 97.9 F [facility] Respitory Rate 2018-02-10 15:37:00 [facility] [place] BMI Calculated 2018-02-10 14:36:00 [facility] Height 2018-02-10 14:36:00 165.1 cm [facility] Systolic (mm Hg) 2018-02-10 14:36:00 [facility] [place] Diastolic (mm Hg) 2018-02-10 14:36:00 [facility] Heart Rate 2018-02-10 14:36:00 [facility] Temperature Oral (F) 2018-02-10 14:36:00 98.1 F [facility] Weight 2018-02-10 14:36:00 [facility] Procedures Procedure Date / Time Performing Clinician Source Performed DEXA, axial skeleton + 2022-08-08 00:00:00 [facility] vertebral fracture [facility] assessment MAMMO, screening, digital, 2022-08-08 00:00:00 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 [place] [place] Cholecystectomy [facility] Carpal Tunnel Surgery [facility] Total Hysterectomy [facility] [place] Insertion of Arterial [facility] Plan of Care Planned Activity Planned Date Details Comments Source Diagnostic Test 2023-02-03 HbA1c (hemoglobin [facility] Pending 00:00:00 A1c), blood [code Hospital C linics = HbA1c (hemoglobin A1c), blood] Diagnostic Test 2023-02-03 CMP, serum or [facility] Pending 00:00:00 plasma [code = Hospital Clin ics CMP, serum or plasma] Future Appointment 2023-08-06 [facility] 00:00:00 Leonarda N Berry; [facility] nics [address], [place] [phone] Encounters Start End Encounter Admission Attending Care Care Encounter Source Date/Time Date/Time Type Type Clinicians Facility Department ID 2021-12-19 Outpatient zzzLong, STLMLC STLMLC [id number] 2 [place] 14:10:18 [place] [address] [facility] 2021-12-19 Outpatient zzzLong, STLMLC STLMLC [id number] 2 [place] 13:48:12 [place] [address] [facility] 2021-12-19 Outpatient zzzLong, STLMLC STLMLC [id number] 2 [place] 13:25:35 [place] [address] [facility] 2021-12-19 Outpatient zzzLong, STLMLC STLMLC [id number] 2 [place] 12:51:57 [place] [address] [facility] 2021-12-19 Outpatient zzzLong, STLMLC STLMLC [id number] 2 [place] 12:22:45 [place] [address] [facility] 2021-12-19 Out[place] STLMLC STLMLC [id number] Common 11:45:35 [address] [facility] 2023-02-03 2023-02-03 Karen [facility] [place] [facility] [place] 00:00:00 00:00:00 [facility] [address] [facility], [phone] LYNNETTE , Ph. 2022-08-15 2022-08-15 Outpatient [facility]SON[facility] [id number] [place] 00:[facility]00 00:00:00 [facility] 2022-08-15 2022-08-15 Outpatient [facility] [id number] [place] 00:[facility]00 00:00:00 [facility] 2022-08-15 2022-08-15 Outpatient [facility] [id number] [place] 00:[facility]00 00:00:00 [facility] 2022-08-15 2022-08-15 Karen [facility] [place] [facility]:00:[facility] DO[facility] [address] [facility] [place] [place] [place] [facility], [phone] LYNNETTE , Ph. 2022-08-13 2022-08-13 Outpatient [facility] [id number] [place] 00:00:00 00:00:00 [id number] 2022-08-08 2022-08-08 Outpatient [facility] [id number] [place] 00:00:00 00:00:00 [id number] 2022-08-08 2022-08-08 Outpatient Lynnette [facility] [id number] 00:00:00 00:00:00 Karen [id number] 2022-08-08 2022-08-08 Karen [facility] [place] [id number] [place] 00:00:00 00:00:00 [facility] DO: [address] a [facility], [place], [place], [address] LYNNETTE , Ph. [phone] 2022-06-07 2022-06-07 [facility] 941 [place] 10:04:00 10:04:00 _ANN 0715 da [facility] Program 2022-05-18 2022-05-18 Outpatient ERICKSON_R [facility] [id number] [place] 00:00:00 00:00:00 625 [facility] 2022-03-26 2022-03-26 Outpatient ERICKSON_R [facility] [id number] [place] 03:40:00 03:40:00 503 [facility] 2022-03-26 2022-03-26 Karen [facility] [place] 00:00:00 00:00:00 [facility] - ty DO: [address] [facility], [place], [place], [address] LYNNETTE , Ph. 2022-03-26 2022-03-26 Outpatient Lynnette [facility] [id number] 00:00:00 00:00:00 Karen [id number] Whittington [id number] 2022-03-26 2022-03-26 Outpatient Lynnette [facility] [id number] 00:00:00 00:00:00 Karen [id number] Pk [id number] 2022 2022 Outpatient ERICKSON_R [facility] [id number] [place] 06:48:00 06:48:00 407 [facility] 2022-01-28 2022-01-28 Outpatient ERICKSON_R [facility] [id number] [place] 10:55:00 10:55:00 307 [facility] 2022-01-28 2022-01-28 Outpatient Lynnette [facility] [id number] 00:00:00 00:00:00 Karen [id number] Pk [id number] 2022-01-28 2022-01-28 [facility] [place] 00:00:00 00:00:00 [facility] DO: [address] [facility] l [address], HOSPITAL [place], [place], [address] LYNNETTE , Ph. 2021-10-02 2021-10-02 (TEL) STLMLC STLMLC [id number] Co mmon 00:00:00 00:00:00 [facility] 2021-10-02 2021-10-02 Postop STLMLC STLMLC [id number] Co mmon 00:00:00 00:00:00 visit [facility] 2021-09-21 2021-09-21 (TEL) STLMLC STLMLC [id number] Co mmon 00:00:00 00:00:00 [facility] 2021-08-27 2021-08-27 (TEL) STLMLC STLMLC [id number] Co mmon 00:00:00 00:00:00 [facility] 2021-08-14 2021-08-14 NON-BILLAB STLMLC STLMLC [id number] Common 00:00:00 00:00:00 LE VISIT Spiri t [facility] 2021-08-08 2021-08-08 (TEL) STLMLC STLMLC [id number] Co mmon 00:00:00 00:00:00 [facility] 2021-07-31 2021-07-31 (TEL) STLMLC STLMLC [id number] Co mmon 00:00:00 00:00:00 [facility] 2021-07-26 2021-07-26 Outpatient TRICE [facility] [id number] [place] 11:26:00 11:26:00 902 [facility] 2021-07-26 2021-07-26 OFFICE STLMLC STLMLC [id number] Co mmon 00:00:00 00:00:00 VISIT Spirit ESTAB PT - CHI LEVEL 4 [facility] 2021-07-26 2021-07-26 Karen [facility] [place] 00:00:00 00:00:00 [facility] - ty DO: [address] a [facility], HOSPITAL Clinic [place], [place], [address] LYNNETTE , Ph. 2021-07-26 2021-07-26 Outpatient Lynnette [facility] [id number] 00:00:00 00:00:00 Karen [id number] Pk [id number] 2021-06-26 Outpatient ERICKSON_R [facility] [id number] - [place] 12:27:00 12:27:00 803 Commun i ty Hospita l [facility] 2021-06-26 2021-06-26 Karen [facility] [place] 00:00:00 00:00:00 [facility] - ty DO: [address] a [facility], [place], [address] LYNNETTE , Ph. 2021-06-26 2021-06-26 Outpatient Lynnette [facility] [id number] 00:00:00 00:00:00 Karen [id number] Pk [id number] 2021-06-21 2021-06-21 OFFICE STLMLC STLMLC [id number] Co mmon 00:00:00 00:00:00 VISIT Spirit ESTAB PT - CHI LEVEL 4 [facility] 2021-06-21 2021-06-21 (TEL) STLMLC STLMLC [id number] Co mmon 00:00:00 00:00:00 [facility] 2021-05-25 2021-05-25 Outpatient ERICKSON_R [facility] [id number] [place] 10:45:00 10:45:00 702 [facility] 2021-05-25 2021-05-25 Outpatient ERICKSON_R [facility] [id number] [place] 10:45:00 10:45:00 703 Commun i ty [facility] 2021-05-25 2021-05-25 Karen [facility] [place] 00:00:00 00:00:00 [facility] - ty DO: [address] a [facility], [place], [address] LYNNETTE , Ph. [phone] 2021-05-25 2021-05-25 Outpatient Lynnette [facility] [id number] 00:00:00 00:00:00 Karen [id number] Pk [id number] 2021-01-26 2021-01-26 Outpatient ERICKSON_R [facility] [id number] [place] 04:29:00 04:29:00 305 Commun i ty Hospita [facility] 2021-01-26 2021-01-26 Karen [facility] [place] 05 [place] 00:00:00 00:00:00 [facility] - ty DO: [address] a [facility], [place], [address] LYNNETTE , Ph. [phone] 2021-01-26 2021-01-26 [facility] [id number] 00:00:00 00:00:00 Karen [id number] Pk [id number] 2021-01-25 2021-01-25 OFFICE STLMLC STLMLC [id number] Co mmon 00:00:00 00:00:00 VISIT EST Spir it PT LEVEL 3 - [facility] 2020-12-13 2020-12-13 NON-BILLAB STLMLC STLMLC [id number] Common 00:00:00 00:00:00 LE VISIT [facility] 2020-12-07 2020-12-07 Outpatient Kofi ANTON, [facility] [id number] Univers 10:00:00 10:00:00 ALCON bertrand [facility] 2020-11-07 2020-11-07 NON-BILLAB STLMLC STLMLC [id number] Common 00:00:00 00:00:00 LE VISIT [facility] 2020-10-24 2020-10-24 NON-BILLAB STLMLC STLMLC [id number] Common 00:00:00 00:00:00 LE VISIT [facility] 2020-10-12 2020-10-12 OFFICE STLMLC STLMLC [id number] Co mmon 00:00:00 00:00:00 VISIT EST Spir it PT LEVEL 3 - [facility] 2020-09-12 2020-09-12 Outpatient STLMLC STLMLC [id number] Common 00:00:00 00:00:00 [facility] 2020-09-05 2020-09-06 Outpatient nullFlavo MNA [id number] Memoria 13:15:00 04:59:59 r Neurology 53 l Neli Miranda 2020-09-06 2020-09-06 Outpatient STLMLC STLMLC [id number] Common 00:00:00 00:00:00 [facility] 2020-09-05 2020-09-05 Outpatient NATHAN FlowersMISCHER MHMISCHER [id number] 08:15:00 23:59:59 Kuldeep 55 [place] 2020-09-05 2020-09-05 Outpatient MHIE MHIE [id number] Memoria 08:15:00 08:15:00 53 l Ruben 2020-08-23 2020-08-23 Outpatient STLMLC STLMLC [id number] Common 00:00:00 00:00:00 [facility] 2020-08-07 2020-08-07 Outpatient [facility] [id number] Common 09:00:00 09:00:00 [facility] 2020-07-26 2020-07-26 Outpatient TRICE [facility] [id number] [place] 03:22:00 03:22:00 225 [facility] i ty [facility] Clinics 2020-06-13 2020-06-14 [place] [id number] Memoria 15:15:00 04:59:59 r Nephrology 54 l Emery Ruben 2020-06-13 2020-06-13 [facility] [id number] 10:15:00 23:59:59 Armond 54 2020-06-13 2020-06-13 Outpatient MHIE IE [id number] Memoria 10:15:00 10:15:00 54 l Ruben 2020-05-29 2020-05-29 Orders Doctor LANDON 1.2.840.114 [id number] 00:00:00 00:00:00 Only Unassigned, PREETI 350.1.13.10 [facility] 4.2.7.2.686 [id number] 009 2020-03-29 2020-03-29 Orders Doctor NAVARRETE 1.2.840.114 [id number] 00:00:00 00:00:00 Only Unassigned, PREETI 350.1.13.10 [place] [facility] 4.2.7.2.686 [id number] 009 2020-03-21 2020-03-21 Telephone Gramm, [facility] 1.2.110.192 [id number] 00:00:00 00:00:00 Donna Godinez 350.1.13.10 [place] 4.2.7.2.686 Professio [id number] [address] 2020-03-17 2020-03-17 Orders Doctor NAVARRETE 1.2.840.114 [id number] 00:00:00 00:00:00 Only Unassigned, PREETI 350.1.13.10 [place] [facility] 4.2.7.2.686 [id number] [id number] 2020-03-06 2020-03-06 Outpatient R GLENDA KORINA [facility] [id number] Univers 10:00:00 10:00[facility]06 2020-03-06 Telemedici Diaz Doshihi [facility] 1.2.840.114 [id number] 08:01:45 08:16:45 ne Visit [facility] 350.1.13.10 Clear 4.2.7.2.686 Laurent [phone] Medical [facility] 2020-03-01 2020-03-01 [facility] 1.2.840.114 [id number] 00:00:00 00:00:00 Management Donna Godinez 350.1.13.10 [place] 4.2.7.2.686 Professio [phone] [address] 2020-02-08 2020-02-29 Office [facility] 1.2.519.699 [id number] 13:23:00 15:01:35 Visit Jemma Juno Herbert 350.1.13.10 [place] 4.2.7.2.686 Professio [phone] [address] 2020-02-29 2020-02-29 Telephone [facility] 1.2.840.114 [id number] 00:00:00 00:00:00 Jemma Juno Herbert 350.1.13.10 [place] 4.2.7.2.686 Professio [id number] [address] 2020-02-29 2020-02-29 [facility] 1.2.840.114 [id number] 00:00:00 00:00:00 Management Donna Godinez 350.1.13.10 [place] 4.2.7.2.686 Professio [phone] [address] 2020-02-08 2020-02-[address] [facility] [id number] Univers 15:45:00 15:45:00 JEMMA hang [facility] 2020-02-08 2020-02-08 [facility] [id number] [facility] 15:45:00 15:45:[address] [facility] 2020-02-03 2020-02-[address] [facility] [id number] Univers 13:18:09 13:19:[address] [facility] 2020-01-18 2020-01-[address] [facility] [id number] Univers 13:15:00 13:15:[address] [facility] 2020-01-04 2020-01-[address] [facility] [id number] Univers 13:15:00 14:38:[address] [facility] 2019-12-14 2019-12-15 Outpatient nullFlavo [facility] [id number] Memoria 16:15:00 05:59:59 r Nephrology 53 l Byron Ruben 2019-12-14 2019-12-14 Outpatient Dillon White [facility] [id number] 10:15:00 23:59:59 Armond 53 2019-12-14 2019-12-14 Outpatient MHIE MHIE [id number] Memoria 10:15:00 10:15:00 53 abdon Miranda 2019-12-13 2019-12-13 Orders Doctor [facility] 1.2.840.114 [id number] 00:00:00 00:00:00 Only Unassigned, PREETI 350.1.13.10 [place] [facility] 4.2.7.2.686 [id number] [id number] 2019-12-01 2019-12-03 Phone nullFlavo [facility] Family [id number] Memoria 16:15:33 05:59:59 Message r Medicine 30 abdon Land Ruben 2019-12-01 2019-12-02 Outpatient MHMG MH[facility] [id number] 10:15:33 23:59:59 30 2019-11-25 2019-11-27 Phone nullFlavo [facility] Family [id number] Memoria 22:02:58 05:59:59 Message r Medicine 29 badon Villagomezann 2019-11-25 2019-11-26 Outpatient MHMG [facility] [id number] 16:02:58 23:59:59 29 2019-06-08 2019-06-09 Outpatient nullFlavo [facility] [id number] Memoria 14:45:00 04:59:59 r Nephrology 51 l Byron Ruben 2019-06-08 2019-06-08 Outpatient Dillon White [facility]MG [id number] 09:45:00 23:59:59 Armond Clements 2019-06-08 2019-06-08 Outpatient MHIE MHIE [id number] Memoria 09:45:00 09:45:00 51 abdon Miranda 2019-06-01 2019-06-01 Outpatient MHIE MHIE [id number] Memoria 08:20:00 08:20:00 52 abdon Miranda 2019-02-10 2019-02-12 Phone nullFlavo [facility] Family [id number] Memoria 12:12:00 04:59:59 Message r Medicine 28 abdon Miranda 2019-02-10 2019-02-11 Outpatient MHMG MHMG [id number] 07:12:00 23:59:59 28 2019-02-09 2019-02-11 Phone nullFlavo [facility] Family [id number] Memoria 21:23:00 04:59:59 Message r Medicine 27 abdon Miranda 2019-02-09 2019-02-11 Phone nullFlavo [facility] Family [id number] Memoria 18:42:00 04:59:59 Message r Medicine 14 abdon Miranda 2019-02-09 2019-02-11 Phone nullFlavo [facility] Family [id number] [id number] Memoria 12:05:00 04:59:59 Message r Medicine 26 abdon Miranda 2019-02-09 2019-02-10 Outpatient MHMG MHMG [id number] 16:23:00 23:59:59 27 2019-02-09 2019-02-10 Outpatient MHMG MHMG [id number] 13:42:00 23:59:59 14 2019-02-09 2019-02-10 Outpatient MHMG MHMG [id number] 07:05:00 23:59:59 26 2019-02-09 2019-02-10 Between nullFlavo [facility] Family [id number] Memoria 21:24:35 21:24:35 Visit r Medicine 44 abdon Miranda 2019-02-09 2019-02-10 Outpatient MHMG MHMG [id number] 16:24:35 16:24:35 44 2018-12-08 2018-12-09 Outpatient nullFlavo [facility] Family 3 [id number] Memoria 16:45:00 05:59:59 r Medicine 46 abdon Miranda 2018-12-08 2018-12-09 Outpatient nullFlavo [facility] [id number] Memoria 15:15:00 05:59:59 r Nephrology 49 abdon Miranda 2018-12-08 2018-12-08 Outpatient Kofi MG [id number] 10:45:00 23:59:59 Castro De Leon 46 2018-12-08 2018-12-08 [place] [id number] 09:15:00 23:59:59 Armond Santana 2018-12-08 2018-12-08 Outpatient MHIE MHIE [id number] Memoria 10:45:00 10:45:00 46 abdon Miranda 2018-12-08 2018-12-08 Outpatient MHIE MHIE [id number] Memoria 09:15:00 09:15:00 49 abdon Miranad 2018-12-03 2018-12-04 [place] [id number] Memoria 14:30:00 05:59:59 Pre-Reg r Nephrology 50 abdon Miranda 2018-12-03 2018-12-03 [place] [id number] 08:30:00 23:59:59 Armond 50 2018-12-03 2018-12-03 Outpatient MHIE MHIE [id number] Memoria 08:30:00 08:30:00 50 abdon Miranda 2018-11-10 2018-11-12 Phone nullFlavo [facility] Family [id number] Memoria 14:18:00 05:59:59 Message r Medicine 25 abdon Miranda 2018-11-10 2018-11-11 Outpatient MHMG MG [id number] 08:18:00 23:59:59 25 2018-11-05 2018-11-07 Outside nullFlavo [facility] Family [id number] Memoria 15:38:00 05:59:59 Medical r Medicine 24 abdon Miranda 2018-11-05 2018-11-06 Outpatient MHMG MHMG [id number] 09:38:00 23:59:59 24 2018-10-06 2018-10-08 Phone nullFlavo MG Family [id number] Memoria 17:45:00 05:59:59 Message r Medicine 23 abdon Miranda 2018-10-06 2018-10-07 Outpatient MHMG MHMG [id number] 11:45:00 23:59:59 23 2018-09-29 2018-10-01 Phone nullFlavo [facility] Family [id number] Memoria 14:49:00 05:59:59 Message r Medicine 22 abdon Miranda 2018-09-29 2018-09-30 Outpatient MHMG MHMG [id number] 08:49:00 23:59:59 22 2018-09-08 2018-09-09 Outpatient nullFlavo MHMG [id number] Memoria 15:45:00 04:59:59 r Nephrology 41 abdon Miranda 2018-09-08 2018-09-08 Outpatient Dillon White [facility] MHMG [id number] 10:45:00 23:59:59 Armond 41 2018-09-08 2018-09-08 Outpatient MHIE MHIE [id number] Memoria 10:45:00 10:45:00 41 abdon Miranda 2018-08-19 2018-08-21 Outside nullFlavo [facility] Family [id number] Memoria 19:50:00 04:59:59 Medical r Medicine 21 abdon Miranda 2018-08-19 2018-08-20 Outpatient MHMG MHMG [id number] 14:50:00 23:59:59 21 2018-08-19 2018-08-19 Ambulatory nullFlavo MHMG [id number] Memoria 12:40:00 12:40:00 Pre-Reg r Internal 48 abdon Land 2018-08-19 2018-08-19 Outpatient MHIE MHIE [id number] Memoria 07:40:00 07:40:00 48 abdon Miranda 2018-08-19 2018-08-19 Outpatient MHMG MHMG [id number] 07:40:00 07:40:00 48 2018-08-10 2018-08-12 Phone nullFlavo [facility] Family [id number] Memoria 12:53:00 04:59:59 Message r Medicine 20 abdon Miranda 2018-08-10 2018-08-11 Outpatient MHMG MHMG [id number] 07:53:00 23:59:59 20 2018-08-04 2018-08-04 Ambulatory nullFlavo MHMG [id number] Memoria 12:20:00 12:20:00 Pre-Reg r Internal 47 l Medicine Ruben Land 2018-08-04 2018-08-04 Outpatient MHIE MHIE [id number] Memoria 07:20:00 07:20:00 47 abdon Miranda 2018-08-04 2018-08-04 Outpatient MHMG MHMG [id number] 07:20:00 07:20:00 47 2018-08-04 2018-08-04 Outpatient MHMG MHMG [id number] 07:20:00 07:20:00 47 2018-07-07 2018-07-08 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 3 [id number] Memoria 13:30:00 04:59:59 r Emery 43 abdon Miranda 2018-07-07 2018-07-07 Outpatient Shena MG [facility] [id number] 08:30:00 23:59:59 , 43 Sindhu Pollock 2018-07-07 2018-07-07 Outpatient MHIE MHIE [id number] Memoria 08:30:00 08:30:00 43 abdon Miranda 2018-06-16 2018-06-18 Phone nullFlavo [facility] Family [id number] Memoria 17:55:00 04:59:59 Message r Medicine 19 abdon Miranda 2018-06-16 2018-06-17 Outpatient MHMG MHMG [id number] 12:55:00 23:59:59 19 2018-06-15 2018-06-16 [place] [id number] Memoria 16:00:00 04:59:59 r Radiology 45 abdon Miranda 2018-06-15 2018-06-16 Outpatient nullFlavo [facility] Family 3 [id number] Memoria 15:00:00 04:59:59 r Medicine 42 abdon Miranda 2018-06-15 2018-06-15 Outpatient VISIT, MG MG [id number] 11:00:00 23:59:59 NURSE STWC 45 MAMMO 2018-06-15 2018-06-15 [facility] [id number] 10:00:00 23:59:59 Castro P 42 2018-06-15 2018-06-15 Outpatient Kofi MG [id number] 10:00:00 23:59:59 Castro P 42 2018-06-15 2018-06-15 [place] [id number] Memoria 16:00:00 16:00:00 Pre-Reg r Radiology 44 abdon Miranda 2018-06-15 2018-06-15 Outpatient MHIE MHIE [id number] Memoria 11:00:00 11:00:00 45 abdon Miranda 2018-06-15 2018-06-15 Outpatient MHIE MHIE [id number] Memoria 11:00:00 11:00:00 44 abdon Miranda 2018-06-15 2018-06-15 Outpatient VISIT, MG MG [id number] 11:00:00 11:00:00 NURSE STWC 44 SANDHYA 2018-06-15 2018-06-15 Outpatient VISIT, MG MG [id number] 11:00:00 11:00:00 NURSE STWC 44 SANDHYA 2018-06-15 2018-06-15 Outpatient MHIE IE [id number] Memoria 10:00:00 10:00:00 42 abdon Miranda 2018-02-16 2018-02-18 Phone nullFlavo [facility] Family [id number] Memoria 16:44:00 04:59:59 Message r Medicine 18 abdon Miranda 2018-02-16 2018-02-17 Outpatient MHMG MG [id number] 11:44:00 23:59:59 18 2018-02-10 2018-02-11 Outpatient nullFlavo MG Family 3 [id number] Memoria 15:15:00 04:59:59 r Medicine 40 abdon Miranda 2018-02-10 2018-02-11 [place] [id number] Memoria 14:30:00 04:59:59 r Nephrology 39 abdon Miranda 2018-02-10 2018-02-10 Outpatient Kofi MG [id number] 10:15:00 23:59:59 Castro P 40 2018-02-10 2018-02-10 [facility] [id number] 10:15:00 23:59:59 Castro P 40 2018-02-10 2018-02-10 Outpatient Dillon White [facility] MHMG [id number] 09:30:00 23:59:59 Armond 39 2018-02-10 2018-02-10 Outpatient Dillon White [facility] MHMG [id number] 09:30:00 23:59:59 Armond 39 2018-02-10 2018-02-10 Outpatient MHIE MHIE [id number] Memoria 10:15:00 10:15:00 40 abdon Miranda 2018-02-10 2018-02-10 Outpatient MHIE MHIE [id number] Memoria 09:30:00 09:30:00 39 abdon Miranda 2018-01-05 2018-01-07 Phone nullFlavo [facility] Family [id number] Memoria 22:18:00 05:59:59 Message r Medicine 17 abdon Miranda 2018-01-05 2018-01-06 Outpatient MHMG MHMG [id number] 16:18:00 23:59:59 17 2017-12-17 2017-12-19 Phone nullFlavo [facility] Family [id number] Memoria 15:31:00 05:59:59 Message r Medicine 16 abdon Miranda 2017-12-17 2017-12-19 Phone nullFlavo MHMG [id number] Memoria 15:26:00 05:59:59 Message r Nephrology 15 abdon Miranda 2017-12-17 2017-12-18 Outpatient MHMG MHMG [id number] 09:31:00 23:59:59 16 2017-12-17 2017-12-18 Outpatient MHMG MHMG [id number] 09:26:00 23:59:59 15 2017-11-25 2017-11-27 Phone nullFlavo [facility] Family [id number] Memoria 16:05:00 05:59:59 Message r Medicine 14 abdon Miranda 2017-11-25 2017-11-27 Phone nullFlavo MHMG [id number] Memoria 15:58:00 05:59:59 Message r Nephrology 13 abdon Miranda 2017-11-25 2017-11-26 Outpatient MHMG MHMG [id number] 10:05:00 23:59:59 14 2017-11-25 2017-11-26 Outpatient MHMG MHMG [id number] 09:58:00 23:59:59 13 2017-10-24 2017-10-26 Phone nullFlavo MHMG [id number] Memoria 16:53:00 05:59:59 Message r Internal 12 abdon Land 2017-10-24 2017-10-25 Outpatient MHMG MHMG [id number] 10:53:00 23:59:59 12 2017-08-29 2017-08-29 Outpatient MHIE MHIE [id number] Memoria 09:00:00 09:00:00 31 abdon Ruben 2017-08-19 2017-08-19 Outpatient MHIE MHIE [id number] Memoria 09:15:00 09:15:00 34 abdon Ruben 2017-07-04 2017-07-04 Outpatient MHIE MHIE [id number] Memoria 14:00:00 14:00:00 38 abdon Ruben 2017-07-03 2017-07-03 Outpatient MHIE MHIE [id number] Memoria 13:00:00 13:00:00 36 abdon Ruben 2017-07-03 2017-07-03 Outpatient MHIE MHIE [id number] Memoria 13:00:00 13:00:00 37 abdon Ruben 2017-07-03 2017-07-03 Outpatient MHIE MHIE [id number] Memoria 10:30:00 10:30:00 35 abdon Ruben 2017-06-03 2017-06-03 Outpatient MHIE MHIE [id number] Memoria 10:15:00 10:15:00 30 abdon Ruben 2017-05-30 2017-05-30 Outpatient MHIE MHIE [id number] Memoria 09:30:00 09:30:00 29 abdon Ruben 2017-05-30 2017-05-30 Outpatient MHIE MHIE [id number] Memoria 09:30:00 09:30:00 33 abdon Ruben 2017-05-30 2017-05-30 Outpatient MHIE MHIE [id number] Memoria 09:30:00 09:30:00 32 abdon Ruben 2017-02-27 2017-02-27 Outpatient MHIE MHIE [id number] Memoria 10:30:00 10:30:00 28 abdon Miranda 2017-02-18 2017-02-18 Outpatient MHIE MHIE [id number] Memoria 11:15:00 11:15:00 24 abdon Miranda 2017-02-18 2017-02-18 Outpatient MHIE MHIE [id number] Memoria 09:45:00 09:45:00 26 abdon Miranda 2017-02-10 2017-02-10 Outpatient MHIE MHIE [id number] Memoria 13:00:00 13:00:00 27 abdno Miranda 2016-12-04 2016-12-04 Outpatient MHIE MHIE [id number] Memoria 10:00:00 10:00:00 25 abdon Miranda 2016-11-07 2016-11-07 Outpatient MHIE MHIE [id number] Memoria 10:45:00 10:45:00 20 abdon Miranda 2016-10-22 2016-10-22 Outpatient MHIE MHIE [id number] Memoria 11:30:00 11:30:00 22 abdon Miranda 2016-10-15 2016-10-15 Outpatient Young_J MMG MMG [id number] [place] 03:16:00 03:16:00 [facility] 2016-10-04 2016-10-04 Outpatient MHIE MHIE [id number] Memoria 13:15:00 13:15:00 18 abdon Miranda 2016-08-27 2016-08-27 Outpatient MHIE MHIE [id number] Memoria 10:15:00 10:15:00 23 abdon Miranda 2016-07-23 2016-07-23 Outpatient MHIE MHIE [id number] Memoria 11:15:00 11:15:00 06 abdon Miranda 2016-07-23 2016-07-23 Outpatient MHIE MHIE [id number] Memoria 11:00:00 11:00:00 21 abdon Miranda 2016-07-11 2016-07-11 Outpatient MHIE MHIE [id number] Memoria 10:45:00 10:45:00 14 abdon Miranda 2016-06-21 2016-06-21 Outpatient MHIE MHIE [id number] Memoria 10:45:00 10:45:00 19 abdon Miranda 2016-05-17 2016-05-17 Outpatient MHIE MHIE [id number] Memoria 11:45:00 11:45:00 17 abdon Miranda 2016-05-13 2016-05-13 Outpatient MHIE MHIE [id number] Memoria 09:15:00 09:15:00 16 abdon Miranda 2016-05-03 2016-05-03 Outpatient MHIE MHIE [id number] Memoria 10:15:00 10:15:00 15 abdon Miranda 2016-04-18 2016-04-18 Outpatient MHIE MHIE [id number] Memoria 10:45:00 10:45:00 13 abdon Miranda 2016-04-18 2016-04-18 Outpatient MHIE MHIE [id number] Memoria 09:45:00 09:45:00 12 abdon Miranda 2016-04-04 2016-04-04 Outpatient MHIE MHIE [id number] Memoria 09:45:00 09:45:00 11 abdon Miranda 2016-03-28 2016-03-28 Outpatient MHIE MHIE [id number] Memoria 09:45:00 09:45:00 09 abdon Miranda 2016-03-27 2016-03-27 Outpatient MHIE MHIE [id number] Memoria 10:30:00 10:30:00 04 abdon Miranda 2016-02-06 2016-02-07 Outpt Diag nullFlavo [facility] [id number] Memoria 15:27:00 04:59:00 Services r Outpatient 01 l [employer] 2016-02-06 2016-02-06 Outpatient Rudy, MH29 MH29 [id number] 10:27:00 23:59:00 [facility] [place]2016-01-24 2016-01-24 Outpatient MHIE MHIE [id number] Memoria 11:10:00 11:10:00 08 abdon Miranda 2016-01-23 2016-01-23 Outpatient MHIE MHIE [id number] Memoria 15:00:00 15:00:00 05 abdon Miranda 2016-01-22 2016-01-22 Outpatient MHIE MHIE [id number] Memoria 10:15:00 10:15:00 02 abdon Miranda 2015-12-21 2015-12-21 Outpatient MHIE MHIE [id number] Memoria 10:45:00 10:45:00 07 abdon Miranda 2015-12-20 2015-12-21 Outpt Diag nullFlavo [facility] [id number] Memoria 16:17:00 05:59:00 Services r Outpatient 00 l [facility] [place] [facility] 2015-12-20 2015-12-20 Outpatient Dillon White MH29 MH29 [id number] 10:17:00 23:59:00 Armond 00 2015-12-12 2015-12-12 Outpatient MARTITA ANDERS [id number] Memoria 10:45:00 10:45:00 01 abdon Miranda 2015-11-29 2015-11-29 Outpatient MARTITA ANDERS [id number] Memoria 10:30:00 10:30:00 03 abdon Miranda 2015-08-02 2015-08-02 Outpatient MARTITA ANDERS [id number] Memoria 16:00:00 16:00:00 00 abdon Miranda Results Test Description Test Time Test Comments Results Result Comments Source Lipid Panel 2019-09-16 21:03:58 Test Item Value Reference Range Interpretation Comme nts Cholesterol Total (test code = 183 mg/dL 0-200 RISK OF HEART DISEASEPublished by Cholesterol Total) [place] [employer] Analyte Optimal Borderl ine Increased RiskCHOL <200 2 00-239 >240TRIG <150 150-199 >2 00HDL Male >60 <40HDL Female > 60 <50LDL <100 130-159 >160LDL Near optimal is 100-129 Triglycerides (test code = 140 mg/dL 9-200 Triglycerides) HDL (test code = HDL) 62 mg/dL 50-60 H LDL (test code = LDL) 93 mg/dL 0-130 The eq uation being used in this calculation is LDL = (Chol - HDL) - (Trig / 5) VLDL (test code = VLDL) 28 mg/dL 5-40 The equation being used in this calculation is VLDL = Trig / 5 Chol/HDL (test code = Chol/HDL) 3.0 ratio 0.0-4.4 LDL/HDL Ratio (test code = 1 N T he equation being used in this LDL/HDL Ratio) calculation i s LDL/HDL Ratio=LDL Calc/HDL Chol XR Chest 1 View [id number] 09:34:00Patient: GABY MONTANO Date/Time01/29/2019 09:27 CSTReason for Exampre cardiac cath;Other (please specify)ReportEXAM: CHEST ONE VIEWINDICATION: PreopCOMPARISON: None availableTECHNIQUE:AP view of the chest.FINDINGS:The cardiomediastinal silhouette is normal. The lungs are clear bilaterally. No pneumothorax or pleural effusion is identified. The osseous structures are unremarkable.IMPR ESSION:No acute cardiopulmonary process.LOCATION: R16 Final Dictated by: MD Telles Melanie CDictated DT/TM: 01/29/2019 9:33 amSigned by: MD Telles Melanie CSigned (Electronic Signature): 01/29/2019 9:34 am
[2023-04-10] MEDS ORDERED: NA CHLORIDE 0.9% 0 ML ONE (11:08)
[2023-04-10 11:11] LABS: Absolute Lymphocytes (CBC) 1.3 K/uL (0.7-4.9); Hematocrit 42.2 % (36.0-45.0); Lymphocytes % 26.9 % (15.3-44.8); RBC Red Blood Cell Count 4.85 M/uL (3.86-4.86)
[2023-04-10] MEDS ORDERED: NA CHLORIDE 0.9% 1,000 ML ONE (11:11)
[2023-04-10 11:13] LABS: Protime INR 0.95
[2023-04-10 11:15] LABS: Urine Bacteria None Seen /HPF (<20); Urine Bilirubin NEGATIVE (Negative); Urine Blood Negative (Negative); Urine Clarity Clear (Clear); Urine Color Yellow (Yellow); Urine Glucose NEGATIVE (Negative); Urine Protein TRACE (Negative); Urine RBC <5 /HPF (None Seen); Urine Urobilinogen Normal (Normal); Urine pH 5.5 (5.0-7.0)
[2023-04-10 11:30] LABS: Albumin 3.8 g/dL (3.4-5.0); Bilirubin Direct 0.1 mg/dL (0-0.2); Bilirubin Indirect, Calculated 0.3 mg/dL (0.2-0.8); Bilirubin Total 0.4 mg/dL (0.2-1.0); Magnesium 2.1 mg/dL (1.6-2.4); Potassium 3.7 mEq/L (3.5-5.1); Protein, Total 8.2 g/dL (6.4-8.2); Troponin High Sensitivity 27.8 pg/mL (<58.9)
--- NOTE | 2023-04-10 11:49 | RAD REPORT ---
EXAM DESCRIPTION: [place] Single View04/10/2023 11:38 am CLINICAL HISTORY: Abdomen pain COMPARISON: 2020 FINDINGS: The lungs appear clear of acute infiltrate. The heart is normal size IMPRESSION: No acute abnormalities displayed
--- NOTE | 2023-04-10 13:39 | RAD REPORT ---
EXAM DESCRIPTION: CT - Abdomen Pelvis Wo Contrast - 04/10/2023 1:02 pm CLINICAL HISTORY: ABD PAIN COMPARISON: 05/17/2021 through 05/27/2010 TECHNIQUE: Thin cut axial CT imaging of the abdomen and pelvis was performed without IV contrast. Mu ltiplanar reformats were generated and reviewed. All CT scans are performed using dose optimization technique as appropriate and may include automated exposure control or mA/KV adjustment according to patient size. FINDINGS: No suspicious findings in the lung bases. The liver, spleen, adrenal glands, and pancreas show no suspicious findings. Gallbladder was surgical ly removed. No intra or extrahepatic biliary ductal dilation. Stable fluid density right upper and mid pole cystic lesions, the largest measuring 3.6 centimeter at the mid pole. No suspicious parenchymal findings within limits of noncontrast technique. No evidence of radiopaque calculi or hydroureteronephrosis. No dilated bowel loops or bowel wall thickening. Appendix is visualized and is unremarkable. No free air, free fluid or inflammatory stranding. No hernia, mass or bulky lymphadenopathy. The urinary blad maria isabel is without significant finding. No suspicious bony findings. Stable triangular fluid collection just superficial to the anterior abdominal wall the fascia in the midline at and above the level of the umbilicus, containing a small calcification. The collection aga in measures 4.2 x 2.1 centimeter, not significantly changed. IMPRESSION: No acute intra-abdominal process. Stable findings as above including and anterior abdominal wall small collection at and slightly above the level of the umbilicus, which may represent a chronic seroma.
[2023-04-10] MEDS ORDERED: ONDANSETRON 4 MG/2 ML VIAL ONE (13:54)
[2023-04-10] MEDS ORDERED: FENTANYL CITR 100 MCG/2 ML ONE (13:56)
--- NOTE | 2023-04-10 14:23 | EDPHYS ---
Physician Documentation [facility] Name: Parisa Blair Age: 78 yrs Sex: Female : 1945 Arrival Date: 04/10/2023 Time: 10:20 Bed 15 Private MD: Clint Puentes ED Physician Andrea Mcdonald HPI: 04/10 13:00 This 78 yrs old Black Female presents to ER via Ambulatory with complaints of Abdominal stephanie Pain - low, Nausea, Dizziness. 13:00 The patient presents to the emergency department with nausea, that is mild, abdominal stephanie pain, of the right lower quadrant. Onset: The symptoms/episode began/occurred 2 day(s) ago. Possible causes: unknown. The symptoms are aggravated by nothing. The symptoms are alleviated by nothing. Associated signs and symptoms: The patient has no apparent associated signs or symptoms. Severity of symptoms: At their worst the symptoms were mild moderate in the emergency department the symptoms are unchanged. The patient has not experienced similar symptoms in the past. Historical: - Allergies: 10:36 PENICILLINS; kc6 10:36 Vicodin; kc6 10:36 hydrocodone; kc6 10:36 Iodine; kc6 10:36 tramadol; kc6 - PSHx: 10:36 hystectomy; hernia repair; Cholecystectomy; kc6 - Immunization history:: Client reports receiving the 2nd dose of the Covid vaccine, Flu vaccine is up to date. - Social history:: Smoking status: Patient denies any tobacco usage or history of. ROS: 13:01 Constitutional: Negative for fever, chills, and weight loss, Eyes: Negative for injury, stephanie pain, redness, and discharge, ENT: Negative for injury, pain, and discharge, Neck: Negative for injury, pain, and swelling, Cardiovascular: Negative for chest pain, palpitations, and edema, Respiratory: Negative for shortness of breath, cough, wheezing, and pleuritic chest pain, Back: Negative for injury and pain, : Negative for injury, bleeding, discharge, and swelling, MS/Extremity: Negative for injury and deformity, Skin: Negative for injury, rash, and discoloration, Neuro: Negative for headache, weakness, numbness, tingling, and seizure, Psych: Negative for depression, anxiety, suicide ideation, homicidal ideation, and hallucinations, Allergy/Immunology: Negative for hives, rash, and allergies, Endocrine: Negative for neck swelling, polydipsia, polyuria, polyphagia, and marked weight changes, Hematologic/Lymphatic: Negative for swollen nodes, abnormal bleeding, and unusual bruising. 13:01 Abdomen/GI: Positive for abdominal pain, nausea, of the right lower quadrant. Exam: 13:01 Constitutional: This is a well developed, well nourished patient who is awake, alert, stephanie and in no acute distress. Head/Face: Normocephalic, atraumatic. Eyes: Pupils equal round and reactive to light, extra-ocular motions intact. Lids and lashes normal. Conjunctiva and sclera are non-icteric and not injected. Cornea within normal limits. Periorbital areas with no swelling, redness, or edema. ENT: Nares patent. No nasal discharge, no septal abnormalities noted. Tympanic membranes are normal and external auditory canals are clear. Oropharynx with no redness, swelling, or masses, exudates, or evidence of obstruction, uvula midline. Mucous membranes moist. Neck: Trachea midline, no thyromegaly or masses palpated, and no cervical lymphadenopathy. Supple, full range of motion without nuchal rigidity, or vertebral point tenderness. No Meningismus. Chest/axilla: Normal chest wall appearance and motion. Nontender with no deformity. No lesions are appreciated. Cardiovascular: Regular rate and rhythm with a normal S1 and S2. No gallops, murmurs, or rubs. Normal PMI, no JVD. No pulse deficits. Respiratory: Lungs have equal breath sounds bilaterally, clear to auscultation and percussion. No rales, rhonchi or wheezes noted. No increased work of breathing, no retractions or nasal flaring. Back: No spinal tenderness. No costovertebral tenderness. Full range of motion. Female : Normal external genitalia. Skin: Warm, dry with normal turgor. Normal color with no rashes, no lesions, and no evidence of cellulitis. MS/ Extremity: Pulses equal, no cyanosis. Neurovascular intact. Full, normal range of motion. Neuro: Awake and alert, GCS 15, oriented to person, place, time, and situation. Cranial nerves II-XII grossly intact. Motor strength 5/5 in all extremities. Sensory grossly intact. Cerebellar exam normal. Normal gait. Psych: Awake, alert, with orientation to person, place and time. Behavior, mood, and affect are within normal limits. 13:01 ECG was reviewed by the Attending Physician. 13:01 Abdomen/GI: Inspection: abdomen appears normal, Bowel sounds: normal, active, all quadrants, Palpation: moderate abdominal tenderness, in the right lower quadrant, Indicators: Liver: no appreciated palpable abnormalities, Hernia: not appreciated. Vital Signs: 10:33 BP 112 / 63; Pulse 78; Resp 19 S; Temp 97.7(TE); Pulse Ox 99% on R/A; Weight 88.9 kg kc6 (R); Height 5 ft. 5 in. (R); Pain 9/10; 15:06 BP 116 / 65; Pulse 78; Resp 18; Pulse Ox 99% ; ko1 10:33 Body Mass Index 32.62 (88.90 kg, 165.1 cm) 6 10:33 Pain Scale: Adult kc6 MDM: 10:27 Patient medically screened. [facility] 13:04 Differential diagnosis: Nonspecific abd pain, cholecystitis, pancreatitis, stephanie appendicitis, diverticulitis, viral gastroenteritis, gastroenteritis. Data reviewed: vital signs, nurses notes. Consideration of Admission/Observation Escalation of care including admission/observation considered. Independent interpretation of the following test(s) in the Emergency Department EKG: See my EKG interpretation above. Test considered but Not performed: EKG: NO ABD USG. Care significantly affected by the following chronic conditions: Hypertension, Obesity. 04/10 10:28 Order name: Basic Metabolic Panel; Complete Time: 11:47 stephanie 04/10 10:28 Order name: CBC with Diff; Complete Time: 11:47 [facility] 04/10 10:28 Order name: LFT's; Complete Time: 11:47 stephanie 04/10 10:28 Order name: Magnesium; Complete Time: 11:47 [facility] 04/10 10:28 Order name: NT PRO-BNP; Complete Time: 11:47 [facility] 04/10 10:28 Order name: PT-INR; Complete Time: 11:47 stephanie 04/10 10:28 Order name: Troponin HS; Complete Time: 11:47 [facility] 04/10 10:28 Order name: Urinalysis w/ reflexes; Complete Time: 11:47 [facility] 04/10 10:29 Order name: Lipase; Complete Time: 11:47 [facility] 04/10 10:28 Order name: XRAY Chest (1 view); Complete Time: 14: [facility] 04/10 10:50 Order name: Abdomen ; Complete Time: 14:08 EDMS 04/10 10:28 Order name: EKG; Complete Time: 10: [facility] 04/10 10:28 Order name: Cardiac monitoring; Complete Time: : [facility] 04/10 10:28 Order name: EKG - Nurse/Tech; Complete Time: 11: [facility] 04/10 10:28 Order name: IV Saline Lock; Complete Time: [facility] 04/10 10:28 Order name: Labs collected and sent; Complete Time: : [facility] 04/10 10:28 Order name: O2 Per Protocol; Complete Time: [facility] 04/10 10:28 Order name: O2 Sat Monitoring; Complete Time: [facility] EC:01 Rate is 77 beats/min. Rhythm is regular. QRS [place] is Normal. [place] interval is normal. QRS stephanie interval is normal. QT interval is normal. No Q waves. T waves are Normal. No ST changes noted. Clinical impression: NSR w/ Non-specific ST/T Changes and No evidence of ischemia. Interpreted by me. Reviewed by me. Administered Medications: 11:14 Drug: NS 0.9% IV 1000 ml Route: IV; Rate: 1 bolus; Site: right antecubital; ko1 13:44 Drug: Ondansetron IVP 4 mg Route: IVP; Site: right antecubital; ko1 13:45 Drug: fentaNYL (PF) IVP 25 mcg Route: IVP; Site: right antecubital; ko1 14:52 Not Given (Patient Refused): fentaNYL (PF) IVP 25 mcg IVP once ko1 Disposition Summary: 04/10/23 14:22 Discharge Ordered Location: Home stephanie Problem: new stephanie Symptoms: have improved stephanie Condition: Stable stephanie Diagnosis - Abdominal tenderness stephanie - Nausea stephanie Followup: stephanie - With: Clint Puentes DO - When: 2 - 3 days - Reason: Recheck today's complaints, Continuance of care, Re-evaluation by your physician Discharge Instructions: - Discharge Summary Sheet stephanie - Abdominal Pain, Adult stephanie - Nausea, Adult stephanie - Abdominal Pain, Adult, [id number] stephanie - Nausea, Adult, [id number] stephanie Forms: - Medication Reconciliation Form stephanie - Thank You Letter stephanie - Antibiotic Education stephanie - Prescription Opioid Use stephanie Prescriptions: - Zofran 4 mg Oral Tablet - take 1 tablet by ORAL route every 12 hours As needed; 20 tablet; Refills: 0, [facility] Product Selection Permitted - Bactrim DS 800-160 mg Oral Tablet - take 1 tablet by ORAL route every 12 hours for 7 days; 14 tablet; Refills: 0, [facility] Product Selection Permitted - dicyclomine 20 mg Oral Tablet - take 1 tablet by ORAL route 4 times per day; 28 tablet; Refills: 0, Product [facility] Selection Permitted Signatures: Dispatcher [employer] Andrea Pichardo MD MD cha Campbell, Kaitlyn RN RN kc6 Samreen Foster RN RN ko1 Corrections: (The following items were deleted from the chart) 10:38 10:36 Social history: Smoking status: Patient denies any tobacco usage or history of. kc6 kc6 10:50 10:29 Abdomen Pelvis W Con+CT.RAD.BRZ ordered. EDKS EDKS
--- NOTE | 2023-04-10 14:23 | ER ---
Nurse's Notes [facility] Name: Parisa Blair Age: 78 yrs Sex: Female : 1945 Arrival Date: 04/10/2023 Time: 10:20 Bed 15 Private MD: Clint Puentes Diagnosis: Abdominal tenderness;Nausea Presentation: 04/10 10:33 Chief complaint: Patient states: RLQ pain with nausea and dizziness since Friday. [facility] Coronavirus screen: Vaccine status: Patient reports receiving the 2nd dose of the covid vaccine. At this time, the client does not indicate any symptoms associated with coronavirus-19. Ebola Screen: No symptoms or risks identified at this time. Initial Sepsis Screen: Does the patient meet any 2 criteria? No. Patient's initial sepsis screen is negative. Does the patient have a suspected source of infection? No. Patient's initial sepsis screen is negative. Risk Assessment: Do you want to hurt yourself or someone else? Patient reports no desire to harm self or others. Onset of symptoms was April 10, 2023. 10:33 Method Of Arrival: Ambulatory [facility] 10:33 Acuity: ANGELA 3 kc6 Triage Assessment: 10:36 General: Appears in no apparent distress. kc6 10:36 General: Behavior is calm, cooperative, appropriate for age. Pain: Complains of pain in kc6 right lower quadrant Pain currently is 9 out of 10 on a pain scale. Pain began 2-3 days ago. GI: Abdomen is flat, non-distended, Reports nausea, vomiting, Patient currently denies diarrhea. Historical: - Allergies: 10:36 PENICILLINS; kc6 10:36 Vicodin; kc6 10:36 hydrocodone; kc6 10:36 Iodine; kc6 10:36 tramadol; kc6 - PSHx: 10:36 hystectomy; hernia repair; Cholecystectomy; kc6 - Immunization history:: Client reports receiving the 2nd dose of the Covid vaccine, Flu vaccine is up to date. - Social history:: Smoking status: Patient denies any tobacco usage or history of. Screenin:00 [facility] ED Fall Risk Assessment (Adult) History of falling in the last 3 months, ko1 including since admission No falls in past 3 months (0 pts) Confusion or Disorientation No (0 pts) Intoxicated or Sedated No (0 pts) Impaired Gait No (0 pts) Mobility Assist Device Used No (0 pt) Altered Elimination No (0 pt) Score/Fall Risk Level 0 - 2 = Low Risk Oriented to surroundings, Maintained a safe environment, Educated pt \T\ family on fall prevention, incl call for assistance when getting out of bed, Assessed \T\ reinforced patient's understanding of fall precautions, Provided non-skid footwear, Hourly rounding (assess needs \T\ fall precautionary measures) done, Used ambulatory aids as needed (educated on \T\ assisted with), Used gait belt as appropriate. Abuse screen: Denies threats or abuse. Denies injuries from another. Nutritional screening: No deficits noted. Tuberculosis screening: No symptoms or risk factors identified. Assessment: 11:00 General: Appears in no apparent distress. uncomfortable, Behavior is calm, cooperative, ko1 appropriate for age. Pain: Complains of pain in abdomen and right lower quadrant. Neuro: No deficits noted. Cardiovascular: Reports lightheadedness. Respiratory: No deficits noted. GI: Bowel sounds present X 4 quads. Abd is soft X 4 quads. : No deficits noted. EENT: No deficits noted. Derm: No deficits noted. Musculoskeletal: No deficits noted. Vital Signs: 10:33 BP 112 / 63; Pulse 78; Resp 19 S; Temp 97.7(TE); Pulse Ox 99% on R/A; Weight 88.9 kg kc6 (R); Height 5 ft. 5 in. (R); Pain 9/10; 15:06 BP 116 / 65; Pulse 78; Resp 18; Pulse Ox 99% ; ko1 10:33 Body Mass Index 32.62 (88.90 kg, 165.1 cm) kc6 10:33 Pain Scale: Adult [facility] ED Course: 10:25 Patient arrived in ED. am2 10:25 Clint Puentes DO is Private Physician. am2 10:26 Andrea Mcdonald MD is Attending Physician. stephanie 10:36 Triage completed. kc6 10:36 Arm band placed on. kc6 10:53 Samreen Foster, SENAIT is Primary Nurse. ko1 11:00 Patient has correct armband on for positive identification. Bed in low position. Call ko1 light in reach. Side rails up X 1. Client placed on continuous cardiac and pulse oximetry monitoring. NIBP monitoring applied. monitoring coordinator on. Warm blanket given. 11:00 No provider procedures requiring assistance completed. Inserted saline lock: 20 gauge ko1 in right antecubital area, using aseptic technique. Blood collected. 11:40 XRAY Chest (1 view) In Process Unspecified. EDMS 13:02 Abdomen In Process Unspecified. EDMS 14:21 Clint Puentes DO is Referral Physician. [facility] 15:00 IV discontinued, intact, bleeding controlled, No redness/swelling at site. Pressure ko1 dressing applied. Administered Medications: 11:14 Drug: NS 0.9% IV 1000 ml Route: IV; Rate: 1 bolus; Site: right antecubital; ko1 13:44 Drug: Ondansetron IVP 4 mg Route: IVP; Site: right antecubital; ko1 13:45 Drug: fentaNYL (PF) IVP 25 mcg Route: IVP; Site: right antecubital; ko1 14:52 Not Given (Patient Refused): fentaNYL (PF) IVP 25 mcg IVP once ko1 Medication: 11:00 VIS not applicable for this client. ko1 Outcome: 14:22 Discharge ordered by . [facility] 15:00 Discharged to home ambulatory. ko1 15:00 Condition: improved 15:00 Discharge instructions given to patient, Instructed on discharge instructions, follow up and referral plans. medication usage, Demonstrated understanding of instructions, follow-up care, medications, Prescriptions given X 3. 15:08 Patient left the ED. ko1 Signatures: Dispatcher [employer] Andrea Pichardo MD MD cha Moreno, Amanda am2 Macy Jimenez RN RN kc6 Samreen Foster RN RN ko1 Corrections: (The following items were deleted from the chart) 10:38 10:36 Social history: Smoking status: Patient denies any tobacco usage or history of. kc6 kc6
[2023-04-10 15:14] VITALS: TEMP 97.7; O2SAT 99
[2023-04-10 15:16] VITALS: BP 116/65
--- NOTE | 2023-04-11 13:28 | EKG ---
Test Date: 2023-04-10 Test Time: 10:52:40 Meat Blender: JOEY MEASUREMENT RESULTS: Intervals: Rate: 77 WV: 220 QRSD: 114 QT: 420 QTc: 475 [place]: P: 22 WV: 220 QRS: -46 T: 4 INTERPRETIVE STATEMENTS: Sinus rhythm with 1st degree AV block Left axis deviation Right bundle branch block Abnormal ECG Compared to ECG 07/08/2022 11:10:42 Left-axis deviation now present Right bundle-branch block now present Sinus arrhythmia no longer present Incomplete right bundle-branch block no longer present Electronically Signed On 04-11-23 13:26:12 CDT by Zachary Horner
== END 2023-04-10 15:08 | disposition home or self-care (01) ==
LOC: ER 10:20
DX: R10.813 Right lower quadrant abdominal tenderness (principal); R11.0 Nausea; Z88.0 Allergy status to penicillin; Z88.5 Allergy status to narcotic agent; Z88.8 Allergy status to other drugs, medicaments and biological substances; Z91.048 Other nonmedicinal substance allergy status
CPT/HCPCS: 93005; 85025; 81001; 80048; 36415; 83735; 85610; 80076; 84484; 83690; 83880; 74176; 71045; 96375; 96374; 99285; J3010; J2405; J7030